=== PATIENT | female | born 1970 | race Caucasian/White ===

== ENCOUNTER 2016-08-17 09:13 | Emergency (ER) | payer MEDICARE, MEDICAID ==
[~2016-08-17 09:13] MED LIST: /LABE20TA OR; ACET50TA PO; ACET65TA OR; AMLODIPINE OR; BENAZ OR; DULCOLAX PO; DULO30CA PO; ENOX40SY SC; FERR325T OR; FOLI1TAB OR; IBUP200T2 PO; IBUP600T OR; KEFL250C OR; LEFL1TAB4 PO; LISI-538 PO; LOPE2CA PO; MOTR200T44 PO; PERC5TAB8 OR; PLAQ200T PO; PRED10TA2 OR; PRED5TA PO; PRED5TAB OR; PRENTAB8 PO; Vicodin PO; ZOFR8TAB PO; [UNRECOGNIZED DRUG - CODE] OR; [UNRECOGNIZED DRUG - CODE] OR; blood pressure pill PO
[2016-08-17] MEDS ORDERED: GASTROGRAFIN SOLUTION 30ML (Q9963) As Ordered ONE (10:10)
[2016-08-17] MEDS ORDERED: ONDANSETRON 4MG/2ML VIAL (J2405) As Ordered ONE (10:22)
[2016-08-17 10:30] LABS: BASO % 0.3 % (0.0-1.0); EOS % 0.4 % (0.0-3.0); LARGE UNSTAINED CELL # 0.1 K/mm3 (0.0-0.4); LARGE UNSTAINED CELL % 1.9 % (0.0-4.0); LYMPH # 0.4 K/mm3 (1.5-4.5); LYMPH % 12.3 % (24.0-44.0); MEAN CORPUSCULAR HEMOGLOBIN 27.6 pg (27.0-33.0); MEAN CORPUSCULAR HGB CONC 32.4 g/dl (32.0-36.5); MEAN CORPUSCULAR VOLUME 85.1 fl (80.0-96.0); MONO # 0.2 K/mm3 (0.0-0.8); MONO % 4.1 % (0.0-5.0); NEUTROPHILS # 2.9 K/mm3 (1.8-7.7); NEUTROPHILS % 81.1 % (36.0-66.0); PLATELET COUNT, AUTOMATED 133 k/mm3 (150-450); RED CELL DISTRIBUTION WIDTH 14.5 % (11.5-14.5); WHITE BLOOD COUNT 3.6 K/mm3 (4.0-10.0)
[2016-08-17 10:58] LABS: ALBUMIN 3.4 GM/DL (3.2-5.2); ALBUMIN/GLOBULIN RATIO 0.92 (1.00-1.93); ALKALINE PHOSPHATASE 80 U/L (45-117); ALT/SGPT 14 U/L (12-78); AMYLASE 28 U/L (25-115); ANION GAP 8 MEQ/L (8-16); AST/SGOT 18 U/L (15-37); BILIRUBIN,DIRECT 0.1 MG/DL (0.0-0.2); BILIRUBIN,TOTAL 0.5 MG/DL (0.2-1.0); BLOOD UREA NITROGEN 16 MG/DL (7-18); CALCIUM LEVEL 7.9 MG/DL (8.5-10.1); CARBON DIOXIDE LEVEL 23 MEQ/L (21-32); CHLORIDE LEVEL 108 MEQ/L (98-107); CREATININE FOR GFR 0.53 MG/DL (0.55-1.02); GLOMERULAR FILTRATION RATE > 60.0 (>58); GLUCOSE, FASTING 73 MG/DL (70-105); POTASSIUM SERUM 3.6 MEQ/L (3.5-5.1); SODIUM LEVEL 139 MEQ/L (136-145); TOTAL PROTEIN 7.1 GM/DL (6.4-8.2)
[2016-08-17] MEDS ORDERED: ISOVUE-370 76% 100ML VIAL (Q9967) As Ordered ONE (11:47)
--- NOTE | 2016-08-17 12:33 | REP ---
CT abdomen and pelvis with IV and oral contrast: History: Left lateral abdominal pain, nausea, vomiting and diarrhea. Comparison CT study September 02, 2015. CT contrast dose: 100 ml of Isovue [address] findings: Preliminary photo graphics librarian radiograph demonstrates that the patient is status post lumbar spine fusion with transpedicular screws and dorsal interconnecting rods across the L3-4 disc level. There is a L3-4 disc spacer ventrally as well. Bowel gas pattern is unremarkable. The lung bases are clear. There is a small low density area in the anterior segment right lobe of the liver 1.1 cm in greatest diameter. This is unchanged from the September 02, [address] study. The October 2012 prior exam shows a larger hypervascular lesion which has apparently regressed in the interval since 2012. No other focal liver lesion is seen. Spleen is normal in size, homogeneous in texture. No adrenal lesion is seen. The pancreas is unremarkable. There is some spray artifact from the lumbar spine hardware. There are scattered normal-sized mesenteric and left periaortic lymph nodes which are unchanged from August 2015 and October 2012 prior studies. Small and large intestinal bowel loops are intact. Urinary bladder is unremarkable. The patient is status post hysterectomy and by history, appendectomy. No abdominal wall defect is seen. No bony lesion is observed. The kidneys enhance symmetrically and are morphologically intact. There is an intrarenal calculus in the upper pole of the right kidney, 3 mm in diameter. No intrarenal calculi are seen on the left. No ureteral or bladder calculus is seen. No significant hydronephrosis. Impression: No acute intra-abdominal abnormality. Intrarenal calculus upper pole right kidney without hydronephrosis or hydroureter. Stable small low-density lesion in the liver. Uterus and appendix surgically absent. Signed by Gray Espana MD 08/17/2016 03:05 P
--- NOTE | 2016-08-17 12:49 | EDDOCDS ---
Physician Documentation [facility] Name: Elmira Harris Age: 45 yrs Sex: Female : 1970 Arrival Date: 08/17/2016 Time: 09:13 Bed I2 / M2 Private MD: Kings Song P. Disposition: 08/17/16 12:36 Discharged to Home/Self Care. Impression: Other abdominal pain - left lateral, Nausea with vomiting, unspecified, Diarrhea, unspecified. - Condition is Stable. - Discharge Instructions: Diarrhea, Nausea and Vomiting. - Prescriptions for ZOFRAN ODT 4 mg Oral - dissolve 1 tablet by ORAL route 3-4 times daily As needed do not chew, do not swallow whole; 20 tablet. - Medication Reconciliation, Local Pharmacy Hours form. - Follow up: Emergency Department; When: As needed; Reason: Worsening of conditions. Follow up: Private Physician; When: 2 - 3 days; Reason: Wound/Symptom Recheck, Recheck today's complaints, Continuance of care. - Problem is new. - Symptoms have improved. Historical: - Allergies: Compazine; Ciprofloxacin; Macrobid; - Home Meds: 1. Plaquenil Unknown Oral once daily 2. Arava oral Unknown oral once daily 3. Amlodipine Unknown Oral once daily 4. Lisinopril Oral Unknown once daily 5. prednisone 5 mg Oral tab once daily 6. tramadol 50 mg Oral tab 1 tab every 6 hours - PMHx: Lupus; Hypertension; - PSHx: Appendectomy; Oophorectomy, right; Salpingectomy, Right; x 2; double urter implant; Hysterectomy; - Social history: Smoking status: Patient states was never smoker of tobacco. No barriers to communication noted, The patient speaks fluent Setswana, Speaks appropriately for age. - Family history: Not pertinent. - : The pt / caregiver states he / she is not on anticoagulants. Home medication list is obtained from the patient. - Exposure Risk Screening:: None identified. 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 4 in. (162.56 cm) (R); Pain 6/10; 12:46 BP 115 / 67; Pulse 85; Resp 20; Temp 97.1(O); Pulse Ox 99% on R/A; Pain 0/10; jc4 09:15 Body Mass Index 20.25 (53.52 kg, 162.56 cm) binh MDM: 09:47 Financial registration complete. lg 09:55 NS 0.9% 1000 ml IV at bolus once ordered. dt4 09:55 Ondansetron 4 mg IVP once ordered. dt4 09:55 IV Saline Lock ordered. dt4 09:55 Undress patient appropriately for examination ordered. dt4 09:56 Amylase Ordered. EDMS 09:56 Basic Metabolic Profile Ordered. EDMS 09:56 CBC with Diff Ordered. EDMS 09:56 Lipase Ordered. EDMS 09:56 Liver Profile Ordered. EDMS 09:56 Urinalysis Ordered. EDMS 09:56 Urine Culture Ordered. EDMS 09:56 CT ABD & PELVIS: IV and Oral Contrast Ordered. EDMS 09:56 NOTHING BY MOUTH+DIET ordered. EDMS 10:08 Diatrizoate Meglumine & Sodium Liquid 10 ml PO once; mix in 290cc of water, administer jc4 dose at 1015 ordered. 10:08 Diatrizoate Meglumine & Sodium Liquid 10 ml PO once; mix in 290cc of water, administer jc4 dose at 1045 ordered. 10:20 C REACTIVE PROTEIN QUANTITATIV Ordered. EDMS 11:18 [facility] Payment Agreement was scanned into [employer] and attached to record. lg Administered Medications: 10:15 Drug: Diatrizoate Meglumine & Sodium 10 ml [diatrizoate meglumine and diat.sodium 66 jc4 %-10 % oral solution (10 mL)] Route: PO; 10:27 Drug: NS 0.9% 1000 ml [sodium chloride 0.9 % injection solution] Route: IV; Rate: dsf bolus; Site: left antecubital; 12:49 Follow up: IV Status: Completed infusion; IV Intake: 1000ml jc4 10:28 Drug: Ondansetron 4 mg [ondansetron HCl 2 mg/mL intravenous solution (2 mL)] Route: dsf IVP; Site: left antecubital; 10:54 Drug: Diatrizoate Meglumine & Sodium 10 ml [diatrizoate meglumine and diat.sodium 66 ja5 %-10 % oral solution (10 mL)] Route: PO; Signatures: Dispatcher [employer] EDTom Muniz, Pilo Moulton lg RN RN mlb1 Elsa Sy RN RN jc4 Teodora Potter PA-C PAChucho [email or web address] Kristan Gao RN, Jessica RN ja5 The chart was reviewed and I authenticate all verbal orders and agree with the evaluation and treatment provided.Corrections: (The following items were deleted from the chart) 10:20 09:57 C REACTIVE PROTEIN QUANTITATIV+LAB ordered. EDMS EDMS Attachments: 11:18 [facility] [place] [facility] Payment Agreement lg MTDD
--- NOTE | 2016-08-17 12:49 | EDDOCDS ---
Nurse's Notes [facility] Name: Elmira Harris Age: 45 yrs Sex: Female : 1970 Arrival Date: 08/17/2016 Time: 09:13 Bed I2 / M2 Private MD: Kings Song P. Diagnosis: Other abdominal pain-left lateral;Nausea with vomiting, unspecified;Diarrhea, unspecified Presentation: 08/17 09:17 Presenting complaint: Patient states: Abdominal pain N/V/D since Monday. Adult Sepsis mlb1 Screening: The patient does not have new or worsening altered mentation. Patient's respiratory rate is less than 22. Systolic blood pressure is greater than 100. Patient has a qSOFA score of 0- Negative Sepsis Screen. Suicide/Homicide risk assessment- the patient denies having any suicidal and/or homicidal ideations and does not present with any other emotional, behavioral or mental health complaints. Status: Patient is not a online services manager or dependent. Transition of care: patient was not received from another setting of care. 09:17 Acuity: BRINA Level 3 mlb1 09:17 Method Of Arrival: Walkin/Carried/Asstd mlb1 Triage Assessment: 09:23 General: Appears in no apparent distress, Behavior is appropriate for age, cooperative. mlb1 Pain: Location: abdomen Pain currently is 5 out of 10 on a pain scale. HIV screening NA for this visit Offered previously. GI: Reports diarrhea, nausea, vomiting. 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 Plaquenil Unknown Oral once daily 2. Arava oral Unknown oral once daily 3. Amlodipine Unknown Oral once daily 4. Lisinopril Oral Unknown once daily 5. prednisone 5 mg Oral tab once daily 6. tramadol 50 mg Oral tab 1 tab every 6 hours - PMHx: Lupus; Hypertension; - PSHx: Appendectomy; Oophorectomy, right; Salpingectomy, Right; x 2; double urter implant; Hysterectomy; - Social history: Smoking status: Patient states was never smoker of tobacco. No barriers to communication noted, The patient speaks fluent Greek, Speaks appropriately for age. - Family history: Not pertinent. - : The pt / caregiver states he / she is not on anticoagulants. Home medication list is obtained from the patient. - Exposure Risk Screening:: None identified. Screenin:35 Screening information is obtained from the patient. Fall risk: No risks identified. ja5 Assistance ADL's: requires no assistance with activities of daily living. Abuse/DV Screen: The patient / caregiver reports he/she is: not in a situation that causes fear, pain or injury. Nutritional screening: On no prescribed diet. Advance Directives: Currently, there is no health care proxy. There is no active DNR order. There is no living will. There is no Power of Production Packager. home support is adequate. Assessment: 10:33 General: Appears ill, Behavior is appropriate for age, cooperative. Pain: Location: ja5 right lower quadrant and left lower quadrant Aggravated by palpating. Neurological: Level of Consciousness is awake, alert, Oriented to person, place, time. Cardiovascular: Heart tones S1 S2 present. Respiratory: Airway is patent Respiratory effort is even, unlabored, Respiratory pattern is regular, symmetrical, Breath sounds are clear bilaterally. GI: Abdomen is flat, Bowel sounds present X 4 quads. Abd is tender to palpation in right lower quadrant and left lower quadrant. Derm: Skin is intact, Skin is pale. 11:46 Adult Sepsis Screening: The patient does not have new or worsening altered mentation. dsf Patient's respiratory rate is less than 22. Systolic blood pressure is greater than 100. Patient has a qSOFA score of 0- Negative Sepsis Screen. General: Appears in no apparent distress, Behavior is appropriate for age, cooperative. Neurological: Level of Consciousness is awake, alert. Cardiovascular: No deficits noted. Respiratory: No deficits noted. GI: Denies nausea. Derm: Skin is intact, Skin is pale. 12:46 General: Appears in no apparent distress, Behavior is cooperative. Pain: Denies pain. jc4 Neurological: Level of Consciousness is awake, alert, Oriented to person, place, time. Respiratory: Airway is patent Respiratory effort is even, unlabored, Respiratory pattern is regular, symmetrical. Derm: Skin is pink, warm & dry. Vital Signs: 09:15 BP 116 / 83; Pulse 95; Resp 18; Temp 97.7(O); Pulse Ox 100% ; Weight 53.52 kg (R); jrd Height 5 ft. 4 in. (162.56 cm) (R); Pain 6/10; 12:46 BP 115 / 67; Pulse 85; Resp 20; Temp 97.1(O); Pulse Ox 99% on R/A; Pain 0/10; jc4 09:15 Body Mass Index 20.25 (53.52 kg, 162.56 cm) [facility] Vitals: 09:15 Log In Time: August 17, 2016 at 09:10. d ED Course: 09:15 Patient visited by Itz Del Castillo PCA. jrd 09:15 Kings Song is Private Physician. jrd 09:15 Patient moved to Waiting jrd 09:16 Patient visited by Itz Del Castillo PCA. jrd 09:16 Patient moved to Pre RCE jrd 09:18 Triage Initiated mlb1 09:23 Patient visited by Pilo Barnett RN. mlb1 09:24 Patient moved to Triage 3 ct3 09:40 Teodora Potter PA-C is PHCP. dt4 09:40 Gorge Mike MD is Attending Physician. dt4 09:40 Patient visited by Teodora Potter PA-C. dt4 10:00 Elsa Sy RN is Primary Nurse. ct3 10:00 Cecily Bhatt,KALEN is Primary Nurse. ct3 10:00 Patient moved to I2 / M2 ct3 10:00 The patient / caregiver is instructed regarding the plan of care and ED course. jc4 10:04 Urinalysis Sent. ct3 10:04 Urine Culture Sent. ct3 10:28 Patient visited by Cecily Bhatt RN. ja5 10:28 Inserted saline lock: 20 gauge in left antecubital area. ja5 11:18 [facility] Payment Agreement was scanned into [email or web address] and attached to record. lg 11:47 Patient visited by Kristan Gao RN. dsf 12:47 Discontinued lock intact, bleeding controlled, pressure dressing applied, No jc4 redness/swelling at site. No procedures done that require assistance. Administered Medications: 10:15 Drug: Diatrizoate Meglumine & Sodium 10 ml [diatrizoate meglumine and diat.sodium 66 jc4 %-10 % oral solution (10 mL)] Route: PO; 10:27 Drug: NS 0.9% 1000 ml [sodium chloride 0.9 % injection solution] Route: IV; Rate: dsf bolus; Site: left antecubital; 12:49 Follow up: IV Status: Completed infusion; IV Intake: 1000ml jc4 10:28 Drug: Ondansetron 4 mg [ondansetron HCl 2 mg/mL intravenous solution (2 mL)] Route: dsf IVP; Site: left antecubital; 10:54 Drug: Diatrizoate Meglumine & Sodium 10 ml [diatrizoate meglumine and diat.sodium 66 ja5 %-10 % oral solution (10 mL)] Route: PO; Intake: 12:49 IV: 1000.00ml; Total: 1000.00ml. jc4 Order Results: Lab Order: Amylase; SPEC'M 08/17/16 10:00 Test: AMYLASE; Value: 28; Range: 25-115; Units: U/L; Status: F Lab Order: Basic Metabolic Profile; SPEC'M 08/17/16 10:00 Test: GLUCOSE, FASTING; Value: 73; Range: 70-105; Units: MG/DL; Status: F Test: BLOOD UREA NITROGEN; Value: 16; Range: 7-18; Units: MG/DL; Status: F Test: CREATININE FOR GFR; Value: 0.53; Range: 0.55-1.02; Abnormal: Below low normal; Units: MG/DL; Status: F Test: GLOMERULAR FILTRATION RATE; Value: > 60.0; Range: >58; Status: F Test: SODIUM LEVEL; Value: 139; Range: 136-145; Units: MEQ/L; Status: F Test: POTASSIUM SERUM; Value: 3.6; Range: 3.5-5.1; Units: MEQ/L; Status: F Test: CHLORIDE LEVEL; Value: 108; Range: 98-107; Abnormal: Above high normal; Units: MEQ/L; Status: F Test: CARBON DIOXIDE LEVEL; Value: 23; Range: 21-32; Units: MEQ/L; Status: F Test: ANION GAP; Value: 8; Range: 8-16; Units: MEQ/L; Status: F Test: CALCIUM LEVEL; Value: 7.9; Range: 8.5-10.1; Abnormal: Below low normal; Units: MG/DL; Status: F Test Note: ; Units are mL/min/1.73 m2 Chronic Kidney Disease Staging per NKF: Stage I & II GFR >=60 Normal to Mildly Decreased Stage III GFR 30-59 Moderately Decreased Stage IV GFR 15-29 Severely Decreased Stage V GFR <15 Very Little GFR Left ESRD GFR <15 on WAREHOUSE TECHNICIAN Lab Order: CBC with Diff; SPEC'M 08/17/16 10:00 Test: WHITE BLOOD COUNT; Value: 3.6; Range: 4.0-10.0; Abnormal: Below low normal; Units: K/mm3; Status: F Test: RED BLOOD COUNT; Value: 4.68; Range: 4.00-5.40; Units: M/mm3; Status: F Test: HEMOGLOBIN; Value: 12.9; Range: 12.0-16.0; Units: g/dl; Status: F Test: HEMATOCRIT; Value: 39.8; Range: 36.0-47.0; Units: %; Status: F Test: MEAN CORPUSCULAR VOLUME; Value: 85.1; Range: 80.0-96.0; Units: fl; Status: F Test: MEAN CORPUSCULAR HEMOGLOBIN; Value: 27.6; Range: 27.0-33.0; Units: pg; Status: F Test: MEAN CORPUSCULAR HGB CONC; Value: 32.4; Range: 32.0-36.5; Units: g/dl; Status: F Test: RED CELL DISTRIBUTION WIDTH; Value: 14.5; Range: 11.5-14.5; Units: %; Status: F Test: PLATELET COUNT, AUTOMATED; Value: 133; Range: 150-450; Abnormal: Below low normal; Units: k/mm3; Status: F Test: NEUTROPHILS %; Value: 81.1; Range: 36.0-66.0; Abnormal: Above high normal; Units: %; Status: F Test: LYMPH %; Value: 12.3; Range: 24.0-44.0; Abnormal: Below low normal; Units: %; Status: F Test: MONO %; Value: 4.1; Range: 0.0-5.0; Units: %; Status: F Test: EOS %; Value: 0.4; Range: 0.0-3.0; Units: %; Status: F Test: BASO %; Value: 0.3; Range: 0.0-1.0; Units: %; Status: F Test: LARGE UNSTAINED CELL %; Value: 1.9; Range: 0.0-4.0; Units: %; Status: F Test: NEUTROPHILS #; Value: 2.9; Range: 1.8-7.7; Units: K/mm3; Status: F Test: LYMPH #; Value: 0.4; Range: 1.5-4.5; Abnormal: Below low normal; Units: K/mm3; Status: F Test: MONO #; Value: 0.2; Range: 0.0-0.8; Units: K/mm3; Status: F Test: EOS #; Value: 0.0; Range: 0.0-0.50; Units: K/mm3; Status: F Test: BASO #; Value: 0.0; Range: 0.0-0.2; Units: K/mm3; Status: F Test: LARGE UNSTAINED CELL #; Value: 0.1; Range: 0.0-0.4; Units: K/mm3; Status: F Lab Order: Lipase; [facility]' 08/17/16 10:00 Test: LIPASE; Value: 127; Range: 73-393; Units: U/L; Status: F Lab Order: Liver Profile; [facility] 08/17/16 10:00 Test: AST/SGOT; Value: 18; Range: 15-37; Units: U/L; Status: F Test: ALT/SGPT; Value: 14; Range: 12-78; Units: U/L; Status: F Test: ALKALINE PHOSPHATASE; Value: 80; Range: 45-117; Units: U/L; Status: F Test: BILIRUBIN,TOTAL; Value: 0.5; Range: 0.2-1.0; Units: MG/DL; Status: F Test: BILIRUBIN,DIRECT; Value: 0.1; Range: 0.0-0.2; Units: MG/DL; Status: F Test: TOTAL PROTEIN; Value: 7.1; Range: 6.4-8.2; Units: GM/DL; Status: F Test: ALBUMIN; Value: 3.4; Range: 3.2-5.2; Units: GM/DL; Status: F Test: ALBUMIN/GLOBULIN RATIO; Value: 0.92; Range: 1.00-1.93; Abnormal: Below low normal; Status: F Lab Order: Urinalysis; SPEC'M 08/17/16 10:00 Test: APPEARANCE, URINE; Value: HAZY; Range: CLEAR; Status: F Test: COLOR, URINE; Value: YELLOW; Range: YELLOW; Status: F Test: PH,URINE; Value: 5.0; Range: 5.0-9.0; Units: UNITS; Status: F Test: SPECIFIC GRAVITY URINE AUTO; Value: 1.026; Range: 1.002-1.035; Status: F Test: PROTEIN, URINE AUTO; Value: 1+; Range: NEGATIVE; Abnormal: Above high normal; Units: mg/dL; Status: F Test: GLUCOSE, URINE (UA) AUTO; Value: NEGATIVE; Range: NEGATIVE; Units: mg/dL; Status: F Test: KETONE, URINE AUTO; Value: 2+; Range: NEGATIVE; Abnormal: Above high normal; Units: mg/dL; Status: F Test: UROBILINOGEN, URINE AUTO; Value: 0.2; Range: 0.0-2.0; Units: mg/dL; Status: F Test: BILIRUBIN, URINE AUTO; Value: NEGATIVE; Range: NEGATIVE; Status: F Test: NITRITE, URINE AUTO; Value: NEGATIVE; Range: NEGATIVE; Status: F Test: LEUKOCYTE ESTERASE, URINE AUTO; Value: NEGATIVE; Range: NEGATIVE; Status: F Test: BLOOD, URINE BLOOD; Value: NEGATIVE; Range: NEGATIVE; Status: F Test: WBC, URINE AUTO; Value: 2; Range: 0-3; Units: /HPF; Status: F Test: RBC, URINE AUTO; Value: 1; Range: 0-3; Units: /HPF; Status: F Test: BACTERIA, URINE AUTO; Value: NEGATIVE; Range: NEGATIVE; Status: F Test: SQUAMOUS EPITHELIAL CELL UR AU; Value: 2; Range: 0-6; Units: /HPF; Status: F Test: MUCUS, URINE; Value: SMALL; Range: NEGATIVE; Status: F Test: HYALINE CAST, URINE AUTO; Value: 1; Range: 0-1; Units: /LPF; Status: F Lab Order: C REACTIVE PROTEIN QUANTITATIV; SPEC'M 08/17/16 10:00 Test: C REACTIVE PROTEIN QUANTITATIV; Value: 1.19; Range: 0.00-0.30; Abnormal: Above high normal; Units: MG/DL; Status: F Outcome: 12:36 Discharge ordered by Provider. dt4 12:47 Discharge Assessment: Patient awake, alert and oriented x 3. No cognitive and/or jc4 functional deficits noted. Patient verbalized understanding of disposition instructions. patient administered narcotics - no. The following High Risk Discharge criteria are identified: None. Discharged to home ambulatory, with significant other. Condition: stable. Discharge instructions given to patient, Instructed on discharge instructions, follow up and referral plans. medication usage, Demonstrated understanding of instructions, medications, Pt was receptive of discharge instructions/ teaching. CT Study completed. Property :Personal belongings accompany Pt. 12:48 Patient left the ED. jc4 Signatures: Tom Ruiz, Freddy Reg Pilo Andersen RN RN mlb1 Elsa Sy RN RN jc4 Dayana Israel, ASSISTANT FRONT OFFICE MANAGER ASSISTANT FRONT OFFICE MANAGER ct3 Kristan Gao,RN RN dsf Teodora Potter, PA-C PA-C dt4 Itz Del Castillo, ASSISTANT FRONT OFFICE MANAGER ASSISTANT FRONT OFFICE MANAGER d Cecily Bhatt,RN RN ja5 Corrections: (The following items were deleted from the chart) 10:31 10:28 General: samson davies CANDICE
--- NOTE | 2016-08-19 13:49 | EDDOCDS ---
Nurse's Notes [facility] Name: Elmira Harris Age: 45 yrs Sex: Female : 1970 Arrival Date: 08/17/2016 Time: 09:13 Bed I2 / M2 Private MD: Kings Song P. Diagnosis: Other abdominal pain-left lateral;Nausea with vomiting, unspecified;Diarrhea, unspecified Presentation: 08/17 09:17 Presenting complaint: Patient states: Abdominal pain N/V/D since Monday. Adult Sepsis mlb1 Screening: The patient does not have new or worsening altered mentation. Patient's respiratory rate is less than 22. Systolic blood pressure is greater than 100. Patient has a qSOFA score of 0- Negative Sepsis Screen. Suicide/Homicide risk assessment- the patient denies having any suicidal and/or homicidal ideations and does not present with any other emotional, behavioral or mental health complaints. 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 Transition of care: patient was not received from another setting of care. 09:17 Acuity: BRINA Level 3 mlb1 09:17 Method Of Arrival: Walkin/Carried/Asstd mlb1 Triage Assessment: 09:23 General: Appears in no apparent distress, Behavior is appropriate for age, cooperative. mlb1 Pain: Location: abdomen Pain currently is 5 out of 10 on a pain scale. HIV screening NA for this visit Offered previously. GI: Reports diarrhea, nausea, vomiting. 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 Plaquenil Unknown Oral once daily 2. Arava oral Unknown oral once daily 3. Amlodipine Unknown Oral once daily 4. Lisinopril Oral Unknown once daily 5. prednisone 5 mg Oral tab once daily 6. tramadol 50 mg Oral tab 1 tab every 6 hours - PMHx: Lupus; Hypertension; - PSHx: Appendectomy; Oophorectomy, right; Salpingectomy, Right; x 2; double urter implant; Hysterectomy; - Social history: Smoking status: Patient states was never smoker of tobacco. No barriers to communication noted, The patient speaks fluent Maldivian, Speaks appropriately for age. - Family history: Not pertinent. - : The pt / caregiver states he / she is not on anticoagulants. Home medication list is obtained from the patient. - Exposure Risk Screening:: None identified. Screenin:35 Screening information is obtained from the patient. Fall risk: No risks identified. ja5 Assistance ADL's: requires no assistance with activities of daily living. Abuse/DV Screen: The patient / caregiver reports he/she is: not in a situation that causes fear, pain or injury. Nutritional screening: On no prescribed diet. Advance Directives: Currently, there is no health care proxy. There is no active DNR order. There is no living will. There is no Power of Certified [place] Administrator. home support is adequate. Assessment: 10:33 General: Appears ill, Behavior is appropriate for age, cooperative. Pain: Location: ja5 right lower quadrant and left lower quadrant Aggravated by palpating. Neurological: Level of Consciousness is awake, alert, Oriented to person, place, time. Cardiovascular: Heart tones S1 S2 present. Respiratory: Airway is patent Respiratory effort is even, unlabored, Respiratory pattern is regular, symmetrical, Breath sounds are clear bilaterally. GI: Abdomen is flat, Bowel sounds present X 4 quads. Abd is tender to palpation in right lower quadrant and left lower quadrant. Derm: Skin is intact, Skin is pale. 11:46 Adult Sepsis Screening: The patient does not have new or worsening altered mentation. dsf Patient's respiratory rate is less than 22. Systolic blood pressure is greater than 100. Patient has a qSOFA score of 0- Negative Sepsis Screen. General: Appears in no apparent distress, Behavior is appropriate for age, cooperative. Neurological: Level of Consciousness is awake, alert. Cardiovascular: No deficits noted. Respiratory: No deficits noted. GI: Denies nausea. Derm: Skin is intact, Skin is pale. 12:46 General: Appears in no apparent distress, Behavior is cooperative. Pain: Denies pain. jc4 Neurological: Level of Consciousness is awake, alert, Oriented to person, place, time. Respiratory: Airway is patent Respiratory effort is even, unlabored, Respiratory pattern is regular, symmetrical. Derm: Skin is pink, warm & dry. Vital Signs: 09:15 BP 116 / 83; Pulse 95; Resp 18; Temp 97.7(O); Pulse Ox 100% ; Weight 53.52 kg (R); jrd Height 5 ft. 4 in. (162.56 cm) (R); Pain 6/10; 12:46 BP 115 / 67; Pulse 85; Resp 20; Temp 97.1(O); Pulse Ox 99% on R/A; Pain 0/10; jc4 09:15 Body Mass Index 20.25 (53.52 kg, 162.56 cm) [facility] Vitals: 09:15 Log In Time: August 17, 2016 at 09:10. jrd ED Course: 09:15 Patient visited by Itz Del Castillo PCA. jrd 09:15 Kings Song is Private Physician. jrd 09:15 Patient moved to Waiting jrd 09:16 Patient visited by Itz Del Castillo PCA. jrd 09:16 Patient moved to Pre RCE jrd 09:18 Triage Initiated mlb1 09:23 Patient visited by Pilo Barnett RN. mlb1 09:24 Patient moved to Triage 3 ct3 09:40 Teodora Potter PA-C is PHCP. dt4 09:40 Gorge Mike MD is Attending Physician. dt4 09:40 Patient visited by Teodora Potter PA-C. dt4 10:00 Elsa Sy RN is Primary Nurse. ct3 10:00 Cecily Bhatt,KALEN is Primary Nurse. ct3 10:00 Patient moved to I2 / M2 ct3 10:00 The patient / caregiver is instructed regarding the plan of care and ED course. jc4 10:04 Urinalysis Sent. ct3 10:04 Urine Culture Sent. ct3 10:28 Patient visited by Cecily Bhatt RN. ja5 10:28 Inserted saline lock: 20 gauge in left antecubital area. ja5 11:18 [facility] Payment Agreement was scanned into [employer] and attached to record. lg 11:47 Patient visited by Kristan Gao,KALEN. dsf 12:47 Discontinued lock intact, bleeding controlled, pressure dressing applied, No jc4 redness/swelling at site. No procedures done that require assistance. 12:58 CT ABD & PELVIS: IV and Oral Contrast Returned. EDMS 08/18 11:50 T-Sheet-- Draft Copy was scanned into [employer] and attached to record. gb 11:50 Radiology Report was scanned into [employer] and attached to record. gb Administered Medications: 08/17 10:15 Drug: Diatrizoate Meglumine & Sodium 10 ml [diatrizoate meglumine and diat.sodium 66 jc4 %-10 % oral solution (10 mL)] Route: PO; 10:27 Drug: NS 0.9% 1000 ml [sodium chloride 0.9 % injection solution] Route: IV; Rate: dsf bolus; Site: left antecubital; 12:49 Follow up: IV Status: Completed infusion; IV Intake: 1000ml jc4 10:28 Drug: Ondansetron 4 mg [ondansetron HCl 2 mg/mL intravenous solution (2 mL)] Route: dsf IVP; Site: left antecubital; 10:54 Drug: Diatrizoate Meglumine & Sodium 10 ml [diatrizoate meglumine and diat.sodium 66 ja5 %-10 % oral solution (10 mL)] Route: PO; Intake: 12:49 IV: 1000.00ml; Total: 1000.00ml. jc4 Order Results: Lab Order: Amylase; SPEC'M 08/17/16 10:00 Test: AMYLASE; Value: 28; Range: 25-115; Units: U/L; Status: F Lab Order: Basic Metabolic Profile; SPEC'M 08/17/16 10:00 Test: GLUCOSE, FASTING; Value: 73; Range: 70-105; Units: MG/DL; Status: F Test: BLOOD UREA NITROGEN; Value: 16; Range: 7-18; Units: MG/DL; Status: F Test: CREATININE FOR GFR; Value: 0.53; Range: 0.55-1.02; Abnormal: Below low normal; Units: MG/DL; Status: F Test: GLOMERULAR FILTRATION RATE; Value: > 60.0; Range: >58; Status: F Test: SODIUM LEVEL; Value: 139; Range: 136-145; Units: MEQ/L; Status: F Test: POTASSIUM SERUM; Value: 3.6; Range: 3.5-5.1; Units: MEQ/L; Status: F Test: CHLORIDE LEVEL; Value: 108; Range: 98-107; Abnormal: Above high normal; Units: MEQ/L; Status: F Test: CARBON DIOXIDE LEVEL; Value: 23; Range: 21-32; Units: MEQ/L; Status: F Test: ANION GAP; Value: 8; Range: 8-16; Units: MEQ/L; Status: F Test: CALCIUM LEVEL; Value: 7.9; Range: 8.5-10.1; Abnormal: Below low normal; Units: MG/DL; Status: F Test Note: ; Units are mL/min/1.73 m2 Chronic Kidney Disease Staging per NKF: Stage I & II GFR >=60 Normal to Mildly Decreased Stage III GFR 30-59 Moderately Decreased Stage IV GFR 15-29 Severely Decreased Stage V GFR <15 Very Little GFR Left ESRD GFR <15 on STOCK PATCHER Lab Order: CBC with Diff; SPEC'M 08/17/16 10:00 Test: WHITE BLOOD COUNT; Value: 3.6; Range: 4.0-10.0; Abnormal: Below low normal; Units: K/mm3; Status: F Test: RED BLOOD COUNT; Value: 4.68; Range: 4.00-5.40; Units: M/mm3; Status: F Test: HEMOGLOBIN; Value: 12.9; Range: 12.0-16.0; Units: g/dl; Status: F Test: HEMATOCRIT; Value: 39.8; Range: 36.0-47.0; Units: %; Status: F Test: MEAN CORPUSCULAR VOLUME; Value: 85.1; Range: 80.0-96.0; Units: fl; Status: F Test: MEAN CORPUSCULAR HEMOGLOBIN; Value: 27.6; Range: 27.0-33.0; Units: pg; Status: F Test: MEAN CORPUSCULAR HGB CONC; Value: 32.4; Range: 32.0-36.5; Units: g/dl; Status: F Test: RED CELL DISTRIBUTION WIDTH; Value: 14.5; Range: 11.5-14.5; Units: %; Status: F Test: PLATELET COUNT, AUTOMATED; Value: 133; Range: 150-450; Abnormal: Below low normal; Units: k/mm3; Status: F Test: NEUTROPHILS %; Value: 81.1; Range: 36.0-66.0; Abnormal: Above high normal; Units: %; Status: F Test: LYMPH %; Value: 12.3; Range: 24.0-44.0; Abnormal: Below low normal; Units: %; Status: F Test: MONO %; Value: 4.1; Range: 0.0-5.0; Units: %; Status: F Test: EOS %; Value: 0.4; Range: 0.0-3.0; Units: %; Status: F Test: BASO %; Value: 0.3; Range: 0.0-1.0; Units: %; Status: F Test: LARGE UNSTAINED CELL %; Value: 1.9; Range: 0.0-4.0; Units: %; Status: F Test: NEUTROPHILS #; Value: 2.9; Range: 1.8-7.7; Units: K/mm3; Status: F Test: LYMPH #; Value: 0.4; Range: 1.5-4.5; Abnormal: Below low normal; Units: K/mm3; Status: F Test: MONO #; Value: 0.2; Range: 0.0-0.8; Units: K/mm3; Status: F Test: EOS #; Value: 0.0; Range: 0.0-0.50; Units: K/mm3; Status: F Test: BASO #; Value: 0.0; Range: 0.0-0.2; Units: K/mm3; Status: F Test: LARGE UNSTAINED CELL #; Value: 0.1; Range: 0.0-0.4; Units: K/mm3; Status: F Lab Order: Lipase; SPEC'M 08/17/16 10:00 Test: LIPASE; Value: 127; Range: 73-393; Units: U/L; Status: F Lab Order: Liver Profile; SPEC'M 08/17/16 10:00 Test: AST/SGOT; Value: 18; Range: 15-37; Units: U/L; Status: F Test: ALT/SGPT; Value: 14; Range: 12-78; Units: U/L; Status: F Test: ALKALINE PHOSPHATASE; Value: 80; Range: 45-117; Units: U/L; Status: F Test: BILIRUBIN,TOTAL; Value: 0.5; Range: 0.2-1.0; Units: MG/DL; Status: F Test: BILIRUBIN,DIRECT; Value: 0.1; Range: 0.0-0.2; Units: MG/DL; Status: F Test: TOTAL PROTEIN; Value: 7.1; Range: 6.4-8.2; Units: GM/DL; Status: F Test: ALBUMIN; Value: 3.4; Range: 3.2-5.2; Units: GM/DL; Status: F Test: ALBUMIN/GLOBULIN RATIO; Value: 0.92; Range: 1.00-1.93; Abnormal: Below low normal; Status: F Lab Order: Urinalysis; SPEC'M 08/17/16 10:00 Test: APPEARANCE, URINE; Value: HAZY; Range: CLEAR; Status: F Test: COLOR, URINE; Value: YELLOW; Range: YELLOW; Status: F Test: PH,URINE; Value: 5.0; Range: 5.0-9.0; Units: UNITS; Status: F Test: SPECIFIC GRAVITY URINE AUTO; Value: 1.026; Range: 1.002-1.035; Status: F Test: PROTEIN, URINE AUTO; Value: 1+; Range: NEGATIVE; Abnormal: Above high normal; Units: mg/dL; Status: F Test: GLUCOSE, URINE (UA) AUTO; Value: NEGATIVE; Range: NEGATIVE; Units: mg/dL; Status: F Test: KETONE, URINE AUTO; Value: 2+; Range: NEGATIVE; Abnormal: Above high normal; Units: mg/dL; Status: F Test: UROBILINOGEN, URINE AUTO; Value: 0.2; Range: 0.0-2.0; Units: mg/dL; Status: F Test: BILIRUBIN, URINE AUTO; Value: NEGATIVE; Range: NEGATIVE; Status: F Test: NITRITE, URINE AUTO; Value: NEGATIVE; Range: NEGATIVE; Status: F Test: LEUKOCYTE ESTERASE, URINE AUTO; Value: NEGATIVE; Range: NEGATIVE; Status: F Test: BLOOD, URINE BLOOD; Value: NEGATIVE; Range: NEGATIVE; Status: F Test: WBC, URINE AUTO; Value: 2; Range: 0-3; Units: /HPF; Status: F Test: RBC, URINE AUTO; Value: 1; Range: 0-3; Units: /HPF; Status: F Test: BACTERIA, URINE AUTO; Value: NEGATIVE; Range: NEGATIVE; Status: F Test: SQUAMOUS EPITHELIAL CELL UR AU; Value: 2; Range: 0-6; Units: /HPF; Status: F Test: MUCUS, URINE; Value: SMALL; Range: NEGATIVE; Status: F Test: HYALINE CAST, URINE AUTO; Value: 1; Range: 0-1; Units: /LPF; Status: F Lab Order: Urine Culture; SPEC'M 08/17/16 10:00 Test: URINE CULTURE; Value: <EXTERNAL COMMENT eCWMed> FULL REPORT IN LAB NOTES (eCW and Medent).; Status: F Test: URINE CULTURE; Value: URINE CULTURE RESULT; Status: F Test: URINE CULTURE; Value: NO GROWTH CLINICAL SIGNIFICANCE 2 OR MORE ORGANISMS; Status: F Lab Order: C REACTIVE PROTEIN QUANTITATIV; SPEC'M 08/17/16 10:00 Test: C REACTIVE PROTEIN QUANTITATIV; Value: 1.19; Range: 0.00-0.30; Abnormal: Above high normal; Units: MG/DL; Status: F Radiology Order: CT ABD & PELVIS: IV and Oral Contrast Test: CT ABD & PELVIS: IV and Oral Contrast REASON FOR EXAMINATION: left lateral abd pain, n/v/d; CT abdomen and pelvis with IV and oral contrast:; ; History: Left lateral abdominal pain, nausea, vomiting and diarrhea.; ; Comparison CT study September 02, 2015.; ; CT contrast dose: 100 ml of Isovue 370 is administered intravenously.; ; CT findings: Preliminary insole beveler radiograph demonstrates that the patient is; status post lumbar spine fusion with transpedicular screws and dorsal; interconnecting rods across the L3-4 disc level. There is a L3-4 disc spacer; ventrally as well. Bowel gas pattern is unremarkable.; ; The lung bases are clear. There is a small low density area in the anterior; segment right lobe of the liver 1.1 cm in greatest diameter. This is unchanged; from the September 02, [address] study. The October 2012 prior exam shows a; larger hypervascular lesion which has apparently regressed in the interval since2012. No other focal liver lesion is seen. Spleen is normal in size,; homogeneous in texture. No adrenal lesion is seen. The pancreas is; unremarkable. There is some spray artifact from the lumbar spine hardware.; There are scattered normal-sized mesenteric and left periaortic lymph nodes which; are unchanged from August 2015 and October 2012 prior studies. Small and large; intestinal bowel loops are intact. Urinary bladder is unremarkable. The patient; is status post hysterectomy and by history, appendectomy. No abdominal wall; defect is seen. No bony lesion is observed.; ; The kidneys enhance symmetrically and are morphologically intact. There is an; intrarenal calculus in the upper pole of the right kidney, 3 mm in diameter. No; intrarenal calculi are seen on the left. No ureteral or bladder calculus is; seen. No significant hydronephrosis.; ; Impression:; ; No acute intra-abdominal abnormality. Intrarenal calculus upper pole right; kidney without hydronephrosis or hydroureter. Stable small low-density lesion in; the liver. Uterus and appendix surgically absent.; ; ; ; ; Signed by; Gray Espana MD 08/17/2016 03:05 P; Outcome: 12:36 Discharge ordered by Provider. dt4 12:47 Discharge Assessment: Patient awake, alert and oriented x 3. No cognitive and/or jc4 functional deficits noted. Patient verbalized understanding of disposition instructions. patient administered narcotics - no. The following High Risk Discharge criteria are identified: None. Discharged to home ambulatory, with significant other. Condition: stable. Discharge instructions given to patient, Instructed on discharge instructions, follow up and referral plans. medication usage, Demonstrated understanding of instructions, medications, Pt was receptive of discharge instructions/ teaching. CT Study completed. Property :Personal belongings accompany Pt. 12:48 Patient left the ED. jc4 Signatures: Dispatcher [employer] EDMS Tori Rinaldi, Reg Reg gb Tom Ruiz, Reg Reg lg Anibal, Pilo Rodriguez, RN RN mlb1 Elsa Sy RN RN jc4 Dayana Israel, POSTAL SERVICE WINDOW CLERK POSTAL SERVICE WINDOW CLERK ct3 Kristan Gao,RN RN dsf Teodora Potter, PA-C PA-C dt4 Itz Del Castillo, POSTAL SERVICE WINDOW CLERK POSTAL SERVICE WINDOW CLERK jrd Cecily Bhatt,RN RN ja5 Corrections: (The following items were deleted from the chart) 10:31 10:28 General: samson ja5 Chart Complete MTDD
--- NOTE | 2016-08-19 13:49 | EDDOCDS ---
Physician Documentation [facility] Name: Elmira Harris Age: 45 yrs Sex: Female : 1970 Arrival Date: 08/17/2016 Time: 09:13 Bed I2 / M2 Private MD: Kings Song P. Disposition: 08/17/16 12:36 Discharged to Home/Self Care. Impression: Other abdominal pain - left lateral, Nausea with vomiting, unspecified, Diarrhea, unspecified. - Condition is Stable. - Discharge Instructions: Diarrhea, Nausea and Vomiting. - Prescriptions for ZOFRAN ODT 4 mg Oral - dissolve 1 tablet by ORAL route 3-4 times daily As needed do not chew, do not swallow whole; 20 tablet. - Medication Reconciliation, Local Pharmacy Hours form. - Follow up: Emergency Department; When: As needed; Reason: Worsening of conditions. Follow up: Private Physician; When: 2 - 3 days; Reason: Wound/Symptom Recheck, Recheck today's complaints, Continuance of care. - Problem is new. - Symptoms have improved. Historical: - Allergies: Compazine; Ciprofloxacin; Macrobid; - Home Meds: 1. Plaquenil Unknown Oral once daily 2. Arava oral Unknown oral once daily 3. Amlodipine Unknown Oral once daily 4. Lisinopril Oral Unknown once daily 5. prednisone 5 mg Oral tab once daily 6. tramadol 50 mg Oral tab 1 tab every 6 hours - PMHx: Lupus; Hypertension; - PSHx: Appendectomy; Oophorectomy, right; Salpingectomy, Right; x 2; double urter implant; Hysterectomy; - Social history: Smoking status: Patient states was never smoker of tobacco. No barriers to communication noted, The patient speaks fluent Slovak, Speaks appropriately for age. - Family history: Not pertinent. - : The pt / caregiver states he / she is not on anticoagulants. Home medication list is obtained from the patient. - Exposure Risk Screening:: None identified. 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 4 in. (162.56 cm) (R); Pain 6/10; 12:46 BP 115 / 67; Pulse 85; Resp 20; Temp 97.1(O); Pulse Ox 99% on R/A; Pain 0/10; jc4 09:15 Body Mass Index 20.25 (53.52 kg, 162.56 cm) jrsaúl MDM: 09:47 Financial registration complete. lg 09:55 NS 0.9% 1000 ml IV at bolus once ordered. dt4 09:55 Ondansetron 4 mg IVP once ordered. dt4 09:55 IV Saline Lock ordered. dt4 09:55 Undress patient appropriately for examination ordered. dt4 09:56 Amylase Ordered. EDMS 09:56 Basic Metabolic Profile Ordered. EDMS 09:56 CBC with Diff Ordered. EDMS 09:56 Lipase Ordered. EDMS 09:56 Liver Profile Ordered. EDMS 09:56 Urinalysis Ordered. EDMS 09:56 Urine Culture Ordered. EDMS 09:56 CT ABD & PELVIS: IV and Oral Contrast Ordered. EDMS 09:56 NOTHING BY MOUTH+DIET ordered. EDMS 10:08 Diatrizoate Meglumine & Sodium Liquid 10 ml PO once; mix in 290cc of water, administer jc4 dose at 1015 ordered. 10:08 Diatrizoate Meglumine & Sodium Liquid 10 ml PO once; mix in 290cc of water, administer jc4 dose at 1045 ordered. 10:20 C REACTIVE PROTEIN QUANTITATIV Ordered. EDMS 11:18 [facility] Payment Agreement was scanned into [employer] and attached to record. lg 08/18 11:50 T-Sheet-- Draft Copy was scanned into [employer] and attached to record. gb 11:50 Radiology Report was scanned into [employer] and attached to record. gb Administered Medications: 08/17 10:15 Drug: Diatrizoate Meglumine & Sodium 10 ml [diatrizoate meglumine and diat.sodium 66 jc4 %-10 % oral solution (10 mL)] Route: PO; 10:27 Drug: NS 0.9% 1000 ml [sodium chloride 0.9 % injection solution] Route: IV; Rate: dsf bolus; Site: left antecubital; 12:49 Follow up: IV Status: Completed infusion; IV Intake: 1000ml jc4 10:28 Drug: Ondansetron 4 mg [ondansetron HCl 2 mg/mL intravenous solution (2 mL)] Route: dsf IVP; Site: left antecubital; 10:54 Drug: Diatrizoate Meglumine & Sodium 10 ml [diatrizoate meglumine and diat.sodium 66 ja5 %-10 % oral solution (10 mL)] Route: PO; Signatures: Dispatcher [employer] EDMS Tori Rinaldi, Reg Reg gb Tom Ruiz, Reg Reg lg Pilo Barnett RN RN mlb1 Elsa Sy RN RN jc4 Teodora Potter PA-C PA-C dt4 Kristan Gao RN dsf Ceciyl Bhatt RN ja5 The chart was reviewed and I authenticate all verbal orders and agree with the evaluation and treatment provided.Corrections: (The following items were deleted from the chart) 10:20 09:57 C REACTIVE PROTEIN QUANTITATIV+LAB ordered. EDMS EDMS Attachments: 11:18 [facility] Payment Agreement lg 08/18 11:50 T-Sheet-- Draft Copy Chart Complete MTDD
--- NOTE | 2016-08-19 13:49 | EDDOCDS ---
Physician Documentation [facility] Name: Elmira Harris Age: 45 yrs Sex: Female : 1970 Arrival Date: 08/17/2016 Time: 09:13 Bed I2 / M2 Private MD: Kings Song P. Disposition: 08/17/16 12:36 Discharged to Home/Self Care. Impression: Other abdominal pain - left lateral, Nausea with vomiting, unspecified, Diarrhea, unspecified. - Condition is Stable. - Discharge Instructions: Diarrhea, Nausea and Vomiting. - Prescriptions for ZOFRAN ODT 4 mg Oral - dissolve 1 tablet by ORAL route 3-4 times daily As needed do not chew, do not swallow whole; 20 tablet. - Medication Reconciliation, Local Pharmacy Hours form. - Follow up: Emergency Department; When: As needed; Reason: Worsening of conditions. Follow up: Private Physician; When: 2 - 3 days; Reason: Wound/Symptom Recheck, Recheck today's complaints, Continuance of care. - Problem is new. - Symptoms have improved. Historical: - Allergies: Compazine; Ciprofloxacin; Macrobid; - Home Meds: 1. Plaquenil Unknown Oral once daily 2. Arava oral Unknown oral once daily 3. Amlodipine Unknown Oral once daily 4. Lisinopril Oral Unknown once daily 5. prednisone 5 mg Oral tab once daily 6. tramadol 50 mg Oral tab 1 tab every 6 hours - PMHx: Lupus; Hypertension; - PSHx: Appendectomy; Oophorectomy, right; Salpingectomy, Right; x 2; double urter implant; Hysterectomy; - Social history: Smoking status: Patient states was never smoker of tobacco. No barriers to communication noted, The patient speaks fluent Sinhala, Speaks appropriately for age. - Family history: Not pertinent. - : The pt / caregiver states he / she is not on anticoagulants. Home medication list is obtained from the patient. - Exposure Risk Screening:: None identified. 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 4 in. (162.56 cm) (R); Pain 6/10; 12:46 BP 115 / 67; Pulse 85; Resp 20; Temp 97.1(O); Pulse Ox 99% on R/A; Pain 0/10; jc4 09:15 Body Mass Index 20.25 (53.52 kg, 162.56 cm) jrsaúl MDM: 09:47 Financial registration complete. lg 09:55 NS 0.9% 1000 ml IV at bolus once ordered. dt4 09:55 Ondansetron 4 mg IVP once ordered. dt4 09:55 IV Saline Lock ordered. dt4 09:55 Undress patient appropriately for examination ordered. dt4 09:56 Amylase Ordered. EDMS 09:56 Basic Metabolic Profile Ordered. EDMS 09:56 CBC with Diff Ordered. EDMS 09:56 Lipase Ordered. EDMS 09:56 Liver Profile Ordered. EDMS 09:56 Urinalysis Ordered. EDMS 09:56 Urine Culture Ordered. EDMS 09:56 CT ABD & PELVIS: IV and Oral Contrast Ordered. EDMS 09:56 NOTHING BY MOUTH+DIET ordered. EDMS 10:08 Diatrizoate Meglumine & Sodium Liquid 10 ml PO once; mix in 290cc of water, administer jc4 dose at 1015 ordered. 10:08 Diatrizoate Meglumine & Sodium Liquid 10 ml PO once; mix in 290cc of water, administer jc4 dose at 1045 ordered. 10:20 C REACTIVE PROTEIN QUANTITATIV Ordered. EDMS 11:18 [facility] [place] Payment Agreement was scanned into [employer] and attached to record. lg 08/18 11:50 T-Sheet-- Draft Copy was scanned into [employer] and attached to record. gb 11:50 Radiology Report was scanned into [employer] and attached to record. gb Administered Medications: 08/17 10:15 Drug: Diatrizoate Meglumine & Sodium 10 ml [diatrizoate meglumine and diat.sodium 66 jc4 %-10 % oral solution (10 mL)] Route: PO; 10:27 Drug: NS 0.9% 1000 ml [sodium chloride 0.9 % injection solution] Route: IV; Rate: dsf bolus; Site: left antecubital; 12:49 Follow up: IV Status: Completed infusion; IV Intake: 1000ml jc4 10:28 Drug: Ondansetron 4 mg [ondansetron HCl 2 mg/mL intravenous solution (2 mL)] Route: dsf IVP; Site: left antecubital; 10:54 Drug: Diatrizoate Meglumine & Sodium 10 ml [diatrizoate meglumine and diat.sodium 66 ja5 %-10 % oral solution (10 mL)] Route: PO; Signatures: Dispatcher [employer] EDMS Tori Rinaldi, Reg Reg gb Tom Ruiz, Reg Reg lg Pilo Barnett RN RN mlb1 Elsa Sy RN RN jc4 Teodora Potter PA-C PA-C dt4 Kristan Gao RN dsf Cecily Bhatt RN ja5 The chart was reviewed and I authenticate all verbal orders and agree with the evaluation and treatment provided.Corrections: (The following items were deleted from the chart) 10:20 09:57 C REACTIVE PROTEIN QUANTITATIV+LAB ordered. EDMS EDMS Attachments: 11:18 [facility] Payment Agreement lg 08/18 11:50 T-Sheet-- Draft Copy Chart Complete MTDD
== END 2016-08-17 12:48 | disposition home or self-care (01) ==
LOC: M ED 09:13
DX: R10.30 Lower abdominal pain, unspecified (principal); R11.2 Nausea with vomiting, unspecified; R19.7 Diarrhea, unspecified; I10 Essential (primary) hypertension; D68.62 Lupus anticoagulant syndrome; Z79.899 Other long term (current) drug therapy; Z79.2 Long term (current) use of antibiotics; Z88.1 Allergy status to other antibiotic agents; Z88.8 Allergy status to other drugs, medicaments and biological substances
CPT/HCPCS: 74177; 80048; 80076; 81001; 82150; 83690; 85025; 86140; 87086; 96361; 96374; 99284; J2405; Q9963; Q9967

== ENCOUNTER 2016-09-13 06:50 | Emergency (ER) | payer MEDICARE, MEDICAID ==
[~2016-09-13] VITALS: Ht 162.6 cm; Wt 53.5 kg
[2016-09-13] MEDS ORDERED: TRAM50TA2 PO (07:14)
[2016-09-13 09:48] VITALS: BP 108/67
== END 2016-09-13 09:48 | disposition home or self-care (01) ==
LOC: M ED 07:45
DX: H53.8 Other visual disturbances (principal)

== ENCOUNTER 2016-09-20 06:16 | Emergency (ER) | payer MEDICARE, MEDICAID ==
[~2016-09-20] VITALS: Ht 160 cm; Wt 52.6 kg
[~2016-09-20 06:16] MED LIST changes: +TRAM50TA2 PO
[2016-09-20] MEDS ORDERED: DIAZ1CON PO (06:47)
[2016-09-20] MEDS ORDERED: KETOROLAC 30 MG/ML VIAL (J1885) IM ONE (07:15)
--- NOTE | 2016-09-20 08:21 | REP ---
Lumbar spine radiographs: Five views. History: Back pain. Prior back surgery. Comparison study February 28, 2013. Findings: The patient is status post posterior element fusion across the L3-4 intervertebral disc level via transpedicular screws and interconnecting dorsal fusion rods. A ventral fusion intravertebral disc spacer is seen in place as well. There is straightening of the normal lumbar lordosis. This is improved post fusion compared to the 2013 study. There is mild narrowing at the L4-5 disc space. Other disc spaces are maintained. Pedicles and posterior elements are otherwise intact. Sacrum and SI joints are unremarkable. There is a mild dextroconvex curve in the lumbar spine on the frontal view. No bony destructive lesion is seen. Impression: Status post L3-4 fusion. Alignment is improved. No acute bony abnormalities seen. Mild degenerative narrowing at L4-5 is also noted. Signed by Gray Espana MD 09/20/2016 01:07 P
[2016-09-20 08:33] VITALS: BP 89/45
== END 2016-09-20 08:58 | disposition home or self-care (01) ==
LOC: M ED 07:54
DX: G89.29 Other chronic pain (principal); M54.5 Low back pain; G89.18 Other acute postprocedural pain; M43.26 Fusion of spine, lumbar region; M48.06 Spinal stenosis, lumbar region; Z79.899 Other long term (current) drug therapy; Z88.8 Allergy status to other drugs, medicaments and biological substances; Z88.1 Allergy status to other antibiotic agents
CPT/HCPCS: 72110; 96372; 99282; J1885

== ENCOUNTER → 2016-09-22 | Outpatient (REF) | payer MEDICARE, MEDICAID ==
[~2016-09-22] MED LIST changes: +AUGM875T27 PO; +BENT10CA PO; +CYCL5TA PO; +DIAZ1CON PO; +DULO1CAP PO; +IBUP600T26 PO; +MEDR2.5T2 PO; +PREM0.45 PO
== END ==
LOC: M LAB REF 16:54
PROVIDERS: ATTEND Emergency Medicine
DX: T81.4XXA Infection following a procedure, initial encounter (principal)

== ENCOUNTER 2016-09-25 18:21 | Emergency (ER) | payer MEDICARE, MEDICAID ==
[~2016-09-25] VITALS: Ht 162.6 cm; Wt 52.6 kg
[~2016-09-25 18:21] MED LIST changes: -AUGM875T27 PO; -BENT10CA PO; -CYCL5TA PO; -DULO1CAP PO; -IBUP600T26 PO; -MEDR2.5T2 PO; -PREM0.45 PO
[2016-09-25] MEDS ORDERED: BENT10CA PO (18:46)
[2016-09-25] MEDS ORDERED: PREM0.45 PO (18:46)
[2016-09-25] MEDS ORDERED: CYCL5TA PO (18:46)
[2016-09-25] MEDS ORDERED: IBUP600T26 PO (18:46)
[2016-09-25] MEDS ORDERED: AUGM875T27 PO (18:46)
[2016-09-25] MEDS ORDERED: MEDR2.5T2 PO (18:46)
[2016-09-25] MEDS ORDERED: DULO1CAP PO (18:46)
[2016-09-25] MEDS ORDERED: diphenhydrAMINE INJ 50MG/ML VIAL (J1200) IV STA (19:35)
[2016-09-25] MEDS ORDERED: NS 1,000 ML IV ONE (19:45)
[2016-09-25] MEDS ORDERED: METOCLOPRAMIDE INJ 10MG/2ML VIAL (J2765) IV ONE (19:45)
[2016-09-25 20:15] LABS: BASO % 0.1 % (0.0-1.0); EOS % 0.2 % (0.0-3.0); LARGE UNSTAINED CELL # 0.1 K/mm3 (0.0-0.4); LARGE UNSTAINED CELL % 1.5 % (0.0-4.0); MEAN CORPUSCULAR HEMOGLOBIN 27.5 pg (27.0-33.0); MEAN CORPUSCULAR HGB CONC 31.1 g/dl (32.0-36.5); MEAN CORPUSCULAR VOLUME 88.4 fl (80.0-96.0); MONO # 0.5 K/mm3 (0.0-0.8); MONO % 6.6 % (0.0-5.0); NEUTROPHILS % 78.6 % (36.0-66.0); PLATELET COUNT, AUTOMATED 239 k/mm3 (150-450); RED CELL DISTRIBUTION WIDTH 14.1 % (11.5-14.5); WHITE BLOOD COUNT 7.6 K/mm3 (4.0-10.0)
[2016-09-25 20:19] LABS: INR 1.05
[2016-09-25 20:27] LABS: ANION GAP 11 MEQ/L (8-16); BLOOD UREA NITROGEN 22 MG/DL (7-18); CALCIUM LEVEL 8.3 MG/DL (8.5-10.1); CARBON DIOXIDE LEVEL 24 MEQ/L (21-32); CHLORIDE LEVEL 110 MEQ/L (98-107); CREATININE FOR GFR 0.54 MG/DL (0.55-1.02); GLOMERULAR FILTRATION RATE > 60.0 (>58); GLUCOSE, FASTING 121 MG/DL (70-105); POTASSIUM SERUM 3.7 MEQ/L (3.5-5.1); SODIUM LEVEL 145 MEQ/L (136-145)
[2016-09-25] MEDS ORDERED: ISOVUE-370 76% 100ML VIAL (Q9967) As Ordered ONE ×2 (20:39→22:44)
[2016-09-25 20:47] LABS: ERYTHROCYTE SEDIMENTATION RATE 69 mm/hr (0-20)
[2016-09-25] MEDS ORDERED: MAG SULF 1GM/100ML (MAG RUN) 1 GM in APPROPRIATE DILUENT 1 EA IV ONE (21:30)
--- NOTE | 2016-09-25 22:30 | REPUSA ---
CLINICAL HISTORY: Headache. Recent spinal surgery. TECHNIQUE: Head CT without contrast COMPARISON: February 15, 2012. Brain: There is extensive intracranial gas, contained within the extra-axial CSF spaces, predominantl y within the sulci. By report, the patient has had recent spinal surgery approximately 2 weeks previo usly. This suggests surgical introduction of air. However, CSF infection cannot be excluded if the pa tient presents with meningitis symptoms. No intracranial hemorrhage, hydrocephalus, acute parenchymal edema or evident mass. Calvarium: Unremarkable. Sinuses (partially visualized): Clear. IMPRESSION: Extensive intracranial air, apparently caused by recent spinal surgery. Recommend CT eval uation of the surgical level to evaluate for cutaneous fistulas or evidence of infection. Findings were discussed with Manjula Sarabia by phone.
--- NOTE | 2016-09-26 00:40 | REPUSA ---
CLINICAL HISTORY: Back pain. TECHNIQUE: Multiple axial images were obtained through the L1-L2, L2-L3, L3-L4, L4-L5 and L5-S1 inter spaces. Images were also reconstructed in coronal and sagittal planes. COMMENTS: Moderate degenerative dextroscoliosis apex at L3. Changes from prior posterior decompression and fusion at L3-L4 with intervertebral disc fusion. Changes from the prior right laminectomy at L4-L5 with associated soft tissue emphysema. Emphysema is identified in the spine canal extending from L3-L5 levels. There is surrounding subcutaneous fat stranding. There is no fracture visualized. There are no lytic or blastic lesions. Straightening of lumbar lordosis is seen, suggesting muscular spasm. There is evidence of multilevel disk disease, demonstrated by osteophytosis ad endplate sclerosis. There is moderate marked focal narrowing of the spinal canal more prominent at L3-L4 and L4-L5 levels . IMPRESSION: Spondylosis. Multilevel degenerative disc disease. Soft tissue emphysema. Emphysema in the spinal canal. Right laminectomy at L4-L5. Prior posterior decompression and fusion at L3-L4. No fluid collection or drainable abscess formation. Thank you for your kind referral of this patient.
[2016-09-26 02:20] VITALS: BP 138/68
== END 2016-09-26 02:21 | disposition short-term general hospital (02) ==
LOC: EDBD 18:21 → M ED 19:47
DX: J95.812 Postprocedural air leak (principal); R51 Headache; I10 Essential (primary) hypertension; M32.9 Systemic lupus erythematosus, unspecified
CPT/HCPCS: 36415; 70450; 72132; 80048; 85025; 85610; 85652; 85730; 86140; 96361; 96365; 96375; 99284; J1200; J2765; J3475; Q9967

== ENCOUNTER → 2016-10-03 | Outpatient (REF) | payer MEDICARE, MEDICAID ==
[~2016-10-03] MED LIST changes: +AUGM875T27 PO; +BENT10CA PO; +CYCL5TA PO; +DULO1CAP PO; +IBUP600T26 PO; +MEDR2.5T2 PO; +PREM0.45 PO
[2016-10-03 20:22] LABS: BASO % 0.3 % (0.0-1.0); EOS % 1.5 % (0.0-3.0); LARGE UNSTAINED CELL % 1.4 % (0.0-4.0); LYMPH # 0.6 K/mm3 (1.5-4.5); LYMPH % 19.7 % (24.0-44.0); MEAN CORPUSCULAR HEMOGLOBIN 27.9 pg (27.0-33.0); MEAN CORPUSCULAR HGB CONC 31.5 g/dl (32.0-36.5); MEAN CORPUSCULAR VOLUME 88.6 fl (80.0-96.0); MONO # 0.3 K/mm3 (0.0-0.8); MONO % 10.1 % (0.0-5.0); NEUTROPHILS # 1.9 K/mm3 (1.8-7.7); NEUTROPHILS % 67.1 % (36.0-66.0); PLATELET COUNT, AUTOMATED 201 k/mm3 (150-450); RED CELL DISTRIBUTION WIDTH 13.6 % (11.5-14.5); WHITE BLOOD COUNT 2.9 K/mm3 (4.0-10.0)
[2016-10-03 22:00] LABS: ERYTHROCYTE SEDIMENTATION RATE 83 mm/hr (0-20)
[2016-10-03 22:09] LABS: ALBUMIN 2.3 GM/DL (3.2-5.2); ALBUMIN/GLOBULIN RATIO 0.72 (1.00-1.93); ALKALINE PHOSPHATASE 149 U/L (45-117); ALT/SGPT 19 U/L (12-78); ANION GAP 7 MEQ/L (8-16); AST/SGOT 23 U/L (15-37); BILIRUBIN,TOTAL 0.2 MG/DL (0.2-1.0); BLOOD UREA NITROGEN 5 MG/DL (7-18); CALCIUM LEVEL 7.6 MG/DL (8.5-10.1); CARBON DIOXIDE LEVEL 26 MEQ/L (21-32); CHLORIDE LEVEL 106 MEQ/L (98-107); CREATININE FOR GFR 0.35 MG/DL (0.55-1.02); GLOMERULAR FILTRATION RATE > 60.0 (>58); GLUCOSE, FASTING 67 MG/DL (70-105); SODIUM LEVEL 139 MEQ/L (136-145); TOTAL PROTEIN 5.5 GM/DL (6.4-8.2)
== END ==
LOC: M LAB REF 17:10
PROVIDERS: ATTEND Internal Medicine Infectious Disease
DX: T81.4XXD Infection following a procedure, subsequent encounter (principal); M86.9 Osteomyelitis, unspecified; G96.0 Cerebrospinal fluid leak; A49.01 Methicillin susceptible Staphylococcus aureus infection, unspecified site; Z79.2 Long term (current) use of antibiotics

== ENCOUNTER → 2016-10-06 | Outpatient (REF) | payer MEDICARE, MEDICAID ==
[2016-10-06 14:38] LABS: ALBUMIN 2.7 GM/DL (3.2-5.2); ALBUMIN/GLOBULIN RATIO 0.73 (1.00-1.93); ALKALINE PHOSPHATASE 168 U/L (45-117); ALT/SGPT 38 U/L (12-78); ANION GAP 8 MEQ/L (8-16); AST/SGOT 60 U/L (15-37); BILIRUBIN,TOTAL 0.3 MG/DL (0.2-1.0); BLOOD UREA NITROGEN 10 MG/DL (7-18); CALCIUM LEVEL 8.3 MG/DL (8.5-10.1); CARBON DIOXIDE LEVEL 25 MEQ/L (21-32); CHLORIDE LEVEL 110 MEQ/L (98-107); CREATININE FOR GFR 0.38 MG/DL (0.55-1.02); GLOMERULAR FILTRATION RATE > 60.0 (>58); GLUCOSE, FASTING 68 MG/DL (70-105); SODIUM LEVEL 143 MEQ/L (136-145); TOTAL PROTEIN 6.4 GM/DL (6.4-8.2)
[2016-10-06 14:44] LABS: BASO % 0.5 % (0.0-1.0); EOS # 0.1 K/mm3 (0.0-0.50); EOS % 2.1 % (0.0-3.0); LARGE UNSTAINED CELL # 0.1 K/mm3 (0.0-0.4); LARGE UNSTAINED CELL % 2.2 % (0.0-4.0); LYMPH # 0.6 K/mm3 (1.5-4.5); LYMPH % 21.5 % (24.0-44.0); MEAN CORPUSCULAR HEMOGLOBIN 27.3 pg (27.0-33.0); MEAN CORPUSCULAR HGB CONC 30.6 g/dl (32.0-36.5); MEAN CORPUSCULAR VOLUME 89.4 fl (80.0-96.0); MONO # 0.3 K/mm3 (0.0-0.8); MONO % 9.2 % (0.0-5.0); NEUTROPHILS # 1.8 K/mm3 (1.8-7.7); NEUTROPHILS % 64.5 % (36.0-66.0); PLATELET COUNT, AUTOMATED 231 k/mm3 (150-450); RED CELL DISTRIBUTION WIDTH 13.9 % (11.5-14.5); WHITE BLOOD COUNT 2.7 K/mm3 (4.0-10.0)
[2016-10-06 15:14] LABS: ERYTHROCYTE SEDIMENTATION RATE 85 mm/hr (0-20)
== END ==
LOC: M LAB REF 12:45
PROVIDERS: ATTEND Emergency Medicine
DX: T81.4XXD Infection following a procedure, subsequent encounter (principal); M86.9 Osteomyelitis, unspecified; G96.0 Cerebrospinal fluid leak; A49.01 Methicillin susceptible Staphylococcus aureus infection, unspecified site

== ENCOUNTER → 2016-10-10 | Outpatient (REF) | payer MEDICARE, MEDICAID ==
[2016-10-10 15:28] LABS: BASO % 0.5 % (0.0-1.0); EOS % 0.7 % (0.0-3.0); LARGE UNSTAINED CELL # 0.1 K/mm3 (0.0-0.4); LARGE UNSTAINED CELL % 3.2 % (0.0-4.0); LYMPH # 0.6 K/mm3 (1.5-4.5); LYMPH % 24.3 % (24.0-44.0); MEAN CORPUSCULAR HEMOGLOBIN 27.6 pg (27.0-33.0); MEAN CORPUSCULAR HGB CONC 31.4 g/dl (32.0-36.5); MEAN CORPUSCULAR VOLUME 87.9 fl (80.0-96.0); MONO # 0.2 K/mm3 (0.0-0.8); NEUTROPHILS # 1.3 K/mm3 (1.8-7.7); NEUTROPHILS % 62.4 % (36.0-66.0); PLATELET COUNT, AUTOMATED 221 k/mm3 (150-450); RED CELL DISTRIBUTION WIDTH 14.2 % (11.5-14.5); WHITE BLOOD COUNT 2.1 K/mm3 (4.0-10.0)
[2016-10-10 15:33] LABS: ALBUMIN 2.6 GM/DL (3.2-5.2); ALBUMIN/GLOBULIN RATIO 0.74 (1.00-1.93); ALKALINE PHOSPHATASE 132 U/L (45-117); ALT/SGPT 105 U/L (12-78); ANION GAP 6 MEQ/L (8-16); AST/SGOT 140 U/L (15-37); BILIRUBIN,TOTAL 0.2 MG/DL (0.2-1.0); BLOOD UREA NITROGEN 15 MG/DL (7-18); CARBON DIOXIDE LEVEL 25 MEQ/L (21-32); CHLORIDE LEVEL 106 MEQ/L (98-107); CREATININE FOR GFR 0.41 MG/DL (0.55-1.02); GLOMERULAR FILTRATION RATE > 60.0 (>58); GLUCOSE, FASTING 102 MG/DL (70-105); POTASSIUM SERUM 3.7 MEQ/L (3.5-5.1); SODIUM LEVEL 137 MEQ/L (136-145); TOTAL PROTEIN 6.1 GM/DL (6.4-8.2)
[2016-10-10 15:46] LABS: ERYTHROCYTE SEDIMENTATION RATE 89 mm/hr (0-20)
== END ==
LOC: M LAB REF 14:47
PROVIDERS: ATTEND Internal Medicine Infectious Disease
DX: T81.4XXD Infection following a procedure, subsequent encounter (principal); A49.01 Methicillin susceptible Staphylococcus aureus infection, unspecified site; M86.9 Osteomyelitis, unspecified; G96.0 Cerebrospinal fluid leak; Z79.2 Long term (current) use of antibiotics

== ENCOUNTER → 2016-10-17 | Outpatient (REF) | payer MEDICARE, MEDICAID ==
[2016-10-17 18:24] LABS: DIFF SLIDE NUMBER 318; MEAN CORPUSCULAR HEMOGLOBIN 27.2 pg (27.0-33.0); MEAN CORPUSCULAR HGB CONC 30.8 g/dl (32.0-36.5); MEAN CORPUSCULAR VOLUME 88.4 fl (80.0-96.0); PLATELET COUNT, AUTOMATED 215 k/mm3 (150-450); RED CELL DISTRIBUTION WIDTH 14.6 % (11.5-14.5); WHITE BLOOD COUNT 2.4 K/mm3 (4.0-10.0)
[2016-10-17 19:08] LABS: ALBUMIN 2.4 GM/DL (3.2-5.2); ALBUMIN/GLOBULIN RATIO 0.73 (1.00-1.93); ALKALINE PHOSPHATASE 112 U/L (45-117); ALT/SGPT 18 U/L (12-78); ANION GAP 6 MEQ/L (8-16); AST/SGOT 19 U/L (15-37); BILIRUBIN,TOTAL 0.2 MG/DL (0.2-1.0); BLOOD UREA NITROGEN 8 MG/DL (7-18); CARBON DIOXIDE LEVEL 27 MEQ/L (21-32); CHLORIDE LEVEL 109 MEQ/L (98-107); CREATININE FOR GFR 0.37 MG/DL (0.55-1.02); GLOMERULAR FILTRATION RATE > 60.0 (>58); GLUCOSE, FASTING 75 MG/DL (70-105); POTASSIUM SERUM 3.7 MEQ/L (3.5-5.1); SODIUM LEVEL 142 MEQ/L (136-145); TOTAL PROTEIN 5.7 GM/DL (6.4-8.2)
[2016-10-17 20:18] LABS: BANDS 6 % (< 11); BASOPHILS 1 % (0-4); EOSINOPHILS 1 % (0-5); HYPOCHROMASIA 1+; POIKILOCYTOSIS 2+; SCHISTOCYTES 1+
[2016-10-17 20:19] LABS: BURR CELLS 1+; OVALOCYTES 2+; TEAR DROP CELLS 1+
[2016-10-17 20:20] LABS: ACANTHOCYTES 1+
[2016-10-17 21:22] LABS: ERYTHROCYTE SEDIMENTATION RATE 63 mm/hr (0-20)
== END ==
LOC: M LAB REF 16:03
PROVIDERS: ATTEND Internal Medicine Infectious Disease
DX: Z51.81 Encounter for therapeutic drug level monitoring (principal); Z79.2 Long term (current) use of antibiotics; T81.4XXD Infection following a procedure, subsequent encounter; M86.9 Osteomyelitis, unspecified; Y83.9 Surgical procedure, unspecified as the cause of abnormal reaction of the patient, or of later complication, without mention of misadventure at the time of the procedure

== ENCOUNTER → 2016-10-24 | Outpatient (REF) | payer MEDICARE, MEDICAID ==
[2016-10-24 19:51] LABS: BASO % 0.1 % (0.0-1.0); EOS % 0.3 % (0.0-3.0); LARGE UNSTAINED CELL # 0.1 K/mm3 (0.0-0.4); LARGE UNSTAINED CELL % 2.2 % (0.0-4.0); LYMPH # 0.8 K/mm3 (1.5-4.5); MEAN CORPUSCULAR HEMOGLOBIN 27.4 pg (27.0-33.0); MEAN CORPUSCULAR HGB CONC 31.4 g/dl (32.0-36.5); MEAN CORPUSCULAR VOLUME 87.3 fl (80.0-96.0); MONO # 0.3 K/mm3 (0.0-0.8); MONO % 8.6 % (0.0-5.0); NEUTROPHILS # 2.3 K/mm3 (1.8-7.7); NEUTROPHILS % 66.8 % (36.0-66.0); PLATELET COUNT, AUTOMATED 185 k/mm3 (150-450); RED CELL DISTRIBUTION WIDTH 14.9 % (11.5-14.5); WHITE BLOOD COUNT 3.5 K/mm3 (4.0-10.0)
[2016-10-24 20:28] LABS: ALBUMIN 2.7 GM/DL (3.2-5.2); ALBUMIN/GLOBULIN RATIO 0.87 (1.00-1.93); ALKALINE PHOSPHATASE 107 U/L (45-117); ALT/SGPT 13 U/L (12-78); ANION GAP 10 MEQ/L (8-16); AST/SGOT 17 U/L (15-37); BILIRUBIN,TOTAL 0.2 MG/DL (0.2-1.0); BLOOD UREA NITROGEN 10 MG/DL (7-18); CALCIUM LEVEL 7.6 MG/DL (8.5-10.1); CARBON DIOXIDE LEVEL 24 MEQ/L (21-32); CHLORIDE LEVEL 109 MEQ/L (98-107); CREATININE FOR GFR 0.37 MG/DL (0.55-1.02); GLOMERULAR FILTRATION RATE > 60.0 (>58); GLUCOSE, FASTING 69 MG/DL (70-105); POTASSIUM SERUM 3.3 MEQ/L (3.5-5.1); SODIUM LEVEL 143 MEQ/L (136-145); TOTAL PROTEIN 5.8 GM/DL (6.4-8.2)
[2016-10-24 21:08] LABS: ERYTHROCYTE SEDIMENTATION RATE 52 mm/hr (0-20)
== END ==
LOC: M LAB REF 19:10
PROVIDERS: ATTEND Dermatology
DX: M86.9 Osteomyelitis, unspecified (principal); T81.4XXD Infection following a procedure, subsequent encounter; A49.01 Methicillin susceptible Staphylococcus aureus infection, unspecified site; Z79.2 Long term (current) use of antibiotics

== ENCOUNTER → 2016-10-31 | Outpatient (REF) | payer MEDICARE, MEDICAID ==
[2016-10-31 13:55] LABS: BASO % 0.2 % (0.0-1.0); EOS % 1.2 % (0.0-3.0); LARGE UNSTAINED CELL # 0.1 K/mm3 (0.0-0.4); LARGE UNSTAINED CELL % 1.5 % (0.0-4.0); LYMPH # 0.7 K/mm3 (1.5-4.5); MEAN CORPUSCULAR HGB CONC 30.9 g/dl (32.0-36.5); MEAN CORPUSCULAR VOLUME 87.4 fl (80.0-96.0); MONO # 0.3 K/mm3 (0.0-0.8); MONO % 10.4 % (0.0-5.0); NEUTROPHILS % 64.7 % (36.0-66.0); PLATELET COUNT, AUTOMATED 166 k/mm3 (150-450); RED CELL DISTRIBUTION WIDTH 14.6 % (11.5-14.5); WHITE BLOOD COUNT 3.1 K/mm3 (4.0-10.0)
[2016-10-31 14:00] LABS: ALBUMIN 2.9 GM/DL (3.2-5.2); ALBUMIN/GLOBULIN RATIO 0.91 (1.00-1.93); ALKALINE PHOSPHATASE 94 U/L (45-117); ALT/SGPT 8 U/L (12-78); ANION GAP 6 MEQ/L (8-16); AST/SGOT 17 U/L (15-37); BILIRUBIN,TOTAL 0.4 MG/DL (0.2-1.0); BLOOD UREA NITROGEN 7 MG/DL (7-18); CALCIUM LEVEL 8.2 MG/DL (8.5-10.1); CARBON DIOXIDE LEVEL 30 MEQ/L (21-32); CHLORIDE LEVEL 108 MEQ/L (98-107); CREATININE FOR GFR 0.38 MG/DL (0.55-1.02); GLOMERULAR FILTRATION RATE > 60.0 (>58); GLUCOSE, FASTING 67 MG/DL (70-105); POTASSIUM SERUM 3.9 MEQ/L (3.5-5.1); SODIUM LEVEL 144 MEQ/L (136-145); TOTAL PROTEIN 6.1 GM/DL (6.4-8.2)
[2016-10-31 14:44] LABS: ERYTHROCYTE SEDIMENTATION RATE 61 mm/hr (0-20)
== END ==
LOC: M LAB REF 13:15
PROVIDERS: ATTEND Internal Medicine Infectious Disease
DX: T81.4XXD Infection following a procedure, subsequent encounter (principal); M86.9 Osteomyelitis, unspecified; A49.01 Methicillin susceptible Staphylococcus aureus infection, unspecified site; Z79.2 Long term (current) use of antibiotics; G96.0 Cerebrospinal fluid leak

== ENCOUNTER → 2016-11-03 | Outpatient (REF) | payer MEDICARE, MEDICAID ==
[2016-11-03 16:08] LABS: ALBUMIN/GLOBULIN RATIO 0.91 (1.00-1.93); ALKALINE PHOSPHATASE 106 U/L (45-117); ALT/SGPT 7 U/L (12-78); ANION GAP 8 MEQ/L (8-16); AST/SGOT 21 U/L (15-37); BILIRUBIN,TOTAL 0.2 MG/DL (0.2-1.0); BLOOD UREA NITROGEN 10 MG/DL (7-18); CARBON DIOXIDE LEVEL 25 MEQ/L (21-32); CHLORIDE LEVEL 111 MEQ/L (98-107); CREATININE FOR GFR 0.43 MG/DL (0.55-1.02); GLOMERULAR FILTRATION RATE > 60.0 (>58); GLUCOSE, FASTING 85 MG/DL (70-105); POTASSIUM SERUM 3.7 MEQ/L (3.5-5.1); SODIUM LEVEL 144 MEQ/L (136-145); TOTAL PROTEIN 6.3 GM/DL (6.4-8.2)
[2016-11-03 16:53] LABS: WHITE BLOOD COUNT 2.9 K/mm3 (4.0-10.0)
[2016-11-03 16:54] LABS: BASO % 0.3 % (0.0-1.0); EOS % 1.3 % (0.0-3.0); LARGE UNSTAINED CELL # 0.1 K/mm3 (0.0-0.4); LARGE UNSTAINED CELL % 1.9 % (0.0-4.0); LYMPH # 0.9 K/mm3 (1.5-4.5); LYMPH % 29.7 % (24.0-44.0); MEAN CORPUSCULAR HGB CONC 32.7 g/dl (32.0-36.5); MEAN CORPUSCULAR VOLUME 88.6 fl (80.0-96.0); MONO # 0.2 K/mm3 (0.0-0.8); MONO % 8.3 % (0.0-5.0); NEUTROPHILS # 1.7 K/mm3 (1.8-7.7); NEUTROPHILS % 58.5 % (36.0-66.0); PLATELET COUNT, AUTOMATED 156 k/mm3 (150-450); RED CELL DISTRIBUTION WIDTH 14.8 % (11.5-14.5)
[2016-11-03 16:55] LABS: DIFF SLIDE NUMBER 288
[2016-11-03 17:34] LABS: ERYTHROCYTE SEDIMENTATION RATE 52 mm/hr (0-20)
== END ==
LOC: M LAB REF 15:31
PROVIDERS: ATTEND Internal Medicine Infectious Disease
DX: M86.9 Osteomyelitis, unspecified (principal); T81.4XXD Infection following a procedure, subsequent encounter; A49.01 Methicillin susceptible Staphylococcus aureus infection, unspecified site

== ENCOUNTER → 2016-11-07 | Outpatient (REF) | payer MEDICARE, MEDICAID ==
[2016-11-07 19:41] LABS: MEAN CORPUSCULAR HEMOGLOBIN 27.1 pg (27.0-33.0); MEAN CORPUSCULAR HGB CONC 30.4 g/dl (32.0-36.5); MEAN CORPUSCULAR VOLUME 88.9 fl (80.0-96.0); PLATELET COUNT, AUTOMATED 179 k/mm3 (150-450); WHITE BLOOD COUNT 2.4 K/mm3 (4.0-10.0)
[2016-11-07 19:51] LABS: ALBUMIN 2.9 GM/DL (3.2-5.2); ALBUMIN/GLOBULIN RATIO 0.97 (1.00-1.93); ALKALINE PHOSPHATASE 108 U/L (45-117); ALT/SGPT 13 U/L (12-78); ANION GAP 8 MEQ/L (8-16); AST/SGOT 24 U/L (15-37); BILIRUBIN,TOTAL 0.2 MG/DL (0.2-1.0); BLOOD UREA NITROGEN 9 MG/DL (7-18); CARBON DIOXIDE LEVEL 25 MEQ/L (21-32); CHLORIDE LEVEL 113 MEQ/L (98-107); CREATININE FOR GFR 0.41 MG/DL (0.55-1.02); GLOMERULAR FILTRATION RATE > 60.0 (>58); GLUCOSE, FASTING 66 MG/DL (70-105); SODIUM LEVEL 146 MEQ/L (136-145); TOTAL PROTEIN 5.9 GM/DL (6.4-8.2)
[2016-11-07 20:44] LABS: ERYTHROCYTE SEDIMENTATION RATE 35 mm/hr (0-20)
[2016-11-07 21:41] LABS: HYPOCHROMASIA 1+
[2016-11-07 21:42] LABS: SCHISTOCYTES 1+; TEAR DROP CELLS 1+
== END ==
LOC: M LAB REF 16:54
PROVIDERS: ATTEND Internal Medicine Infectious Disease
DX: T81.4XXD Infection following a procedure, subsequent encounter (principal); M86.9 Osteomyelitis, unspecified; A49.01 Methicillin susceptible Staphylococcus aureus infection, unspecified site; Z79.2 Long term (current) use of antibiotics

== ENCOUNTER → 2016-11-14 | Outpatient (REF) | payer MEDICARE, MEDICAID ==
[2016-11-14 19:17] LABS: ALBUMIN/GLOBULIN RATIO 0.97 (1.00-1.93); ALKALINE PHOSPHATASE 95 U/L (45-117); ALT/SGPT 8 U/L (12-78); ANION GAP 7 MEQ/L (8-16); AST/SGOT 25 U/L (15-37); BILIRUBIN,TOTAL 0.3 MG/DL (0.2-1.0); BLOOD UREA NITROGEN 12 MG/DL (7-18); CALCIUM LEVEL 8.1 MG/DL (8.5-10.1); CARBON DIOXIDE LEVEL 23 MEQ/L (21-32); CHLORIDE LEVEL 113 MEQ/L (98-107); CREATININE FOR GFR 0.41 MG/DL (0.55-1.02); GLOMERULAR FILTRATION RATE > 60.0 (>58); GLUCOSE, FASTING 62 MG/DL (70-105); SODIUM LEVEL 143 MEQ/L (136-145); TOTAL PROTEIN 6.1 GM/DL (6.4-8.2)
[2016-11-14 20:03] LABS: BASO % 0.4 % (0.0-1.0); EOS # 0.1 K/mm3 (0.0-0.50); EOS % 1.8 % (0.0-3.0); LARGE UNSTAINED CELL % 1.4 % (0.0-4.0); LYMPH # 0.6 K/mm3 (1.5-4.5); LYMPH % 19.1 % (24.0-44.0); MEAN CORPUSCULAR HEMOGLOBIN 27.8 pg (27.0-33.0); MEAN CORPUSCULAR HGB CONC 30.5 g/dl (32.0-36.5); MEAN CORPUSCULAR VOLUME 91.4 fl (80.0-96.0); MONO # 0.3 K/mm3 (0.0-0.8); MONO % 8.5 % (0.0-5.0); NEUTROPHILS # 2.2 K/mm3 (1.8-7.7); NEUTROPHILS % 68.7 % (36.0-66.0); PLATELET COUNT, AUTOMATED 183 k/mm3 (150-450); RED CELL DISTRIBUTION WIDTH 15.7 % (11.5-14.5); WHITE BLOOD COUNT 3.2 K/mm3 (4.0-10.0)
[2016-11-14 20:24] LABS: ERYTHROCYTE SEDIMENTATION RATE 35 mm/hr (0-20)
== END ==
LOC: M LAB REF 16:47
PROVIDERS: ATTEND Dermatology
DX: T81.4XXD Infection following a procedure, subsequent encounter (principal); M86.9 Osteomyelitis, unspecified; A49.01 Methicillin susceptible Staphylococcus aureus infection, unspecified site; Z79.2 Long term (current) use of antibiotics; G96.0 Cerebrospinal fluid leak

== ENCOUNTER → 2016-11-28 | Outpatient (CLI) | payer MEDICARE, MEDICAID ==
[2016-11-28 13:11] LABS: BASO % 0.2 % (0.0-1.0); EOS % 1.2 % (0.0-3.0); LARGE UNSTAINED CELL # 0.1 K/mm3 (0.0-0.4); LARGE UNSTAINED CELL % 2.1 % (0.0-4.0); LYMPH # 0.7 K/mm3 (1.5-4.5); LYMPH % 24.2 % (24.0-44.0); MEAN CORPUSCULAR HGB CONC 30.9 g/dl (32.0-36.5); MEAN CORPUSCULAR VOLUME 90.6 fl (80.0-96.0); MONO # 0.3 K/mm3 (0.0-0.8); MONO % 8.8 % (0.0-5.0); NEUTROPHILS # 1.9 K/mm3 (1.8-7.7); NEUTROPHILS % 63.6 % (36.0-66.0); PLATELET COUNT, AUTOMATED 196 k/mm3 (150-450); RED CELL DISTRIBUTION WIDTH 15.7 % (11.5-14.5); WHITE BLOOD COUNT 2.9 K/mm3 (4.0-10.0)
[2016-11-28 13:17] LABS: ALBUMIN 3.3 GM/DL (3.2-5.2); ALBUMIN/GLOBULIN RATIO 1.03 (1.00-1.93); ALKALINE PHOSPHATASE 103 U/L (45-117); ALT/SGPT 12 U/L (12-78); ANION GAP 7 MEQ/L (8-16); AST/SGOT 13 U/L (15-37); BILIRUBIN,TOTAL 0.2 MG/DL (0.2-1.0); BLOOD UREA NITROGEN 11 MG/DL (7-18); CALCIUM LEVEL 8.7 MG/DL (8.5-10.1); CARBON DIOXIDE LEVEL 27 MEQ/L (21-32); CHLORIDE LEVEL 112 MEQ/L (98-107); GLOMERULAR FILTRATION RATE > 60.0 (>58); GLUCOSE, FASTING 57 MG/DL (70-105); SODIUM LEVEL 146 MEQ/L (136-145); TOTAL PROTEIN 6.5 GM/DL (6.4-8.2)
[2016-11-28 13:43] LABS: ERYTHROCYTE SEDIMENTATION RATE 23 mm/hr (0-20)
== END ==
LOC: M SMT 09:30
PROVIDERS: ATTEND Internal Medicine
DX: T84.7XXD Infection and inflammatory reaction due to other internal orthopedic prosthetic devices, implants and grafts, subsequent encounter (principal); A49.01 Methicillin susceptible Staphylococcus aureus infection, unspecified site; Z45.2 Encounter for adjustment and management of vascular access device; Z79.2 Long term (current) use of antibiotics; M86.9 Osteomyelitis, unspecified

== ENCOUNTER → 2016-12-26 | Outpatient (CLI) | payer MEDICARE, MEDICAID ==
[~2016-12-26] MED LIST changes: -AUGM875T27 PO; +AUGM875T28 PO; -CYCL5TA PO; +CYCL5TAB PO; +IBUP-1022 PO; -IBUP600T26 PO; +MEDR1TAB2 PO; -MEDR2.5T2 PO
[2016-12-26 13:46] LABS: ADD MANUAL DIFFER YES; MEAN CORPUSCULAR HEMOGLOBIN 28.3 pg (27.0-33.0); MEAN CORPUSCULAR HGB CONC 32.8 g/dl (32.0-36.5); MEAN CORPUSCULAR VOLUME 86.3 fl (80.0-96.0); PLATELET COUNT, AUTOMATED 126 k/mm3 (150-450); RED CELL DISTRIBUTION WIDTH 14.6 % (11.5-14.5); WHITE BLOOD COUNT 2.9 K/mm3 (4.0-10.0)
[2016-12-26 14:15] LABS: ALBUMIN 3.8 GM/DL (3.2-5.2); ALBUMIN/GLOBULIN RATIO 1.31 (1.00-1.93); ALKALINE PHOSPHATASE 88 U/L (45-117); ALT/SGPT 11 U/L (12-78); ANION GAP 5 MEQ/L (8-16); AST/SGOT 20 U/L (15-37); BILIRUBIN,TOTAL 0.2 MG/DL (0.2-1.0); BLOOD UREA NITROGEN 11 MG/DL (7-18); CALCIUM LEVEL 8.9 MG/DL (8.5-10.1); CARBON DIOXIDE LEVEL 28 MEQ/L (21-32); CHLORIDE LEVEL 110 MEQ/L (98-107); CREATININE FOR GFR 0.51 MG/DL (0.55-1.02); GLOMERULAR FILTRATION RATE > 60.0 (>58); GLUCOSE, FASTING 79 MG/DL (70-105); POTASSIUM SERUM 4.3 MEQ/L (3.5-5.1); SODIUM LEVEL 143 MEQ/L (136-145); TOTAL PROTEIN 6.7 GM/DL (6.4-8.2)
[2016-12-26 14:20] LABS: BASOPHILS 1 % (0-4); EOSINOPHILS 3 % (0-5)
[2016-12-26 15:11] LABS: ERYTHROCYTE SEDIMENTATION RATE 26 mm/hr (0-20)
== END ==
LOC: M SMT 09:49
PROVIDERS: ATTEND Internal Medicine
DX: T84.7XXD Infection and inflammatory reaction due to other internal orthopedic prosthetic devices, implants and grafts, subsequent encounter (principal); A49.01 Methicillin susceptible Staphylococcus aureus infection, unspecified site; M86.9 Osteomyelitis, unspecified; Z45.2 Encounter for adjustment and management of vascular access device; Z79.2 Long term (current) use of antibiotics; M54.16 Radiculopathy, lumbar region; M53.2X6 Spinal instabilities, lumbar region; M48.06 Spinal stenosis, lumbar region; M43.16 Spondylolisthesis, lumbar region; M51.36 Other intervertebral disc degeneration, lumbar region

== ENCOUNTER → 2016-12-26 | Outpatient (CLI) | payer MEDICARE, MEDICAID ==
[~2016-12-26] MED LIST changes: +AUGM875T27 PO; -AUGM875T28 PO; +CYCL5TA PO; -CYCL5TAB PO; -IBUP-1022 PO; +IBUP600T26 PO; -MEDR1TAB2 PO; +MEDR2.5T2 PO
[2016-12-26 14:13] LABS: BLOOD UREA NITROGEN 11 MG/DL (7-18); CREATININE FOR GFR 0.49 MG/DL (0.55-1.02); GLOMERULAR FILTRATION RATE > 60.0 (>58)
== END ==
LOC: M SMT 09:43
PROVIDERS: ATTEND Physician Assistant Surgical
DX: M54.16 Radiculopathy, lumbar region (principal); M53.2X6 Spinal instabilities, lumbar region; M48.06 Spinal stenosis, lumbar region; M43.16 Spondylolisthesis, lumbar region; M51.36 Other intervertebral disc degeneration, lumbar region; M86.9 Osteomyelitis, unspecified

== ENCOUNTER → 2016-12-26 | Outpatient (CLI) | payer MEDICARE, MEDICAID ==
[2016-12-26 13:48] LABS: MEAN CORPUSCULAR HGB CONC 32.6 g/dl (32.0-36.5); MEAN CORPUSCULAR VOLUME 85.9 fl (80.0-96.0); PLATELET COUNT, AUTOMATED 133 k/mm3 (150-450); RED CELL DISTRIBUTION WIDTH 14.6 % (11.5-14.5); WHITE BLOOD COUNT 2.7 K/mm3 (4.0-10.0)
[2016-12-26 13:52] LABS: DIFF SLIDE NUMBER 182
[2016-12-26 14:22] LABS: BASOPHILS 2 % (0-4); EOSINOPHILS 2 % (0-5)
== END ==
LOC: M SMT 09:39
PROVIDERS: ATTEND Physician Assistant
DX: M32.9 Systemic lupus erythematosus, unspecified (principal); Z79.899 Other long term (current) drug therapy

== ENCOUNTER → 2017-01-25 | Outpatient (CLI) | payer MEDICARE, MEDICAID ==
[~2017-01-25] MED LIST changes: -AUGM875T27 PO; +AUGM875T28 PO; -CYCL5TA PO; +CYCL5TAB PO; +IBUP-1022 PO; -IBUP600T26 PO; +MEDR1TAB2 PO; -MEDR2.5T2 PO
[2017-01-25 13:11] LABS: BASO % 0.3 % (0.0-1.0); EOS % 1.6 % (0.0-3.0); LARGE UNSTAINED CELL # 0.1 K/mm3 (0.0-0.4); LARGE UNSTAINED CELL % 2.1 % (0.0-4.0); LYMPH # 0.8 K/mm3 (1.5-4.5); LYMPH % 29.7 % (24.0-44.0); MEAN CORPUSCULAR HGB CONC 32.5 g/dl (32.0-36.5); MEAN CORPUSCULAR VOLUME 86.3 fl (80.0-96.0); MONO # 0.1 K/mm3 (0.0-0.8); MONO % 5.4 % (0.0-5.0); NEUTROPHILS # 1.5 K/mm3 (1.8-7.7); NEUTROPHILS % 60.9 % (36.0-66.0); PLATELET COUNT, AUTOMATED 130 k/mm3 (150-450); RED CELL DISTRIBUTION WIDTH 14.7 % (11.5-14.5); WHITE BLOOD COUNT 2.5 K/mm3 (4.0-10.0)
[2017-01-25 13:17] LABS: ALBUMIN 3.5 GM/DL (3.2-5.2); ALKALINE PHOSPHATASE 88 U/L (45-117); ALT/SGPT 16 U/L (12-78); AST/SGOT 19 U/L (15-37); BILIRUBIN,TOTAL 0.2 MG/DL (0.2-1.0); BLOOD UREA NITROGEN 12 MG/DL (7-18); CALCIUM LEVEL 8.8 MG/DL (8.5-10.1); CARBON DIOXIDE LEVEL 29 MEQ/L (21-32); CHLORIDE LEVEL 112 MEQ/L (98-107); GLUCOSE, FASTING 89 MG/DL (70-105); POTASSIUM SERUM 4.2 MEQ/L (3.5-5.1)
[2017-01-25 13:34] LABS: ERYTHROCYTE SEDIMENTATION RATE 11 mm/hr (0-20)
[2017-01-25 15:20] LABS: ALBUMIN/GLOBULIN RATIO 1.09 (1.00-1.93); ANION GAP 5 MEQ/L (8-16); SODIUM LEVEL 146 MEQ/L (136-145); TOTAL PROTEIN 6.7 GM/DL (6.4-8.2)
== END ==
LOC: M SMT 10:42
PROVIDERS: ATTEND Internal Medicine
DX: M86.9 Osteomyelitis, unspecified (principal); A49.01 Methicillin susceptible Staphylococcus aureus infection, unspecified site; T84.7XXD Infection and inflammatory reaction due to other internal orthopedic prosthetic devices, implants and grafts, subsequent encounter; Z45.2 Encounter for adjustment and management of vascular access device; Z79.2 Long term (current) use of antibiotics

== ENCOUNTER → 2017-03-07 | Outpatient (CLI) | payer MEDICARE, MEDICAID ==
[2017-03-07 12:14] LABS: ALBUMIN 3.8 GM/DL (3.2-5.2); ALBUMIN/GLOBULIN RATIO 1.15 (1.00-1.93); ALKALINE PHOSPHATASE 83 U/L (45-117); ALT/SGPT 19 U/L (12-78); ANION GAP 10 MEQ/L (8-16); AST/SGOT 22 U/L (15-37); BILIRUBIN,TOTAL 0.3 MG/DL (0.2-1.0); BLOOD UREA NITROGEN 14 MG/DL (7-18); CALCIUM LEVEL 8.9 MG/DL (8.5-10.1); CARBON DIOXIDE LEVEL 24 MEQ/L (21-32); CHLORIDE LEVEL 112 MEQ/L (98-107); CHOLESTEROL LEVEL 173 MG/DL (<200); CREATININE FOR GFR 0.54 MG/DL (0.55-1.02); GLOMERULAR FILTRATION RATE > 60.0 (>58); GLUCOSE, FASTING 78 MG/DL (70-105); POTASSIUM SERUM 4.7 MEQ/L (3.5-5.1); SODIUM LEVEL 146 MEQ/L (136-145); TOTAL PROTEIN 7.1 GM/DL (6.4-8.2); TRIGLYCERIDES LEVEL 126 MG/DL (<150)
[2017-03-07 16:05] LABS: BASO % 0.2 % (0.0-1.0); EOS % 1.4 % (0.0-3.0); LARGE UNSTAINED CELL # 0.1 K/mm3 (0.0-0.4); LARGE UNSTAINED CELL % 1.8 % (0.0-4.0); LYMPH # 1.2 K/mm3 (1.5-4.5); LYMPH % 32.8 % (24.0-44.0); MEAN CORPUSCULAR HEMOGLOBIN 28.4 pg (27.0-33.0); MEAN CORPUSCULAR VOLUME 83.6 fl (80.0-96.0); MONO # 0.3 K/mm3 (0.0-0.8); MONO % 8.5 % (0.0-5.0); NEUTROPHILS # 1.9 K/mm3 (1.8-7.7); NEUTROPHILS % 55.4 % (36.0-66.0); PLATELET COUNT, AUTOMATED 146 k/mm3 (150-450); RED CELL DISTRIBUTION WIDTH 14.8 % (11.5-14.5); WHITE BLOOD COUNT 3.4 K/mm3 (4.0-10.0)
== END ==
LOC: M SMT 09:25
PROVIDERS: ATTEND Emergency Medicine
DX: R10.30 Lower abdominal pain, unspecified (principal); I10 Essential (primary) hypertension; Z79.899 Other long term (current) drug therapy; T84.7XXD Infection and inflammatory reaction due to other internal orthopedic prosthetic devices, implants and grafts, subsequent encounter; A49.01 Methicillin susceptible Staphylococcus aureus infection, unspecified site; Z45.2 Encounter for adjustment and management of vascular access device; Z79.2 Long term (current) use of antibiotics; X58.XXXD Exposure to other specified factors, subsequent encounter; Y92.9 Unspecified place or not applicable

== ENCOUNTER → 2017-03-07 | Outpatient (CLI) | payer MEDICARE, MEDICAID ==
[2017-03-07 11:46] LABS: BASO % 0.4 % (0.0-1.0); EOS % 1.5 % (0.0-3.0); LARGE UNSTAINED CELL # 0.1 K/mm3 (0.0-0.4); LARGE UNSTAINED CELL % 1.8 % (0.0-4.0); LYMPH # 1.1 K/mm3 (1.5-4.5); LYMPH % 31.8 % (24.0-44.0); MEAN CORPUSCULAR HEMOGLOBIN 28.2 pg (27.0-33.0); MEAN CORPUSCULAR HGB CONC 33.4 g/dl (32.0-36.5); MEAN CORPUSCULAR VOLUME 84.5 fl (80.0-96.0); MONO # 0.2 K/mm3 (0.0-0.8); MONO % 6.4 % (0.0-5.0); NEUTROPHILS # 1.9 K/mm3 (1.8-7.7); NEUTROPHILS % 57.9 % (36.0-66.0); PLATELET COUNT, AUTOMATED 151 k/mm3 (150-450); RED CELL DISTRIBUTION WIDTH 14.8 % (11.5-14.5); WHITE BLOOD COUNT 3.3 K/mm3 (4.0-10.0)
[2017-03-07 12:10] LABS: ALBUMIN 3.8 GM/DL (3.2-5.2); ALBUMIN/GLOBULIN RATIO 1.19 (1.00-1.93); ALKALINE PHOSPHATASE 81 U/L (45-117); ALT/SGPT 18 U/L (12-78); ANION GAP 8 MEQ/L (8-16); AST/SGOT 20 U/L (15-37); BILIRUBIN,TOTAL 0.4 MG/DL (0.2-1.0); BLOOD UREA NITROGEN 13 MG/DL (7-18); CARBON DIOXIDE LEVEL 24 MEQ/L (21-32); CHLORIDE LEVEL 113 MEQ/L (98-107); CREATININE FOR GFR 0.58 MG/DL (0.55-1.02); GLOMERULAR FILTRATION RATE > 60.0 (>58); GLUCOSE, FASTING 78 MG/DL (70-105); POTASSIUM SERUM 4.8 MEQ/L (3.5-5.1); SODIUM LEVEL 145 MEQ/L (136-145)
[2017-03-07 12:22] LABS: ERYTHROCYTE SEDIMENTATION RATE 7 mm/hr (0-20)
== END ==
LOC: M SMT 09:28
PROVIDERS: ATTEND Internal Medicine
DX: T84.7XXD Infection and inflammatory reaction due to other internal orthopedic prosthetic devices, implants and grafts, subsequent encounter (principal); A49.01 Methicillin susceptible Staphylococcus aureus infection, unspecified site; Z45.2 Encounter for adjustment and management of vascular access device; Z79.2 Long term (current) use of antibiotics

== ENCOUNTER → 2017-06-03 | Outpatient (CLI) | payer MEDICARE, MEDICAID ==
[2017-06-03 18:41] LABS: MEAN CORPUSCULAR HEMOGLOBIN 28.4 pg (27.0-33.0); MEAN CORPUSCULAR VOLUME 88.5 fl (80.0-96.0); RED CELL DISTRIBUTION WIDTH 14.3 % (11.5-14.5); WHITE BLOOD COUNT 3.8 10^3/uL (4.0-10.0)
[2017-06-03 18:42] LABS: BASO % 0.3 % (0.0-1.0); EOS # 0.1 10^3/uL (0.0-0.50); EOS % 2.1 % (0.0-3.0); IMMATURE GRANULOCYTE % 0.3 % (0-0); LYMPH # 1.2 10^3/uL (1.5-4.5); LYMPH % 30.8 % (24.0-44.0); MONO # 0.4 10^3/uL (0.0-0.8); MONO % 11.5 % (0.0-5.0); NEUTROPHILS # 2.1 10^3/uL (1.8-7.7); PLATELET COUNT, AUTOMATED 200 10^3/uL (150-450)
[2017-06-03 18:57] LABS: ALBUMIN 3.7 GM/DL (3.2-5.2); ALBUMIN/GLOBULIN RATIO 1.09 (1.00-1.93); ALKALINE PHOSPHATASE 97 U/L (45-117); ALT/SGPT 15 U/L (12-78); ANION GAP 7 MEQ/L (8-16); AST/SGOT 20 U/L (7-37); BILIRUBIN,TOTAL 0.4 MG/DL (0.2-1.0); BLOOD UREA NITROGEN 15 MG/DL (7-18); CALCIUM LEVEL 8.9 MG/DL (8.5-10.1); CARBON DIOXIDE LEVEL 27 MEQ/L (21-32); CHLORIDE LEVEL 108 MEQ/L (98-107); CHOLESTEROL LEVEL 217 MG/DL (<200); CREATININE FOR GFR 0.62 MG/DL (0.55-1.02); GLOMERULAR FILTRATION RATE > 60.0 (>58); GLUCOSE, FASTING 77 MG/DL (70-105); POTASSIUM SERUM 4.5 MEQ/L (3.5-5.1); SODIUM LEVEL 142 MEQ/L (136-145); TOTAL PROTEIN 7.1 GM/DL (6.4-8.2); TRIGLYCERIDES LEVEL 205 MG/DL (<150)
== END ==
LOC: M ADAMS 09:59
PROVIDERS: ATTEND Emergency Medicine
DX: R10.30 Lower abdominal pain, unspecified (principal); I10 Essential (primary) hypertension; Z79.899 Other long term (current) drug therapy

== ENCOUNTER → 2018-01-29 | Outpatient (CLI) | payer MEDICARE, MEDICAID ==
[2018-01-29 13:34] LABS: EOS % 0.9 % (0.0-3.0); HEMATOCRIT 39.3 % (36.0-47.0); HEMOGLOBIN 12.5 g/dl (12.0-15.5); IMMATURE GRANULOCYTE % 0.6 % (0-3.0); LYMPH # 1.1 10^3/uL (1.5-4.5); LYMPH % 34.8 % (24.0-44.0); MEAN CORPUSCULAR HEMOGLOBIN 28.7 pg (27.0-33.0); MEAN CORPUSCULAR HGB CONC 31.8 g/dl (32.0-36.5); MEAN CORPUSCULAR VOLUME 90.1 fl (80.0-96.0); MONO # 0.4 10^3/uL (0.0-0.8); MONO % 11.7 % (0.0-5.0); NEUTROPHILS # 1.7 10^3/uL (1.8-7.7); PLATELET COUNT, AUTOMATED 166 10^3/uL (150-450); RED BLOOD COUNT 4.36 10^6/uL (4.00-5.40); WHITE BLOOD COUNT 3.3 10^3/uL (4.0-10.0)
[2018-01-29 13:36] LABS: APPEARANCE, URINE HAZY (CLEAR); BACTERIA, URINE AUTO NEGATIVE (NEGATIVE); BILIRUBIN, URINE AUTO NEGATIVE (NEGATIVE); BLOOD, URINE BLOOD NEGATIVE (NEGATIVE); COLOR, URINE YELLOW (YELLOW); GLUCOSE, URINE (UA) AUTO NEGATIVE (NEGATIVE); KETONE, URINE AUTO NEGATIVE (NEGATIVE); LEUKOCYTE ESTERASE, URINE AUTO NEGATIVE (NEGATIVE); MUCUS, URINE SMALL (NEGATIVE); NITRITE, URINE AUTO NEGATIVE (NEGATIVE); PROTEIN, URINE AUTO NEGATIVE (NEGATIVE); RBC, URINE AUTO 1 /HPF (0-3); SQUAMOUS EPITHELIAL CELL UR AU 3 /HPF (0-6); UROBILINOGEN, URINE AUTO 0.2 mg/dL (0.0-2.0); WBC, URINE AUTO 1 /HPF (0-3)
== END ==
LOC: M SMT 10:15
DX: Z51.81 Encounter for therapeutic drug level monitoring (principal); Z79.899 Other long term (current) drug therapy; D72.819 Decreased white blood cell count, unspecified
CPT/HCPCS: 85027

== ENCOUNTER → 2018-02-28 | Outpatient (CLI) | payer MEDICARE, MEDICAID ==
[2018-02-28 13:33] LABS: BASO % 0.6 % (0.0-1.0); EOS % 0.6 % (0.0-3.0); HEMATOCRIT 41.2 % (36.0-47.0); LYMPH # 1.2 10^3/uL (1.5-4.5); LYMPH % 31.9 % (24.0-44.0); MEAN CORPUSCULAR HEMOGLOBIN 28.4 pg (27.0-33.0); MEAN CORPUSCULAR HGB CONC 31.6 g/dl (32.0-36.5); MONO # 0.5 10^3/uL (0.0-0.8); MONO % 12.5 % (0.0-5.0); NEUTROPHILS % 54.4 % (36.0-66.0); PLATELET COUNT, AUTOMATED 168 10^3/uL (150-450); RED BLOOD COUNT 4.58 10^6/uL (4.00-5.40); WHITE BLOOD COUNT 3.6 10^3/uL (4.0-10.0)
[2018-02-28 13:57] LABS: ALBUMIN 3.7 GM/DL (3.2-5.2); ALBUMIN/GLOBULIN RATIO 1.09 (1.00-1.93); ALKALINE PHOSPHATASE 81 U/L (45-117); ALT/SGPT 19 U/L (12-78); ANION GAP 8 MEQ/L (8-16); AST/SGOT 21 U/L (7-37); BILIRUBIN,TOTAL 0.5 MG/DL (0.2-1.0); BLOOD UREA NITROGEN 15 MG/DL (7-18); CALCIUM LEVEL 8.9 MG/DL (8.5-10.1); CARBON DIOXIDE LEVEL 26 MEQ/L (21-32); CHLORIDE LEVEL 109 MEQ/L (98-107); CHOLESTEROL LEVEL 185 MG/DL (<200); CHOLESTEROL RISK RATIO 4.302 (<5); CREATININE FOR GFR 0.68 MG/DL (0.55-1.30); GLOMERULAR FILTRATION RATE > 60.0 (>58); GLUCOSE, FASTING 75 MG/DL (70-100); HDL CHOLESTEROL 43 MG/DL (>40); LDL CHOLESTEROL 104.6 MG/DL (<100); NON-HDL-C 142 MG/DL; POTASSIUM SERUM 4.6 MEQ/L (3.5-5.1); SODIUM LEVEL 143 MEQ/L (136-145); TOTAL PROTEIN 7.1 GM/DL (6.4-8.2); TRIGLYCERIDES LEVEL 187 MG/DL (<150)
[2018-02-28 15:05] LABS: ESTIMATED AVERAGE GLUCOSE 94 MG/DL (60-110); HEMOGLOBIN A1c 4.9 %
== END ==
LOC: M SMT 09:59
DX: M32.9 Systemic lupus erythematosus, unspecified (principal); I10 Essential (primary) hypertension; E78.2 Mixed hyperlipidemia; R73.01 Impaired fasting glucose
CPT/HCPCS: 80053

== ENCOUNTER → 2018-09-07 | Outpatient (REF) | payer MEDICARE, MEDICAID ==
[2018-09-07 13:05] LABS: APPEARANCE, URINE HAZY (CLEAR); BACTERIA, URINE AUTO NEGATIVE (NEGATIVE); BILIRUBIN, URINE AUTO NEGATIVE (NEGATIVE); BLOOD, URINE BLOOD NEGATIVE (NEGATIVE); COLOR, URINE YELLOW (YELLOW); GLUCOSE, URINE (UA) AUTO NEGATIVE (NEGATIVE); KETONE, URINE AUTO NEGATIVE (NEGATIVE); LEUKOCYTE ESTERASE, URINE AUTO NEGATIVE (NEGATIVE); MUCUS, URINE SMALL (NEGATIVE); NITRITE, URINE AUTO NEGATIVE (NEGATIVE); PROTEIN, URINE AUTO NEGATIVE (NEGATIVE); RBC, URINE AUTO 1 /HPF (0-3); SQUAMOUS EPITHELIAL CELL UR AU 7 /HPF (0-6); UROBILINOGEN, URINE AUTO 0.2 mg/dL (0.0-2.0); WBC, URINE AUTO 1 /HPF (0-3)
[2018-09-07 13:06] LABS: BASO % 0.6 % (0.0-1.0); EOS % 0.3 % (0.0-3.0); HEMATOCRIT 40.6 % (36.0-47.0); HEMOGLOBIN 12.8 g/dl (12.0-15.5); LYMPH # 0.9 10^3/uL (1.5-4.5); LYMPH % 26.5 % (24.0-44.0); MEAN CORPUSCULAR HEMOGLOBIN 27.8 pg (27.0-33.0); MEAN CORPUSCULAR HGB CONC 31.5 g/dl (32.0-36.5); MEAN CORPUSCULAR VOLUME 88.1 fl (80.0-96.0); MONO # 0.3 10^3/uL (0.0-0.8); MONO % 7.4 % (0.0-5.0); NEUTROPHILS # 2.2 10^3/uL (1.8-7.7); NEUTROPHILS % 64.9 % (36.0-66.0); PLATELET COUNT, AUTOMATED 156 10^3/uL (150-450); RED BLOOD COUNT 4.61 10^6/uL (4.00-5.40); WHITE BLOOD COUNT 3.4 10^3/uL (4.0-10.0)
[2018-09-07 13:41] LABS: ALBUMIN 3.9 GM/DL (3.2-5.2); ALT/SGPT 18 U/L (12-78); C REACTIVE PROTEIN QUANTITATIV < 0.30 MG/DL (0.00-0.30); COMPLEMENT C3 100 MG/DL (90-180); COMPLEMENT C4 24 MG/DL (10-40); CREATININE FOR GFR 0.55 MG/DL (0.55-1.30); GLOMERULAR FILTRATION RATE > 60.0 (>58)
[2018-09-07 14:21] LABS: ERYTHROCYTE SEDIMENTATION RATE 12 mm/hr (0-20)
[2018-09-08 14:38] LABS: ANTI DOUBLE STRAND-DNA AB 2 IU/mL (0-9)
== END ==
LOC: M LABDRWAD 12:34
PROVIDERS: ATTEND Physician Assistant
DX: Z79.899 Other long term (current) drug therapy (principal)

== ENCOUNTER → 2019-02-12 | Outpatient (REF) | payer MEDICARE, MEDICAID ==
[~2019-02-12] MED LIST changes: -/LABE20TA OR; -ACET50TA PO; -DULO1CAP PO; +DULO1CAP4 PO; -DULO30CA PO; +DULO30CA9 PO; -ENOX40SY SC; +LABE1TAB11 OR; +LOVE1INJ SC; +MAPA500T17 PO; +ONDA-227 PO; -ZOFR8TAB PO
[2019-02-12 13:46] LABS: BASO % 0.3 % (0.0-1.0); EOS % 0.9 % (0.0-3.0); HEMATOCRIT 39.7 % (36.0-47.0); HEMOGLOBIN 12.4 g/dl (12.0-15.5); LYMPH % 29.4 % (24.0-44.0); MEAN CORPUSCULAR HEMOGLOBIN 28.1 pg (27.0-33.0); MEAN CORPUSCULAR HGB CONC 31.2 g/dl (32.0-36.5); MONO # 0.4 10^3/uL (0.0-0.8); MONO % 12.3 % (0.0-5.0); NEUTROPHILS % 57.1 % (36.0-66.0); PLATELET COUNT, AUTOMATED 176 10^3/uL (150-450); RED BLOOD COUNT 4.41 10^6/uL (4.00-5.40); WHITE BLOOD COUNT 3.5 10^3/uL (4.0-10.0)
[2019-02-12 14:07] LABS: ALT/SGPT 20 U/L (12-78); BILIRUBIN,TOTAL 0.4 MG/DL (0.2-1.0); BLOOD UREA NITROGEN 15 MG/DL (7-18); CALCIUM LEVEL 9.7 MG/DL (8.5-10.1); CARBON DIOXIDE LEVEL 26 MEQ/L (21-32); CHLORIDE LEVEL 113 MEQ/L (98-107); CHOLESTEROL LEVEL 181 MG/DL (<200); CREATININE FOR GFR 0.66 MG/DL (0.55-1.30); GLOMERULAR FILTRATION RATE > 60.0 (>58); GLUCOSE, FASTING 80 MG/DL (70-100); HDL CHOLESTEROL 44 MG/DL (>40); POTASSIUM SERUM 4.7 MEQ/L (3.5-5.1); SODIUM LEVEL 146 MEQ/L (136-145); TRIGLYCERIDES LEVEL 134 MG/DL (<150)
[2019-02-12 14:08] LABS: ALBUMIN 4.1 GM/DL (3.2-5.2); CHOLESTEROL RISK RATIO 4.113 (<5); LDL CHOLESTEROL 110 MG/DL (<100); NON-HDL-C 137 MG/DL; TOTAL PROTEIN 7.3 GM/DL (6.4-8.2)
== END ==
LOC: M LABDRWAD 12:41
PROVIDERS: ATTEND Physician Assistant
DX: I10 Essential (primary) hypertension (principal); E78.2 Mixed hyperlipidemia; M32.9 Systemic lupus erythematosus, unspecified

== ENCOUNTER → 2019-03-19 | Outpatient (CLI) | payer MEDICARE, MEDICAID ==
--- NOTE | 2019-03-19 11:41 | REP ---
RIGHT HIP: TWO VIEWS. HISTORY: Pain in the right hip. FINDINGS: AP and frogleg views of the right hip demonstrate minimal osteophyte formation at the inferior aspect of the femoral head and at the superior acetabular margin. There is mild sclerosis at the symphysis pubis. There are surgical sutures in the right adnexal region of the pelvis. No other abnormality. IMPRESSION: Mild osteoarthritic changes right hip. Electronically Signed by Gray Espana MD 03/19/2019 01:03 P
== END ==
LOC: M ADAMS 08:32
PROVIDERS: ATTEND Anesthesiology Pain Medicine
DX: M25.551 Pain in right hip (principal); R10.31 Right lower quadrant pain

== ENCOUNTER → 2020-02-24 | Outpatient (REF) | payer MEDICARE, MEDICAID ==
[2020-04-11 17:18] LABS: HEMATOCRIT 42.5 % (36.0-47.0); HEMOGLOBIN 13.1 g/dl (12.0-15.5); MEAN CORPUSCULAR HEMOGLOBIN 28.8 pg (27.0-33.0); MEAN CORPUSCULAR HGB CONC 30.8 g/dl (32.0-36.5); MEAN CORPUSCULAR VOLUME 93.4 fl (80.0-96.0); PLATELET COUNT, AUTOMATED 169 10^3/uL (150-450); RED BLOOD COUNT 4.55 10^6/uL (4.00-5.40)
[2020-04-11 17:19] LABS: APPEARANCE, URINE CLEAR (CLEAR); BACTERIA, URINE AUTO NEGATIVE (NEGATIVE); BILIRUBIN, URINE AUTO NEGATIVE (NEGATIVE); BLOOD, URINE BLOOD NEGATIVE (NEGATIVE); COLOR, URINE YELLOW (YELLOW); GLUCOSE, URINE (UA) AUTO NEGATIVE (NEGATIVE); KETONE, URINE AUTO NEGATIVE (NEGATIVE); LEUKOCYTE ESTERASE, URINE AUTO NEGATIVE (NEGATIVE); NITRITE, URINE AUTO NEGATIVE (NEGATIVE); PROTEIN, URINE AUTO NEGATIVE (NEGATIVE); RBC, URINE AUTO 0 /HPF (0-3); SPECIFIC GRAVITY URINE AUTO 1.015 (1.002-1.035); SQUAMOUS EPITHELIAL CELL UR AU 1 /HPF (0-6); UROBILINOGEN, URINE AUTO 0.2 mg/dL (0.0-2.0); WBC, URINE AUTO 0 /HPF (0-3)
[2020-04-20 21:26] LABS: CREATININE,RANDOM URINE 70.3 MG/DL
[2020-04-21 00:42] LABS: ALBUMIN 3.8 GM/DL (3.2-5.2); BLOOD UREA NITROGEN 15 MG/DL (7-18); CALCIUM LEVEL 9.1 MG/DL (8.5-10.1); CARBON DIOXIDE LEVEL 29 MEQ/L (21-32); CHLORIDE LEVEL 112 MEQ/L (98-107); CREATININE FOR GFR 0.62 MG/DL (0.55-1.30); GLOMERULAR FILTRATION RATE > 60.0 (>58); GLUCOSE, FASTING 80 MG/DL (70-100); PHOSPHORUS LEVEL 3.9 MG/DL (2.5-4.9); POTASSIUM SERUM 4.9 MEQ/L (3.5-5.1); SODIUM LEVEL 144 MEQ/L (136-145)
== END ==
LOC: M LABDRWAD 13:11
PROVIDERS: ATTEND Nurse Practitioner
DX: N18.2 Chronic kidney disease, stage 2 (mild) (principal); R35.0 Frequency of micturition

== ENCOUNTER → 2020-03-11 | Outpatient (REF) | payer MEDICARE, MEDICAID ==
[2020-03-11 14:26] LABS: BASO % 0.3 % (0.0-1.0); EOS % 1.3 % (0.0-3.0); HEMATOCRIT 41.9 % (36.0-47.0); HEMOGLOBIN 13.1 g/dl (12.0-15.5); LYMPH % 31.1 % (24.0-44.0); MEAN CORPUSCULAR HEMOGLOBIN 29.3 pg (27.0-33.0); MEAN CORPUSCULAR HGB CONC 31.3 g/dl (32.0-36.5); MEAN CORPUSCULAR VOLUME 93.7 fl (80.0-96.0); MONO # 0.4 10^3/uL (0.0-0.8); MONO % 13.5 % (0.0-5.0); NEUTROPHILS # 1.7 10^3/uL (1.5-8.5); NEUTROPHILS % 53.8 % (36.0-66.0); PLATELET COUNT, AUTOMATED 177 10^3/uL (150-450); RED BLOOD COUNT 4.47 10^6/uL (4.00-5.40); WHITE BLOOD COUNT 3.1 10^3/uL (4.0-10.0)
[2020-03-11 15:16] LABS: ALBUMIN 3.7 GM/DL (3.2-5.2); ALT/SGPT 22 U/L (12-78); BILIRUBIN,TOTAL 0.4 MG/DL (0.2-1.0); BLOOD UREA NITROGEN 16 MG/DL (7-18); CARBON DIOXIDE LEVEL 28 MEQ/L (21-32); CHLORIDE LEVEL 110 MEQ/L (98-107); CHOLESTEROL LEVEL 182 MG/DL (<200); CHOLESTEROL RISK RATIO 4.136 (<5); CREATININE FOR GFR 0.53 MG/DL (0.55-1.30); GLOMERULAR FILTRATION RATE > 60.0 (>58); GLUCOSE, FASTING 65 MG/DL (70-100); HDL CHOLESTEROL 44 MG/DL (>40); LDL CHOLESTEROL 117 MG/DL (<100); NON-HDL-C 138 MG/DL; POTASSIUM SERUM 4.8 MEQ/L (3.5-5.1); SODIUM LEVEL 143 MEQ/L (136-145); TOTAL PROTEIN 6.6 GM/DL (6.4-8.2); TRIGLYCERIDES LEVEL 104 MG/DL (<150)
[2020-03-11 15:43] LABS: HEMOGLOBIN A1c 5.1 %
== END ==
LOC: M LABDRWAD 12:41
PROVIDERS: ATTEND Physician Assistant
DX: E78.2 Mixed hyperlipidemia (principal); I10 Essential (primary) hypertension; R73.01 Impaired fasting glucose; M32.9 Systemic lupus erythematosus, unspecified

== ENCOUNTER → 2020-06-03 | Outpatient (REF) | payer MEDICARE, MEDICAID ==
[2020-06-03 13:00] LABS: BASO % 0.3 % (0.0-1.0); EOS % 0.3 % (0.0-3.0); HEMATOCRIT 47.5 % (36.0-47.0); HEMOGLOBIN 15.2 g/dl (12.0-15.5); LYMPH # 1.1 10^3/uL (1.5-5.0); LYMPH % 30.9 % (24.0-44.0); MEAN CORPUSCULAR HEMOGLOBIN 28.2 pg (27.0-33.0); MEAN CORPUSCULAR VOLUME 88.1 fl (80.0-96.0); MONO # 0.4 10^3/uL (0.0-0.8); MONO % 11.5 % (0.0-5.0); NEUTROPHILS # 2.1 10^3/uL (1.5-8.5); NEUTROPHILS % 56.5 % (36.0-66.0); PLATELET COUNT, AUTOMATED 169 10^3/uL (150-450); RED BLOOD COUNT 5.39 10^6/uL (4.00-5.40); WHITE BLOOD COUNT 3.7 10^3/uL (4.0-10.0)
[2020-06-03 13:10] LABS: APPEARANCE, URINE HAZY (CLEAR); BACTERIA, URINE AUTO NEGATIVE (NEGATIVE); BILIRUBIN, URINE AUTO NEGATIVE (NEGATIVE); BLOOD, URINE BLOOD 1+ (NEGATIVE); COLOR, URINE YELLOW (YELLOW); GLUCOSE, URINE (UA) AUTO NEGATIVE (NEGATIVE); KETONE, URINE AUTO NEGATIVE (NEGATIVE); LEUKOCYTE ESTERASE, URINE AUTO NEGATIVE (NEGATIVE); MUCUS, URINE SMALL (NEGATIVE); NITRITE, URINE AUTO NEGATIVE (NEGATIVE); PROTEIN, URINE AUTO 1+ mg/dL (NEGATIVE); RBC, URINE AUTO 49 /HPF (0-3); SPECIFIC GRAVITY URINE AUTO 1.025 (1.002-1.035); SQUAMOUS EPITHELIAL CELL UR AU 1 /HPF (0-6); UROBILINOGEN, URINE AUTO 0.2 mg/dL (0.0-2.0); WBC, URINE AUTO 2 /HPF (0-3)
[2020-06-03 13:37] LABS: FREE T4 0.95 NG/DL (0.76-1.46); THYROID STIMULATING HORMONE 2.14 uIU/ML (0.358-3.740)
[2020-06-03 14:18] LABS: H PYLORI QUALITATIVE IgG NEGATIVE (NEGATIVE)
[2020-06-05 17:13] LABS: H PYLORI SERUM QUANT IGA <9.0 units (0.0-8.9); H PYLORI SERUM QUANT IGM <9.0 units (0.0-8.9); TISSUE TRANSGLUTAMINASE IgA <2 U/mL (0-3); TISSUE TRANSGLUTAMINASE IgG <2 U/mL (0-5)
== END ==
LOC: M LABDRWAD 12:13
PROVIDERS: ATTEND Nurse Practitioner Family
DX: R10.30 Lower abdominal pain, unspecified (principal); E07.9 Disorder of thyroid, unspecified

== ENCOUNTER → 2020-07-08 | Outpatient (REF) | payer MEDICARE, MEDICAID ==
[~2020-07-08] MED LIST changes: +AMLO1TAB25; +ATEN25TA; +CEPH500C; +FLOM0.4C39 PO; +HYDR200T3; +LISI-538; +MELO15TA28; +MORP-69 PO
== END ==
LOC: M LAB REF 15:21
PROVIDERS: ATTEND Nurse Practitioner Family
DX: R31.9 Hematuria, unspecified (principal)

== ENCOUNTER 2020-07-13 22:33 | Emergency (ER) | payer MEDICARE, MEDICAID ==
[~2020-07-13] VITALS: Ht 160 cm; Wt 57.4 kg
[~2020-07-13 22:33] MED LIST changes: -AMLO1TAB25; -ATEN25TA; -CEPH500C; -FLOM0.4C39 PO; -HYDR200T3; -LISI-538; -MELO15TA28; -MORP-69 PO
[2020-07-13] MEDS ORDERED: AMLO1TAB25 (22:43)
[2020-07-13] MEDS ORDERED: CEPH500C (22:43)
[2020-07-13] MEDS ORDERED: LISI-538 (22:43)
[2020-07-13] MEDS ORDERED: MELO15TA28 (22:43)
[2020-07-13] MEDS ORDERED: HYDR200T3 (22:43)
[2020-07-13] MEDS ORDERED: ATEN25TA (22:43)
[2020-07-13] MEDS ORDERED: NS 1,000 ML IV ONE (23:15)
[2020-07-13] MEDS ORDERED: MORPHINE 4 MG/ML 1ML VIAL/SYRINGE (J2270) IV ONE (23:15)
[2020-07-13] MEDS ORDERED: ONDANSETRON 4MG/2ML VIAL IV ONE (23:15)
[2020-07-13] MEDS ORDERED: ISOVUE-370 76% 100ML VIAL As Ordered ONE (23:25)
[2020-07-14 00:23] LABS: BASO % 0.2 % (0.0-1.0); EOS % 0.2 % (0.0-3.0); HEMATOCRIT 42.6 % (36.0-47.0); HEMOGLOBIN 13.3 g/dl (12.0-15.5); LYMPH # 0.6 10^3/uL (1.5-5.0); LYMPH % 10.2 % (24.0-44.0); MEAN CORPUSCULAR HEMOGLOBIN 27.5 pg (27.0-33.0); MEAN CORPUSCULAR HGB CONC 31.2 g/dl (32.0-36.5); MONO # 0.4 10^3/uL (0.0-0.8); MONO % 6.5 % (0.0-5.0); NEUTROPHILS # 4.9 10^3/uL (1.5-8.5); NEUTROPHILS % 82.4 % (36.0-66.0); PLATELET COUNT, AUTOMATED 138 10^3/uL (150-450); RED BLOOD COUNT 4.84 10^6/uL (4.00-5.40)
[2020-07-14 00:48] LABS: ALBUMIN 4.1 GM/DL (3.2-5.2); ALT/SGPT 15 U/L (12-78); BILIRUBIN,DIRECT < 0.1 MG/DL (0.0-0.2); BILIRUBIN,TOTAL 0.5 MG/DL (0.2-1.0); LIPASE 109 U/L (73-393); TOTAL PROTEIN 7.3 GM/DL (6.4-8.2)
--- NOTE | 2020-07-14 01:03 | REPVR ---
PROCEDURE INFORMATION: Exam: CT Abdomen And Pelvis With Contrast Exam date and time: 07/13/2020 11:10 PM Age: 49 years old Clinical indication: Abdominal pain; Localized; Right; Additional info: R sided abd pain, sudden onset TECHNIQUE: Imaging protocol: Computed tomography of the abdomen and pelvis with intravenous contrast. Radiation optimization: All CT scans at this facility use at least one of these dose optimization techniques: automated exposure control; mA and/or kV adjustment per patient size (includes targeted exams where dose is matched to clinical indication); or iterative reconstruction. Contrast material: ISO; Contrast volume: 100 ml; Contrast route: INTRAVENOUS (IV); COMPARISON: CT ABD PELVIS WITH CONTRAST 08/17/2016 11:51 AM FINDINGS: Lungs: Minimal bibasilar fibro-atelectatic change. Liver: The liver attenuation is 120 Hounsfield units and the spleen is 147 Hounsfield units. Gallbladder and bile ducts: Normal. No calcified stones. No ductal dilation. Pancreas: Normal. No ductal dilation. Spleen: Normal. No splenomegaly. Adrenal glands: Normal. No mass. Kidneys and ureters: Slightly delayed right nephrogram. There is mild right hydronephrosis and hydroureter with some proximal right periureteral edema which extends to a proximal ureteral calculus at the level of the lower pole of the kidney measuring 4 x 5 x 5 mm. There are some small nonobstructing left renal calculi. Stomach and bowel: Slight colonic wall thickening of the sigmoid colon, rectum and distal descending colon. Appendix: Sutures at the cecal tip suggesting prior appendectomy. Intraperitoneal space: Unremarkable. No free air. No significant fluid collection. Vasculature: There is mild calcification of the abdominal aorta. Lymph nodes: Unremarkable. No enlarged lymph nodes. Urinary bladder: Unremarkable as visualized. Reproductive: Status post hysterectomy. Bones/joints: Status post fusion at L3-L4 with pedicular screws and interspace device. Soft tissues: Minimal fat filled umbilical hernia. IMPRESSION: 1. Proximal right ureteral calculus at the level of the lower pole of the kidney measuring 4 x 5 x 5 mm with obstructive uropathy of the right upper tract. 2. Small nonobstructing left renal calculi. 3. Status post hysterectomy. 4. Question of minimal nonspecific distal colitis involving the distal descending colon, sigmoid and rectum. Electronically signed by: Michael Hernández On 07/14/2020 01:03:02 AM
[2020-07-14] MEDS ORDERED: KETOROLAC 30 MG/ML 1ML VIAL IV ONE (01:15)
[2020-07-14] MEDS ORDERED: TAMSULOSIN 0.4 MG CAP PO ONE (01:15)
[2020-07-14] MEDS ORDERED: FLOM0.4C39 PO (01:52)
[2020-07-14] MEDS ORDERED: MORP-69 PO (01:52)
[2020-07-14 02:12] VITALS: BP 128/77
== END 2020-07-14 02:21 | disposition home or self-care (01) ==
LOC: M ED 22:33
DX: N20.1 Calculus of ureter (principal); R10.9 Unspecified abdominal pain; I10 Essential (primary) hypertension; M32.9 Systemic lupus erythematosus, unspecified; F17.200 Nicotine dependence, unspecified, uncomplicated; Z79.899 Other long term (current) drug therapy; Z88.1 Allergy status to other antibiotic agents; Z88.8 Allergy status to other drugs, medicaments and biological substances
CPT/HCPCS: 74177; 80047; 80076; 81001; 83690; 84702; 85025; 96361; 96374; 96375; 99284; J1885; J2270; J2405; Q9967

== ENCOUNTER → 2020-07-24 | Outpatient (REF) | payer MEDICARE, MEDICAID, OTHER ==
[~2020-07-24] MED LIST changes: +AMLO1TAB25; +ATEN25TA; +CEPH500C; +FLOM0.4C39 PO; +HYDR200T3; +LISI-538; +MELO15TA28; +MORP-69 PO
[2020-07-24 13:45] LABS: APPEARANCE, URINE HAZY (CLEAR); BACTERIA, URINE AUTO NEGATIVE (NEGATIVE); BILIRUBIN, URINE AUTO NEGATIVE (NEGATIVE); BLOOD, URINE BLOOD NEGATIVE (NEGATIVE); COLOR, URINE YELLOW (YELLOW); GLUCOSE, URINE (UA) AUTO NEGATIVE (NEGATIVE); KETONE, URINE AUTO NEGATIVE (NEGATIVE); LEUKOCYTE ESTERASE, URINE AUTO TRACE (NEGATIVE); MUCUS, URINE SMALL (NEGATIVE); NITRITE, URINE AUTO NEGATIVE (NEGATIVE); PROTEIN, URINE AUTO NEGATIVE (NEGATIVE); RBC, URINE AUTO 2 /HPF (0-3); SQUAMOUS EPITHELIAL CELL UR AU 2 /HPF (0-6); UROBILINOGEN, URINE AUTO 0.2 mg/dL (0.0-2.0); WBC, URINE AUTO 5 /HPF (0-3)
== END ==
LOC: M SMT 13:19
PROVIDERS: ATTEND Nurse Practitioner Women's Health
DX: N13.2 Hydronephrosis with renal and ureteral calculous obstruction (principal)
CPT/HCPCS: 81001; 87086; G0463

== ENCOUNTER → 2020-07-31 | Outpatient (CLI) | payer MEDICARE, MEDICAID ==
[~2020-07-31] MED LIST changes: -AMLO1TAB25; +AMLO1TAB25 PO; -ATEN25TA; +ATEN25TA PO; -HYDR200T3; +HYDR200T3 PO; -LISI-538; -LISI-538 PO; +LISI20TA33 PO; -MELO15TA28; +MELO15TA28 PO; +OXYB5TAB10 PO
--- NOTE | 2020-08-02 17:38 | REP ---
INDICATION: URETERAL STONE WITH HYDRONEPHROSIS COMPARISON: 03/27/2015 TECHNIQUE: Supine view of the abdomen and pelvis. FINDINGS: Evaluation of the urinary tract system is limited due to overlying bowel gas. Urinary tract calcifications cannot be excluded. Surgical suture material and calcifications/phleboliths in the pelvis are similar to prior examination. Skeletal structures demonstrate degenerative changes and evidence for prior lumbar fixation. IMPRESSION: Limited evaluation for urinary tract calcifications due to overlying bowel gas. <Electronically signed by Aquilino Arango > 08/02/20 [id number]
== END ==
LOC: M ADAMS 13:07
PROVIDERS: ATTEND Nurse Practitioner Women's Health
DX: N13.2 Hydronephrosis with renal and ureteral calculous obstruction (principal)
CPT/HCPCS: 74018; G0463

== ENCOUNTER → 2020-08-25 | Outpatient (CLI) | payer MEDICARE, MEDICAID ==
[~2020-08-25] MED LIST changes: +AMLO1TAB25; -AMLO1TAB25 PO; +ATEN25TA; -ATEN25TA PO; +HYDR200T3; -HYDR200T3 PO; +LISI20TA33; +MELO15TA28; -MELO15TA28 PO; -OXYB5TAB10 PO
--- NOTE | 2020-08-26 04:36 | REP ---
INDICATION: URETERAL STONE WITH HYDRONEPHROSIS COMPARISON: 07/14/2020 TECHNIQUE: Axial noncontrast images from the lung bases to the pubic symphysis with coronal and sagittal reformations. This CT examination was performed using the following dose reduction techniques: Automated exposure control, adjustment of mA and/or kv according to the patient's size, and use of iterative reconstruction technique. FINDINGS: The kidneys include small bilateral punctate nonobstructing calculi measuring up to 3 mm. Previously noted right-sided hydroureteronephrosis with obstructing calculus at the ureteropelvic junction has resolved, but the 5 mm calculus is now identified either at the ureterovesical junction or passed with into the bladder (series 201; image 121). Correlation with physical examination and urinalysis is recommended. Liver, spleen, pancreas, gallbladder and bilateral adrenal glands are normal. The enteric system is without obstruction or acute inflammatory process. Pelvis demonstrates prior hysterectomy. No ascites. No free air. No adenopathy. Atherosclerotic changes to the aorta noted. Postsurgical changes in the right lower quadrant suggest prior appendectomy, hysterectomy and evidence for prior lumbosacral spine surgery. IMPRESSION: 1. While there is no evidence for right-sided hydroureteronephrosis, the 5 mm calculus is now identified within the right hemipelvis either partially obstructing the distal right ureter at the ureterovesical junction or recently passed into the bladder. Correlation with urinalysis and physical examination is recommended. 2. Small nonobstructing intrarenal calculi up to 3 mm. <Electronically signed by Aquilino Arango > 08/26/20 [id number]
== END ==
LOC: M RAD 17:43
PROVIDERS: ATTEND Nurse Practitioner Women's Health
DX: N20.1 Calculus of ureter (principal)

== ENCOUNTER → 2020-09-01 | Outpatient (REF) | payer OTHER, MEDICAID ==
[~2020-09-01] MED LIST changes: -AMLO1TAB25; +AMLO1TAB25 PO; -ATEN25TA; +ATEN25TA PO; -HYDR200T3; +HYDR200T3 PO; -LISI20TA33; -MELO15TA28; +MELO15TA28 PO
[2020-09-01 13:20] LABS: HEMATOCRIT 43.1 % (36.0-47.0); HEMOGLOBIN 13.5 g/dl (12.0-15.5); MEAN CORPUSCULAR HEMOGLOBIN 28.7 pg (27.0-33.0); MEAN CORPUSCULAR HGB CONC 31.3 g/dl (32.0-36.5); MEAN CORPUSCULAR VOLUME 91.7 fl (80.0-96.0); PLATELET COUNT, AUTOMATED 173 10^3/uL (150-450); WHITE BLOOD COUNT 2.7 10^3/uL (4.0-10.0)
[2020-09-01 13:31] LABS: INR 0.87
[2020-09-01 13:32] LABS: PARTIAL THROMBOPLASTIN TIME 27.1 SECONDS (24.2-38.5)
[2020-09-01 13:45] LABS: BLOOD UREA NITROGEN 14 MG/DL (7-18); CALCIUM LEVEL 9.5 MG/DL (8.5-10.1); CARBON DIOXIDE LEVEL 28 MEQ/L (21-32); CHLORIDE LEVEL 107 MEQ/L (98-107); CREATININE FOR GFR 0.65 MG/DL (0.55-1.30); GLOMERULAR FILTRATION RATE > 60.0 (>58); GLUCOSE, FASTING 86 MG/DL (70-100); POTASSIUM SERUM 4.6 MEQ/L (3.5-5.1); SODIUM LEVEL 141 MEQ/L (136-145)
== END ==
LOC: M LABSMT 08:52 → M SFHCADAM 08:57
PROVIDERS: ATTEND Nurse Practitioner Women's Health
DX: N20.1 Calculus of ureter (principal); Z01.818 Encounter for other preprocedural examination

== ENCOUNTER → 2020-09-02 | Outpatient (CLI) | payer MEDICARE, MEDICAID | LOC: M LABSMTC 10:12 | PROVIDERS: ATTEND Anesthesiology | DX: Z11.52 Encounter for screening for COVID-19 (principal) ==

== ENCOUNTER → 2020-09-04 | Outpatient (REF) | payer MEDICARE, MEDICAID ==
[~2020-09-04] MED LIST changes: +OXYB5TAB10 PO
[2020-09-04 13:44] LABS: APPEARANCE, URINE CLEAR (CLEAR); BACTERIA, URINE AUTO 1+ (NEGATIVE); BILIRUBIN, URINE AUTO NEGATIVE (NEGATIVE); BLOOD, URINE BLOOD NEGATIVE (NEGATIVE); COLOR, URINE YELLOW (YELLOW); GLUCOSE, URINE (UA) AUTO NEGATIVE (NEGATIVE); KETONE, URINE AUTO NEGATIVE (NEGATIVE); LEUKOCYTE ESTERASE, URINE AUTO NEGATIVE (NEGATIVE); MUCUS, URINE SMALL (NEGATIVE); NITRITE, URINE AUTO NEGATIVE (NEGATIVE); PROTEIN, URINE AUTO NEGATIVE (NEGATIVE); RBC, URINE AUTO 1 /HPF (0-3); SPECIFIC GRAVITY URINE AUTO 1.014 (1.002-1.035); SQUAMOUS EPITHELIAL CELL UR AU 1 /HPF (0-6); UROBILINOGEN, URINE AUTO 0.2 mg/dL (0.0-2.0); WBC, URINE AUTO 2 /HPF (0-3)
== END ==
LOC: M SMT 12:49
PROVIDERS: ATTEND Nurse Practitioner Women's Health
DX: N20.1 Calculus of ureter (principal)

== ENCOUNTER 2020-09-07 12:21 | Day surgery (SDC) | payer MEDICARE, MEDICAID ==
[~2020-09-07] VITALS: Ht 160 cm; Wt 58.7 kg
[~2020-09-07 12:21] MED LIST changes: +LIDOCAINE 1% MDV 20ML VIAL SQ PRN; +LR 1,000 ML IV ONE; -OXYB5TAB10 PO
[2020-09-07] MEDS ORDERED: ceFAZolin SOD 2 GM in IV 1 EA IV ONE (13:20)
[2020-09-07] MEDS ORDERED: fentaNYL 100 MCG/2 ML INJECTION (J3010) As Ordered ONE (13:50)
[2020-09-07] MEDS ORDERED: MIDAZOLAM INJ 2MG/2ML VIAL (J2250 PER 1MG) As Ordered ONE (13:50)
[2020-09-07] MEDS ORDERED: LIDOCAINE 2% 100MG/5ML SDV (FOR ANES.) As Ordered ONE (13:50)
[2020-09-07] MEDS ORDERED: propofoL 200 MG/20 ML VIAL As Ordered ONE (13:50)
[2020-09-07] MEDS ORDERED: SCOPOLAMINE 1MG TRANSDERMAL PATCH TOP ONE (15:00)
[2020-09-07] MEDS ORDERED: CONRAY-60 60% 50ML VIAL (Q9961) As Ordered ONE (15:15)
[2020-09-07] MEDS ORDERED: ACETAMINOPHEN 1000MG 100ML IV BTL (OFIRMEV) (J0131 PER 10MG) As Ordered ONE (15:28)
[2020-09-07] MEDS ORDERED: dexameTHASONE 4 MG/ML 1ML VIAL (J1100 PER 1MG) As Ordered ONE (15:56)
[2020-09-07] MEDS ORDERED: ONDANSETRON 4MG/2ML VIAL As Ordered ONE ×2 (15:56→16:41)
[2020-09-07] MEDS ORDERED: ePHEDrine SULFATE 25 MG/5 ML(5MG/ML) SYRINGE As Ordered ONE (16:03)
--- NOTE | 2020-09-07 16:27 | REP ---
INDICATION: RIGHT, CYSTO, RIGHT URETERM W/LASER LITHO STENT. COMPARISON: CT abdomen pelvis 08/25/2020, KUB 07/31/2020 TECHNIQUE: Two images from C-arm fluoroscopy provided to Dr. Arriaza of the urology division. FINDINGS: There has been an L3-4 posterior fusion with interbody disc spacer, pedicle screws and arch bars as on previous CT. Dorsal column stimulator unit overlies the right flank. Initial image shows catheter in the right mid upper ureter and the wire through it extending to an upper pole calyx. There is contrast in the ureter and collecting system which shows caliectasis. On the 2nd image a double pigtail stent is visible coiled proximally in the renal pelvis and distally in the right side of the bladder. Some of the collecting system contrast has drained. IMPRESSION: 1. Status post placement right-sided double pigtail ureteral stent with proximal coil in the renal pelvis and distal coil in the bladder. Some proximal hydronephrosis noted with dilatation of the calices. Prior of L3-4 posterior fusion and interbody spacer, hardware intact. 2. Fluoroscopy time: 11 seconds. <Electronically signed by Alan Cagle > 09/07/20 [id number]
[2020-09-07] MEDS ORDERED: OXYB5TAB10 PO (16:30)
[2020-09-07] MEDS ORDERED: PERCOCET 5MG/325MG TAB PO PRN ×2 (16:45→16:50)
[2020-09-07] MEDS ORDERED: ONDANSETRON 4MG/2ML VIAL IV PRN (16:45)
[2020-09-07] MEDS ORDERED: fentaNYL 100 MCG/2 ML INJECTION (J3010) IV PRN (16:45)
[2020-09-07] MEDS ORDERED: METOCLOPRAMIDE INJ 10MG/2ML VIAL (J2765 PER 1) IV PRN (16:45)
[2020-09-07] MEDS ORDERED: LR 1,000 ML IV SCH (16:45)
[2020-09-07] MEDS ORDERED: oxyBUTYnin 5 MG TAB PO PRN (16:50)
[2020-09-07 17:25] VITALS: BP 122/70
--- NOTE | 2020-09-08 08:35 | RO ---
OPERATIVE NOTE DATE OF OPERATION: 09/07/2020 PREOPERATIVE DIAGNOSIS: Right ureteral stone. POSTOPERATIVE DIAGNOSIS: Right ureteral stone. PROCEDURE: Cystoscopy, right ureteroscopy with laser lithotripsy and basket extraction of stones, right retrograde pyelogram with intraop interpretation of images, right ureteral stent placement. SURGEON: Braxton Arriaza MD LANDSCAPE PHOTOGRAPHER: None. ANESTHESIA: General. OPERATIVE INDICATIONS: This is a 49-year-old female who was found to have an obstructing 6 mm right ureterovesical junction stone on recent imaging. She was brought to the operating room today for treatment. DESCRIPTION OF PROCEDURE: The patient was brought to the operating room and general anesthesia induced. Prophylactic antibiotics were infused. She was placed in the dorsal lithotomy position and prepped and draped in usual sterile fashion. Guidewire was advanced up the right collecting system. I went up the right collecting system with short semi-rigid ureteroscope and within the distal ureter the 6 mm stone was seen. The stone was fragmented into smaller pieces using 272 micron laser fiber. All the fragments were removed using the basket. I then advanced the ureteroscope into more proximal ureter and no additional stones were seen. Retrograde pyelogram was performed and was notable for mild to moderate right hydroureteronephrosis with no extravasation. I then withdrew the ureteroscope along with access sheath and no additional stones were seen. I then utilized the guidewire to advance 6-Citizen Of [place] x 22-32 cm JJ ureteral stent into the right collecting system. Wire was removed and adequate curls of stent in right renal pelvis and bladder. The bladder was emptied of all fluids and this marked the conclusion of the procedure. The patient was taken out of the dorsal lithotomy position, awakened from anesthesia and transported to the recovery room in stable condition. ESTIMATED BLOOD LOSS: 5 mL. COMPLICATIONS: None. SPECIMEN: Kidney stone fragments. PLAN: The patient will follow up in urology clinic in 1-2 weeks for stent removal. CANDICE
[2020-09-16 19:06] LABS: CA Oxalate Dihy 20 % (.); Ca Ox Monohydrate 75 % (.); Size 4x2 mm (.)
== END 2020-09-07 17:39 | disposition home or self-care (01) ==
LOC: M SDC 12:21
PROVIDERS: ATTEND Urology
DX: N20.1 Calculus of ureter (principal); M32.9 Systemic lupus erythematosus, unspecified; R00.0 Tachycardia, unspecified; I10 Essential (primary) hypertension; I73.00 Raynaud's syndrome without gangrene; Z88.1 Allergy status to other antibiotic agents; Z88.8 Allergy status to other drugs, medicaments and biological substances; Z79.899 Other long term (current) drug therapy
CPT/HCPCS: 52356; 74420; 82365; 88300; C1769; C2617; J0131; J0690; J1100; J2250; J2405; J3010; Q9961

== ENCOUNTER 2020-09-17 13:34 | Emergency (ER) | payer MEDICARE, MEDICAID ==
[~2020-09-17] VITALS: Ht 160 cm; Wt 59.1 kg
[~2020-09-17 13:34] MED LIST changes: -LIDOCAINE 1% MDV 20ML VIAL SQ PRN; -LR 1,000 ML IV ONE; +OXYB5TAB10 PO
[2020-09-17 14:58] LABS: BASO % 0.4 % (0.0-1.0); EOS % 0.4 % (0.0-3.0); HEMATOCRIT 41.7 % (36.0-47.0); HEMOGLOBIN 13.5 g/dl (12.0-15.5); LYMPH # 0.8 10^3/uL (1.5-5.0); MEAN CORPUSCULAR HEMOGLOBIN 28.8 pg (27.0-33.0); MEAN CORPUSCULAR HGB CONC 32.4 g/dl (32.0-36.5); MEAN CORPUSCULAR VOLUME 89.1 fl (80.0-96.0); MONO # 0.4 10^3/uL (0.0-0.8); MONO % 7.5 % (2.0-8.0); NEUTROPHILS # 3.9 10^3/uL (1.5-8.5); NEUTROPHILS % 76.3 % (36.0-66.0); PLATELET COUNT, AUTOMATED 157 10^3/uL (150-450); RED BLOOD COUNT 4.68 10^6/uL (4.00-5.40); WHITE BLOOD COUNT 5.1 10^3/uL (4.0-10.0)
[2020-09-17] MEDS ORDERED: KETOROLAC 30 MG/ML 1ML VIAL IV ONE (15:00)
[2020-09-17 15:31] VITALS: BP 161/84
--- NOTE | 2020-09-17 15:41 | REP ---
INDICATION: right flank/kidney pain s/p stent placement. COMPARISON: None. TECHNIQUE: Real-time sonographic evaluation of the kidneys is performed. FINDINGS: Renal cortical echogenicity pattern is normal bilaterally and contours are smooth. There is no evidence of hydronephrosis, cyst, mass, or large calculus in either kidney. The right kidney measures 9.9 x 4.2 x 4.0 cm. Left renal dimensions are 9.7 x 3.7 x 5.2 cm. The urinary bladder is not well distended, ureteral jets are not visualized with Doppler color evaluation. A right ureteral stent is seen proximally in the right renal pelvis and distally in the urinary bladder. IMPRESSION: Negative renal ultrasound. <Electronically signed by Anselmo Kelsey > 09/17/20 [id number]
--- NOTE | 2020-09-17 15:43 | REP ---
INDICATION: right flank pain s/p stent placement COMPARISON: 07/31/2020 TECHNIQUE: Supine view of the abdomen and pelvis. FINDINGS: Right ureteral stent in seemingly satisfactory position. Bowel gas pattern is nonspecific. Skeletal structures demonstrate stable degenerative changes and hardware at the lower lumbar spine. IMPRESSION: Relatively normal nonspecific examination. <Electronically signed by Aquilino Arango > 09/17/20 [id number]
[2020-09-17] MEDS ORDERED: KETO10TAB PO (15:59)
[2020-09-17] MEDS ORDERED: CEFD1CAP8 PO (15:59)
== END 2020-09-17 16:18 | disposition home or self-care (01) ==
LOC: M ED 13:34
DX: N23 Unspecified renal colic (principal); Z96.0 Presence of urogenital implants; J06.9 Acute upper respiratory infection, unspecified; I10 Essential (primary) hypertension; M32.9 Systemic lupus erythematosus, unspecified; M54.9 Dorsalgia, unspecified; Z79.899 Other long term (current) drug therapy; Z88.1 Allergy status to other antibiotic agents; Z88.8 Allergy status to other drugs, medicaments and biological substances
CPT/HCPCS: 36415; 74018; 76775; 80047; 81001; 85025; 87086; 96374; 99284; J1885

== ENCOUNTER → 2020-12-08 | Outpatient (CLI) | payer MEDICARE, MEDICAID, OTHER ==
[~2020-12-08] MED LIST changes: +CEFD1CAP8 PO; +KETO10TAB PO
--- NOTE | 2020-12-08 09:29 | REP ---
INDICATION: PAIN. COMPARISON: None. TECHNIQUE: Internal rotation, external rotation, axillary and Y-view of the right shoulder FINDINGS: Early moderate cortical irregularity at the acromioclavicular joint is appreciated. Subacromial space is decreased to approximately 7 mm. No subacromial calcifications to suggest tendinopathy noted. The glenoid rim demonstrates mild spurring along the posterior margin best identified on axillary view along with small adjacent calcification. The humeral head is intact and normal. IMPRESSION: Early arthritic changes as described above. <Electronically signed by Aquilino Arango > 12/08/20 [id number]
== END ==
LOC: M SOG 09:04
PROVIDERS: ATTEND Orthopaedic Surgery Sports Medicine
DX: M75.41 Impingement syndrome of right shoulder (principal); M19.011 Primary osteoarthritis, right shoulder

== ENCOUNTER → 2021-03-23 | Outpatient (CLI) | payer MEDICARE, MEDICAID ==
--- NOTE | 2021-03-23 10:48 | DEXAMM ---
INDICATION: OTHER SPECIFIED DISORDER OF BONE DENSITY OF MULTIPLE SITES. COMPARISON: 05/15/2007. TECHNIQUE: Bone density was measured using dual-energy x-ray absorptiometry (DEXA). FINDINGS: AP SPINE L1-L4 BMD 1.350 g/cm2 Young Adult T-Score 1.5 Age Matched Z-Score 1.8. LT FEMUR, TOTAL BMD 0.867 g/cm2 Young Adult T-Score -1.1 Age Matched Z-Score -0.7. LT NECK BMD 0.827 g/cm2 Young Adult T-Score -1.5 Age Matched Z-Score -0.8. RT FEMUR, TOTAL BMD 0.842 g/cm2 Young Adult T-Score -1.3 Age Matched Z-Score -0.9. RT NECK BMD 0.776 g/cm2 Young Adult T-Score -1.9 Age Matched Z-Score -1.2. IMPRESSION: There is normal bone density of the spine. There is low bone density of the left hip. There is low bone density of the right hip. The density of the spine has increased 45.0% since the initial exam on 05/15/2007. The density of the left hip has increased 13.3% since initial exam on 05/15/2007. The density of the right hip has increased 12.9% since the initial exam on 05/15/2007. FOLLOW-UP: Recommendation for the next bone density exam: 2 years. <Electronically signed by Anselmo Kelsey > 03/23/21 [id number]
== END ==
LOC: M WHC 09:23
PROVIDERS: ATTEND Physician Assistant
DX: M85.851 Other specified disorders of bone density and structure, right thigh (principal); M85.852 Other specified disorders of bone density and structure, left thigh

== ENCOUNTER → 2021-04-20 | Outpatient (REF) | payer OTHER, MEDICAID ==
[2021-04-20 13:22] LABS: ALBUMIN 3.8 GM/DL (3.2-5.2); ALT/SGPT 20 U/L (12-78); BILIRUBIN,TOTAL 0.4 MG/DL (0.2-1.0); BLOOD UREA NITROGEN 22 MG/DL (7-18); CALCIUM LEVEL 9.3 MG/DL (8.5-10.1); CARBON DIOXIDE LEVEL 27 MEQ/L (21-32); CHLORIDE LEVEL 112 MEQ/L (98-107); CHOLESTEROL LEVEL 203 MG/DL (<200); CREATININE FOR GFR 0.54 MG/DL (0.55-1.30); GLOMERULAR FILTRATION RATE > 60.0 (>58); GLUCOSE, FASTING 82 MG/DL (70-100); HDL CHOLESTEROL 55 MG/DL (>40); LDL CHOLESTEROL 124 MG/DL (<100); NON-HDL-C 148 MG/DL; POTASSIUM SERUM 4.6 MEQ/L (3.5-5.1); SODIUM LEVEL 142 MEQ/L (136-145); TOTAL PROTEIN 6.8 GM/DL (6.4-8.2); TRIGLYCERIDES LEVEL 119 MG/DL (<150)
[2021-04-20 13:32] LABS: HEMOGLOBIN A1c 5.1 %
== END ==
LOC: M LABDRWAD 12:21
PROVIDERS: ATTEND Nurse Practitioner Family
DX: Z00.00 Encounter for general adult medical examination without abnormal findings (principal); E78.2 Mixed hyperlipidemia; R73.01 Impaired fasting glucose

== ENCOUNTER 2021-06-04 08:00 | Emergency (ER) | payer MEDICARE, MEDICAID ==
[~2021-06-04] VITALS: Ht 160 cm; Wt 57.0 kg
[2021-06-04] MEDS ORDERED: ESTR2TAB3 (08:19)
--- NOTE | 2021-06-04 10:20 | REP ---
INDICATION: CHEST PAIN COMPARISON: None. TECHNIQUE: PA and lateral. FINDINGS: The mediastinum and cardiac silhouette are normal. Small right pleural effusion is suggested. No focal consolidation. No pneumothorax. Skeletal structures are intact.. IMPRESSION: Small right pleural effusion. <Electronically signed by Aquilino Arango > 06/04/21 [id number]
[2021-06-04 11:15] LABS: CK-MB VALUE MASS 1.5 NG/ML (<3.6); MB/CK RELATIVE INDEX 2.46 (< OR =4)
--- OUTSIDE RECORDS SUMMARY | 2021-06-04 11:33 | CCD | Continuity of Care Document ---
Author Author Elmira BRAXTON MAT INSPECTOR Organization Unknown Address [address] [place] [address] Phone [phone] Care Team Providers Care Driver Engineer Name Role Phone Kings Chavis MD AUTM [facility] - Rheumatology AUTM [phone] David Stein MD AUTM [phone] Carlos Eduardo Paula [facility] AUTM [phone] [facility] AUTM Little Reyez M.D. AUTM [phone] [facility] - Pain Medicine AUTM [phone] [facility] AUTM [phone] [facility] Dermatology - Dermatology AUTM [facility] AUTM [phone] Gastroenterology & Hepatology [facility] - Gastroenterology AUTM [phone] [facility] Orthopedics - Sports Medicine AUTM [phone] Problems Active Problems Provider Date Essential hypertension Kings Song M.D. Onset: Paroxysmal supraventricular tachycardia Kings Song M.D. Onset: 08/26/2013 Gastroesophageal reflux disease Kings Song M.D. O nset: 06/28/2013 Low back pain Kings Song M.D. Onset: 2012 Allergic rhinitis Kings Song M.D. Onset: 2011 Essential hypertension Kings Song M.D. Onset: 05/2012 Systemic lupus erythematosus Kings Song M.D. Onse t: 02/17/2012 Social History Type Date Description Comments Sex Unknown Tobacco Use Start: Unknown occasionally smokes cigarettes Tobacco Use Start: Unknown Never Used Smokeless Tobacco ETOH Use Denies alcohol use Tobacco Use Start: Unknown End: Unknown Patient is a former smoker quit in September 2017 Recreational Drug Use Denies Drug Use Smoking Status Reviewed: 10/28/20 Patient is a former smoker qu it in September 2017 Exercise Type/Frequency Exercises rarely Sun Exposure Minimum amount of sun exposure Sun Exposure Uses sunscreen Seat Belt/Car Seat Always uses seat belt Allergies, Adverse Reactions, Alerts Active Allergies Criticality Reaction | Severity Comments Date Compazine Unable to assess criticality 03/21/2003 Macrobid Unable to assess criticality 03/21/2003 Cipro Unable to assess criticality 03/21/2003 Medications Active Medications SIG Qnty Indications Ordering Provide r Date Cephalexin 500mg Capsules four times a day for 10 days 40caps W55.03xA Lurdes Braxton FNP 04/12/2021 Estradiol 2mg Tablets 1 by mouth every day 90tabs N95.1 Lurdes Braxton FNP 10/28/2020 Ondansetron HCL 4mg Tablets 1 tab every 4 to 6 hours as needed n/v 30tabs R11.0 Lurdes Braxton FNP Eq Allergy Relief (Cetirizine) 10mg Tablets take one tablet by mouth once daily as needed for allergies 90ta bs Misty Fuentes M.D. 03/20/2018 Baclofen 10mg Tablets take 1 tablet by mouth twice daily as needed for back spasm 60tabs M54.16 Lurdes Clarke FNP 09/05/2017 Lisinopril 20mg Tablets take one tablet by mouth once daily in the morning for blood pressure 90tabs I10 Lurdes Braxton FNP 04/30/2013 Amlodipine Besylate 10mg Tablets take one tablet by mouth once daily for blood pressure 90tabs I10 Pl Lurdes salmeron FNP 06/26/2012 Plaquenil 200mg Tablets 1 po bid 60tabs Unknown Leflunomide 20mg Tablets one po qd Unknown Atenolol 25mg Tablets 1 tab by mouth every day if needed for fast heart rate 30tabs Higinio Braxton, MAT INSPECTOR Multi Vitamin Tablets 1 by mouth every day 100tabs Unknown Meloxicam 15mg Tablets take one tablet by mouth every day for joint pain M32.9 Unknown 0 Tramadol HCL 50mg Tablets take 1 tablet by mouth every 6 hours as needed for pain Unknown Immunizations CPT Code Status Date Vaccine Lot # [id number] Given 04/12/2021 Influenza Virus Vaccine, Mahin drivalent,multidose vial [id number] 51574 Given 03/26/2020 Influenza Virus Vaccine, Mahin drivalent,multidose vial [id number] 07939 Given 04/13/2018 Influenza Virus Vaccine, Mahin drivalent,multidose vial [id number] Q2038 Given 04/17/2014 Influenza Vaccine (Fluzone)( medicare) 36131 Given 04/17/2014 Influenza Vaccination [id number] Q2038 Given 04/30/2013 Influenza Vaccine (Fluzone)( medicare) [id number] Given 04/30/2013 Influenza Vaccination [id number] Q2038 Given 03/15/2012 Influenza Vaccine (Fluzone)( medicare) 49100 Given 03/15/2012 Pneumococcal Vaccine [id number] 19122 Given 03/15/2012 Influenza Vaccination [id number] 62666 Given 04/24/2008 Influenza Vaccination [id number] 47408 Given 04/18/2007 Influenza Vaccination [id number] Vital Signs Date Vital Result Comment 04/12/2021 9:43am BP Systolic 141 mmHg BP Diastolic 89 mmHg BP Systolic Recheck 147 mmHg BP Diastolic Recheck 99 mmHg Heart Rate 70 /min Body Temperature 96.7 F Respiratory Rate 16 /min Height 62.75 inches 5'2.75" Weight 130.00 lb Peak Expiratory Flow Rate 344 Estimated Peak Flow Rate [place] Body Weight 110 lb BMI (Body Mass Index) 23.2 kg/m2 10/28/2020 9:57am BP Systolic 116 mmHg BP Diastolic 89 mmHg Heart Rate 80 /min Body Temperature 97.3 F Respiratory Rate 16 /min Height 63 inches 5'3" Weight 131.12 lb Peak Expiratory Flow Rate 353 Estimated Peak Flow Rate [place] Body Weight 115 lb BMI (Body Mass Index) 23.2 kg/m2 Results Description No Information Available Procedures Date Code Description Status 12/22/2020 01451394 Mammogram Completed 10/28/2020 44199 Office/Outpatient Established Lo w MDM 20-29 Min Completed 01/13/2014 12950355 Colonoscopy Completed Medical Devices Description No Information Available Encounters Type Date Location Provider Dx Diagnosis Office Visit 10/28/2020 10:00a Main Office Lurdes Braxton FNP M25.5 11 Pain in right shoulder N95.1 Menopausal and female climac teric states Assessments Date Code Description Provider 04/12/2021 Z00.00 Encounter for genera l adult medical examination without abnormal findings Lurdes Braxton, MAT INSPECTOR 04/12/2021 W55.03xA Scratched by cat, initial encoun ter Lurdes Braxton, MAT INSPECTOR 04/12/2021 N95.1 Menopausal and female climacteri c states PleLurdes tyson, MAT INSPECTOR 04/12/2021 M54.50 Low back pain, unspecified Plesk achLurdes, MAT INSPECTOR 04/12/2021 I10 Essential (primary) hypertension Lurdes Braxton, MAT INSPECTOR 04/12/2021 M32.9 Systemic lupus erythematosus, un specified Pleskach Lurdes, MAT INSPECTOR 04/12/2021 E78.2 Mixed hyperlipidemia Pleskach, M manjula, MAT INSPECTOR 04/12/2021 R73.01 Impaired fasting glucose Meaganac hLurdes, MAT INSPECTOR 10/28/2020 M25.511 Pain in right shoulder Lurdes Braxton, MAT INSPECTOR 10/28/2020 N95.1 Menopausal and female climacteri c states PleHiginio tysony, MAT INSPECTOR Plan of Treatment 04/12/2021 - Lurdes Braxton MAT INSPECTOR* Z00.00 Encounter for general adult medical examination without abnormal findings* New Labs:* Comprehensive Metabolic Profil, Scheduled: 04/12/21 * Follow up:* annually * W55.03xA Scratched by cat, initial encounter* New Medication:* Cephalexin 500 mg - four times a day for 10 days * N95.1 Menopausal and female climacteric states * M54.50 Low back pain, unspecified * I10 Essential (primary) hypertension * M32.9 Systemic lupus erythematosus, unspecified * E78.2 Mixed hyperlipidemia* New Labs:* Lipid Panel, Scheduled: 04/12/21 * R73.01 Impaired fasting glucose* New Labs:* Hemoglobin A1c, Scheduled: 04/12/21 Functional Status Functional Condition Comment Date Status .None Active Mental Status Description No Information Available Referrals Refer to Dr Reason for Referral Status Appt Date [facility] Orthopedics please evaluate for right shoulder arlene n. thank you. Closed 12/08/[id number] [facility], [facility] [place], [place] [id number] [phone]
--- OUTSIDE RECORDS SUMMARY | 2021-06-04 11:33 | CCD | Continuity of Care Document ---
Author Author Elmira BRAXTON PAINT CREW SUPERVISOR Organization Unknown Address [address] [place] [address] Phone [phone] Care Team Providers Care [place] Technician Name Role Phone Kings Chavis MD AUTM [facility] - Rheumatology AUTM [phone] David Stein MD AUTM [phone] Carlos Eduardo Paula [facility] AUTM [phone] [facility] AUTM [phone] Little Reyez M.D. AUTM [phone] [facility] - Pain Medicine AUTM [phone] [facility] AUTM [phone] [facility] Dermatology - Dermatology AUTM [phone] [facility] Breast Care AUTM [phone] Gastroenterology & Hepatology [facility] - Gastroenterology AUTM [phone] [facility] Orthopedics - Sports Medicine AUTM [phone] Problems Active Problems Provider Date Essential hypertension [...] for fast heart rate 30tabs Higinio Braxton, PAINT CREW SUPERVISOR Multi Vitamin Tablets 1 by mouth every day 100tabs Unknown Meloxicam 15mg Tablets take one tablet by mouth every day for joint pain M32.9 Unknown 0 Tramadol HCL 50mg Tablets take 1 tablet by mouth every 6 hours as needed for pain Unknown Immunizations CPT Code Status Date Vaccine Lot # 36053 Given 04/12/2021 Influenza Virus Vaccine, Mahin drivalent,multidose vial [id number] 34591 Given 03/26/2020 Influenza Virus Vaccine, Mahin drivalent,multidose vial [id number] 66847 Given 04/13/2018 Influenza Virus Vaccine, Mahin drivalent,multidose vial [id number] Q2038 Given 04/17/2014 Influenza Vaccine (Fluzone)( medicare) 27305 Given 04/17/2014 Influenza Vaccination [id number] Q2038 Given 04/30/2013 Influenza Vaccine (Fluzone)( medicare) 29214 Given 04/30/2013 Influenza Vaccination [id number] Q2038 Given 03/15/2012 Influenza Vaccine (Fluzone)( medicare) 00811 Given 03/15/2012 Pneumococcal Vaccine [id number] 65458 Given 03/15/2012 Influenza Vaccination [id number] 98045 Given 04/24/2008 Influenza Vaccination [id number] 54091 Given 04/18/2007 Influenza Vaccination [id number] Vital Signs Date Vital Result Comment 04/12/2021 9:43am BP Systolic 141 mmHg BP Diastolic 89 mmHg BP Systolic Recheck 147 mmHg BP Diastolic Recheck 99 mmHg Heart Rate 70 /min Body Temperature 96.7 F Respiratory Rate 16 /min Height 62.75 inches 5'2.75" Weight 130.00 lb Peak Expiratory Flow Rate 344 Estimated Peak Flow Rate [place] Body Weight 110 lb BMI (Body Mass Index) 23.2 kg/m2 10/28/2020 9:57am BP Systolic 116 mmHg BP Diastolic 89 mmHg Heart Rate 80 /min Body Temperature 97.3 F Respiratory Rate 16 /min Height 63 inches 5'3" Weight 131.12 lb Peak Expiratory Flow Rate 353 Estimated Peak Flow Rate [place] Body Weight 115 lb BMI (Body Mass Index) 23.2 kg/m2 Results Description No Information Available Procedures Date Code Description Status 04/12/2021 48416 Office/Outpatient Established Mo d MDM 30-39 Min Completed 12/22/2020 [id number] Mammogram Completed 10/28/2020 75788 Office/Outpatient Established Lo w MDM 20-29 Min Completed 01/13/2014 [id number] Colonoscopy Completed Medical Devices Description No Information Available Encounters Type Date Location Provider Dx Diagnosis Office Visit 04/12/2021 10:00a Main Office Pleskach, Lurdes, PAINT CREW SUPERVISOR Z00.0 0 Encntr for general adult medical exam w/o abnormal findings W55.03xA Scratched by cat, initial en counter N95.1 Menopausal and female climac teric states M54.50 Low back pain, unspecified I10 Essential (primary) hyperten mario M32.9 Systemic lupus erythematosus , unspecified E78.2 Mixed hyperlipidemia R73.01 Impaired fasting glucose Z23 Encounter for immunization Office Visit 10/28/2020 10:00a Main Office Pleskach, Lurdes, PAINT CREW SUPERVISOR M25.5 11 Pain in right shoulder N95.1 Menopausal and female climac teric states Assessments Date Code Description Provider 04/12/2021 Z00.00 Encounter for genera l adult medical examination without abnormal findings Pleskach, Lurdes, PAINT CREW SUPERVISOR 04/12/2021 W55.03xA Scratched by cat, initial encoun ter Pleskach, Lurdes, PAINT CREW SUPERVISOR 04/12/2021 N95.1 Menopausal and female climacteri c states Pleskach, Lurdes, PAINT CREW SUPERVISOR 04/12/2021 M54.50 Low back pain, unspecified Plesk ach, Ludres, PAINT CREW SUPERVISOR 04/12/2021 I10 Essential (primary) hypertension Pleskach, Lurdes, PAINT CREW SUPERVISOR 04/12/2021 M32.9 Systemic lupus erythematosus, un specified Pleskach, Lurdes, PAINT CREW SUPERVISOR 04/12/2021 E78.2 Mixed hyperlipidemia Pleskach, M manjula, PAINT CREW SUPERVISOR 04/12/2021 R73.01 Impaired fasting glucose Pleskac h, Lurdes, PAINT CREW SUPERVISOR 04/12/2021 Z23 Encounter for immunization Plesk ach, Lurdes, PAINT CREW SUPERVISOR 10/28/2020 M25.511 Pain in right shoulder Lurdes Braxton FNP 10/28/2020 N95.1 Menopausal and female climacteri c states Lurdes Braxton FNP Plan of Treatment Future Appointment(s):* 04/13/2022 10:00 am - Lurdes Braxton FNP at Main Office 04/12/2021 - Lurdes Braxton FNP* Z00.00 Encounter for general adult medical examination without abnormal findings* New Labs:* Comprehensive Metabolic Profil, Scheduled: 04/12/21 * Comments:* Health maintenance up to date. Overall doing well. KRISSY/PHQ 9/CAGE questionnaire reviewed. Discussed healthy lifestyle choices. * Follow up:* annually * W55.03xA Scratched by cat, initial encounter* New Medication:* Cephalexin 500 mg - four times a day for 10 days * N95.1 Menopausal and female climacteric states * M54.50 Low back pain, unspecified* Comments:* follows with [facility] * I10 Essential (primary) hypertension* Comments:* controlled, continue current medications * M32.9 Systemic lupus erythematosus, unspecified* Comments:* follows with rheumatology * E78.2 Mixed hyperlipidemia* New Labs:* Lipid Panel, Scheduled: 04/12/21 * Comments:* check lipids * R73.01 Impaired fasting glucose* New Labs:* Hemoglobin A1c, Scheduled: 04/12/21 * Comments:* check HgbA1C * Z23 Encounter for immunization Functional Status Functional Condition Comment Date Status .None Active Mental Status Description No Information Available Referrals Refer to Reason for Referral Status Appt Date [facility] Orthopedics please evaluate for right shoulder arlene n. thank you. Closed 12/08/2020 [address] [facility], [facility] [place] [address] [phone]
--- OUTSIDE RECORDS SUMMARY | 2021-06-04 11:33 | CCD ---
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 [employer] Operator Name Role Phone DENIS SOTELO MD 3 [phone] Allergies Code Code System Name Reaction Severity Status Onset 20341210 RxNorm Cipro Anaphylaxis Moderate to Severe Active 20341013 RxNorm Compazine Hives Moderate Active 513617 RxNorm Macrobid Hives Moderate Active Medications Name Status Start Date Stop Date amlodipine 10 mg tablet Active Not avai lable amlodipine besylate 10 mg tabs Completed 05/26/2020 atenolol 25 mg tablet Active Not availa ble azelastine 0.05 % eye drops Completed 02/2020 baclofen 10 mg tabs Completed 01/28/2020 baclofen 10 mg tablet TAKE 1 TABLET BY MOUTH TWICE DAILY NEEDED FOR BACK SPASM Active Not available cefdinir 300 mg capsule TAKE 1 CAPSULE BY MOUTH TWICE DAILY Active Not available cephalexin 500 mg caps Completed 05/26/20 cephalexin 500 mg capsule Completed 2020 cetirizine 10 mg capsule Take 1 capsule every day by oral route. Completed 01/28/2020 cetirizine 10 mg tablet TAKE 1 TABLET BY MOUTH ONCE DAILY NEEDED FOR ALLERGIES Active Not available diclofenac 1 % topical gel APPLY 4 GRAMS TOPICALLY TO FOOT EVERY 6 HOURS Active Not available epinastine 0.05 % eye drops Completed 02/2020 epinastine hcl 0.05 % soln Completed 05/10 erythromycin 5 mg/gm oint Completed 05/26 erythromycin 5 mg/gram (0.5 %) eye ointm ent APPLY A SMALL AMOUNT ON EYELID AT BEDTIME DIRECTED Active Not available estradiol 2 mg tablet Active Not availa ble hydroxychloroquine 200 mg tablet Active Not available hydroxychloroquine sulfate 200 mg tabs Completed 05/26/2020 ibuprofen 600 mg tablet Take 1 tablet twice a day by oral route. Completed 01/05/2021 ketorolac 10 mg tablet TAKE 1 TABLET BY MOUTH EVERY 6 HOURS NEEDED FOR PAIN Completed 10/19/2020 leflunomide 20 mg tabs Completed 01/28/20 leflunomide 20 mg tablet Active Not leland ilable lisinopril 20 mg tabs Completed 0 lisinopril 20 mg tablet Active Not avai lable lotemax 0.5 % susp Completed 05/26/2020 Lotemax 0.5 % eye drops,suspension Completed 10/16/2019 medroxyprogesterone 2.5 mg tablet 1 tab daily Completed 05/26/2020 medroxyprogesterone acetate 2.5 mg tabs Completed 05/26/2020 meloxicam 15 mg tabs Completed 01/28/2020 meloxicam 15 mg tablet Active Not avail able methylprednisolone 4 mg tablets in a dos e pack USE DIRECTED Completed 03/29/2021 methylprednisolone dose pack 4 mg tbpk Completed 05/26/2020 morphine ER 15 mg tablet,extended releas e TAKE 1 TABLET BY MOUTH TWICE DAILY NEEDED FOR PAIN . DO NOT EXCEED 2 PER 24 HOURS Completed 10/19/2020 ondansetron HCl 4 mg tablet TAKE 1 TABLET BY MOUTH EVERY 6 HOURS NEEDED FOR 7 DAYS Completed 10/19/2020 oxybutynin chloride 5 mg tablet TAKE 1 TABLET BY MOUTH TWICE DAILY Completed 10/08 prednisone 5 mg tablet TAKE 1 TABLET BY MOUTH ONCE DAILY Completed 03/29 pregabalin 25 mg capsule Completed pregabalin 50 mg capsule Completed pregabalin 75 mg capsule Completed Prempro 0.3 mg-1.5 mg tablet Completed 02/2020 smz/tmp ds tab 800-160 Completed sulfamethoxazole 800 mg-trimethoprim 160 mg tablet TAKE 1 TABLET BY MOUTH FOR YOUR CYSTOSCOPY TODAY DIRECTED Completed 10/19/2020 tamsulosin 0.4 mg capsule Completed 2020 tizanidine 4 mg tablet TAKE 1 TABLET BY MOUTH THREE TIMES DAILY NEEDED Completed 05/26/2020 tizanidine hydrochloride 4 mg tabs Completed 01/28/2020 tobramycin 0.3 % eye drops Completed 10/15 tramadol 50 mg tablet Active Not availa ble tramadol ER 100 mg tablet,extended relea se 24 hr TAKE 1 TABLET BY MOUTH EVERY 12 HOURS . DO NOT EXCEED 2 PER 24 HOURS Active Not available tramadol hcl 50 mg tabs Completed tramadol hcl er 100 mg tb24 Completed Problems None recorded. Procedures Date Name Performed by 09/07/2020 Removal of Kidney Stone Information not available Dorsal Column Stimulation Notes: 2018 done at [employer] [employer] Information not available Procedure on Kidney Information not avai lable Hysterectomy Information not avai lable Delivery Information not avai lable Procedure on Back Notes: lumbar fusion- done by Ramo 4 years ago Information not available Appendectomy Information not avai lable Results Lab Results Date Name Specimen Result Interpretation Description Value Range Status Address 05/28/2021 [facility] Report NOS No observation recorded. [facility]: [address] [facility] [place] 05/28/2021 SARS CoV 2 RNA (COVID-19), QL, specifications writer-PCR, Respirat ory Specimen NOS Normal Sars-cov-2 negative negative Final [facility]: [address] [facility] [place] 02/19/2021 Drug Screen, Urine Urine Amphetamines: negati ve Main Office: [address] [facility] [address], [place] Urine Thc negative Main Off ice: [address] [place] [address] [address], [place] Urine Cocaine: negative Main Office: [address] [address] [place] [address] [address], [place] Urine Opiates: negative Main Office: [address] [facility] [address], [place] Urine Barbiturates: negative Main Office: [address] [address] [address] [address], [place] Urine Benzodiazepines: negative Main Office: [address] [address] [place] [address] [address], [place] Urine Methamphetamine negative Main Office: [address] [facility] [address], [place] Urine Pcp negative Main Off ice: [address] [address] [address] [address], [place] Urine Mtd negative Main Off ice: [address] [address] [address] [address], [place] Urine Oxy negative Main Off ice: [address] [facility] [address], [place] 02/16/2021 [facility] Pdf Report UR No observation recorded. [facility]: [address] [place] [address] 02/16/2021 Drug Screen, Urine No observation recorde d. [facility]: [address] [place] [address] 02/16/2021 Baclofen, QN, Urine U Baclofen Ur Ql C fm <500 NG/mL >=500 NG/mL Final [facility]: [address] [place] [address] 02/16/2021 Drug Screen, Urine U Buprenorphine Ur Ql Cfm <1 NG/mL >=1 NG/mL Final [facility]: [address] [place] [address] U Alcohol Metabolites Ur Ql Cfm <200 N G/mL >=200 NG/mL Final [facility]: [address] [place] [address] U Ethyl Glucuronide Ur Cfm-mcnc <500 N G/mL >=500 NG/mL Final [facility]: [address] [place] [address] U Ethyl Sulfate Ur Cfm-mcnc <200 NG/mL >=200 NG/mL Final [facility]: [address] [place] [address] U Amphetamines Ur Ql Cfm <0 NG/mL >=0 NG/mL Final [facility]: [address] [place] [address] U Tapentadol Ur Ql Cfm <100 NG/mL >=10 0 NG/mL Final [facility]: [address] [place] [address] U Benzodiaz Ur Ql Cfm <50 NG/mL >=50 N G/mL Final [facility]: [address] [place] [address] U Gabapentinpregabalin Ur Ql Cfm <5 mc g/mL >=5 mcg/mL Final [facility]: [address] [place] [address] U Bze Ur Ql Cfm <50 NG/mL >=50 NG/mL F inal [facility]: [address] [place] [address] U Opiates Ur Ql Cfm <100 NG/mL >=100 N G/mL Final [facility]: [address] [place] [address] U 6Mam Ur Ql Cfm <10 NG/mL >=10 NG/mL Final [facility]: [address] [place] [address] U Methadone Ur Ql Cfm <200 NG/mL >=200 NG/mL Final [facility]: [address] [place] [address] U Meperidine Ur Ql Cfm <100 NG/mL >=10 0 NG/mL Final [facility]: [address] [place] [address] U Fentanyl+norfentanyl Ur Ql Cfm <5 NG /mL >=5 NG/mL Final [facility]: [address] [place] [address] U Carisoprodol+meprob Ur Ql Scn <200 N G/mL >=200 NG/mL Final [facility]: [address] [place] [address] U Tramadol Ur Ql Cfm >=100 NG/mL >=100 NG/mL Final [facility]: [address] [place] [address] U N-desmethyl Tram Ur Cfm-mcnc 1650 NG /mL >=100 NG/mL Final [facility]: [address] [place] [address] U Tramadol Ur Cfm-mcnc 12479 NG/mL >=1 00 NG/mL Final [facility]: [address] [place] [address] U Nortramadol Ur Cfm-mcnc 5700 NG/mL > =100 NG/mL Final [facility]: [address] [place] [address] U Cotinine Ur Ql Cfm <125 NG/mL >=125 NG/mL Final [facility]: [address] [place] [address] U Normal pH Ur 8.06 4.5 - 9.0 Final [facility]: [address] [place] [address] U Normal Creat Ur-mcnc 61.5 mg/dL 20 - 370 mg /dL Final [facility]: [address] [place] [address] 02/16/2021 Urinary Biomarkers U Normal Biodetect expected Final [facility]: [address] [place] [address] 02/16/2021 Drug Screen, Urine UR Normal Baclofen Ur CMP <500 NG/mL >=500 NG/mL Final [facility]: [address] [place] [address] UR Normal Tramadol Ur CMP 63647 NG/mL >=100 NG /mL Final [facility]: [address] [place] [address] 05/26/2020 [facility] Pdf Report UR No observation recorded. [facility]: [address] [place] [address] 05/26/2020 Drug Screen, Urine No observation recorde d. [facility]: [address] [place] [address] 05/26/2020 Drug Screen, Urine Amphetamines: negati ve Main Office: [address] [address] [address], [place] Thc negative Main Off ice: [address] [address] [place] [address] [address], [place] Cocaine: negative Main Office: [address] [address] [address] [address], [place] Opiates: negative Main Office: [address] [address] [place] [address] [address], [place] Barbiturates: negative Main Office: [address], [place] Benzodiazepines: negative Main Office: [id number] [place] [address] [address], [place] Methamphetamine negative Main Office: [id number] [place] [address] [address], [place] Pcp negative Main Off ice: [address] [facility] [address] [place] Mtd negative Main Off ice: [address] [facility] [address], [place] Oxy negative Main Off ice: [id number] [place] [address] [address], [place] 05/26/2020 Baclofen, QN, Urine U Baclofen Ur Ql C fm <500 NG/mL >=500 NG/mL Final [facility]: [address] [place] [address] 05/26/2020 Drug Screen, Urine U Buprenorphine Ur Ql Cfm <1 NG/mL >=1 NG/mL Final [facility]: [address] [place] [address] U Alcohol Metabolites Ur Ql Cfm <200 N G/mL >=200 NG/mL Final [facility]: [address] [place] [address] U Ethyl Glucuronide Ur Cfm-mcnc <500 N G/mL >=500 NG/mL Final [facility]: [address] [place] [address] U Ethyl Sulfate Ur Cfm-mcnc <200 NG/mL >=200 NG/mL Final [facility]: [address] [place] [address] U Tapentadol Ur Ql Cfm <100 NG/mL >=10 0 NG/mL Final [facility]: [address] [place] [address] U Amphetamines Ur Ql Cfm <0 NG/mL >=0 NG/mL Final [facility]: [address] [place] [address] U Benzodiaz Ur Ql Cfm <50 NG/mL >=50 N G/mL Final [facility]: [address] [place] [address] U Gabapentinpregabalin Ur Ql Cfm <5 mc g/mL >=5 mcg/mL Final [facility]: [address] [place] [address] U Bze Ur Ql Cfm <50 NG/mL >=50 NG/mL F inal [facility]: [address] [place] [address] U Opiates Ur Ql Cfm <100 NG/mL >=100 N G/mL Final [facility]: [address] [place] [address] U 6Mam Ur Ql Cfm <10 NG/mL >=10 NG/mL Final [facility]: [address] [place] [address] U Methadone Ur Ql Cfm <200 NG/mL >=200 NG/mL Final [facility]: [address] [place] [address] U Meperidine Ur Ql Cfm <100 NG/mL >=10 0 NG/mL Final [facility]: [address] [place] [address] U Fentanyl+norfentanyl Ur Ql Cfm <5 NG /mL >=5 NG/mL Final [facility]: [address] [place] [address] U Carisoprodol+meprob Ur Ql Scn <200 N G/mL >=200 NG/mL Final [facility]: [address] [place] [address] U Tramadol Ur Ql Cfm <100 NG/mL >=100 NG/mL Final [facility]: [address] [place] [address] U Cotinine Ur Ql Cfm <125 NG/mL >=125 NG/mL Final [facility]: [address] [place] [address] U Normal pH Ur 5.42 4.5 - 9.0 Final [facility]: [address] [place] [address] U Normal Creat Ur-mcnc 259.8 mg/dL 20 - 370 m g/dL Final [facility]: [address] [place] [address] 05/26/2020 Drug Screen, Urine UR ABNORMAL Baclofen Ur CMP <500 NG/mL >=500 NG/mL Final [facility]: [address] [place] [address] UR Normal Tramadol Ur CMP <100 NG/mL >=100 NG/ mL Final [facility]: [address] [place] [address] 03/23/2020 SARS CoV 2 RNA (COVID-19), QL, specifications writer-PCR, 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 [facility]: [address] [place] [address] 01/14/2020 SARS CoV 2 RNA (COVID-19), QL, specifications writer-PCR, 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 [facility]: [address] [place] [address] 12/17/2019 SARS CoV 2 RNA (COVID-19), QL, specifications writer-PCR, 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 [facility]: [address] [place] [address] 12/06/2019 SARS CoV 2 RNA (COVID-19), QL, specifications writer-PCR, 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 Dorina Childers [facility]: [address] [facility] [place] Past Encounters 06/02/2021 Inflammation of Sacroiliac Joint; Lumbar Post-laminectomy Syndrome; Lumbar Radiculopathy; Degeneration of Lumbar Intervertebral Disc; Degeneration of Lumbosacral Intervertebral Disc; Displacement of Lumbar Intervertebral Disc without Myelopathy; Intervertebral Disc Disorder; Lumbosacral Spondylosis without Myelopathy; Spondylosis without Myelopathy Abelino Ambrocio MD: [address] [facility] [address], [facility] [place] [address], Ph. 05/28/2021 Pre-surgery Testing; Viral Screening Abelino Ambrocio MD: [address] [facility] [address], [facility] [place] [address], Ph. [phone] 05/19/2021 Lumbar Post-laminectomy Syndrome; Lumbar Radiculopathy; Degeneration of Lumbar Intervertebral Disc; Degeneration of Lumbosacral Intervertebral Disc; Displacement of Lumbar Intervertebral Disc without Myelopathy; Intervertebral Disc Disorder; Lumbosacral Spondylosis without Myelopathy; Spondylosis without Myelopathy; Inflammation of Sacroiliac Joint Darlin Moncada NP: [id number] [facility] [address], [facility] [place] [address], Ph. 03/29/2021 Lumbar Post-laminectomy Syndrome; Lumbar Radiculopathy; Degeneration of Lumbar Intervertebral Disc; Degeneration of Lumbosacral Intervertebral Disc; Displacement of Lumbar Intervertebral Disc without Myelopathy; Intervertebral Disc Disorder; Lumbosacral Spondylosis without Myelopathy; Spondylosis without Myelopathy; Inflammation of Sacroiliac Joint; Long-term Drug Therapy Darlin Moncada [employer] CHAIR: [address] [facility] [address], [place] [address], Ph. 02/16/2021 Lumbar Post-laminectomy Syndrome; Lumbar Radiculopathy; Degeneration of Lumbar Intervertebral Disc; Degeneration of Lumbosacral Intervertebral Disc; Displacement of Lumbar Intervertebral Disc without Myelopathy; Intervertebral Disc Disorder; Lumbosacral Spondylosis without Myelopathy; Spondylosis without Myelopathy; Inflammation of Sacroiliac Joint; Long-term Drug Therapy Darlin Moncada F[employer] CHAIR: [address] [address], Ph. 01/05/2021 Lumbar Post-laminectomy Syndrome; Lumbar Radiculopathy; Degeneration of Lumbar Intervertebral Disc; Degeneration of Lumbosacral Intervertebral Disc; Displacement of Lumbar Intervertebral Disc without Myelopathy; Intervertebral Disc Disorder; Lumbosacral Spondylosis without Myelopathy; Spondylosis without Myelopathy; Inflammation of Sacroiliac Joint; Long-term Drug Therapy Darlin Moncada [employer] CHAIR: [address] [facility] [address], [place] [address], Ph. 11/24/2020 Lumbar Post-laminectomy Syndrome; Lumbar Radiculopathy; Degeneration of Lumbar Intervertebral Disc; Degeneration of Lumbosacral Intervertebral Disc; Displacement of Lumbar Intervertebral Disc without Myelopathy; Intervertebral Disc Disorder; Lumbosacral Spondylosis without Myelopathy; Spondylosis without Myelopathy; Inflammation of Sacroiliac Joint; Long-term Drug Therapy Darlin Moncada [employer] CHAIR: [address] [address], Ph. 10/19/2020 Lumbar Post-laminectomy Syndrome; Lumbar Radiculopathy; Degeneration of Lumbar Intervertebral Disc; Degeneration of Lumbosacral Intervertebral Disc; Displacement of Lumbar Intervertebral Disc without Myelopathy; Intervertebral Disc Disorder; Lumbosacral Spondylosis without Myelopathy; Spondylosis without Myelopathy; Inflammation of Sacroiliac Joint; Long-term Drug Therapy Darlin Moncada [employer] CHAIR: [address] [address], [place] [address], Ph. 08/31/2020 Lumbar Post-laminectomy Syndrome; Lumbar Radiculopathy; Degeneration of Lumbar Intervertebral Disc; Degeneration of Lumbosacral Intervertebral Disc; Displacement of Lumbar Intervertebral Disc without Myelopathy; Intervertebral Disc Disorder; Lumbosacral Spondylosis without Myelopathy; Spondylosis without Myelopathy; Inflammation of Sacroiliac Joint; Long-term Drug Therapy Darlin Moncada [employer] CHAIR: [address] [address], [place] [address], Ph. 07/20/2020 Lumbar Post-laminectomy Syndrome; Lumbar Radiculopathy; Degeneration of Lumbar Intervertebral Disc; Degeneration of Lumbosacral Intervertebral Disc; Displacement of Lumbar Intervertebral Disc without Myelopathy; Intervertebral Disc Disorder; Lumbosacral Spondylosis without Myelopathy; Spondylosis without Myelopathy; Inflammation of Sacroiliac Joint; Long-term Drug Therapy Darlin Moncada [employer] CHAIR: [address] [address], Ph. 06/22/2020 Lumbar Post-laminectomy Syndrome; Lumbar Radiculopathy; Degeneration of Lumbar Intervertebral Disc; Degeneration of Lumbosacral Intervertebral Disc; Displacement of Lumbar Intervertebral Disc without Myelopathy; Intervertebral Disc Disorder; Lumbosacral Spondylosis without Myelopathy; Spondylosis without Myelopathy; Inflammation of Sacroiliac Joint; Long-term Drug Therapy Darlin Moncada [employer] CHAIR: [address] [address], Ph. 05/26/2020 Lumbar Post-laminectomy Syndrome; Lumbar Radiculopathy; Degeneration of Lumbar Intervertebral Disc; Degeneration of Lumbosacral Intervertebral Disc; Displacement of Lumbar Intervertebral Disc without Myelopathy; Intervertebral Disc Disorder; Lumbosacral Spondylosis without Myelopathy; Spondylosis without Myelopathy; Inflammation of Sacroiliac Joint; Long-term Drug Therapy Darlin Moncada [employer] CHAIR: [address] [address], Ph. 04/28/2020 Lumbar Post-laminectomy Syndrome; Lumbar Radiculopathy; Degeneration of Lumbar Intervertebral Disc; Degeneration of Lumbosacral Intervertebral Disc; Displacement of Lumbar Intervertebral Disc without Myelopathy; Intervertebral Disc Disorder; Lumbosacral Spondylosis without Myelopathy; Spondylosis without Myelopathy Darlin Moncada [employer] CHAIR: [address] [facility], [place] [address], Ph. 03/27/2020 Lumbar Post-laminectomy Syndrome; Lumbar Radiculopathy; Degeneration of Lumbar Intervertebral Disc; Degeneration of Lumbosacral Intervertebral Disc; Displacement of Lumbar Intervertebral Disc without Myelopathy; Intervertebral Disc Disorder; Lumbosacral Spondylosis without Myelopathy; Spondylosis without Myelopathy Abelino Ambrocio MD: [address] [address], [place] [address], Ph. 03/23/2020 Pre-surgery Testing; Viral Screening Abelino Ambrocio MD: [address] [address], [place] [address], Ph. [phone] 03/12/2020 Lumbar Post-laminectomy Syndrome; Lumbar Radiculopathy; Degeneration of Lumbar Intervertebral Disc; Degeneration of Lumbosacral Intervertebral Disc; Displacement of Lumbar Intervertebral Disc without Myelopathy; Intervertebral Disc Disorder; Lumbosacral Spondylosis without Myelopathy; Spondylosis without Myelopathy Darlin Moncada NP: [id number] [address], Ph. 02/17/2020 Lumbar Post-laminectomy Syndrome; Lumbar Radiculopathy; Degeneration of Lumbar Intervertebral Disc; Degeneration of Lumbosacral Intervertebral Disc; Displacement of Lumbar Intervertebral Disc without Myelopathy; Intervertebral Disc Disorder; Lumbosacral Spondylosis without Myelopathy; Spondylosis without Myelopathy Darlin Moncada NP: [id number] [address], Ph. 01/28/2020 Lumbar Post-laminectomy Syndrome; Lumbar Radiculopathy; Degeneration of Lumbar Intervertebral Disc; Degeneration of Lumbosacral Intervertebral Disc; Displacement of Lumbar Intervertebral Disc without Myelopathy; Intervertebral Disc Disorder; Lumbosacral Spondylosis without Myelopathy; Spondylosis without Myelopathy Darlin Moncada [employer] CHAIR: [address] [address], Ph. 01/17/2020 Lumbar Post-laminectomy Syndrome; Lumbar Radiculopathy; Degeneration of Lumbar Intervertebral Disc; Degeneration of Lumbosacral Intervertebral Disc; Displacement of Lumbar Intervertebral Disc without Myelopathy; Intervertebral Disc Disorder; Lumbosacral Spondylosis without Myelopathy; Spondylosis without Myelopathy Abelino Ambrocio MD: [address] [facility] [address], [facility] [place] [address], Ph. 01/14/2020 Pre-surgery Testing; Viral Screening Abelino Ambrocio MD: [address] [address], [facility] [place] [address], Ph. [phone] 12/20/2019 Lumbar Post-laminectomy Syndrome; Lumbar Radiculopathy; Degeneration of Lumbar Intervertebral Disc; Degeneration of Lumbosacral Intervertebral Disc; Displacement of Lumbar Intervertebral Disc without Myelopathy; Intervertebral Disc Disorder; Lumbosacral Spondylosis without Myelopathy; Spondylosis without Myelopathy Abelino Ambrocio MD: [address] [address], [facility] [place] [address], Ph. 12/17/2019 Pre-surgery Testing; Viral Screening Abelino Ambrocio MD: [address] [address], [facility] [place] [address], Ph. [phone] 12/13/2019 Lumbar Post-laminectomy Syndrome; Lumbar Radiculopathy; Degeneration of Lumbar Intervertebral Disc; Degeneration of Lumbosacral Intervertebral Disc; Displacement of Lumbar Intervertebral Disc without Myelopathy; Intervertebral Disc Disorder; Lumbosacral Spondylosis without Myelopathy; Spondylosis without Myelopathy Darlin Moncada NP: [address] [address], [facility] [place] [address], Ph. 12/09/2019 Lumbar Post-laminectomy Syndrome; Lumbar Radiculopathy; Degeneration of Lumbar Intervertebral Disc; Degeneration of Lumbosacral Intervertebral Disc; Displacement of Lumbar Intervertebral Disc without Myelopathy; Intervertebral Disc Disorder; Lumbosacral Spondylosis without Myelopathy; Spondylosis without Myelopathy Abelino Ambrocio MD: [address] [address], [facility] [place] [address], Ph. 12/06/2019 Pre-surgery Testing Abelino Ambrocio MD: [address] [address], [place] [address], Ph. [phone] 10/16/2019 Lumbar Post-laminectomy Syndrome; Lumbar Radiculopathy; Degeneration of Lumbar Intervertebral Disc; Degeneration of Lumbosacral Intervertebral Disc; Displacement of Lumbar Intervertebral Disc without Myelopathy; Intervertebral Disc Disorder; Lumbosacral Spondylosis without Myelopathy; Spondylosis without Myelopathy Abelino Ambrocio MD: [address], [place] [address], Ph. Social History Tobacco Smoking Status Current Every Day Smoker Notes: 2cig arettes a day Vaccine List None recorded. Plan of Care Reminders Provider Appointments None recorded. Lab None recorded. Referral None recorded. Procedures None recorded. Surgeries None recorded. Imaging None recorded. Vitals 05/19/2021 08:00AM FOLLOW-UP Height Blood Pressure 5 ft 2 in 137/87 mm[Hg] 03/29/2021 09:30AM FOLLOW-UP Height Blood Pressure 5 ft 2 in 137/89 mm[Hg] 02/16/2021 09:30AM FOLLOW-UP Height Blood Pressure 5 ft 2 in 155/92 mm[Hg] 01/05/2021 09:30AM FOLLOW-UP Height Blood Pressure 5 ft 2 in 138/84 mm[Hg] 11/24/2020 09:15AM FOLLOW-UP Height Blood Pressure 5 ft 2 in 146/85 mm[Hg] 10/19/2020 09:30AM FOLLOW-UP Height Blood Pressure 5 ft 2 in 113/71 mm[Hg] 08/31/2020 09:45AM FOLLOW-UP Height Blood Pressure 5 ft 2 in 126/79 mm[Hg] 07/20/2020 09:45AM FOLLOW-UP Height Weight BMI Blood Pressure 5 ft 2 in 127 lbs 23.2 kg/m2 138/89 mm[Hg] 06/22/2020 08:45AM FOLLOW-UP Height Blood Pressure 5 ft 2 in 137/85 mm[Hg] 05/26/2020 09:15AM FOLLOW-UP Height Blood Pressure 5 ft 2 in 127/81 mm[Hg] 04/28/2020 08:45AM FOLLOW-UP Height Blood Pressure 5 ft 2 in 145/88 mm[Hg] 03/12/2020 09:30AM FOLLOW-UP Height Blood Pressure 5 ft 2 in 123/85 mm[Hg] 02/17/2020 08:15AM FOLLOW-UP Height Weight BMI Blood Pressure 5 ft 2 in 127 lbs 23.2 kg/m2 110/72 mm[Hg] 10/16/2019 11:30AM NEW PATIENT Height Weight BMI Blood Pressure 5 ft 2 in 127 lbs 23.2 kg/m2 134/80 mm[Hg]
--- OUTSIDE RECORDS SUMMARY | 2021-06-04 11:33 | CCD ---
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 Completed 01/05/2021 ketorolac 10 mg tablet TAKE 1 TABLET BY MOUTH EVERY 6 HOURS NEEDED FOR PAIN Completed 10/19/2020 leflunomide 20 mg tabs Completed 01/28/20 leflunomide 20 mg tablet TAKE 1 TABLET BY MOUTH ONCE DAILY Active Not a vailable lisinopril 20 mg tabs Completed 0 lisinopril 20 mg tablet Active Not avai lable lotemax 0.5 % susp Completed 05/26/2020 Lotemax 0.5 % eye drops,suspension Completed 10/16/2019 medroxyprogesterone 2.5 mg tablet 1 tab daily Completed 05/26/2020 medroxyprogesterone acetate 2.5 mg tabs Completed 05/26/2020 meloxicam 15 mg tabs Completed 01/28/2020 meloxicam 15 mg tablet TAKE 1 TABLET BY MOUTH ONCE DAILY Active Not a vailable methylprednisolone 4 mg tablets in a dos [...] drops Completed 10/15 tramadol 50 mg tablet TAKE 1 TABLET BY MOUTH THREE TIMES DAILY NEEDED . DO NOT EXCEED 3 PER 24 HOURS Active Not available tramadol ER 100 mg tablet,extended relea se 24 hr TAKE 1 TABLET BY MOUTH EVERY 12 HOURS . DO NOT EXCEED 2 PER 24 HOURS Active Not available tramadol hcl 50 mg tabs Completed 020 tramadol hcl er 100 mg tb24 Completed Problems None recorded. Procedures Date Name Performed by 09/07/2020 Removal of Kidney Stone Information not available Dorsal Column [facility] Procedure on Kidney Information not avai lable Hysterectomy Information not avai lable Delivery Information not avai lable Procedure on Back Notes: lumbar fusion- done by Ramo 4 years ago Information not available Appendectomy Information not avai lable Results Lab Results Date Name Specimen Result Interpretation Description Value Range Status Address 02/19/2021 Drug Screen, Urine Urine Amphetamines: negati ve Main Office: [address] [facility] [address], [place] Urine Thc negative Main Off ice: [address] [facility] [address] [place] Urine Cocaine: negative Main Office: [address] [facility] [address], [place] Urine Opiates: negative Main Office: [address] [facility] [address], [place] Urine Barbiturates: negative Main Office: [address] [address], [place] Urine Benzodiazepines: negative Main Office: [address] [facility] [address], [place] Urine Methamphetamine negative Main Office: [address] [facility] [address], [place] Urine Pcp negative Main Off ice: [address], [place] Urine Mtd negative Main Off ice: [address] [facility] [address] [place] Urine Oxy negative Main Off ice: [address] [facility] [address], [place] 02/16/2021 [employer] Pdf Report UR No observation recorded. [employer]: [address] [place] [address] 02/16/2021 Drug Screen, Urine No observation recorde d. [employer]: [address] [place] [address] 02/16/2021 Baclofen, QN, Urine U Baclofen Ur Ql C fm <500 NG/mL >=500 NG/mL Final [employer]: [address] [place] [address] 02/16/2021 Drug Screen, Urine U Buprenorphine Ur Ql Cfm <1 NG/mL >=1 NG/mL Final [employer]: [address] [place] [address] U Alcohol Metabolites Ur Ql Cfm <200 N G/mL >=200 NG/mL Final [employer]: [address] [place] [address] U Ethyl Glucuronide Ur Cfm-mcnc <500 N G/mL >=500 NG/mL Final [employer]: [address] [place] [address] U Ethyl Sulfate Ur Cfm-mcnc <200 NG/mL >=200 NG/mL Final [employer]: [address] [place] [address] U Amphetamines Ur Ql Cfm <0 NG/mL >=0 NG/mL Final [employer]: [address] [place] [address] U Tapentadol Ur Ql Cfm <100 NG/mL >=10 0 NG/mL Final [employer]: [address] [place] [address] U Benzodiaz Ur Ql Cfm <50 NG/mL >=50 N G/mL Final [employer]: [address] [place] [address] U Gabapentinpregabalin Ur Ql Cfm <5 mc g/mL >=5 mcg/mL Final [employer]: [address] [place] [address] U Bze Ur Ql Cfm <50 NG/mL >=50 NG/mL F inal [employer]: [address] [place] [address] U Opiates Ur Ql Cfm <100 NG/mL >=100 N G/mL Final [employer]: [address] [place] [address] U 6Mam Ur Ql Cfm <10 NG/mL >=10 NG/mL Final [employer]: [address] [place] [address] U Methadone Ur Ql Cfm <200 NG/mL >=200 NG/mL Final [employer]: [address] [place] [address] U Meperidine Ur Ql Cfm <100 NG/mL >=10 0 NG/mL Final [employer]: [address] [place] [address] U Fentanyl+norfentanyl Ur Ql Cfm <5 NG /mL >=5 NG/mL Final [employer]: [address] [place] [address] U Carisoprodol+meprob Ur Ql Scn <200 N G/mL >=200 NG/mL Final [employer]: [address] [place] [address] U Tramadol Ur Ql Cfm >=100 NG/mL >=100 NG/mL Final [employer]: [address] [place] [address] U N-desmethyl Tram Ur Cfm-mcnc 1650 NG /mL >=100 NG/mL Final [employer]: [address] [place] [address] U Tramadol Ur Cfm-mcnc 35767 NG/mL >=1 00 NG/mL Final [employer]: [address] [place] [address] U Nortramadol Ur Cfm-mcnc 5700 NG/mL > =100 NG/mL Final [employer]: [address] [place] [address] U Cotinine Ur Ql Cfm <125 NG/mL >=125 NG/mL Final [employer]: [address] [place] [address] U Normal pH Ur 8.06 4.5 - 9.0 Final [employer]: [address] [place] [address] U Normal Creat Ur-mcnc 61.5 mg/dL 20 - 370 mg /dL Final [employer]: [address] [place] [address] 02/16/2021 Urinary Biomarkers U Normal Biodetect expected Final [employer]: [address] [place] [address] 02/16/2021 Drug Screen, Urine UR Normal Baclofen Ur CMP <500 NG/mL >=500 NG/mL Final [employer]: [address] [place] [address] UR Normal Tramadol Ur CMP 37441 NG/mL >=100 NG /mL Final [employer]: [address] [place] [address] 05/26/2020 [employer] Pdf Report UR No observation recorded. [employer]: [address] [place] [address] 05/26/2020 Drug Screen, Urine No observation recorde d. [employer]: [address] [place] [address] 05/26/2020 Drug Screen, Urine Amphetamines: negati ve Main Office: [address] [address] [address], [place] Thc negative Main Off ice: [address] [facility] [address] [place] Cocaine: negative Main Office: [address] [address] [address] [address] [place] Opiates: negative Main Office: [address] [address] [address] [address] [place] Barbiturates: negative Main Office: [address] [address] [address] [address] [place] Benzodiazepines: negative Main Office: [address] [facility] [address] [place] Methamphetamine negative Main Office: [address] [place] Pcp negative Main Off ice: [address] [place] Mtd negative Main Off ice: [address] [place] Oxy negative Main Off ice: [address] [place] 05/26/2020 Baclofen, QN, Urine U Baclofen Ur Ql C fm <500 NG/mL >=500 NG/mL Final [employer]: [address] [place] [address] 05/26/2020 Drug Screen, Urine U Buprenorphine Ur Ql Cfm <1 NG/mL >=1 NG/mL Final [employer]: [address] [place] [address] U Alcohol Metabolites Ur Ql Cfm <200 N G/mL >=200 NG/mL Final [employer]: [address] [place] [address] U Ethyl Glucuronide Ur Cfm-mcnc <500 N G/mL >=500 NG/mL Final [employer]: [address] [place] [address] U Ethyl Sulfate Ur Cfm-mcnc <200 NG/mL >=200 NG/mL Final [employer]: [address] [place] [address] U Tapentadol Ur Ql Cfm <100 NG/mL >=10 0 NG/mL Final [employer]: [address] [place] [address] U Amphetamines Ur Ql Cfm <0 NG/mL >=0 NG/mL Final [employer]: [address] [place] [address] U Benzodiaz Ur Ql Cfm <50 NG/mL >=50 N G/mL Final [employer]: [address] [place] [address] U Gabapentinpregabalin Ur Ql Cfm <5 mc g/mL >=5 mcg/mL Final [employer]: [address] [place] [address] U Bze Ur Ql Cfm <50 NG/mL >=50 NG/mL F inal [employer]: [address] [place] [address] U Opiates Ur Ql Cfm <100 NG/mL >=100 N G/mL Final [employer]: [address] [place] [address] U 6Mam Ur Ql Cfm <10 NG/mL >=10 NG/mL Final [employer]: [address] [place] [address] U Methadone Ur Ql Cfm <200 NG/mL >=200 NG/mL Final [employer]: [address] [place] [address] U Meperidine Ur Ql Cfm <100 NG/mL >=10 0 NG/mL Final [employer]: [address] [place] [address] U Fentanyl+norfentanyl Ur Ql Cfm <5 NG /mL >=5 NG/mL Final [employer]: [address] [place] [address] U Carisoprodol+meprob Ur Ql Scn <200 N G/mL >=200 NG/mL Final [employer]: [address] [place] [address] U Tramadol Ur Ql Cfm <100 NG/mL >=100 NG/mL Final [employer]: [address] [place] [address] U Cotinine Ur Ql Cfm <125 NG/mL >=125 NG/mL Final [employer]: [address] [place] [address] U Normal pH Ur 5.42 4.5 - 9.0 Final [employer]: [address] [place] [address] U Normal Creat Ur-mcnc 259.8 mg/dL 20 - 370 m g/dL Final [employer]: [address] [place] [address] 05/26/2020 Drug Screen, Urine UR ABNORMAL Baclofen Ur CMP <500 NG/mL >=500 NG/mL Final [employer]: [address] [place] [address] UR Normal Tramadol Ur CMP <100 NG/mL >=100 NG/ mL Final [employer]: [address] [place] [address] 03/23/2020 SARS CoV 2 RNA (COVID-19), QL, 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 [facility]: [address] [place] [address] Past Encounters 05/28/2021 Pre-surgery Testing; Viral Screening Abelino Ambrocio MD: [id number] [address], Ph. [phone] 05/19/2021 Lumbar Post-laminectomy Syndrome; Lumbar Radiculopathy; Degeneration of Lumbar Intervertebral Disc; Degeneration of Lumbosacral Intervertebral Disc; Displacement of Lumbar Intervertebral Disc without Myelopathy; Intervertebral Disc Disorder; Lumbosacral Spondylosis without Myelopathy; Spondylosis without Myelopathy; Inflammation of Sacroiliac Joint Darlin Moncada RECORDS MANAGEMENT TECHNICIAN: [id number] [address], Ph. 03/29/2021 Lumbar Post-laminectomy Syndrome; Lumbar Radiculopathy; Degeneration of Lumbar Intervertebral Disc; Degeneration of Lumbosacral Intervertebral Disc; Displacement of Lumbar Intervertebral Disc without Myelopathy; Intervertebral Disc Disorder; Lumbosacral Spondylosis without Myelopathy; Spondylosis without Myelopathy; Inflammation of Sacroiliac Joint; Long-term Drug Therapy Darlin Moncada RECORDS MANAGEMENT TECHNICIAN: [id number] [address], Ph. 02/16/2021 Lumbar Post-laminectomy Syndrome; Lumbar Radiculopathy; Degeneration of Lumbar Intervertebral Disc; Degeneration of Lumbosacral Intervertebral Disc; Displacement of Lumbar Intervertebral Disc without Myelopathy; Intervertebral Disc Disorder; Lumbosacral Spondylosis without Myelopathy; Spondylosis without Myelopathy; Inflammation of Sacroiliac Joint; Long-term Drug Therapy Darlin Moncada RECORDS MANAGEMENT TECHNICIAN: [id number] [address], Ph. 01/05/2021 Lumbar Post-laminectomy Syndrome; Lumbar Radiculopathy; Degeneration of Lumbar Intervertebral Disc; Degeneration of Lumbosacral Intervertebral Disc; Displacement of Lumbar Intervertebral Disc without Myelopathy; Intervertebral Disc Disorder; Lumbosacral Spondylosis without Myelopathy; Spondylosis without Myelopathy; Inflammation of Sacroiliac Joint; Long-term Drug Therapy Darlin Moncada RECORDS MANAGEMENT TECHNICIAN: [id number] [address], Ph. 11/24/2020 Lumbar Post-laminectomy Syndrome; Lumbar Radiculopathy; Degeneration of Lumbar Intervertebral Disc; Degeneration of Lumbosacral Intervertebral Disc; Displacement of Lumbar Intervertebral Disc without Myelopathy; Intervertebral Disc Disorder; Lumbosacral Spondylosis without Myelopathy; Spondylosis without Myelopathy; Inflammation of Sacroiliac Joint; Long-term Drug Therapy Darlin Moncada, RECORDS MANAGEMENT TECHNICIAN: [address] [facility] [address], [place] [address], Ph. 10/19/2020 Lumbar Post-laminectomy Syndrome; Lumbar Radiculopathy; Degeneration of Lumbar Intervertebral Disc; Degeneration of Lumbosacral Intervertebral Disc; Displacement of Lumbar Intervertebral Disc without Myelopathy; Intervertebral Disc Disorder; Lumbosacral Spondylosis without Myelopathy; Spondylosis without Myelopathy; Inflammation of Sacroiliac Joint; Long-term Drug Therapy Darlin Moncada, RECORDS MANAGEMENT TECHNICIAN: [address] [facility] [address] [place] [phone], Ph. 08/31/2020 Lumbar Post-laminectomy Syndrome; Lumbar Radiculopathy; Degeneration of Lumbar Intervertebral Disc; Degeneration of Lumbosacral Intervertebral Disc; Displacement of Lumbar Intervertebral Disc without Myelopathy; Intervertebral Disc Disorder; Lumbosacral Spondylosis without Myelopathy; Spondylosis without Myelopathy; Inflammation of Sacroiliac Joint; Long-term Drug Therapy Darlin Moncada, RECORDS MANAGEMENT TECHNICIAN: [address] [facility] [address] [address], Ph. 07/20/2020 Lumbar Post-laminectomy Syndrome; Lumbar Radiculopathy; Degeneration of Lumbar Intervertebral Disc; Degeneration of Lumbosacral Intervertebral Disc; Displacement of Lumbar Intervertebral Disc without Myelopathy; Intervertebral Disc Disorder; Lumbosacral Spondylosis without Myelopathy; Spondylosis without Myelopathy; Inflammation of Sacroiliac Joint; Long-term Drug Therapy Darlin Moncada RECORDS MANAGEMENT TECHNICIAN: [address], [place] [address], Ph. 06/22/2020 Lumbar Post-laminectomy Syndrome; Lumbar Radiculopathy; Degeneration of Lumbar Intervertebral Disc; Degeneration of Lumbosacral Intervertebral Disc; Displacement of Lumbar Intervertebral Disc without Myelopathy; Intervertebral Disc Disorder; Lumbosacral Spondylosis without Myelopathy; Spondylosis without Myelopathy; Inflammation of Sacroiliac Joint; Long-term Drug Therapy Darlin Hernandezyusef Antwan RECORDS MANAGEMENT TECHNICIAN: [address] [address], [place] [address], Ph. 05/26/2020 Lumbar Post-laminectomy Syndrome; Lumbar Radiculopathy; Degeneration of Lumbar Intervertebral Disc; Degeneration of Lumbosacral Intervertebral Disc; Displacement of Lumbar Intervertebral Disc without Myelopathy; Intervertebral Disc Disorder; Lumbosacral Spondylosis without Myelopathy; Spondylosis without Myelopathy; Inflammation of Sacroiliac Joint; Long-term Drug Therapy Darlin Moncada RECORDS MANAGEMENT TECHNICIAN: [id number] [address], Ph. 04/28/2020 Lumbar Post-laminectomy Syndrome; Lumbar Radiculopathy; Degeneration of Lumbar Intervertebral Disc; Degeneration of Lumbosacral Intervertebral Disc; Displacement of Lumbar Intervertebral Disc without Myelopathy; Intervertebral Disc Disorder; Lumbosacral Spondylosis without Myelopathy; Spondylosis without Myelopathy Darlin Moncada RECORDS MANAGEMENT TECHNICIAN: [id number] [address], Ph. 03/27/2020 Lumbar Post-laminectomy Syndrome; Lumbar Radiculopathy; Degeneration of Lumbar Intervertebral Disc; Degeneration of Lumbosacral Intervertebral Disc; Displacement of Lumbar Intervertebral Disc without Myelopathy; Intervertebral Disc Disorder; Lumbosacral Spondylosis without Myelopathy; Spondylosis without Myelopathy Abelino Ambrocio MD: [id number] [address], Ph. 03/23/2020 Pre-surgery Testing; Viral Screening Abelino Ambrocio MD: [id number] [address], Ph. [phone] 03/12/2020 Lumbar Post-laminectomy Syndrome; Lumbar Radiculopathy; Degeneration of Lumbar Intervertebral Disc; Degeneration of Lumbosacral Intervertebral Disc; Displacement of Lumbar Intervertebral Disc without Myelopathy; Intervertebral Disc Disorder; Lumbosacral Spondylosis without Myelopathy; Spondylosis without Myelopathy Darlin Moncada RECORDS MANAGEMENT TECHNICIAN: [address] [address], [place] [address], Ph. 02/17/2020 Lumbar Post-laminectomy Syndrome; Lumbar Radiculopathy; Degeneration of Lumbar Intervertebral Disc; Degeneration of Lumbosacral Intervertebral Disc; Displacement of Lumbar Intervertebral Disc without Myelopathy; Intervertebral Disc Disorder; Lumbosacral Spondylosis without Myelopathy; Spondylosis without Myelopathy Darlin Moncada RECORDS MANAGEMENT TECHNICIAN: [address] [address], [place] [address], Ph. 01/28/2020 Lumbar Post-laminectomy Syndrome; Lumbar Radiculopathy; Degeneration of Lumbar Intervertebral Disc; Degeneration of Lumbosacral Intervertebral Disc; Displacement of Lumbar Intervertebral Disc without Myelopathy; Intervertebral Disc Disorder; Lumbosacral Spondylosis without Myelopathy; Spondylosis without Myelopathy Darlin Moncada RECORDS MANAGEMENT TECHNICIAN: [address] [address], [place] [address], Ph. 01/17/2020 Lumbar Post-laminectomy Syndrome; Lumbar Radiculopathy; Degeneration of Lumbar Intervertebral Disc; Degeneration of Lumbosacral Intervertebral Disc; Displacement of Lumbar Intervertebral Disc without Myelopathy; Intervertebral Disc Disorder; Lumbosacral Spondylosis without Myelopathy; Spondylosis without Myelopathy Abelino Ambrocio MD: [address] [address], [place] [address], Ph. 01/14/2020 Pre-surgery Testing; Viral Screening Abelino Ambrocio MD: [address] [address], [place] [address], Ph. [phone] 12/20/2019 Lumbar Post-laminectomy Syndrome; Lumbar Radiculopathy; Degeneration of Lumbar Intervertebral Disc; Degeneration of Lumbosacral Intervertebral Disc; Displacement of Lumbar Intervertebral Disc without Myelopathy; Intervertebral Disc Disorder; Lumbosacral Spondylosis without Myelopathy; Spondylosis without Myelopathy Abelino Ambrocio MD: [address] [address], [place] [address], Ph. 12/17/2019 Pre-surgery Testing; Viral Screening Abelino Ambrocio MD: [address] [address], [facility] [place] [address], Ph. [phone] 12/13/2019 Lumbar Post-laminectomy Syndrome; Lumbar Radiculopathy; Degeneration of Lumbar Intervertebral Disc; Degeneration of Lumbosacral Intervertebral Disc; Displacement of Lumbar Intervertebral Disc without Myelopathy; Intervertebral Disc Disorder; Lumbosacral Spondylosis without Myelopathy; Spondylosis without Myelopathy Darlin Moncada NP: [id number] [address], [facility] [place] [address], Ph. 12/09/2019 Lumbar Post-laminectomy Syndrome; Lumbar Radiculopathy; Degeneration of Lumbar Intervertebral Disc; Degeneration of Lumbosacral Intervertebral Disc; Displacement of Lumbar Intervertebral Disc without Myelopathy; Intervertebral Disc Disorder; Lumbosacral Spondylosis without Myelopathy; Spondylosis without Myelopathy Abelino Ambrocio MD: [address] [address], [place] [address], Ph. 12/06/2019 Pre-surgery Testing Abelino Ambrocio MD: [id number] [address], Ph. [phone] 10/16/2019 Lumbar Post-laminectomy Syndrome; Lumbar Radiculopathy; Degeneration of Lumbar Intervertebral Disc; Degeneration of Lumbosacral Intervertebral Disc; Displacement of Lumbar Intervertebral Disc without Myelopathy; Intervertebral Disc Disorder; Lumbosacral Spondylosis without Myelopathy; Spondylosis without Myelopathy Abelino Ambrocio MD: [address] [address], [place] [address], Ph. Social History Tobacco Smoking Status Current [...]
--- OUTSIDE RECORDS SUMMARY | 2021-06-04 11:33 | CCD | Continuity of Care Document ---
Author Author Elmira BRAXTON TREASURY SPECIALIST Organization Unknown Address [address] [place] [address] Phone [phone] Care Team Providers Care Patient Partner Name Role Phone Kinsg Chavis MD AUTM [facility] - Rheumatology AUTM [phone] David Stein MD AUTM [phone] Carlos Eduardo Paula [facility] AUTM [phone] [facility] AUTM [phone] Little Reyez M.D. AUTM [phone] [facility] - Pain Medicine AUTM [phone] [facility] Health AUTM [phone] [facility] Dermatology - Dermatology AUTM [facility] Breast Care AUTM [phone] Gastroenterology & Hepatology [facility] - Gastroenterology AUTM [phone] [facility] Orthopedics - Sports Medicine AUTM [phone] Problems Active Problems Provider Date Essential hypertension [...] for fast heart rate 30tabs Higinio Braxton, TREASURY SPECIALIST Multi Vitamin Tablets 1 by mouth every day 100tabs Unknown Meloxicam 15mg Tablets take one tablet by mouth every day for joint pain M32.9 Unknown 0 Tramadol HCL 50mg Tablets take 1 tablet by mouth every 6 hours as needed for pain Unknown Immunizations CPT Code Status Date Vaccine Lot # [id number] Given 04/12/2021 Influenza Virus Vaccine, Mahin drivalent,multidose vial [id number] 00638 Given 03/26/2020 Influenza Virus Vaccine, Mahin drivalent,multidose vial [id number] Given 04/13/2018 Influenza Virus Vaccine, Mahin drivalent,multidose vial [id number] Q2038 Given 04/17/2014 Influenza Vaccine (Fluzone)( medicare) [id number] Given 04/17/2014 Influenza Vaccination [id number] Q2038 Given 04/30/2013 Influenza Vaccine (Fluzone)( medicare) [id number] Given 04/30/2013 Influenza Vaccination [id number] Q2038 Given 03/15/2012 Influenza Vaccine (Fluzone)( medicare) 61348 Given 03/15/2012 Pneumococcal Vaccine [id number] 22848 Given 03/15/2012 Influenza Vaccination [id number] 87916 Given 04/24/2008 Influenza Vaccination [id number] 28965 Given 04/18/2007 Influenza Vaccination [id number] Vital Signs Date Vital Result Comment 04/12/2021 9:43am BP Systolic 141 mmHg BP Diastolic 89 mmHg BP Systolic Recheck 147 mmHg BP Diastolic Recheck 99 mmHg Heart Rate 70 /min Body Temperature 96.7 F Respiratory Rate 16 /min Height 62.75 inches 5'2.75" Weight 130.00 lb Peak Expiratory Flow Rate 344 Estimated Peak Flow Rate Rogers Body Weight 110 lb BMI (Body Mass Index) 23.2 kg/m2 10/28/2020 9:57am BP Systolic 116 mmHg BP Diastolic 89 mmHg Heart Rate 80 /min Body Temperature 97.3 F Respiratory Rate 16 /min Height 63 inches 5'3" Weight 131.12 lb Peak Expiratory Flow Rate 353 Estimated Peak Flow Rate Rogers Body Weight 115 lb BMI (Body Mass Index) 23.2 kg/m2 Results Test Acquired Date Facility Test Result H/L Range Note Comprehensive Metabolic Profil 04/20/2021 [facility] [phone] Glucose, Fasting 82 mg/dL Normal 70-100 Blood Urea Nitrogen 22 mg/dL High 7-18 Creatinine For GFR 0.54 mg/dL Low 0.55-1.30 Glomerular Filtration Rate > 60.0 Normal >58 1 Sodium Level 142 mEq/L Normal 136-145 Potassium Serum 4.6 mEq/L Normal 3.5-5.1 Chloride Level 112 mEq/L High 98-107 Carbon Dioxide Level 27 mEq/L Normal 21-32 Anion Gap 3 mEq/L Low 8-16 Calcium Level 9.3 mg/dL Normal 8.5-10.1 Ast/Sgot 17 U/L Normal 7-37 Alt/SGPT 20 U/L Normal 12-78 Alkaline Phosphatase 74 U/L Normal 45-117 Bilirubin,Total 0.4 mg/dL Normal 0.2-1.0 Total Protein 6.8 GM/DL Normal 6.4-8.2 Albumin 3.8 GM/DL Normal 3.2-5.2 Albumin/Globulin Ratio 1.3 Normal 1.2-2.2 Lipid Panel [facility] [phone] Triglycerides Level 119 mg/dL Normal <150 Cholesterol Level 203 mg/dL High <200 HDL Cholesterol 55 mg/dL Normal >40 LDL Cholesterol 124 mg/dL High <100 Non-HDL-C 148 mg/dL Normal Cholesterol Risk Ratio 3.690 Normal <5 Hemoglobin A1c 04/20/2021 [facility]ter [phone] Hemoglobin A1c 5.1 % Normal 2 Estimated Average Glucose 100 mg/dL Normal 60-110 1 Units are mL/min/1.73 m2 Chronic Kidney Disease Staging per NKF: Stage I & II GFR >=60 Normal to Mildly Decreased Stage III GFR 30-59 Moderately Decreased Stage IV GFR 15-29 Severely Decreased Stage V GFR <15 Very Little GFR Left ESRD GFR <15 on WHARF TENDER 2 REFERENCE RANGES: <=5.6% NORMAL 5.7-6.4% SUGGESTS IMPAIRED GLUCOSE META BOLISM/PREDIABETIC >= 6.5% ABNORMAL Procedures Date Code Description Status 04/12/2021 83131 Office/Outpatient Established Mo d MDM 30-39 Min Completed 12/22/2020 [id number] Mammogram Completed 10/28/2020 15933 Office/Outpatient Established Lo w MDM 20-29 Min Completed 01/13/2014 98331120 Colonoscopy Completed Medical Devices Description No Information Available Encounters Type Date Location Provider Dx Diagnosis Office Visit 04/12/2021 10:00a Main Office Higinio Braxtony, TREASURY SPECIALIST Z00.0 0 Encntr for general adult medical exam w/o abnormal findings W55.03xA Scratched by cat, initial en counter N95.1 Menopausal and female climac teric states M54.50 Low back pain, unspecified I10 Essential (primary) hyperten mario M32.9 Systemic lupus erythematosus , unspecified E78.2 Mixed hyperlipidemia R73.01 Impaired fasting glucose Z23 Encounter for immunization Office Visit 10/28/2020 10:00a Main Office Pleskach, Lurdes, TREASURY SPECIALIST M25.5 11 Pain in right shoulder N95.1 Menopausal and female climac teric states Assessments Date Code Description Provider 04/12/2021 Z00.00 Encounter for genera l adult medical examination without abnormal findings PleHiginio tysony, TREASURY SPECIALIST 04/12/2021 W55.03xA Scratched by cat, initial encoun ter Pleskach, Lurdes, TREASURY SPECIALIST 04/12/2021 N95.1 Menopausal and female climacteri c states Pleskach, Lurdes, TREASURY SPECIALIST 04/12/2021 M54.50 Low back pain, unspecified Plesk ach, Lurdes, TREASURY SPECIALIST 04/12/2021 I10 Essential (primary) hypertension Pleskach, Lurdes, TREASURY SPECIALIST 04/12/2021 M32.9 Systemic lupus erythematosus, un specified Pleskach, Lurdes, TREASURY SPECIALIST 04/12/2021 E78.2 Mixed hyperlipidemia Pleskach M manjula, TREASURY SPECIALIST 04/12/2021 R73.01 Impaired fasting glucose Pleskac h, Lurdes, TREASURY SPECIALIST 04/12/2021 Z23 Encounter for immunization Plesk ach, Lurdes, TREASURY SPECIALIST 10/28/2020 M25.511 Pain in right shoulder Pleskach, Lurdes, TREASURY SPECIALIST 10/28/2020 N95.1 Menopausal and female climacteri c states Lurdes Braxton FNP Plan of Treatment Future Appointment(s):* 04/13/2022 10:00 am - Lurdes Braxton FNP at Main Office 04/12/2021 - Lurdes Braxton FNP* Z00.00 Encounter for general adult medical examination without abnormal findings* Comments:* Health maintenance up to date. Overall [...] follows with rheumatology * E78.2 Mixed hyperlipidemia* Comments:* check lipids * R73.01 Impaired fasting glucose* Comments:* check HgbA1C * Z23 Encounter for immunization Functional Status Functional Condition Comment Date Status .None Active Mental Status Description No Information Available Referrals Refer to Dr Reason for Referral Status Appt Date [facility] Orthopedics please evaluate for right shoulder arlene n. thank you. Closed 12/08/2020 208[address] [facility], [facility] [place] [place] [address] [phone]
--- OUTSIDE RECORDS SUMMARY | 2021-06-04 11:34 | CCD ---
Author Organization Unknown Address [address] [place] [address] Phone [phone] Care Team Providers Care Liquid Chlorine Operator Name Role Phone DENIS SOTELO MD 3 [phone] Allergies Code Code System Name Reaction Severity Status Onset 20341210 RxNorm Cipro Anaphylaxis Moderate to Severe Active 20341013 RxNorm Compazine Hives Moderate Active 820124 RxNorm Macrobid Hives Moderate Active Medications Name [...] caps Completed 05/26/20 cephalexin 500 mg capsule TAKE 1 CAPSULE BY MOUTH 4 TIMES DAILY FOR 10 DAYS Completed 10/19/2020 cetirizine 10 mg capsule Take 1 capsule [...] Dorsal Column Stimulation Notes: 2018 done at [facility] Information not available Procedure on Kidney Information not avai lable Hysterectomy Information not avai lable Delivery Information not avai lable Procedure on Back Notes: lumbar fusion- done by Ramo 4 years ago Information not available Appendectomy Information not avai lable Results Lab Results Date Name Specimen Result Interpretation Description Value Range Status Address 02/19/2021 Drug Screen, Urine Urine Amphetamines: negati ve Main Office: [address] [facility] [address] [place] Urine Thc negative Main Off ice: [address] [place] Urine Cocaine: negative Main Office: [address] [facility] [address] [place] Urine Opiates: negative Main Office: [address] [facility] [address] [place] Urine Barbiturates: negative Main Office: [address] [place] Urine Benzodiazepines: negative Main Office: [address] [facility] [address] [place] Urine Methamphetamine negative Main Office: [address] [facility] [address] [place] Urine Pcp negative Main Off ice: [address] [place] Urine Mtd negative Main Off ice: [address] [facility] [address] [place] Urine Oxy negative Main Off ice: [address] [facility] [address] [place] 02/16/2021 [facility] [facility] Pdf Report UR No observation recorded. [facility]: [address] [place] [address] 02/16/2021 Drug Screen, Urine No observation recorde d. [facility]: [address] [place] [address] 02/16/2021 Baclofen, QN, Urine U Baclofen Ur Ql C fm <500 NG/mL >=500 NG/mL Final [facility]: [address] [place] [address] 02/16/2021 Drug Screen, Urine U Buprenorphine Ur Ql Cfm <1 NG/mL >=1 NG/mL Final [facility]: [address] [place] [address] U Alcohol Metabolites Ur Ql Cfm <200 N G/mL >=200 NG/mL Final [facility]: [address] [place] [address] U Ethyl Glucuronide Ur Cfm-mcnc <500 N G/mL >=500 NG/mL Final [facility]: [address] [place] [address] U Ethyl Sulfate Ur Cfm-mcnc <200 NG/mL >=200 NG/mL Final [facility]: [address] [place] [address] U Amphetamines Ur Ql Cfm <0 NG/mL >=0 NG/mL Final [facility]: [address] [place] [address] U Tapentadol Ur Ql Cfm <100 NG/mL >=10 0 NG/mL Final [facility]: [address] [place] [address] U Benzodiaz Ur Ql Cfm <50 NG/mL >=50 N G/mL Final [facility]: [address] [place] [address] U Gabapentinpregabalin Ur Ql Cfm <5 mc g/mL >=5 mcg/mL Final [facility]: [address] [place] [address] U Bze Ur Ql Cfm <50 NG/mL >=50 NG/mL F inal [facility]: [address] [place] [address] U Opiates Ur Ql Cfm <100 NG/mL >=100 N G/mL Final [facility]: [address] [place] [address] U 6Mam Ur Ql Cfm <10 NG/mL >=10 NG/mL Final [facility]: [address] [place] [address] U Methadone Ur Ql Cfm <200 NG/mL >=200 NG/mL Final [facility]: [address] [place] [address] U Meperidine Ur Ql Cfm <100 NG/mL >=10 0 NG/mL Final [facility]: [address] [place] [address] U Fentanyl+norfentanyl Ur Ql Cfm <5 NG /mL >=5 NG/mL Final [facility]: [address] [place] [address] U Carisoprodol+meprob Ur Ql Scn <200 N G/mL >=200 NG/mL Final [facility]: [address] [place] [address] U Tramadol Ur Ql Cfm >=100 NG/mL >=100 NG/mL Final [facility]: [address] [place] [address] U N-desmethyl Tram Ur Cfm-mcnc 1650 NG /mL >=100 NG/mL Final [facility]: [address] [place] [address] U Tramadol Ur Cfm-mcnc 64836 NG/mL >=1 00 NG/mL Final [facility]: [address] [place] [address] U Nortramadol Ur Cfm-mcnc 5700 NG/mL > =100 NG/mL Final [facility]: [address] [place] [address] U Cotinine Ur Ql Cfm <125 NG/mL >=125 NG/mL Final [facility]: [address] [place] [address] U Normal pH Ur 8.06 4.5 - 9.0 Final [facility]: [address] [place] [address] U Normal Creat Ur-mcnc 61.5 mg/dL 20 - 370 mg /dL Final [facility]: [address] [place] [address] 02/16/2021 [facility]inary Biomarkers U Normal Biodetect expected Final [facility]: [address] [place] [address] 02/16/2021 Drug Screen, Urine UR Normal Baclofen Ur CMP <500 NG/mL >=500 NG/mL Final [facility]: [address] [place] [address] UR Normal Tramadol Ur CMP 50271 NG/mL >=100 NG /mL Final [facility]: [address] [place] [address] 05/26/2020 [facility] Report UR No observation recorded. [facility]: [address] [place] [address] 05/26/2020 Drug Screen, Urine No observation recorde d. [facility]: [address] [place] [address] 05/26/2020 Drug Screen, Urine Amphetamines: negati ve Main Office: [address] [place] Thc negative Main Off ice: [address] [place] Cocaine: negative Main Office: [address] [place] Opiates: negative Main Office: [address] [facility] [address] [place] Barbiturates: negative Main Office: [address] [place] [address] [address] [place] Benzodiazepines: negative Main Office: [address] [facility] [address] [place] Methamphetamine negative Main Office: [address] [place] Pcp negative Main Off ice: [address] [place] Mtd negative Main Off ice: [address] [place] Oxy negative Main Off ice: [address] [place] 05/26/2020 Baclofen, QN, Urine U Baclofen Ur Ql C fm <500 NG/mL >=500 NG/mL Final [facility]: [address] [place] [address] 05/26/2020 Drug Screen, Urine U Buprenorphine Ur Ql Cfm <1 NG/mL >=1 NG/mL Final [facility]: [address] [place] [address] U Alcohol Metabolites Ur Ql Cfm <200 N G/mL >=200 NG/mL Final [facility]: [address] [place] [address] U Ethyl Glucuronide Ur Cfm-mcnc <500 N G/mL >=500 NG/mL Final [facility]: [address] [place] [address] U Ethyl Sulfate Ur Cfm-mcnc <200 NG/mL >=200 NG/mL Final [facility]: [address] [place] [address] U Tapentadol Ur Ql Cfm <100 NG/mL >=10 0 NG/mL Final [facility]: [address] [place] [address] U Amphetamines Ur Ql Cfm <0 NG/mL >=0 NG/mL Final [facility]: [address] [place] [address] U Benzodiaz Ur Ql Cfm <50 NG/mL >=50 N G/mL Final [facility]: [address] [place] [address] U Gabapentinpregabalin Ur Ql Cfm <5 mc g/mL >=5 mcg/mL Final [facility]: [address] [place] [address] U Bze Ur Ql Cfm <50 NG/mL >=50 NG/mL F inal [facility]: [address] [place] [address] U Opiates Ur Ql Cfm <100 NG/mL >=100 N G/mL Final [facility]: [address] [place] [address] U 6Mam Ur Ql Cfm <10 NG/mL >=10 NG/mL Final [facility]: [address] [place] [address] U Methadone Ur Ql Cfm <200 NG/mL >=200 NG/mL Final [facility]: [address] [place] [address] U Meperidine Ur Ql Cfm <100 NG/mL >=10 0 NG/mL Final [facility]: [address] [place] [address] U Fentanyl+norfentanyl Ur Ql Cfm <5 NG /mL >=5 NG/mL Final [facility]: [address] [place] [address] U Carisoprodol+meprob Ur Ql Scn <200 N G/mL >=200 NG/mL Final [facility]: [address] [place] [address] U Tramadol Ur Ql Cfm <100 NG/mL >=100 NG/mL Final [facility]: [address] [place] [address] U Cotinine Ur Ql Cfm <125 NG/mL >=125 NG/mL Final [facility]: [address] [place] [address] U Normal pH Ur 5.42 4.5 - 9.0 Final [facility]: [address] [place] [address] U Normal Creat Ur-mcnc 259.8 mg/dL 20 - 370 m g/dL Final [facility]: [address] [place] [address] 05/26/2020 Drug Screen, Urine UR ABNORMAL Baclofen Ur CMP <500 NG/mL >=500 NG/mL Final [facility]: [address] [place] [address] UR Normal Tramadol Ur CMP <100 NG/mL >=100 NG/ mL Final [facility]: [address] [place] [address] 03/23/2020 SARS CoV 2 RNA (COVID-19), QL, manufacturers representative-PCR, 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 [facility]: [address] [place] [address] 01/14/2020 SARS CoV 2 RNA (COVID-19), QL, manufacturers representative-PCR, 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 [facility]: [address] [place] [address] 12/17/2019 SARS CoV 2 RNA (COVID-19), QL, manufacturers representative-PCR, 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 [facility]: [address] [place] [address] 12/06/2019 SARS CoV 2 RNA (COVID-19), QL, manufacturers representative-PCR, 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 [facility]: [address] [place] [address] Past Encounters 03/29/2021 Lumbar Post-laminectomy Syndrome; Lumbar Radiculopathy; Degeneration of Lumbar Intervertebral Disc; Degeneration of Lumbosacral Intervertebral Disc; Displacement of Lumbar Intervertebral Disc without Myelopathy; Intervertebral Disc Disorder; Lumbosacral Spondylosis without Myelopathy; Spondylosis without Myelopathy; Inflammation of Sacroiliac Joint; Long-term Drug Therapy Darlin Garayjeanne DAIRY STORE MANAGER: [address] [address], Ph. 02/16/2021 Lumbar Post-laminectomy Syndrome; Lumbar Radiculopathy; Degeneration of Lumbar Intervertebral Disc; Degeneration of Lumbosacral Intervertebral Disc; Displacement of Lumbar Intervertebral Disc without Myelopathy; Intervertebral Disc Disorder; Lumbosacral Spondylosis without Myelopathy; Spondylosis without Myelopathy; Inflammation of Sacroiliac Joint; Long-term Drug Therapy Darlin Arlyn Antwan DAIRY STORE MANAGER: [address] [address], Ph. 01/05/2021 Lumbar Post-laminectomy Syndrome; Lumbar Radiculopathy; Degeneration of Lumbar Intervertebral Disc; Degeneration of Lumbosacral Intervertebral Disc; Displacement of Lumbar Intervertebral Disc without Myelopathy; Intervertebral Disc Disorder; Lumbosacral Spondylosis without Myelopathy; Spondylosis without Myelopathy; Inflammation of Sacroiliac Joint; Long-term Drug Therapy Darlin Arlyn Antwan DAIRY STORE MANAGER: [address] [address], Ph. 11/24/2020 Lumbar Post-laminectomy Syndrome; Lumbar Radiculopathy; Degeneration of Lumbar Intervertebral Disc; Degeneration of Lumbosacral Intervertebral Disc; Displacement of Lumbar Intervertebral Disc without Myelopathy; Intervertebral Disc Disorder; Lumbosacral Spondylosis without Myelopathy; Spondylosis without Myelopathy; Inflammation of Sacroiliac Joint; Long-term Drug Therapy Darlin Arlyn Antwan, DAIRY STORE MANAGER: [address] [facility], [place] [address], Ph. 10/19/2020 Lumbar Post-laminectomy Syndrome; Lumbar Radiculopathy; Degeneration of Lumbar Intervertebral Disc; Degeneration of Lumbosacral Intervertebral Disc; Displacement of Lumbar Intervertebral Disc without Myelopathy; Intervertebral Disc Disorder; Lumbosacral Spondylosis without Myelopathy; Spondylosis without Myelopathy; Inflammation of Sacroiliac Joint; Long-term Drug Therapy Darlin Moncada DAIRY STORE MANAGER: [address] [address], Ph. 08/31/2020 Lumbar Post-laminectomy Syndrome; Lumbar Radiculopathy; Degeneration of Lumbar Intervertebral Disc; Degeneration of Lumbosacral Intervertebral Disc; Displacement of Lumbar Intervertebral Disc without Myelopathy; Intervertebral Disc Disorder; Lumbosacral Spondylosis without Myelopathy; Spondylosis without Myelopathy; Inflammation of Sacroiliac Joint; Long-term Drug Therapy Darlin Moncada DAIRY STORE MANAGER: [address] [address], Ph. 07/20/2020 Lumbar Post-laminectomy Syndrome; Lumbar Radiculopathy; Degeneration of Lumbar Intervertebral Disc; Degeneration of Lumbosacral Intervertebral Disc; Displacement of Lumbar Intervertebral Disc without Myelopathy; Intervertebral Disc Disorder; Lumbosacral Spondylosis without Myelopathy; Spondylosis without Myelopathy; Inflammation of Sacroiliac Joint; Long-term Drug Therapy Darlin Moncada DAIRY STORE MANAGER: [address] [address], Ph. 06/22/2020 Lumbar Post-laminectomy Syndrome; Lumbar Radiculopathy; Degeneration of Lumbar Intervertebral Disc; Degeneration of Lumbosacral Intervertebral Disc; Displacement of Lumbar Intervertebral Disc without Myelopathy; Intervertebral Disc Disorder; Lumbosacral Spondylosis without Myelopathy; Spondylosis without Myelopathy; Inflammation of Sacroiliac Joint; Long-term Drug Therapy Darlin Moncada DAIRY STORE MANAGER: [address] [address], Ph. 05/26/2020 Lumbar Post-laminectomy Syndrome; Lumbar Radiculopathy; Degeneration of Lumbar Intervertebral Disc; Degeneration of Lumbosacral Intervertebral Disc; Displacement of Lumbar Intervertebral Disc without Myelopathy; Intervertebral Disc Disorder; Lumbosacral Spondylosis without Myelopathy; Spondylosis without Myelopathy; Inflammation of Sacroiliac Joint; Long-term Drug Therapy Darlin Moncada DAIRY STORE MANAGER: [id number] [address], [place] [address], Ph. 04/28/2020 Lumbar Post-laminectomy Syndrome; Lumbar Radiculopathy; Degeneration of Lumbar Intervertebral Disc; Degeneration of Lumbosacral Intervertebral Disc; Displacement of Lumbar Intervertebral Disc without Myelopathy; Intervertebral Disc Disorder; Lumbosacral Spondylosis without Myelopathy; Spondylosis without Myelopathy Darlin Moncada DAIRY STORE MANAGER: [address] [address], [place] [address], Ph. 03/27/2020 Lumbar Post-laminectomy Syndrome; Lumbar Radiculopathy; Degeneration of Lumbar Intervertebral Disc; Degeneration of Lumbosacral Intervertebral Disc; Displacement of Lumbar Intervertebral Disc without Myelopathy; Intervertebral Disc Disorder; Lumbosacral Spondylosis without Myelopathy; Spondylosis without Myelopathy Abelino Ambrocio MD: [address] [address], Ph. 03/23/2020 Pre-surgery Testing; Viral Screening Abelino Ambrocio MD: [address] [address], [place] [address], Ph. [phone] 03/12/2020 Lumbar Post-laminectomy Syndrome; Lumbar Radiculopathy; Degeneration of Lumbar Intervertebral Disc; Degeneration of Lumbosacral Intervertebral Disc; Displacement of Lumbar Intervertebral Disc without Myelopathy; Intervertebral Disc Disorder; Lumbosacral Spondylosis without Myelopathy; Spondylosis without Myelopathy Darlin Moncada DAIRY STORE MANAGER: [address] [address], [place] [address], Ph. 02/17/2020 Lumbar Post-laminectomy Syndrome; Lumbar Radiculopathy; Degeneration of Lumbar Intervertebral Disc; Degeneration of Lumbosacral Intervertebral Disc; Displacement of Lumbar Intervertebral Disc without Myelopathy; Intervertebral Disc Disorder; Lumbosacral Spondylosis without Myelopathy; Spondylosis without Myelopathy Darlin Garayon, DAIRY STORE MANAGER: [address] [facility], [place] [address], Ph. 01/28/2020 Lumbar Post-laminectomy Syndrome; Lumbar Radiculopathy; Degeneration of Lumbar Intervertebral Disc; Degeneration of Lumbosacral Intervertebral Disc; Displacement of Lumbar Intervertebral Disc without Myelopathy; Intervertebral Disc Disorder; Lumbosacral Spondylosis without Myelopathy; Spondylosis without Myelopathy Darlin Arlyn Moncada, DAIRY STORE MANAGER: [address] [address], [place] [address], Ph. 01/17/2020 Lumbar Post-laminectomy Syndrome; Lumbar Radiculopathy; Degeneration of Lumbar Intervertebral Disc; Degeneration of Lumbosacral Intervertebral Disc; Displacement of Lumbar Intervertebral Disc without Myelopathy; Intervertebral Disc Disorder; Lumbosacral Spondylosis without Myelopathy; Spondylosis without Myelopathy Abelino Ambrocio MD: [id number] [address], [place] [address], Ph. 01/14/2020 Pre-surgery Testing; Viral Screening Abelino Ambrocio MD: [id number] [address], [place] [address], Ph. [phone] 12/20/2019 Lumbar Post-laminectomy Syndrome; Lumbar Radiculopathy; Degeneration of Lumbar Intervertebral Disc; Degeneration of Lumbosacral Intervertebral Disc; Displacement of Lumbar Intervertebral Disc without Myelopathy; Intervertebral Disc Disorder; Lumbosacral Spondylosis without Myelopathy; Spondylosis without Myelopathy Abelino Ambrocio MD: [address] [address], [place] [address], Ph. 12/17/2019 Pre-surgery Testing; Viral Screening Abelino Ambrocio MD: [address] [address], [place] [address], Ph. [phone] 12/13/2019 Lumbar Post-laminectomy Syndrome; Lumbar Radiculopathy; Degeneration of Lumbar Intervertebral Disc; Degeneration of Lumbosacral Intervertebral Disc; Displacement of Lumbar Intervertebral Disc without Myelopathy; Intervertebral Disc Disorder; Lumbosacral Spondylosis without Myelopathy; Spondylosis without Myelopathy Darlin Moncada, DAIRY STORE MANAGER: [address] [facility] [address], [address], [place] [address], Ph. 12/09/2019 Lumbar Post-laminectomy Syndrome; Lumbar Radiculopathy; Degeneration of Lumbar Intervertebral Disc; Degeneration of Lumbosacral Intervertebral Disc; Displacement of Lumbar Intervertebral Disc without Myelopathy; Intervertebral Disc Disorder; Lumbosacral Spondylosis without Myelopathy; Spondylosis without Myelopathy Abelino Ambrocio MD: [id number] [facility] [address], [place] [address], Ph. 12/06/2019 Pre-surgery Testing Abelino Ambrocio MD: [id number] [facility], [place] [address], Ph. [phone] 10/16/2019 Lumbar Post-laminectomy Syndrome; Lumbar Radiculopathy; Degeneration of Lumbar Intervertebral Disc; Degeneration of Lumbosacral Intervertebral Disc; Displacement of Lumbar Intervertebral Disc without Myelopathy; Intervertebral Disc Disorder; Lumbosacral Spondylosis without Myelopathy; Spondylosis without Myelopathy Abelino Ambrocio MD: [address] [facility] [address], [place] [address], Ph. Social History Tobacco Smoking Status Current Every Day Smoker Notes: 2cig arettes a day Vaccine List None recorded. Plan of Care Reminders Provider Appointments None recorded. Lab None recorded. Referral None recorded. Procedures None recorded. Surgeries None recorded. Imaging None recorded. Vitals 03/29/2021 09:30AM FOLLOW-UP Height Blood Pressure 5 [...]
--- OUTSIDE RECORDS SUMMARY | 2021-06-04 11:36 | CCD ---
Author Author [facility] Organization [facility] Address Unknown Phone Unavailable Care Team Providers Care Pharmacy Account Director Name Role Phone Wendy Ambrocio MD Unavailable Unavailable Wendy Ambrocio MD Unavailable Unavailable Wendy Ambrocio MD Unavailable Unavailable Wendy Ambrocio MD Unavailable Unavailable Wendy Ambrocio MD Unavailable Unavailable Wendy Ambrocio MD Unavailable Unavailable Wendy Ambrocio MD Unavailable Unavailable Wendy Ambrocio MD Unavailable Unavailable Wendy Ambrocio MD Unavailable Unavailable Wendy Ambrocio MD Unavailable Unavailable Wendy Ambrocio MD Unavailable Unavailable Wendy Ambrocio MD Unavailable Unavailable Wendy Ambrocio MD Unavailable Unavailable Wendy Ambrocio MD Unavailable Unavailable Wendy Ambrocio MD Unavailable Unavailable Wendy Ambrocio MD Unavailable Unavailable Wendy Ambrocio MD Unavailable Unavailable Wendy Ambrocio MD Unavailable Unavailable Wendy Ambrocio MD Unavailable Unavailable Bolla, S Abelino VELARDE Unavailable Unavailable Bolla, S Abelino MD Unavailable Unavailable Bolla, S Abelino MD Unavailable Unavailable Bolla, S Abelino MD Unavailable Unavailable Bolla, S Abelino MD Unavailable Unavailable Bolla, S Abelino MD Unavailable Unavailable Bolla, S Abelino MD Unavailable Unavailable Bolla, S Abelino MD Unavailable Unavailable Bolla, S Abelino MD Unavailable Unavailable Bolla, S Abelino MD Unavailable Unavailable Bolla, S Abelino MD Unavailable Unavailable Bolla, S Abelino MD Unavailable Unavailable Bolla, S Abelino MD Unavailable Unavailable Bolla, S Abelino MD Unavailable Unavailable Bolla, S Abelino MD Unavailable Unavailable Bolla, S Abelino MD Unavailable Unavailable Bolla, S Abelino MD Unavailable Unavailable Bolla, S Abelino MD Unavailable Unavailable Bolla, S Abelino MD Unavailable Unavailable Bolla, S Abelino MD Unavailable Unavailable Bolla, S Abelino MD Unavailable Unavailable Bolla, S Abelino MD Unavailable Unavailable Bolla, S Abelino MD Unavailable Unavailable Bolla, S Abelino MD Unavailable Unavailable Bolla, S Abelino MD Unavailable Unavailable Bolla, S Abelino MD Unavailable Unavailable Bolla, S Abelino MD Unavailable Unavailable Bolla, S Abelino MD Unavailable Unavailable Bolla, S Abelino MD Unavailable Unavailable Bolla, S Abelino MD Unavailable Unavailable ROOT, A RABIA FILTER CHANGER Unavailable Unavailable ROOT, A ARBIA FILTER CHANGER Unavailable Unavailable ROOT, A RABIA FILTER CHANGER Unavailable Unavailable ROOT, A RABIA FILTER CHANGER Unavailable Unavailable ROOT, A RABIA FILTER CHANGER Unavailable Unavailable ROOT, A RABIA FILTER CHANGER Unavailable Unavailable ROOT, A RABIA FILTER CHANGER Unavailable Unavailable ROOT, A RABIA FILTER CHANGER Unavailable Unavailable ROOT, A RABIA FILTER CHANGER Unavailable Unavailable ROOT, A RABIA FILTER CHANGER Unavailable Unavailable ROOT, A RABIA FILTER CHANGER Unavailable Unavailable ROOT, A RABIA FILTER CHANGER Unavailable Unavailable ROOT, A RABIA FILTER CHANGER Unavailable Unavailable ROOT, A RABIA FILTER CHANGER Unavailable Unavailable ROOT, A RABIA FILTER CHANGER Unavailable Unavailable ROOT, A RABIA FILTER CHANGER Unavailable Unavailable ROOT, A RABIA FILTER CHANGER Unavailable Unavailable ROOT, A RABIA FILTER CHANGER Unavailable Unavailable ROOT, A RABIA FILTER CHANGER Unavailable Unavailable ROOT, A RABIA FILTER CHANGER Unavailable Unavailable ROOT, A RABIA FILTER CHANGER Unavailable Unavailable ROOT, A RABIA FILTER CHANGER Unavailable Unavailable ROOT, A RABIA FILTER CHANGER Unavailable Unavailable ROOT, A RABIA FILTER CHANGER Unavailable Unavailable ROOT, A RABIA FILTER CHANGER Unavailable Unavailable ROOT, A RABIA FILTER CHANGER Unavailable Unavailable ROOT, A RABIA FILTER CHANGER Unavailable Unavailable ROOT, A RABIA FILTER CHANGER Unavailable Unavailable ROOT, A RABIA FILTER CHANGER Unavailable Unavailable ROOT, A RABIA FILTER CHANGER Unavailable Unavailable ROOT, A RABIA FILTER CHANGER Unavailable Unavailable ROOT, A RABIA FILTER CHANGER Unavailable Unavailable ROOT, A RABIA FILTER CHANGER Unavailable Unavailable ROOT, A RABIA FILTER CHANGER Unavailable Unavailable ROOT, A RABIA FILTER CHANGER Unavailable Unavailable ROOT, A RABIA FILTER CHANGER Unavailable Unavailable ROOT, A RABIA FILTER CHANGER Unavailable Unavailable ROOT, A RABIA FILTER CHANGER Unavailable Unavailable ROOT, A RABIA FILTER CHANGER Unavailable Unavailable ROOT, A RABIA FILTER CHANGER Unavailable Unavailable ROOT, A RABIA FILTER CHANGER Unavailable Unavailable ROOT, A RABIA FILTER CHANGER Unavailable Unavailable ROOT, A RABIA FILTER CHANGER Unavailable Unavailable Fahsel FILTER CHANGER, FILTER CHANGER L Ananth FILTER CHANGER Unavailable + 24 Fahsel FILTER CHANGER, FILTER CHANGER L Ananth FILTER CHANGER Unavailable + 24 Fahsel FILTER CHANGER, FILTER CHANGER L Ananth FILTER CHANGER Unavailable + 24 Fahsel FILTER CHANGER, FILTER CHANGER L Ananth FILTER CHANGER Unavailable + 24 Fahsel FILTER CHANGER, FILTER CHANGER L Ananth FILTER CHANGER Unavailable + 24 Fahsel FILTER CHANGER, FILTER CHANGER L Ananth FILTER CHANGER Unavailable + 24 Fahsel FILTER CHANGER, FILTER CHANGER L Ananth FILTER CHANGER Unavailable + 24 Fahsel FILTER CHANGER, FILTER CHANGER L Ananth FILTER CHANGER Unavailable + 24 Fahsel FILTER CHANGER, FILTER CHANGER L Ananth FILTER CHANGER Unavailable + 24 Fahsel FILTER CHANGER, FILTER CHANGER L Ananth FILTER CHANGER Unavailable + 24 Fahsel FILTER CHANGER, FILTER CHANGER L Ananth FILTER CHANGER Unavailable + 24 Fahsel FILTER CHANGER, FILTER CHANGER L Ananth FILTER CHANGER Unavailable + 24 Fahsel FILTER CHANGER, FILTER CHANGER L Ananth FILTER CHANGER Unavailable + 24 Fahsel FILTER CHANGER, FILTER CHANGER L Ananth FILTER CHANGER Unavailable + 24 Fahsel FILTER CHANGER, FILTER CHANGER L Ananth FILTER CHANGER Unavailable + 24 Fahsel FILTER CHANGER, FILTER CHANGER L Ananth FILTER CHANGER Unavailable + 24 Fahsel FILTER CHANGER, FILTER CHANGER L Ananth FILTER CHANGER Unavailable + 24 Fahsel FILTER CHANGER, FILTER CHANGER L Anatnh FILTER CHANGER Unavailable + 24 Fahsel FILTER CHANGER, FILTER CHANGER L Ananth FILTER CHANGER Unavailable + 24 Fahsel FILTER CHANGER, FILTER CHANGER L Ananth FILTER CHANGER Unavailable + 24 Fahsel FILTER CHANGER, FILTER CHANGER L Ananth FILTER CHANGER Unavailable + 24 Fahsel FILTER CHANGER, FILTER CHANGER L Ananth FILTER CHANGER Unavailable + 24 Fahsel FILTER CHANGER, FILTER CHANGER L Ananth FILTER CHANGER Unavailable + 24 MollLidia tejeda MD Unavailable Unavailable Mollison, Lidia Travis MD Unavailable Unavailable Mollison, Lidia Travis MD Unavailable Unavailable Mollison, Lidia Travis MD Unavailable Unavailable Mollison, Lidia Travis MD Unavailable Unavailable Mollison, Lidia Travis MD Unavailable Unavailable Mollison, Lidia Travis MD Unavailable Unavailable Mollison, Lidia Travis MD Unavailable Unavailable Mollison, Lidia Travis MD Unavailable Unavailable Mollison, Lidia Travis MD Unavailable Unavailable Mollison, Lidia Travsi MD Unavailable Unavailable Mollison, Lidia Travis MD Unavailable Unavailable Mollison, Lidia Travis MD Unavailable Unavailable Mollison, Lidia Travis MD Unavailable Unavailable Mollison, Lidia Travis MD Unavailable Unavailable Mollison, Lidia Travis MD Unavailable Unavailable Mollison, Lidia Travis MD Unavailable Unavailable Mollison, Lidia Travis MD Unavailable Unavailable Mollison, Lidia Travis MD Unavailable Unavailable Mollison, Lidia Travis MD Unavailable Unavailable Mollison, Lidia Travis MD Unavailable Unavailable Mollison, Lidia Travis MD Unavailable Unavailable Mollison, Lidia Travis MD Unavailable Unavailable Mollison, Lidia Travis MD Unavailable Unavailable Mollison, Lidia Travis MD Unavailable Unavailable Mollison, Lidia Travis MD Unavailable Unavailable Mollison, Lidia Travis MD Unavailable Unavailable Mollison, Lidia Travis MD Unavailable Unavailable Mollison, Lidia Travis MD Unavailable Unavailable Mollison, Lidia Travis MD Unavailable Unavailable MtaDennis clemente MD Unavailable Unavailable MtaDennis clemente MD Unavailable Unavailable MtaDennis clemente MD Unavailable Unavailable MtaDennis clemente MD Unavailable Unavailable MtaDennis clemente MD Unavailable Unavailable MtaDennis clemente MD Unavailable Unavailable MtaDennis clemente MD Unavailable Unavailable MtaDennis clemente MD Unavailable Unavailable MtaDennis clemente MD Unavailable Unavailable MtaDennis clemente MD Unavailable Unavailable MtaDennis clemente MD Unavailable Unavailable MtaDennis clemente MD Unavailable Unavailable MtaDennis clemente MD Unavailable Unavailable MtaDennis clemente MD Unavailable Unavailable MtaDennis clemente MD Unavailable Unavailable MtaDennis clemente MD Unavailable Unavailable MtaDennis clemetne MD Unavailable Unavailable MtanosDennis MD Unavailable Unavailable MtanosDennis MD Unavailable Unavailable MtanosDennis MD Unavailable Unavailable MtanosDennis MD Unavailable Unavailable MtanosDennis MD Unavailable Unavailable MtanosDennis MD Unavailable Unavailable MtanosDennis MD Unavailable Unavailable MtanosDennis MD Unavailable Unavailable MtanosDennis MD Unavailable Unavailable MtanosDennis MD Unavailable Unavailable MtanosDennis MD Unavailable Unavailable MtanosDennis MD Unavailable Unavailable MtanosDennis MD Unavailable Unavailable MtanosDennis MD Unavailable Unavailable MtanosDennis MD Unavailable Unavailable MtanosDennis MD Unavailable Unavailable MtanosDennis MD Unavailable Unavailable MtanosDennis MD Unavailable Unavailable MtanosDennis MD Unavailable Unavailable MtanosDennis MD Unavailable Unavailable MtanosDennis MD Unavailable Unavailable MtanosDennis MD Unavailable Unavailable MtanosDennis MD Unavailable Unavailable MtanosDennis MD Unavailable Unavailable MtanoDennis yip MD Unavailable Unavailable MtanoDennis yip MD Unavailable Unavailable MtanosDennis MD Unavailable Unavailable MtanosDennis MD Unavailable Unavailable MtanosDennis MD Unavailable Unavailable MtanosDennis MD Unavailable Unavailable MtanosDennis MD Unavailable Unavailable MtanosDennis MD Unavailable Unavailable MtanoDennis yip MD Unavailable Unavailable MtanosDennis MD Unavailable Unavailable MtanosDennis MD Unavailable Unavailable MtanosDennis MD Unavailable Unavailable MtanosDennis MD Unavailable Unavailable MtanosDennis MD Unavailable Unavailable MtanosDennis MD Unavailable Unavailable MtanoDennis yip MD Unavailable Unavailable MtanoDennis yip MD Unavailable Unavailable MtanosDennis MD Unavailable Unavailable MtanosDennis MD Unavailable Unavailable MtanosDennis MD Unavailable Unavailable MtanosDennis MD Unavailable Unavailable MtanosDennis MD Unavailable Unavailable MtanosDennis MD Unavailable Unavailable MtanosDennis MD Unavailable Unavailable MtanosDennis MD Unavailable Unavailable MtanosDennis MD Unavailable Unavailable MtanosDennis MD Unavailable Unavailable MtanosDennis MD Unavailable Unavailable MtanosDennis MD Unavailable Unavailable MtanosDennis MD Unavailable Unavailable MtanosDennis MD Unavailable Unavailable MtanosDennis MD Unavailable Unavailable MtanosDennis MD Unavailable Unavailable MtanosDennis MD Unavailable Unavailable MtanosDennis MD Unavailable Unavailable MtanosDennis MD Unavailable Unavailable MtanosDennis MD Unavailable Unavailable MtanosDennis MD Unavailable Unavailable MtanosDennis MD Unavailable Unavailable MtanosDennis MD Unavailable Unavailable MtanosDennis MD Unavailable Unavailable MtanosDennis MD Unavailable Unavailable MtanosDennis MD Unavailable Unavailable MtanosDennis MD Unavailable Unavailable MtanosDennis MD Unavailable Unavailable MtanosDennis MD Unavailable Unavailable MtanosDennis MD Unavailable Unavailable MtanoDennis yip MD Unavailable Unavailable MtanosDennis MD Unavailable Unavailable MtanosDennis MD Unavailable Unavailable MtanosDennis MD Unavailable Unavailable MtanosDennis MD Unavailable Unavailable MtanosDennis MD Unavailable Unavailable MtanosDennis MD Unavailable Unavailable MtanosDennis MD Unavailable Unavailable MtanosDennis MD Unavailable Unavailable MtanosDennis MD Unavailable Unavailable MtanosDennis MD Unavailable Unavailable MtanosDennis MD Unavailable Unavailable MtanosDennis MD Unavailable Unavailable MtanosDennis MD Unavailable Unavailable MtanosDennis MD Unavailable Unavailable MtanoDennis yip MD Unavailable Unavailable MtanoDennis yip MD Unavailable Unavailable MtanosDennis MD Unavailable Unavailable MtanosDennis MD Unavailable Unavailable Pleskach, Lurdes HOP FARM WORKER Unavailable Unavailable Pleskach, Lurdes HOP FARM WORKER Unavailable Unavailable Pleskach, Lurdes HOP FARM WORKER Unavailable Unavailable Pleskach, Lurdes HOP FARM WORKER Unavailable Unavailable Pleskach, Lurdes HOP FARM WORKER Unavailable Unavailable Pleskach, Lurdes HOP FARM WORKER Unavailable Unavailable Pleskach, Lurdes HOP FARM WORKER Unavailable Unavailable Pleskach, Lurdes HOP FARM WORKER Unavailable Unavailable Pleskach, Lurdes HOP FARM WORKER Unavailable Unavailable Pleskach, Lurdes HOP FARM WORKER Unavailable Unavailable Pleskach, Lurdes HOP FARM WORKER Unavailable Unavailable Pleskach, Lurdes HOP FARM WORKER Unavailable Unavailable Pleskach, Lurdes HOP FARM WORKER Unavailable Unavailable Pleskach, Lurdes HOP FARM WORKER Unavailable Unavailable Pleskach, Lurdes HOP FARM WORKER Unavailable Unavailable Pleskach, Lurdes HOP FARM WORKER Unavailable Unavailable Pleskach, Lurdes HOP FARM WORKER Unavailable Unavailable Pleskach, Lurdes HOP FARM WORKER Unavailable Unavailable Pleskach, Lurdes HOP FARM WORKER Unavailable Unavailable Pleskach, Lurdes HOP FARM WORKER Unavailable Unavailable Pleskach, Lurdes HOP FARM WORKER Unavailable Unavailable Pleskach, Lurdes HOP FARM WORKER Unavailable Unavailable Pleskach, Lurdes HOP FARM WORKER Unavailable Unavailable Pleskach, Lurdes HOP FARM WORKER Unavailable Unavailable Pleskach, Lurdes HOP FARM WORKER Unavailable Unavailable Pleskach, Lurdes HOP FARM WORKER Unavailable Unavailable Pleskach, Lurdes HOP FARM WORKER Unavailable Unavailable Pleskach, Lurdes HOP FARM WORKER Unavailable Unavailable Pleskach, Lurdes HOP FARM WORKER Unavailable Unavailable Pleskach, Lurdes HOP FARM WORKER Unavailable Unavailable Pleskach, Lurdes HOP FARM WORKER Unavailable Unavailable Pleskach, Lurdes HOP FARM WORKER Unavailable Unavailable Pleskach, Lurdes HOP FARM WORKER Unavailable Unavailable Pleskach, Lurdes HOP FARM WORKER Unavailable Unavailable Pleskach, Lurdes HOP FARM WORKER Unavailable Unavailable Pleskach, Lurdes HOP FARM WORKER Unavailable Unavailable Pleskach, Lurdes HOP FARM WORKER Unavailable Unavailable Pleskach, Lurdes HOP FARM WORKER Unavailable Unavailable Pleskach, Lurdes HOP FARM WORKER Unavailable Unavailable Pleskach, Lurdes HOP FARM WORKER Unavailable Unavailable Pleskach, Lurdes HOP FARM WORKER Unavailable Unavailable Pleskach, Lurdes HOP FARM WORKER Unavailable Unavailable Pleskach, Lurdes HOP FARM WORKER Unavailable Unavailable Pleskach, Lurdes HOP FARM WORKER Unavailable Unavailable Machovec, B Aminta PA-C Unavailable Unavailable Machovec, B Aminta PA-C Unavailable Unavailable Machovec, B Aminta PA-C Unavailable Unavailable [place]c, B Aminta PA-C Unavailable Unavailable [place]c, B Aminta PA-C Unavailable Unavailable [place]c, B Aminta PA-C Unavailable Unavailable Machovec, B Aminta PA-C Unavailable Unavailable Machovec, B Aminta PA-C Unavailable Unavailable Machovec, B Aminta PA-C Unavailable Unavailable Machovec, B Aminta PA-C Unavailable Unavailable Machovec, B Aminta PA-C Unavailable Unavailable Machovec, B Aminta PA-C Unavailable Unavailable Machovec, B Aminta PA-C Unavailable Unavailable Machovec, B Aminta PA-C Unavailable Unavailable Machovec, B Aminta PA-C Unavailable Unavailable Mach[place]c, B Aminta PA-C Unavailable Unavailable Mach[place]c, B Aminta PA-C Unavailable Unavailable Machovec, B Aminta PA-C Unavailable Unavailable Machovec, B Aminta PA-C Unavailable Unavailable Machovec, B Aminta PA-C Unavailable Unavailable Machovec, B Aminta PA-C Unavailable Unavailable Machovec, B Aminta PA-C Unavailable Unavailable Machovec, B Aminta PA-C Unavailable Unavailable Machovec, B Aminta PA-C Unavailable Unavailable Machovec, B Aminta PA-C Unavailable Unavailable Machovec, B Aminta PA-C Unavailable Unavailable Machovec, B Aminta PA-C Unavailable Unavailable Machovec, B Aminta PA-C Unavailable Unavailable Machovec, B Aminta PA-C Unavailable Unavailable Machovec, B Aminta PA-C Unavailable Unavailable Machovec, B Aminta PA-C Unavailable Unavailable Mach[place]c, B Aminta PA-C Unavailable Unavailable Mach[place]c, B Aminta PA-C Unavailable Unavailable [place], B Aminta PA-C Unavailable Unavailable [place]c, B Aminta PA-C Unavailable Unavailable [place], B Aminta PA-C Unavailable Unavailable [place]c, B Aminta PA-C Unavailable Unavailable [place]c, B Aimnta PA-C Unavailable Unavailable Mach[place]c, B Aminta PA-C Unavailable Unavailable [place]c, B Aminta PA-C Unavailable Unavailable Machovec, B Aminta PA-C Unavailable Unavailable Machovec, B Aminta PA-C Unavailable Unavailable Machovec, B Aminta PA-C Unavailable Unavailable Machovec, B Aminta PA-C Unavailable Unavailable Machovec, B Aminta PA-C Unavailable Unavailable Machovec, B Aminta PA-C Unavailable Unavailable Machovec, B Aminta PA-C Unavailable Unavailable Machovec, B Aminta PA-C Unavailable Unavailable Machovec, B Aminta PA-C Unavailable Unavailable Machovec, B Aminta PA-C Unavailable Unavailable Machovec, B Aminta PA-C Unavailable Unavailable Machovec, B Aminta PA-C Unavailable Unavailable [place]c, B Aminta PA-C Unavailable Unavailable [place]c, B Aminta PA-C Unavailable Unavailable [place]c, B Aminta PA-C Unavailable Unavailable [place]c, B Aminta PA-C Unavailable Unavailable Machovec, B Aminta PA-C Unavailable Unavailable Shanell, Meghana Hunter FILTER CHANGER-C Unavailable Unavailabl e Shanell, Meghana Hunter FILTER CHANGER-C Unavailable Unavailabl e Shanell, Meghana Hunter FILTER CHANGER-C Unavailable Unavailabl e Shanell, Meghana Hunter FILTER CHANGER-C Unavailable Unavailabl e Shanell, Meghana Hunter FILTER CHANGER-C Unavailable Unavailabl e Shanell, Meghana Hunter FILTER CHANGER-C Unavailable Unavailabl e Shanell, Meghana Hunter FILTER CHANGER-C Unavailable Unavailabl e Shanell, Meghana Hunter FILTER CHANGER-C Unavailable Unavailabl e Shanell, Meghana Hunter FILTER CHANGER-C Unavailable Unavailabl e Shanell, Meghana Hunter FILTER CHANGER-C Unavailable Unavailabl e Shanell, Meghana Elsa FILTER CHANGER-C Unavailable Unavailabl e Shanell, Meghana Hunter FILTER CHANGER-C Unavailable Unavailabl e Shanell, Meghana Hunter FILTER CHANGER-C Unavailable Unavailabl e Shanell, Meghana Hunter FILTER CHANGER-C Unavailable Unavailabl e Shanell, Meghana Hunter FILTER CHANGER-C Unavailable Unavailabl e Shanell, Meghana Hunter FILTER CHANGER-C Unavailable Unavailabl e Shanell, Meghana Hunter FILTER CHANGER-C Unavailable Unavailabl e Shanell, Meghana Hunter FILTER CHANGER-C Unavailable Unavailabl e Shanell, Meghana Hunter FILTER CHANGER-C Unavailable Unavailabl e Shanell, Meghana Hunter FILTER CHANGER-C Unavailable Unavailabl e Shanell, Meghana Hunter FILTER CHANGER-C Unavailable Unavailabl e Shanell, Meghana Hunter FILTER CHANGER-C Unavailable Unavailabl e Shanell, Meghana Hunter FILTER CHANGER-C Unavailable Unavailabl e Shanell, Meghana Hunter FILTER CHANGER-C Unavailable Unavailabl e Shanell, Meghana Hunter FILTER CHANGER-C Unavailable Unavailabl e Shanell, Meghana Hunter FILTER CHANGER-C Unavailable Unavailabl e Shanell, Meghana Hunter FILTER CHANGER-C Unavailable Unavailabl e Shanell, Meghana Hunter FILTER CHANGER-C Unavailable Unavailabl e Shanell, Meghana Hunter FILTER CHANGER-C Unavailable Unavailabl e Shanell, Meghana Hunter FILTER CHANGER-C Unavailable Unavailabl e Shanell, Meghana Hunter FILTER CHANGER-C Unavailable Unavailabl e Shanell, Meghana Hunter FILTER CHANGER-C Unavailable Unavailabl e Shanell, Meghana Hunter FILTER CHANGER-C Unavailable Unavailabl e Shanell, Meghana Hunter FILTER CHANGER-C Unavailable Unavailabl e Shanell, Meghana Hunter FILTER CHANGER-C Unavailable Unavailabl e Shanell, Meghana Hunter FILTER CHANGER-C Unavailable Unavailabl e Shanell, Meghana Hunter FILTER CHANGER-C Unavailable Unavailabl e Shanell, Meghana Hunter FILTER CHANGER-C Unavailable Unavailabl e Shanell, Meghana Hunter FILTER CHANGER-C Unavailable Unavailabl e Shanell, Meghana Hunter FILTER CHANGER-C Unavailable Unavailabl e Shanell, Meghana Hunter FILTER CHANGER-C Unavailable Unavailabl e Shanell, Meghana Hunter FILTER CHANGER-C Unavailable Unavailabl e Shanell, Meghana Hunter FILTER CHANGER-C Unavailable Unavailabl e Shanell, Meghana Elsa FILTER CHANGER-C Unavailable Unavailabl e Shanell, Meghana Guamanfer FILTER CHANGER-C Unavailable Unavailabl e Shanell, Meghana Smallwoodnifer FILTER CHANGER-C Unavailable Unavailabl e Shanell, Meghana Smallwoodnifer FILTER CHANGER-C Unavailable Unavailabl e Shanell, Meghanatamela SmallwoodElsa FILTER CHANGER-C Unavailable Unavailabl e Shanell, Meghana Smallwoodnifer FILTER CHANGER-C Unavailable Unavailabl e Shanell, Meghanatamela SmallwoodElsa FILTER CHANGER-C Unavailable Unavailabl e Shanell, Meghana Elsa FILTER CHANGER-C Unavailable Unavailabl e Sarita, Lidia Hernandez MD Unavailable Unavailable Sarita, Lidia Hernandez MD Unavailable Unavailable Sarita, Lidia Hernandez MD Unavailable Unavailable Sarita, Lidia Hernandez MD Unavailable Unavailable Sarita, Lidia Hernandez MD Unavailable Unavailable Sarita, Lidia Hernandez MD Unavailable Unavailable Sarita, Lidia Hernandez MD Unavailable Unavailable Sarita, Lidia Hernandez MD Unavailable Unavailable Sarita, Lidia Hernandez MD Unavailable Unavailable Sarita, Lidia Hernandez MD Unavailable Unavailable Sarita, Lidia Hernandez MD Unavailable Unavailable Sarita, Lidia Hernandez MD Unavailable Unavailable Sarita, Lidia Hernandez MD Unavailable Unavailable Sarita, Lidia Hernandez MD Unavailable Unavailable Sarita, Lidia Hernandez MD Unavailable Unavailable Sarita, Lidia Hernandez MD Unavailable Unavailable SaritaLidia MD Unavailable Unavailable Sarita, Lidia Hernandez MD Unavailable Unavailable Sarita, Lidia Hernandez MD Unavailable Unavailable Sarita, Lidia Hernandez MD Unavailable Unavailable Sarita, Lidia Hernandez MD Unavailable Unavailable Sarita, Lidia Hernandez MD Unavailable Unavailable SaritaLidia MD Unavailable Unavailable SaritaLidia foster MD Unavailable Unavailable SaritaLidia MD Unavailable Unavailable SaritaLidia MD Unavailable Unavailable Sarita, Lidia Hernandez MD Unavailable Unavailable Sarita, Lidia Hernandez MD Unavailable Unavailable Sarita, Lidia Hernandez MD Unavailable Unavailable SaritaLidia MD Unavailable Unavailable SaritaLidia foster MD Unavailable Unavailable SaritaLidia MD Unavailable Unavailable SaritaLidia MD Unavailable Unavailable Sarita, Lidia Hernandez MD Unavailable Unavailable Sarita, Lidia Hernandez MD Unavailable Unavailable Sarita, Lidia Hernandez MD Unavailable Unavailable Sarita, Lidia Hernandez MD Unavailable Unavailable Sarita, Lidia Hernandez MD Unavailable Unavailable SaritaLidia foster MD Unavailable Unavailable Sarita, Lidia Hernandez MD Unavailable Unavailable Sarita, Lidia Hernandez MD Unavailable Unavailable Sarita, Lidia Hernandez MD Unavailable Unavailable Sarita, Lidia Hernandez MD Unavailable Unavailable SaritaLidia MD Unavailable Unavailable Sarita, Lidia Hernandez MD Unavailable Unavailable Sarita, Lidia Hernandez MD Unavailable Unavailable Sarita, Lidia Hernandez MD Unavailable Unavailable Sarita, Lidia Hernandez MD Unavailable Unavailable Sarita, Lidia Hernandez MD Unavailable Unavailable Sarita, Lidia Hernandez MD Unavailable Unavailable Sarita, Lidia Hernandez MD Unavailable Unavailable Sarita, Lidia Hernandez MD Unavailable Unavailable Sarita, Lidia Hernandez MD Unavailable Unavailable Sarita, Lidia Hernandez MD Unavailable Unavailable Sarita, Lidia Hernandez MD Unavailable Unavailable Sarita, Lidia Hernandez MD Unavailable Unavailable Sarita, Lidia Hernandez MD Unavailable Unavailable Sarita, Lidia Hernandez MD Unavailable Unavailable Sarita, Lidia Hernandez MD Unavailable Unavailable Sarita, Lidia Hernandez MD Unavailable Unavailable Sarita, Lidia Hernandez MD Unavailable Unavailable Sarita, Lidia Hernandez MD Unavailable Unavailable Sarita, Lidia Hernandez MD Unavailable Unavailable Sarita, Lidia Hernandez MD Unavailable Unavailable Sarita, Lidia Hernandez MD Unavailable Unavailable Sarita, Lidia Hernandez MD Unavailable Unavailable Sarita, Lidia Hernandez MD Unavailable Unavailable Sarita, Lidia Hernandez MD Unavailable Unavailable Sarita, Lidia Hernandez MD Unavailable Unavailable Sarita, Lidia Hernandez MD Unavailable Unavailable Sarita, Lidia Hernandez MD Unavailable Unavailable SaritaLidia MD Unavailable Unavailable Sarita, Lidia Hernandez MD Unavailable Unavailable Sarita, Lidia Hernandez MD Unavailable Unavailable Sarita, Lidia Hernandez MD Unavailable Unavailable Sarita, Lidia Hernandez MD Unavailable Unavailable Jumalon, M Darlin HOP FARM WORKER Unavailable Unavailable Jumalon, M Darlin HOP FARM WORKER Unavailable Unavailable Jumalon, M Darlin HOP FARM WORKER Unavailable Unavailable Jumalon, M Darlin HOP FARM WORKER Unavailable Unavailable Jumalon, M Darlin HOP FARM WORKER Unavailable Unavailable Jumalon, M Darlin HOP FARM WORKER Unavailable Unavailable Jumalon, M Darlin HOP FARM WORKER Unavailable Unavailable Jumalon, M Darlin HOP FARM WORKER Unavailable Unavailable Jumalon, M Darlin HOP FARM WORKER Unavailable Unavailable Jumalon, M Darlin HOP FARM WORKER Unavailable Unavailable Jumalon, M Darlin HOP FARM WORKER Unavailable Unavailable Jumalon, M Darlin HOP FARM WORKER Unavailable Unavailable Jumalon, M Darlin HOP FARM WORKER Unavailable Unavailable Jumalon, M Darlin HOP FARM WORKER Unavailable Unavailable Jumalon, M Darlin HOP FARM WORKER Unavailable Unavailable Jumalon, M Darlin HOP FARM WORKER Unavailable Unavailable Jumalon, M Darlin HOP FARM WORKER Unavailable Unavailable Jumalon, M Darlin HOP FARM WORKER Unavailable Unavailable Jumalon, M Darlin HOP FARM WORKER Unavailable Unavailable Jumalon, M Darlin HOP FARM WORKER Unavailable Unavailable Jumalon, M Darlin HOP FARM WORKER Unavailable Unavailable Jumalon, M Darlin HOP FARM WORKER Unavailable Unavailable Jumalon, M Darlin HOP FARM WORKER Unavailable Unavailable Jumalon, M Darlin HOP FARM WORKER Unavailable Unavailable Jumalon, M Darlin HOP FARM WORKER Unavailable Unavailable Jumalon, M Darlin HOP FARM WORKER Unavailable Unavailable Jumalon, M Darlin HOP FARM WORKER Unavailable Unavailable Jumalon, M Darlin HOP FARM WORKER Unavailable Unavailable Jumalon, M Darlin HOP FARM WORKER Unavailable Unavailable Jumalon, M Darlin HOP FARM WORKER Unavailable Unavailable Laura BARAJAS Unavailable Unavailable Anish MUJICA MD Unavailable Unavailable Anish MUJICA MD Unavailable Unavailable Anish MUJICA MD Unavailable Unavailable Anish MUJICA MD Unavailable Unavailable Anish MUJICA MD Unavailable Unavailable Anish MUJICA MD Unavailable Unavailable Anish MUJICA MD Unavailable Unavailable Anish MUJICA MD Unavailable Unavailable Anish MUJICA MD Unavailable Unavailable Anish MUJICA MD Unavailable Unavailable Anish MUJICA MD Unavailable Unavailable Anish MUJICA MD Unavailable Unavailable Anish MUJICA MD Unavailable Unavailable Anish MUJICA MD Unavailable Unavailable Anish MUJICA MD Unavailable Unavailable Anish MUJICA MD Unavailable Unavailable Anish MUJICA MD Unavailable Unavailable Anish MUJICA MD Unavailable Unavailable Anish MUJICA MD Unavailable Unavailable Anish MUJICA MD Unavailable Unavailable Anish MUJICA MD Unavailable Unavailable Anish MUJICA MD Unavailable Unavailable Anish MUJICA MD Unavailable Unavailable Anish MUJICA MD Unavailable Unavailable Anish MUJICA MD Unavailable Unavailable Anish MUJICA MD Unavailable Unavailable Anish MUJICA MD Unavailable Unavailable Anish MUJICA MD Unavailable Unavailable Anish MUJICA MD Unavailable Unavailable Anish MUJICA MD Unavailable Unavailable Anish MUJICA MD Unavailable Unavailable Anish MUJICA MD Unavailable Unavailable Anish MUJICA MD Unavailable Unavailable Anish MUJICA MD Unavailable Unavailable Anish MUJICA MD Unavailable Unavailable Anish MUJICA MD Unavailable Unavailable Anish MUJICA MD Unavailable Unavailable Anish MUJICA MD Unavailable Unavailable Anish MUJICA MD Unavailable Unavailable Anish MUJICA MD Unavailable Unavailable Anish MUJICA MD Unavailable Unavailable Anish MUJICA MD Unavailable Unavailable MUJICAAnish Klein MD Unavailable Unavailable MUJICAAnish Klein MD Unavailable Unavailable MUJICAAnish Klein MD Unavailable Unavailable MUJICAAnish Klein MD Unavailable Unavailable MUJICAAnish Klein MD Unavailable Unavailable MUJICAAnish Klein MD Unavailable Unavailable MUJICAAnish Klein MD Unavailable Unavailable MUJICAAnish Klein MD Unavailable Unavailable MUJICAAnish Klein MD Unavailable Unavailable Anish MUJICA MD Unavailable Unavailable MUJICAAnish Klein MD Unavailable Unavailable Anish MUJICA MD Unavailable Unavailable MUJICAAnish Klein MD Unavailable Unavailable MUJICAAnish Klein MD Unavailable Unavailable Anish MUJICA MD Unavailable Unavailable MUJICAAnish Klein MD Unavailable Unavailable MUJICAAnish Klein MD Unavailable Unavailable Anish MUJICA MD Unavailable Unavailable Anish MUJICA MD Unavailable Unavailable Anish MUJICA MD Unavailable Unavailable MUJICAAnish Klein MD Unavailable Unavailable MUJICAAnish Klein MD Unavailable Unavailable MUJICAAnish Klein MD Unavailable Unavailable MUJICAAnish Klein MD Unavailable Unavailable Anihs MUJICA MD Unavailable Unavailable Anish MUJICA MD Unavailable Unavailable Anish MUJICA MD Unavailable Unavailable Anish MUJICA MD Unavailable Unavailable Anish MUJICA MD Unavailable Unavailable Anish MUJICA MD Unavailable Unavailable Anish MUJICA MD Unavailable Unavailable Anish MUJICA MD Unavailable Unavailable Anish MUJICA MD Unavailable Unavailable Anish MUJICA MD Unavailable Unavailable Anish MUJICA MD Unavailable Unavailable Anish MUJICA MD Unavailable Unavailable Anish MUJICA MD Unavailable Unavailable Anish MUJICA MD Unavailable Unavailable Anish MUJICA MD Unavailable Unavailable Anish MUJICA MD Unavailable Unavailable Anish MUJICA MD Unavailable Unavailable Anish MUJICA MD Unavailable Unavailable Anish MUJICA MD Unavailable Unavailable Anish MUJICA MD Unavailable Unavailable Anish MUJICA MD Unavailable Unavailable Anish MUJICA MD Unavailable Unavailable Anish MUJICA MD Unavailable Unavailable Anish MUJICA MD Unavailable Unavailable Anish MUJICA MD Unavailable Unavailable Anish MUJICA MD Unavailable Unavailable Anish MUJICA MD Unavailable Unavailable Anish MUJICA MD Unavailable Unavailable Anish MUJICA MD Unavailable Unavailable Anish MUJICA MD Unavailable Unavailable Anish MUJICA MD Unavailable Unavailable Re-disclosure Warning The records that you are about to access may contain information from federally-assisted alcohol or drug abuse programs. If such information is present, then the following federally mandated warning applies: This information has been disclosed to you from records protected by federal confidentiality rules (42 CFR part 2). The federal rules prohibit you from making any further disclosure of this information unless further disclosure is expressly permitted by the written consent of the person to whom it pertains or as otherwise permitted by 42 CFR part 2. A general authorization for the release of medical or other information is NOT sufficient for this purpose. The Federal rules restrict any use of the information to criminally investigate or prosecute any alcohol or drug abuse patient.The records that you are about to access may contain highly sensitive health information, the redisclosure of which is protected by Article 27-F of the [facility] Public Health law. If you continue you may have access to information: Regarding HIV / AIDS; Provided by facilities licensed or operated by the [facility] Office of Mental Health; or Provided by the [facility] Office for People With Developmental Disabilities. If such information is present, then the following [facility] mandated warning applies: This information has been disclosed to you from confidential records which are protected by state law. State law prohibits you from making any further disclosure of this information without the specific written consent of the person to whom it pertains, or as otherwise permitted by law. Any unauthorized further disclosure in violation of state law may result in a fine or snf sentence or both. A general authorization for the release of medical or other information is NOT sufficient authorization for further disc losure. Family History Family Member Name Family Member Gender Family Member Status Date o f Status Description Data Source(s) Unknown Unknown Problem MEDENT ([facility]) Unknown Unknown Problem MEDENT ([facility] Unknown Unknown Problem MEDENT ([facility] Unknown Female Encounters Encounter Providers Location Date Indications Data Source(s ) Outpatient Attender: RABIA FENG NPAtthowie raz: ANANTH BRUMFIELDttender: NISHANT Barajas NP 06/25/2021 12:00:00 AM [facility] Outpatient Referrer: ANANTH BARAJAS 06/25/2021 12:00:00 AM [facility] Outpatient Referrer: ANANTH BARAJAS 06/25/2021 12:00:00 AM [facility] Abelino Ambrocio MD: [id number] [address], [place] [phone], Ph. Attender: Abelino Ambrocio MD [place] - [facility] 06/02/2021 12:00:00 AM EST ULI ([facility]) Abelino Ambrocio MD: [id number], [place] [address], Ph. [phone] Attender: Abelino Ambrocio MD [place] - [facility] 05/28/2021 12:00:00 AM EST ULI ([facility]) Abelino Ambrocio MD: [address], [place] [address], Ph. [phone] Attender: Abelino Ambrocio MD [place] - [facility] 05/28/2021 12:00:00 AM EST ULI ([facility]) Darlin Moncada, FILTER CHANGER: [address], [facility] [place] [place] [address], Ph. Attender: Darlin Moncada [facility] 05/19/2021 12:00:00 AM EST ATHE NA ([facility]) Darlin Moncada, FILTER CHANGER: [address], [facility] [place] [address], Ph. Attender: Darlin Moncada [facility] 05/19/2021 12:00:00 AM EST ATHE NA ([facility]) Outpatient Attender: Lurdes Braxton [facility] 04/12/2021 1 0:00:00 AM EDT MEDENT ([facility] Darlin Moncada, FILTER CHANGER: [address], [place] [address], Ph. Attender: Darlin Moncada [employer] [place] - [facility] 03/29/2021 12:00:00 AM EDT ATHE NA ([facility]) Darlin Moncada, FILTER CHANGER: [address], [place] [address], Ph. Attender: Darlin Moncada [facility] - [facility] 03/29/2021 12:00:00 AM EDT ATHE NA ([facility]) Darlin Moncada, FILTER CHANGER: [address], [place] [address], Ph. Attender: Darlin Moncada [facility] 03/29/2021 12:00:00 AM EDT ATHJuly NA ([facility]) Outpatient .[facility] 02/23/2021 12:00:00 AM EDT eCW1 ([facility]) Darlin Moncada, FILTER CHANGER: [address], [place] [address], Ph. Attender: Darlin Moncada [facility] 02/16/2021 12:00:00 AM EDT ATHJuly NA ([facility]) Darlin Moncada, FILTER CHANGER: [address], [place] [address], Ph. Attender: Darlin Moncada [facility] 02/16/2021 12:00:00 AM EDT ATHuJly NA ([facility]) Darlin Moncada, FILTER CHANGER: [address], [place] [address], Ph. Attender: Darlin Moncada [facility] 02/16/2021 12:00:00 AM EDT ATHE NA ([facility]) Darlin Moncada, FILTER CHANGER: [address], [place] [address], Ph. Attender: Darlin Moncada [facility] - [facility] 02/16/2021 12:00:00 AM EDT ATHE NA ([facility]) Darlin Moncada, FILTER CHANGER: [address], [place] [address], Ph. Attender: Darlin Moncada [facility] - [facility] 01/05/2021 12:00:00 AM EDT ATHE NA ([facility]) Darlin Moncada, FILTER CHANGER: [address], [place] [address], Ph. Attender: Darlin Moncada [facility] - [facility] 01/05/2021 12:00:00 AM EDT ATHE NA ([facility]) Darlin Moncada, FILTER CHANGER: [address], [place] [address], Ph. Attender: Darlin Moncada [facility] - [facility] 01/05/2021 12:00:00 AM EDT ATHE NA ([facility]) Darlin Moncada, FILTER CHANGER: [address], [place] [address], Ph. Attender: Darlin Moncada [facility] - [facility] 01/05/2021 12:00:00 AM EDT ATHE NA ([facility]) Outpatient Attender: FILTER CHANGER Ananth Barajas NPAttender: ANANTH BARAJASReferrer: ANANTH BARAJAS [id number] 12/22/2020 12:00:00 AM EDT - 12/22/2020 11:36:32 AM EDT [facility] Outpatient Referrer: ANANTH BARAJAS 12/22/2020 12:00 :00 AM EDT Other abnormal and inconclusive findings on diagnostic imaging of breast [facility] Other abnormal and inconclusive findings on diagnostic imaging of breast Outpatient [address] [facility] [address] 12/10/2020 12:00:00 AM EDT eC ([facility]) Outpatient Attender: Thaddeus Barraza/Carlos A/Uli/Re indl 12/08/2020 09:00:00 AM EDT MEDJENNI ([facility]) Darlin Moncada, FILTER CHANGER: [address], [place] [address], Ph. Attender: Darlin Moncada [facility] - [facility] 11/24/2020 12:00:00 AM EDT ATHE NA ([facility]) Darlin Moncada, FILTER CHANGER: [address], [place] [address], Ph. Attender: Darlin Moncada [facility] 11/24/2020 12:00:00 AM EDT ATHE NA ([facility]) Darlin Stoddard Antwan, FILTER CHANGER: [address], [place] [address], Ph. Attender: Darlin Moncada [facility] - [facility] 11/24/2020 12:00:00 AM EDT ATHE NA ([facility]) Darlin Stoddard Arleneamaury, FILTER CHANGER: [address], [place] [address], Ph. Attender: Darlinjuly Moncada [employer] [place] - [facility] [place] - Main Office 11/24/2020 12:00:00 AM EDT ATHE NA ([facility]) Darlin Moncada, FILTER CHANGER: [address], [place] [address], Ph. Attender: Darlin Moncada [facility] 11/24/2020 12:00:00 AM EDT ATHJuly SOLOMON ([facility]) Outpatient Referrer: ANANTH BARAJSA 11/19/2020 12:00:00 AM [facility] Outpatient Attender: ANANTH BARAJAS 11/19/2020 12:00:00 AM [facility] OutpatientOFFICE/OUTPATIENT VISIT, EST Attender: Aminta Rothman PA-C [facility] 11/16/2020 10:20:00 AM EDT - 11/16/2020 10:20:00 AM ED T Other specified disorder of bone density of multiple sitesOther shelter (current) drug therapyRaynaud's syndrome without gangreneSystemic lupus erythematosus, unspecified NextGen ([facility]) Other specified disorder of bone density of multiple sites Other roasterman (current) drug therapy Raynaud's syndrome without gangrene Systemic lupus erythematosus, unspecifie d Attender: Aminta Hayes PA-C [facility] 11/04/2020 10:40:00 AM EDT - 11/04/2020 10:40:00 AM EDT [facility] ( [facility]) Attender: Dennis Trejo MD [facility] 11/04/2020 10:22:00 AM EDT - 11/04/2020 10:22:00 AM EDT NextGen ( [facility]) Outpatient Attender: Lurdes Braxton [facility] Main Office 10/28/2020 1 0:00:00 AM EDT MEDENT ([facility] Darlin Moncada, FILTER CHANGER: [address], [place] [address], Ph. Attender: Darlin Moncada [facility] - [facility] 10/19/2020 12:00:00 AM EDT ATHE NA ([facility]) Darlin Moncada, FILTER CHANGER: [address], [place] [address], Ph. Attender: Darlin Moncada [facility] - [facility] 10/19/2020 12:00:00 AM EDT ATHE NA ([facility]) Darlin Moncada, FILTER CHANGER: [address], [place] [address], Ph. Attender: Darlin Moncada [facility] - [facility] 10/19/2020 12:00:00 AM EDT ATHE NA ([facility]) Darlin Moncada, FILTER CHANGER: [address], [place] [address], Ph. Attender: Darlin Moncada [facility] - [facility] 10/19/2020 12:00:00 AM EDT ATHE NA ([facility]) Darlin Moncada, FILTER CHANGER: [address], [place] [address], Ph. Attender: Darlin Moncada [facility] - [facility] 10/19/2020 12:00:00 AM EDT ATHE NA ([facility]) Darlin Moncada, FILTER CHANGER: [address], [place] [address], Ph. Attender: Darlin Moncada [facility] - [facility] 10/19/2020 12:00:00 AM EDT ATHE NA ([facility]) (Cysto2) Urology [address] [place] [address] 09/21/2020 12:00:00 AM EDT eCW1 ([facility]) Unknown [address] [facility] [address] 09/16/2020 12:00:00 AM EST eCW1 ([facility]) Unknown [address] [facility] [address] 09/11/2020 12:00:00 AM EST eCW1 ([facility]) Attender: Elsa DONOHUE [facility] 09/07/2020 11:35:00 AM EST - 09/07/2020 11:35:00 AM EST NextGen ( [facility]) Attender: Aminta Hayes PA-C [facility] 09/07/2020 11:34:00 AM EST - 09/07/2020 11:34:00 AM EST NextGen ( [facility]) Unknown [address] [facility] [address] 09/04/2020 12:00:00 AM EST eCW1 ([facility]) Unknown [address] [facility] [address] 09/04/2020 12:00:00 AM EST eCW1 ([facility]) Unknown [address] [facility] [address] 09/03/2020 12:00:00 AM EST eCW1 ([facility]) Darlin Moncada, FILTER CHANGER: [address], [place] [address], Ph. [facility]: [facility] - Main Office 08/31/2020 12:00:00 AM EST ATHE NA ([facility]) Darlin Moncada, FILTER CHANGER: [address], [place] [address], Ph. Attender: Darlin EZPEDAP [place] - [facility] 08/31/2020 12:00:00 AM EST ATHE NA ([facility]) Darlin Moncada, FILTER CHANGER: [address], [place] [address], Ph. Attender: Darlin Moncada [facility] - [facility] 08/31/2020 12:00:00 AM EST ATHE NA ([facility]) Darlin Moncada, FILTER CHANGER: [address], [place] [address], Ph. Attender: Darlin Moncada [facility] - [facility] 08/31/2020 12:00:00 AM EST ATHE NA ([facility]) Darlin Moncada, FILTER CHANGER: [address], [place] [address], Ph. Attender: Darlin Moncada [facility] - [facility] 08/31/2020 12:00:00 AM EST ATHE NA ([facility]) Darlin Moncada, FILTER CHANGER: [address], [place] [address], Ph. Attender: Darlin Moncada [facility] - [facility] 08/31/2020 12:00:00 AM EST ATHE NA ([facility]) Darlin Moncada, FILTER CHANGER: [address], [place] [address], Ph. Attender: Darlin Moncada [facility] - [facility] 08/31/2020 12:00:00 AM EST ATHE NA ([facility]) Unknown [address] [facility] [address] 08/27/2020 12:00:00 AM EST eCW1 ([facility]) Unknown [address] [facility] [address] 08/25/2020 12:00:00 AM EST eCW1 ([facility]) Outpatient [address] [facility] [address] 08/20/2020 12:00:00 AM EST eCW1 ([facility]) Unknown [address] [facility] [address] 08/20/2020 12:00:00 AM EST eCW1 ([facility]) Unknown [address] [facility] [address] 08/16/2020 12:00:00 AM EST eCW1 ([facility]) Unknown [address] [facility] [address] 08/03/2020 12:00:00 AM EST eCW1 ([facility]) Outpatient [address] [facility] [address] 07/31/2020 12:00:00 AM EST eCW1 ([facility]) Outpatient [address] [facility] [address] 07/24/2020 12:00:00 AM EST eCW1 ([facility]) Attender: Elsa Reece FILTER CHANGERNubiaC [facility] 07/20/2020 12:28:00 PM EST - 07/20/2020 12:28:00 PM EST NextGen ( [facility]) Darlin Moncada, FILTER CHANGER: [address], [place] [address], Ph. Attender: Darlin Moncada [facility] - [facility] - Main Office 07/20/2020 12:00:00 AM EST ATHE NA ([facility] [facility]) Darlin Moncada, FILTER CHANGER: [address], [place] [address], Ph. Attender: Darlin Moncada [facility] - [facility] 07/20/2020 12:00:00 AM EST ATHE NA ([facility]) Darlin Moncada, FILTER CHANGER: [address], [place] [address], Ph. Attender: Darlin Moncada [facility] - [facility] 07/20/2020 12:00:00 AM EST ATHE NA ([facility]) Darlin Moncada, FILTER CHANGER: [address], [facility] [place] [address], Ph. Attender: Darlin Moncada [facility] - [facility] 07/20/2020 12:00:00 AM EST ATHE NA ([facility]) Darlin Moncada, FILTER CHANGER: [address], [place] [address], Ph. Attender: Darlin Moncada [facility] - [facility] 07/20/2020 12:00:00 AM EST ATHE NA ([facility]) Darlin Moncada, FILTER CHANGER: [address], [place] [address], Ph. Attender: Darlin Moncada [facility] - [facility] 07/20/2020 12:00:00 AM EST ATHE NA ([facility]) Darlin Moncada, FILTER CHANGER: [address], [place] [address], Ph. Attender: Darlin Moncada [facility] - [facility] 07/20/2020 12:00:00 AM EST ATHE NA ([facility]) Darlin Moncada, FILTER CHANGER: [address], [place] [address], Ph. Attender: Darlin Moncada [facility] - [facility] 07/20/2020 12:00:00 AM EST ATHE NA ([facility]) Attender: NAE MUJICA MD 07/14/2020 08:21:01 PM EST [facility] Attender: NAE MUJICA MD 07/14/2020 08:21:01 PM EST [facility] Attender: David Stein MD 07/14/2020 08:21:01 PM EST [facility] Attender: David Stein MD 07/14/2020 08:21:01 PM EST [facility] Outpatient Attender: Lurdes Braxton [facility] 07/08/2020 0 7:35:00 AM EST MEDENT ([facility] Darlin Moncada, FILTER CHANGER: [address], [place] [address], Ph. Attender: Darlin Moncada [facility] 06/22/2020 12:00:00 AM EST ATHE NA ([facility]) Darlin Moncada, FILTER CHANGER: [address], [place] [address], Ph. [facility]: [facility] 06/22/2020 12:00:00 AM EST ATHE NA ([facility]) Darlin Moncada, FILTER CHANGER: [address], [facility] [place] [place] [address], Ph. [facility]: [facility] 06/22/2020 12:00:00 AM EST ATHE NA ([facility]) Darlin Moncada, FILTER CHANGER: [address], [place] [address], Ph. Attender: Darlin Moncada [facility] - [facility] 06/22/2020 12:00:00 AM EST ATHE NA ([facility]) Darlin Moncada, FILTER CHANGER: [address], [address], [place] [address], Ph. Attender: Darlin Moncada [facility] - [facility] 06/22/2020 12:00:00 AM EST ATHE NA ([facility]) Darlin Moncada, FILTER CHANGER: [address], [place] [address], Ph. Attender: Darlin Moncada [facility] - [facility] 06/22/2020 12:00:00 AM EST ATHE NA ([facility]) Darlin Moncada, FILTER CHANGER: [address], [place] [address], Ph. Attender: Darlin Moncada [facility] - [facility] 06/22/2020 12:00:00 AM EST ATHE NA ([facility]) Darlin Moncada, FILTER CHANGER: [address], [place] [address], Ph. Attender: Darlin Moncada [facility] - [facility] 06/22/2020 12:00:00 AM EST ATHE NA ([facility]) Darlin Moncada, FILTER CHANGER: [address], [place] [address], Ph. Attender: Darlin Moncada [facility] - Main Office 06/22/2020 12:00:00 AM EST ATHE NA ([facility]) Attender: Dennis Trejo [facility] 06/15/2020 01:47:00 PM EST - 06/15/2020 01:47:00 PM EST [facility] ( [facility]) Attender: Elsa DONOHUE [facility] 06/15/2020 01:25:00 PM EST - 06/15/2020 01:25:00 PM EST [facility] ( [facility]) Outpatient Attender: Lurdes Braxton [facility] Main Office 06/03/2020 0 8:30:00 AM EST MEDENT ([facility] Attender: Aminta Hayes PA-C [facility] 05/28/2020 01:57:00 PM EST - 05/28/2020 01:57:00 PM EST Urinary tract infection, site not specified [facility] ([facility]) Urinary tract infection, site not specif ied Attender: Aminta Hayes PA-C [facility] 05/28/2020 11:00:00 AM EST - 05/28/2020 11:00:00 AM EST Other shelter (current) drug therapyDecreased white blood cell count, unspecifiedRaynaud's syndrome without gangreneSystemic lupus erythematosus, unspecified Next[facility] ([facility]) Other shelter (current) drug therapy Decreased white blood cell count, unspec ified Raynaud's syndrome without gangrene Systemic lupus erythematosus, unspecifie d Darlin Moncada, FILTER CHANGER: [address], [place] [address], Ph. Attender: Darlin Moncada [facility] Office 05/26/2020 12:00:00 AM EST ATHE NA ([facility]) Darlin Moncada, FILTER CHANGER: [address], [facility] [place] [place] [address], Ph. Attender: Darlin Moncada [facility] - [facility] 05/26/2020 12:00:00 AM EST ATHE NA ([facility]) Darlin Moncada, FILTER CHANGER: [address], [place] [address], Ph. Attender: Darlin Moncada [facility] - [facility] 05/26/2020 12:00:00 AM EST ATHE NA ([facility]) Darlin Moncada, FILTER CHANGER: [address], [place] [address], Ph. Attender: Darlin Moncada [facility] - [facility] 05/26/2020 12:00:00 AM EST ATHE NA ([facility]) Darlin Moncada, FILTER CHANGER: [address], [place] [address], Ph. Attender: Darlin Moncada [facility] - [facility] 05/26/2020 12:00:00 AM EST ATHE NA ([facility]) Darlin Moncada, FILTER CHANGER: [address], [place] [address], Ph. Attender: Darlin Moncada [facility] - [facility] 05/26/2020 12:00:00 AM EST ATHE NA ([facility]) Darlin Moncada, FILTER CHANGER: [address], [place] [address], Ph. Attender: Darlin Moncada [facility] - [facility] 05/26/2020 12:00:00 AM EST ATHE NA ([facility]) Darlin Moncada, FILTER CHANGER: [address], [place] [address], Ph. Attender: Darlin Moncada [facility] 05/26/2020 12:00:00 AM EST ATHE NA ([facility]) Darlin Moncada, FILTER CHANGER: [address], [place] [address], Ph. Attender: Darlin Moncada [facility] 05/26/2020 12:00:00 AM EST ATHE NA ([facility]) Darlin Moncada, FILTER CHANGER: [address], [place] [address], Ph. Attender: Darlin Moncada [facility] 05/26/2020 12:00:00 AM EST ATHE NA ([facility]) Outpatient Admitter: ANANTH BARAJASReferrer: ANANTH BARAJAS 05/20/2020 12:00:00 AM EST Other abnormal and inconclusive findings on diagnostic imaging of [facility] Other abnormal and inconclusive findings on diagnostic imaging of breast Outpatient Attender: ANANTH BARAJASReferrer: Lurdes Braxton [facility] [id number] 05/20/2020 12:00:00 AM EST - 05/20/2020 09:15:22 AM EST Other abnormal and inconclusive findings on diagnostic imaging of [facility] Other abnormal and inconclusive findings on diagnostic imaging of breast Darlin Moncada, FILTER CHANGER: [address], [place] [address], Ph. Attender: Darlin Moncada [facility] 04/28/2020 12:00:00 AM EDT ATHE NA ([facility]) Darlin Moncada, FILTER CHANGER: [address], [place] [address], Ph. Attender: Darlin Moncada [facility] - [facility] 04/28/2020 12:00:00 AM EDT ATHE NA ([facility]) Darlin Moncada, FILTER CHANGER: [address], [place] [address], Ph. Attender: Darlin Moncada [facility] - [facility] 04/28/2020 12:00:00 AM EDT ATHE NA ([facility]) Darlin Moncada, FILTER CHANGER: [address], [place] [address], Ph. Attender: Darlin Moncada [facility] - [facility] 04/28/2020 12:00:00 AM EDT ATHE NA ([facility]) Darlin Moncada, FILTER CHANGER: [address], [place] [address], Ph. Attender: Darlin Moncada [facility] - [facility] 04/28/2020 12:00:00 AM EDT ATHE NA ([facility]) Darlin Moncada, FILTER CHANGER: [address], [place] [address], Ph. Attender: Darlin Moncada [facility] - [facility] 04/28/2020 12:00:00 AM EDT ATHE NA ([facility]) Darlin Moncada, FILTER CHANGER: [address], [place] [address], Ph. Attender: Darlin Moncada [facility] - [facility] 04/28/2020 12:00:00 AM EDT ATHE NA ([facility]) Darlin Moncada, FILTER CHANGER: [address], [place] [address], Ph. Attender: Darlin Moncada [facility] 04/28/2020 12:00:00 AM EDT ATHE NA ([facility]) Darlin Moncada, FILTER CHANGER: [address], [place] [address], Ph. Attender: Darlin Moncada [facility] 04/28/2020 12:00:00 AM EDT ATHE NA ([facility]) Darlin Moncada, FILTER CHANGER: [address], [place] [address], Ph. Attender: Darlin Moncada [facility] 04/28/2020 12:00:00 AM EDT ATHE NA ([facility]) Darlin Moncada, FILTER CHANGER: [address], [facility] [place] [address], Ph. Attender: Darlin Moncada [facility] 04/28/2020 12:00:00 AM EDT ATHE NA ([facility]) Attender: Elsa RODRIGUEZC [facility] 04/14/2020 11:22:00 AM EDT - 04/14/2020 11:22:00 AM EDT [facility] ( [facility]) Attender: Aminta Hayes PA-C [facility] 04/14/2020 08:40:00 AM EDT - 04/14/2020 08:40:00 AM EDT NextGen ( [facility]) Immunizations Vaccine Date Status Description Data Source(s) COVID-19 VACCINE Moderna 05/08/2021 12:00:00 AM EDT completed [place] Vaccine Series Complete: YESThis Data wa s Submitted to [facility] Via [employer]. New in 2013. IIV4 04/12/2021 10:14:00 AM EDT completed [facility] ([facility] COVID-19 VACCINE Moderna 04/10/2021 12:00:00 AM EDT completed [place] Vaccine Series Complete: NOThis Data was Submitted to [facility] Via [employer]. Medications Medication Brand Name Start Date Product Form Dose Route Admi nistrative Instructions Pharmacy Instructions Status Indications Reaction Description Data Source(s) Cephalexin 500 MG Oral Capsule Cephalexin 04/12/2021 12:00:00 AM EDT active [facility] ([facility] Hydroxychloroquine Sulfate 200 MG Oral Tablet [Plaquen il] Hydroxychloroquine Sulfate 200 MG Oral Tablet 11/04/2020 12:00:00 AM EDT 1 {tbl} ORAL active hydroxychloroquine sulfate 200 MG Oral T ablet [Plaquenil] Next[facility] ([facility]) leflunomide 20 MG Oral Tablet [Arava] Leflunomide 20 M G Oral Tablet Leflunomide 20 MG Oral Tablet 11/04/2020 12:00:00 AM EDT active leflunomide 20 MG Oral Tablet [Arava] [facility] ([facility]) Estradiol 2 MG Oral Tablet Estradiol 10/28/2020 12:00:00 AM EDT ORAL active [facility] ([facility] Sulfamethoxazole 800 MG / Trimethoprim 1 60 MG Oral Tablet [Bactrim] Bactrim DS 800-160 MG Bactrim DS 800-160 MG 09/21/2020 12:00:00 AM EDT active Bactrim DS 800-160 MG [facility]CW1 ([facility]) Sulfamethoxazole 800 MG / Trimethoprim 1 60 MG Oral Tablet [Bactrim] Bactrim DS 800-160 MG Bactrim DS 800-160 MG 09/21/2020 12:00:00 AM EDT active Bactrim DS 800-160 MG eCW1 ([facility]) Sulfamethoxazole 800 MG / Trimethoprim 1 60 MG Oral Tablet [Bactrim] Bactrim DS 800-160 MG Bactrim DS 800-160 MG 09/21/2020 12:00:00 AM EDT active Bactrim DS 800-160 MG eCW1 ([facility]) Oxybutynin chloride 5 MG Oral Tablet Oxybutynin Chlori de 5 MG Oxybutynin Chloride 5 MG 09/16/2020 12:00:00 AM EST 1.0 {tablet} active Oxybutynin Chloride 5 MG eCW1 ([facility]) Oxybutynin chloride 5 MG Oral Tablet Oxybutynin Chlori de 5 MG Oxybutynin Chloride 5 MG 09/16/2020 12:00:00 AM EST 1.0 {tablet} active Oxybutynin Chloride 5 MG eCW1 ([facility]) Oxybutynin chloride 5 MG Oral Tablet Oxybutynin Chlori de 5 MG Oxybutynin Chloride 5 MG 09/16/2020 12:00:00 AM EST 1.0 {tablet} suspended Oxybutynin Chloride 5 MG eCW1 ([facility]) Oxybutynin chloride 5 MG Oral Tablet Oxybutynin Chlori de 5 MG Oxybutynin Chloride 5 MG 09/16/2020 12:00:00 AM EST 1.0 {tablet} active Oxybutynin Chloride 5 MG eCW1 ([facility]) leflunomide 20 MG Oral Tablet [Arava] Arava 20 mg tablet Verónica va 20 mg tablet 09/07/2020 12:00:00 AM EST completed leflunomide 20 MG Oral Tablet [Arava] [facility] ([facility]) Ketorolac Tromethamine 10 MG Oral Tablet Ketorolac Trometham ine 10 MG 08/16/2020 12:00:00 AM EST active Ketorol ac Tromethamine 10 MG eCW1 ([facility]) Ketorolac Tromethamine 10 MG Oral Tablet Ketorolac Trometham ine 10 MG 08/16/2020 12:00:00 AM EST active Ketorol ac Tromethamine 10 MG eCW1 ([facility]) Ketorolac Tromethamine 10 MG Oral Tablet Ketorolac Trometham ine 10 MG 08/16/2020 12:00:00 AM EST active Ketorol ac Tromethamine 10 MG eCW1 ([facility]) Ketorolac Tromethamine 10 MG Oral Tablet Ketorolac Trometham ine 10 MG 08/16/2020 12:00:00 AM EST active Ketorol ac Tromethamine 10 MG eCW1 ([facility]) Ondansetron 4 MG Oral Tablet Ondansetron HCl 4 MG Ondansetro n HCl 4 MG 08/16/2020 12:00:00 AM EST 1.0 {tablet} active Ondansetron HCl 4 MG eCW1 ([facility]) Ondansetron 4 MG Oral Tablet Ondansetron HCl 4 MG Ondansetro n HCl 4 MG 08/16/2020 12:00:00 AM EST 1.0 {tablet} active Ondansetron HCl 4 MG eCW1 ([facility]) Ketorolac Tromethamine 10 MG Oral Tablet Ketorolac Trometham ine 10 MG 08/16/2020 12:00:00 AM EST active Ketorol ac Tromethamine 10 MG eCW1 ([facility]) Ketorolac Tromethamine 10 MG Oral Tablet Ketorolac Trometham ine 10 MG 08/16/2020 12:00:00 AM EST active Ketorol ac Tromethamine 10 MG eCW1 ([facility]) Ketorolac Tromethamine 10 MG Oral Tablet Ketorolac Trometham ine 10 MG 08/16/2020 12:00:00 AM EST active Ketorol ac Tromethamine 10 MG eCW1 ([facility]) Ondansetron 4 MG Oral Tablet Ondansetron HCl 4 MG Ondansetro n HCl 4 MG 08/16/2020 12:00:00 AM EST 1.0 {tablet} active Ondansetron HCl 4 MG eCW1 ([facility]) Ondansetron 4 MG Oral Tablet Ondansetron HCl 4 MG Ondansetro n HCl 4 MG 08/16/2020 12:00:00 AM EST 1.0 {tablet} active Ondansetron HCl 4 MG eCW1 ([facility]) Ketorolac Tromethamine 10 MG Oral Tablet Ketorolac Trometham ine 10 MG 08/16/2020 12:00:00 AM EST active Ketorol ac Tromethamine 10 MG eCW1 ([facility]) Ondansetron 4 MG Oral Tablet Ondansetron HCl 4 MG Ondansetro n HCl 4 MG 08/16/2020 12:00:00 AM EST 1.0 {tablet} suspende d Ondansetron HCl 4 MG eCW1 ([facility]) Ondansetron 4 MG Oral Tablet Ondansetron HCl 4 MG Ondansetro n HCl 4 MG 08/16/2020 12:00:00 AM EST 1.0 {tablet} active Ondansetron HCl 4 MG eCW1 ([facility]) Ketorolac Tromethamine 10 MG Oral Tablet Ketorolac Trometham ine 10 MG 08/16/2020 12:00:00 AM EST active Ketorol ac Tromethamine 10 MG eCW1 ([facility]) Ketorolac Tromethamine 10 MG Oral Tablet Ketorolac Trometham ine 10 MG 08/16/2020 12:00:00 AM EST suspended Keto rolac Tromethamine 10 MG eCW1 ([facility]) Ondansetron 4 MG Oral Tablet Ondansetron HCl 4 MG Ondansetro n HCl 4 MG 08/16/2020 12:00:00 AM EST 1.0 {tablet} active Ondansetron HCl 4 MG eCW1 ([facility]) Ondansetron 4 MG Oral Tablet Ondansetron HCl 4 MG Ondansetro n HCl 4 MG 08/16/2020 12:00:00 AM EST 1.0 {tablet} active Ondansetron HCl 4 MG eCW1 ([facility]) Ondansetron 4 MG Oral Tablet Ondansetron HCl 4 MG Ondansetro n HCl 4 MG 08/16/2020 12:00:00 AM EST 1.0 {tablet} active Ondansetron HCl 4 MG eCW1 ([facility]) Ondansetron 4 MG Oral Tablet Ondansetron HCl 4 MG Ondansetro n HCl 4 MG 08/16/2020 12:00:00 AM EST 1.0 {tablet} active Ondansetron HCl 4 MG eCW1 ([facility]) Ondansetron 4 MG Oral Tablet Ondansetron HCl 4 MG Ondansetro n HCl 4 MG 08/16/2020 12:00:00 AM EST 1.0 {tablet} active Ondansetron HCl 4 MG eCW1 ([facility]) Ketorolac Tromethamine 10 MG Oral Tablet Ketorolac Trometham ine 10 MG 08/16/2020 12:00:00 AM EST active Ketorol ac Tromethamine 10 MG eCW1 ([facility]) Ondansetron 4 MG Oral Tablet Ondansetron HCl 4 MG Ondansetro n HCl 4 MG 08/16/2020 12:00:00 AM EST 1.0 {tablet} active Ondansetron HCl 4 MG eCW1 ([facility]) Ketorolac Tromethamine 10 MG Oral Tablet Ketorolac Trometham ine 10 MG 08/16/2020 12:00:00 AM EST active Ketorol ac Tromethamine 10 MG eCW1 ([facility]) Tamsulosin hydrochloride 0.4 MG Oral Capsule [Flomax] Flomax 0.4 MG Flomax 0.4 MG 07/24/2020 12:00:00 AM EST 1.0 {capsule} active Flomax 0.4 MG eCW1 ([facility]) Tamsulosin hydrochloride 0.4 MG Oral Capsule [Flomax] Flomax 0.4 MG Flomax 0.4 MG 07/24/2020 12:00:00 AM EST 1.0 {capsule} active Flomax 0.4 MG eCW1 ([facility]) Tamsulosin hydrochloride 0.4 MG Oral Capsule [Flomax] Flomax 0.4 MG Flomax 0.4 MG 07/24/2020 12:00:00 AM EST 1.0 {capsule} active Flomax 0.4 MG eCW1 ([facility]) Tamsulosin hydrochloride 0.4 MG Oral Capsule [Flomax] Flomax 0.4 MG Flomax 0.4 MG 07/24/2020 12:00:00 AM EST 1.0 {capsule} active Flomax 0.4 MG eCW1 ([facility]) Tamsulosin hydrochloride 0.4 MG Oral Capsule [Flomax] Flomax 0.4 MG Flomax 0.4 MG 07/24/2020 12:00:00 AM EST 1.0 {capsule} active Flomax 0.4 MG eCW1 ([facility]) Tamsulosin hydrochloride 0.4 MG Oral Capsule [Flomax] Flomax 0.4 MG Flomax 0.4 MG 07/24/2020 12:00:00 AM EST 1.0 {capsule} active Flomax 0.4 MG eCW1 ([facility]) Tamsulosin hydrochloride 0.4 MG Oral Capsule [Flomax] Flomax 0.4 MG Flomax 0.4 MG 07/24/2020 12:00:00 AM EST 1.0 {capsule} active Flomax 0.4 MG eCW1 ([facility]) Tamsulosin hydrochloride 0.4 MG Oral Capsule [Flomax] Flomax 0.4 MG Flomax 0.4 MG 07/24/2020 12:00:00 AM EST 1.0 {capsule} active Flomax 0.4 MG eCW1 ([facility]) Tamsulosin hydrochloride 0.4 MG Oral Capsule [Flomax] Flomax 0.4 MG Flomax 0.4 MG 07/24/2020 12:00:00 AM EST 1.0 {capsule} active Flomax 0.4 MG eCW1 ([facility]) Tamsulosin hydrochloride 0.4 MG Oral Capsule [Flomax] Flomax 0.4 MG Flomax 0.4 MG 07/24/2020 12:00:00 AM EST 1.0 {capsule} suspended Flomax 0.4 MG eCW1 ([facility]) Tamsulosin hydrochloride 0.4 MG Oral Capsule [Flomax] Flomax 0.4 MG Flomax 0.4 MG 07/24/2020 12:00:00 AM EST 1.0 {capsule} active Flomax 0.4 MG eCW1 ([facility]) Tamsulosin hydrochloride 0.4 MG Oral Capsule [Flomax] Flomax 0.4 MG Flomax 0.4 MG 07/24/2020 12:00:00 AM EST 1.0 {capsule} active Flomax 0.4 MG eCW1 ([facility]) Tamsulosin hydrochloride 0.4 MG Oral Capsule [Flomax] Flomax 0.4 MG Flomax 0.4 MG 07/24/2020 12:00:00 AM EST 1.0 {capsule} active Flomax 0.4 MG eCW1 ([facility]) Tamsulosin hydrochloride 0.4 MG Oral Capsule [Flomax] Flomax 0.4 MG Flomax 0.4 MG 07/24/2020 12:00:00 AM EST 1.0 {capsule} active Flomax 0.4 MG eCW1 ([facility]) Tamsulosin hydrochloride 0.4 MG Oral Capsule [Flomax] Flomax 0.4 MG Flomax 0.4 MG 07/24/2020 12:00:00 AM EST 1.0 {capsule} active Flomax 0.4 MG eCW1 ([facility]) leflunomide 20 MG Oral Tablet [Arava] Leflunomide 20 M G Oral Tablet Leflunomide 20 MG Oral Tablet 07/20/2020 12:00:00 AM EST completed leflunomide 20 MG Oral Tablet [Arava] [facility] ([facility]) Cephalexin 500 MG Oral Capsule Cephalexin 07/08/2020 12:00:00 AM EST completed [facility] ([facility] leflunomide 20 MG Oral Tablet [Arava] Leflunomide 20 M G Oral Tablet Leflunomide 20 MG Oral Tablet 06/15/2020 12:00:00 AM EST completed leflunomide 20 MG Oral Tablet [Arava] [facility] ([facility]) Hydroxychloroquine Sulfate 200 MG Oral T ablet [Plaquenil] Plaquenil 200 mg tablet Plaquenil 200 mg tablet 06/15/2020 12:00:00 AM EST 1 {tbl} ORAL completed hydroxychloroquine sulfate 200 M G Oral Tablet [Plaquenil] [facility] ([facility]) 4 mg 06/03/2020 12:00:00 AM EST tablet 30 TAKE ONE TABLET BY MOUTH EVERY 4 TO 6 HOURS NEEDED FOR NAUSEA AND VOMITING TAKE ONE TABLET BY MOUTH EVERY 4 TO 6 HOURS NEEDED FOR NAUSEA AND VOMITING SOLD: 06/07/2020 [facility] Ondansetron 4 MG Oral Tablet Ondansetron HCL 06/03/2020 12:00:00 AM EST active [facility] ([facility] meloxicam 15 MG Oral Tablet meloxicam 15 mg tablet meloxicam 15 mg tablet 05/28/2020 12:00:00 AM EST active TAKE 1 TABLET BY [facility]TH [facility] Sulfamethoxazole 800 MG / Trimethoprim 1 60 MG Oral Tablet [Bactrim] Bactrim DS 800 mg-160 mg tablet Bactrim DS 800 mg-160 mg tablet 05/28/2020 12:00:00 AM EST 1 {tbl} ORAL active sulfamethoxazole 800 MG / trimethoprim 160 MG Oral Tablet [facility]rim[facility] Prednisone 5 MG Oral Tablet prednisone 5 mg tablet prednison e 5 mg tablet 05/28/2020 12:00:00 AM EST completed take 4 tablet by oral route every day for four days then decrease by one tablet every four days Formerly [facility] ([facility]) leflunomide 20 MG Oral Tablet [Arava] Leflunomide 20 M G Oral Tablet Leflunomide 20 MG Oral Tablet 04/14/2020 12:00:00 AM EDT completed leflunomide 20 MG Oral Tablet [Arava] Formerly [facility] ([facility]) Hydroxychloroquine Sulfate 200 MG Oral Tablet [Plaquen il] Hydroxychloroquine Sulfate 200 MG Oral Tablet 04/14/2020 12:00:00 AM EDT 1 {tbl} ORAL completed hydroxychloroquine sulfate 200 M G Oral Tablet [Plaquenil] Formerly [facility] ([facility]) medroxyprogesterone acetate 2.5 MG Oral Tablet medroxyPROGESTERone (PROVERA) 2.5 MG tablet medroxyPROGESTERone (PROVERA) 2.5 MG tablet 05/28/2017 12:00:00 AM EST 2.5 mg Oral aborted Take 1 tablet by mouth daily [facility] epinastine hcl 0.05 % soln comp leted epinastine hcl 0.05 % soln [facility] ([facility]) Ondansetron 4 MG Oral Tablet ondansetron HCl 4 mg tablet TAKE 1 TABLET BY MOUTH EVERY 6 HOURS NEEDED FOR 7 DAYS ondansetron HCl 4 mg tablet TAKE 1 TABLE T BY MOUTH EVERY 6 HOURS NEEDED FOR 7 DAYS completed ondansetron 4 MG Oral Tablet [facility] ([facility]) medroxyprogesterone acetate 2.5 mg tabs completed medroxyprogesterone acetate 2.5 mg tabs [facility] ([facility]) cephalexin 500 mg caps completed cephalexin 500 mg caps [facility] ([facility]) pregabalin 50 MG Oral Capsule pregabalin 50 mg capsule prega balin 50 mg capsule completed pregabalin 50 MG Oral Capsule [facility] ([facility]) pregabalin 50 MG Oral Capsule pregabalin 50 mg capsule prega balin 50 mg capsule completed pregabalin 50 MG Oral Capsule [facility] ([facility]) pregabalin 25 MG Oral Capsule pregabalin 25 mg capsule prega balin 25 mg capsule completed pregabalin 25 MG Oral Capsule [facility] ([facility]) lisinopril 20 mg tabs completed lisinopril 20 mg tabs [facility] ([facility]) epinastine hcl 0.05 % soln comp leted epinastine hcl 0.05 % soln [facility] ([facility]) pregabalin 25 MG Oral Capsule pregabalin 25 mg capsule prega balin 25 mg capsule completed pregabalin 25 MG Oral Capsule [facility] ([facility]) tramadol hcl er 100 mg tb24 com pleted tramadol hcl er 100 mg tb24 [facility] ([facility]) tizanidine 4 MG Oral Tablet tizanidine 4 mg tablet TAKE 1 TABLET BY MOUTH THREE TIMES DAILY NEEDED tizanidine 4 mg tablet TAKE 1 TABLET BY MOUTH THREE TIMES DAILY NEEDED completed tizani dine 4 MG Oral Tablet [facility] ([facility]) pregabalin 25 MG Oral Capsule pregabalin 25 mg capsule prega balin 25 mg capsule completed pregabalin 25 MG Oral Capsule [facility] ([facility]) Ketorolac Tromethamine 10 MG Oral Tablet ketorolac 10 mg tablet TAKE 1 TABLET BY MOUTH EVERY 6 HOURS NEEDED FOR PAIN ketorolac 10 mg tablet TAKE 1 TABLET BY MOUTH EVERY 6 HOURS NEEDED FOR PAIN completed ketorolac tromethamine 10 MG Oral Tablet [facility] ([facility]) Morphine Sulfate 15 MG Extended Release Oral Tablet morphine ER 15 mg tablet,extended release TAKE 1 TABLET BY MOUTH TWICE DAILY NEEDED FOR PAIN . DO NOT EXCEED 2 PER 24 HOURS morphine ER 15 mg tablet,extended releas e TAKE 1 TABLET BY MOUTH TWICE DAILY NEEDED FOR PAIN . DO NOT EXCEED 2 PER 24 HOURS completed morphine sulfa te 15 MG Extended Release Oral Tablet [facility] ([facility]) methylprednisolone dose pack 4 mg tbpk completed methylprednisolone dose pack 4 mg tbpk [facility] ([facility]) hydroxychloroquine sulfate 200 mg tabs completed hydroxychloroquine sulfate 200 mg tabs [facility] ([facility]) tizanidine 4 MG Oral Tablet tizanidine 4 mg tablet TAKE 1 TABLET BY MOUTH THREE TIMES DAILY NEEDED tizanidine 4 mg tablet TAKE 1 TABLET BY MOUTH THREE TIMES DAILY NEEDED completed tizani dine 4 MG Oral Tablet [facility] ([facility]) erythromycin 5 mg/gm oint compl eted erythromycin 5 mg/gm oint [facility] ([facility]) medroxyprogesterone acetate 2.5 mg tabs completed medroxyprogesterone acetate 2.5 mg tabs [facility] ([facility]) Morphine Sulfate 15 MG Extended Release Oral Tablet morphine ER 15 mg tablet,extended release TAKE 1 TABLET BY MOUTH TWICE DAILY NEEDED FOR PAIN . DO NOT EXCEED 2 PER 24 HOURS morphine ER 15 mg tablet,extended releas e TAKE 1 TABLET BY MOUTH TWICE DAILY NEEDED FOR PAIN . DO NOT EXCEED 2 PER 24 HOURS completed morphine sulfa te 15 MG Extended Release Oral Tablet [facility] ([facility]) medroxyprogesterone acetate 2.5 MG Oral Tablet medroxyprogesterone 2.5 mg tablet 1 tab daily medroxyprogesterone 2.5 mg tablet 1 tab daily completed medroxyprogesterone acetate 2.5 MG Oral Tablet [facility] ([facility]) cephalexin 500 mg caps completed cephalexin 500 mg caps [facility] ([facility]) Cephalexin 500 MG Oral Capsule cephalexi n 500 mg capsule TAKE 1 CAPSULE BY MOUTH 4 TIMES DAILY FOR 10 DAYS cephalexin 500 mg capsule TAKE 1 CAPSULE BY MOUTH 4 TIMES DAILY FOR 10 DAYS completed cephalexin 500 MG Oral Capsule [facility] ([facility]) methylprednisolone dose pack 4 mg tbpk completed methylprednisolone dose pack 4 mg tbpk [facility] ([facility]) Prednisone 5 MG Oral Tablet prednisone 5 mg tablet TAKE 4 TABLETS BY MOUTH DAILY FOR 4 DAYS THEN DECREASE BY 1 TABLET EVERY 4 DAYS prednisone 5 mg tablet TAKE 4 TABLETS BY MOUTH DAILY FOR 4 DAYS THEN DECREASE BY 1 TABLET EVERY 4 DAYS completed prednisone 5 MG Oral Tablet [facility] ([facility]) smz/tmp ds tab 800-160 completed smz/tmp ds tab 800-160 [facility] ([facility]) Tamsulosin hydrochloride 0.4 MG Oral Capsule tamsulosi n 0.4 mg capsule tamsulosin 0.4 mg capsule completed tamsulosin hydrochloride 0.4 MG Oral Capsule [facility] ([facility]) lotemax 0.5 % susp completed lotemax 0.5 % susp [facility] ([facility]) Prednisone 5 MG Oral Tablet prednisone 5 mg tablet TAKE 4 TABLETS BY MOUTH DAILY FOR 4 DAYS THEN DECREASE BY 1 TABLET EVERY 4 DAYS prednisone 5 mg tablet TAKE 4 TABLETS BY MOUTH DAILY FOR 4 DAYS THEN DECREASE BY 1 TABLET EVERY 4 DAYS completed prednisone 5 MG Oral Tablet [facility] ([facility]) methylprednisolone dose pack 4 mg tbpk completed methylprednisolone dose pack 4 mg tbpk [facility] ([facility]) Oxybutynin chloride 5 MG Oral Tablet oxy butynin chloride 5 mg tablet TAKE 1 TABLET BY MOUTH TWICE DAILY oxybutynin chloride 5 mg tablet TAKE 1 T ABLET BY MOUTH TWICE DAILY completed oxybutynin chloride 5 MG Oral Tablet [facility] ([facility]) lisinopril 20 mg tabs completed lisinopril 20 mg tabs [facility] ([facility]) Tamsulosin hydrochloride 0.4 MG Oral Capsule tamsulosi n 0.4 mg capsule tamsulosin 0.4 mg capsule completed tamsulosin hydrochloride 0.4 MG Oral Capsule [facility] ([facility]) epinastine hcl 0.05 % soln comp leted epinastine hcl 0.05 % soln [facility] ([facility]) lisinopril 20 mg tabs completed lisinopril 20 mg tabs [facility] ([facility]) erythromycin 5 mg/gm oint compl eted erythromycin 5 mg/gm oint [facility] ([facility]) lisinopril 20 mg tabs completed lisinopril 20 mg tabs [facility] ([facility]) Ibuprofen 600 MG Oral Tablet ibuprofen 6 00 mg tablet Take 1 tablet twice a day by oral route. ibuprofen 600 mg tablet Take 1 tablet twice a day by o ral route. 1 completed ibuprofen 600 MG Oral Tablet [facility] ([facility]) Ketorolac Tromethamine 10 MG Oral Tablet ketorolac 10 mg tablet TAKE 1 TABLET BY MOUTH EVERY 6 HOURS NEEDED FOR PAIN ketorolac 10 mg tablet TAKE 1 TABLET BY MOUTH EVERY 6 HOURS NEEDED FOR PAIN completed ketorolac tromethamine 10 MG Oral Tablet [facility] ([facility]) medroxyprogesterone acetate 2.5 mg tabs completed medroxyprogesterone acetate 2.5 mg tabs [facility] ([facility]) Ketorolac Tromethamine 10 MG Oral Tablet ketorolac 10 mg tablet TAKE 1 TABLET BY MOUTH EVERY 6 HOURS NEEDED FOR PAIN ketorolac 10 mg tablet TAKE 1 TABLET BY MOUTH EVERY 6 HOURS NEEDED FOR PAIN completed ketorolac tromethamine 10 MG Oral Tablet [facility] ([facility]) Cephalexin 500 MG Oral Capsule cephalexi n 500 mg capsule TAKE 1 CAPSULE BY MOUTH 4 TIMES DAILY FOR 10 DAYS cephalexin 500 mg capsule TAKE 1 CAPSULE BY MOUTH 4 TIMES DAILY FOR 10 DAYS completed cephalexin 500 MG Oral Capsule [facility] ([facility]) lotemax 0.5 % susp completed lotemax 0.5 % susp [facility] ([facility]) tizanidine 4 MG Oral Tablet tizanidine 4 mg tablet TAKE 1 TABLET BY MOUTH THREE TIMES DAILY NEEDED tizanidine 4 mg tablet TAKE 1 TABLET BY MOUTH THREE TIMES DAILY NEEDED completed tizani dine 4 MG Oral Tablet [facility] ([facility]) amlodipine besylate 10 mg tabs completed amlodipine besylate 10 mg tabs [facility] ([facility]) medroxyprogesterone acetate 2.5 MG Oral Tablet medroxyprogesterone 2.5 mg tablet 1 tab daily medroxyprogesterone 2.5 mg tablet 1 tab daily completed medroxyprogesterone acetate 2.5 MG Oral Tablet [facility] ([facility]) hydroxychloroquine sulfate 200 mg tabs completed hydroxychloroquine sulfate 200 mg tabs [facility] ([facility]) amlodipine besylate 10 mg tabs completed amlodipine besylate 10 mg tabs [facility] ([facility]) lotemax 0.5 % susp completed lotemax 0.5 % susp [facility] ([facility]) Prednisone 5 MG Oral Tablet prednisone 5 mg tablet TAKE 4 TABLETS BY MOUTH DAILY FOR 4 DAYS THEN DECREASE BY 1 TABLET EVERY 4 DAYS prednisone 5 mg tablet TAKE 4 TABLETS BY MOUTH DAILY FOR 4 DAYS THEN DECREASE BY 1 TABLET EVERY 4 DAYS completed prednisone 5 MG Oral Tablet [facility] ([facility]) methylprednisolone dose pack 4 mg tbpk completed methylprednisolone dose pack 4 mg tbpk [facility] ([facility]) epinastine hcl 0.05 % soln comp leted epinastine hcl 0.05 % soln [facility] ([facility]) pregabalin 25 MG Oral Capsule pregabalin 25 mg capsule prega balin 25 mg capsule completed pregabalin 25 MG Oral Capsule [facility] ([facility]) Tamsulosin hydrochloride 0.4 MG Oral Capsule tamsulosi n 0.4 mg capsule tamsulosin 0.4 mg capsule completed tamsulosin hydrochloride 0.4 MG Oral Capsule [facility] ([facility]) pregabalin 25 MG Oral Capsule pregabalin 25 mg capsule prega balin 25 mg capsule completed pregabalin 25 MG Oral Capsule [facility] ([facility]) hydroxychloroquine sulfate 200 mg tabs completed hydroxychloroquine sulfate 200 mg tabs [facility] ([facility]) lisinopril 20 mg tabs completed lisinopril 20 mg tabs [facility] ([facility]) lisinopril 20 mg tabs completed lisinopril 20 mg tabs [facility] ([facility]) medroxyprogesterone acetate 2.5 mg tabs completed medroxyprogesterone acetate 2.5 mg tabs [facility] ([facility]) epinastine hcl 0.05 % soln comp leted epinastine hcl 0.05 % soln [facility] ([facility]) pregabalin 50 MG Oral Capsule pregabalin 50 mg capsule prega balin 50 mg capsule completed pregabalin 50 MG Oral Capsule [facility] ([facility]) hydroxychloroquine sulfate 200 mg tabs completed hydroxychloroquine sulfate 200 mg tabs [facility] ([facility]) Cephalexin 500 MG Oral Capsule cephalexin 500 mg capsu le cephalexin 500 mg capsule completed cephalexin 500 MG Oral Capsule [facility] ([facility]) tramadol hcl er 100 mg tb24 com pleted tramadol hcl er 100 mg tb24 [facility] ([facility]) Prednisone 5 MG Oral Tablet prednisone 5 mg tablet TAKE 4 TABLETS BY MOUTH DAILY FOR 4 DAYS THEN DECREASE BY 1 TABLET EVERY 4 DAYS prednisone 5 mg tablet TAKE 4 TABLETS BY MOUTH DAILY FOR 4 DAYS THEN DECREASE BY 1 TABLET EVERY 4 DAYS completed prednisone 5 MG Oral Tablet [facility] ([facility]) cephalexin 500 mg caps completed cephalexin 500 mg caps [facility] ([facility]) hydroxychloroquine sulfate 200 mg tabs completed hydroxychloroquine sulfate 200 mg tabs [facility] ([facility]) smz/tmp ds tab 800-160 completed smz/tmp ds tab 800-160 [facility] ([facility]) pregabalin 50 MG Oral Capsule pregabalin 50 mg capsule prega balin 50 mg capsule completed pregabalin 50 MG Oral Capsule [facility] ([facility]) tizanidine 4 MG Oral Tablet tizanidine 4 mg tablet TAKE 1 TABLET BY MOUTH THREE TIMES DAILY NEEDED tizanidine 4 mg tablet TAKE 1 TABLET BY MOUTH THREE TIMES DAILY NEEDED completed tizani dine 4 MG Oral Tablet [facility] ([facility]) Prednisone 5 MG Oral Tablet prednisone 5 mg tablet TAKE 4 TABLETS BY MOUTH DAILY FOR 4 DAYS THEN DECREASE BY 1 TABLET EVERY 4 DAYS prednisone 5 mg tablet TAKE 4 TABLETS BY MOUTH DAILY FOR 4 DAYS THEN DECREASE BY 1 TABLET EVERY 4 DAYS completed prednisone 5 MG Oral Tablet [facility] ([facility]) medroxyprogesterone acetate 2.5 mg tabs completed medroxyprogesterone acetate 2.5 mg tabs [facility] ([facility]) Ondansetron 4 MG Oral Tablet ondansetron HCl 4 mg tablet TAKE 1 TABLET BY MOUTH EVERY 6 HOURS NEEDED FOR 7 DAYS ondansetron HCl 4 mg tablet TAKE 1 TABLE T BY MOUTH EVERY 6 HOURS NEEDED FOR 7 DAYS completed ondansetron 4 MG Oral Tablet [facility] ([facility]) amlodipine besylate 10 mg tabs completed amlodipine besylate 10 mg tabs [facility] ([facility]) amlodipine besylate 10 mg tabs completed amlodipine besylate 10 mg tabs [facility] ([facility]) Ketorolac Tromethamine 10 MG Oral Tablet ketorolac 10 mg tablet TAKE 1 TABLET BY MOUTH EVERY 6 HOURS NEEDED FOR PAIN ketorolac 10 mg tablet TAKE 1 TABLET BY MOUTH EVERY 6 HOURS NEEDED FOR PAIN completed ketorolac tromethamine 10 MG Oral Tablet [facility] ([facility]) Oxybutynin chloride 5 MG Oral Tablet oxy butynin chloride 5 mg tablet TAKE 1 TABLET BY MOUTH TWICE DAILY oxybutynin chloride 5 mg tablet TAKE 1 T ABLET BY MOUTH TWICE DAILY completed oxybutynin chloride 5 MG Oral Tablet [facility] ([facility]) lisinopril 20 mg tabs completed lisinopril 20 mg tabs [facility] ([facility]) medroxyprogesterone acetate 2.5 mg tabs completed medroxyprogesterone acetate 2.5 mg tabs [facility] ([facility]) Prednisone 5 MG Oral Tablet prednisone 5 mg tablet TAKE 1 TABLET BY MOUTH ONCE DAILY prednisone 5 mg tablet TAKE 1 TABLET BY MOUTH ONCE DAILY completed prednisone 5 MG Oral Tablet [facility] [place] ([facility]) Sulfamethoxazole 800 MG / Trimethoprim 1 60 MG Oral Tablet sulfamethoxazole 800 mg-trimethoprim 160 mg tablet TAKE 1 TABLET BY MOUTH FOR YOUR CYSTOSCOPY TODAY DIRECTED sulfamethoxazole 800 mg-trimethoprim 160 mg tablet TAKE 1 TABLET BY MOUTH FOR YOUR CYSTOSCOPY TODAY DIRECTED completed sulfamethoxazole 800 MG / trimethoprim 160 MG Oral Tablet [facility] ([facility]) medroxyprogesterone acetate 2.5 mg tabs completed medroxyprogesterone acetate 2.5 mg tabs [facility] ([facility]) hydroxychloroquine sulfate 200 mg tabs completed hydroxychloroquine sulfate 200 mg tabs [facility] ([facility]) Tamsulosin hydrochloride 0.4 MG Oral Capsule tamsulosi n 0.4 mg capsule tamsulosin 0.4 mg capsule completed tamsulosin hydrochloride 0.4 MG Oral Capsule [facility] ([facility]) methylprednisolone dose pack 4 mg tbpk completed methylprednisolone dose pack 4 mg tbpk [facility] ([facility]) erythromycin 5 mg/gm oint compl eted erythromycin 5 mg/gm oint [facility] ([facility]) Prednisone 5 MG Oral Tablet prednisone 5 mg tablet TAKE 1 TABLET BY MOUTH ONCE DAILY prednisone 5 mg tablet TAKE 1 TABLET BY MOUTH ONCE DAILY completed prednisone 5 MG Oral Tablet ATH[facility] [place] ([facility]) amlodipine besylate 10 mg tabs completed amlodipine besylate 10 mg tabs [facility] ([facility]) tramadol hcl er 100 mg tb24 com pleted tramadol hcl er 100 mg tb24 [facility] ([facility]) Sulfamethoxazole 800 MG / Trimethoprim 1 60 MG Oral Tablet sulfamethoxazole 800 mg-trimethoprim 160 mg tablet TAKE 1 TABLET BY MOUTH FOR YOUR CYSTOSCOPY TODAY DIRECTED sulfamethoxazole 800 mg-trimethoprim 160 mg tablet TAKE 1 TABLET BY MOUTH FOR YOUR CYSTOSCOPY TODAY DIRECTED completed sulfamethoxazole 800 MG / trimethoprim 160 MG Oral Tablet [facility] ([facility]) hydroxychloroquine sulfate 200 mg tabs completed hydroxychloroquine sulfate 200 mg tabs [facility] ([facility]) lotemax 0.5 % susp completed lotemax 0.5 % susp [facility] ([facility]) Oxybutynin chloride 5 MG Oral Tablet oxy butynin chloride 5 mg tablet TAKE 1 TABLET BY MOUTH TWICE DAILY oxybutynin chloride 5 mg tablet TAKE 1 T ABLET BY MOUTH TWICE DAILY completed oxybutynin chloride 5 MG Oral Tablet [facility] ([facility]) Ondansetron 4 MG Oral Tablet ondansetron HCl 4 mg tablet TAKE 1 TABLET BY MOUTH EVERY 6 HOURS NEEDED FOR 7 DAYS ondansetron HCl 4 mg tablet TAKE 1 TABLE T BY MOUTH EVERY 6 HOURS NEEDED FOR 7 DAYS completed ondansetron 4 MG Oral Tablet [facility] ([facility]) smz/tmp ds tab 800-160 completed smz/tmp ds tab 800-160 [place] ([facility]) tizanidine 4 MG Oral Tablet tizanidine 4 mg tablet TAKE 1 TABLET BY MOUTH THREE TIMES DAILY NEEDED tizanidine 4 mg tablet TAKE 1 TABLET BY MOUTH THREE TIMES DAILY NEEDED completed tizani dine 4 MG Oral Tablet [facility] ([facility]) hydroxychloroquine sulfate 200 mg tabs completed hydroxychloroquine sulfate 200 mg tabs [facility] ([facility] erythromycin 5 mg/gm oint compl eted erythromycin 5 mg/gm oint [facility] ([facility]) tramadol hcl er 100 mg tb24 com pleted tramadol hcl er 100 mg tb24 [facility] ([facility]) methylprednisolone dose pack 4 mg tbpk completed methylprednisolone dose pack 4 mg tbpk [facility] ([facility]) amlodipine besylate 10 mg tabs completed amlodipine besylate 10 mg tabs [facility] ([facility]) medroxyprogesterone acetate 2.5 mg tabs completed medroxyprogesterone acetate 2.5 mg tabs [facility] ([facility]) pregabalin 25 MG Oral Capsule pregabalin 25 mg capsule prega balin 25 mg capsule completed pregabalin 25 MG Oral Capsule [facility] ([facility]) Sulfamethoxazole 800 MG / Trimethoprim 1 60 MG Oral Tablet sulfamethoxazole 800 mg-trimethoprim 160 mg tablet TAKE 1 TABLET BY MOUTH FOR YOUR CYSTOSCOPY TODAY DIRECTED sulfamethoxazole 800 mg-trimethoprim 160 mg tablet TAKE 1 TABLET BY MOUTH FOR YOUR CYSTOSCOPY TODAY DIRECTED completed sulfamethoxazole 800 MG / trimethoprim 160 MG Oral Tablet [facility] ([facility]) methylprednisolone dose pack 4 mg tbpk completed methylprednisolone dose pack 4 mg tbpk [facility] ([facility]) medroxyprogesterone acetate 2.5 MG Oral Tablet medroxyprogesterone 2.5 mg tablet 1 tab daily medroxyprogesterone 2.5 mg tablet 1 tab daily completed medroxyprogesterone acetate 2.5 MG Oral Tablet [facility] ([facility]) lotemax 0.5 % susp completed lotemax 0.5 % susp [facility] ([facility]) smz/tmp ds tab 800-160 completed smz/tmp ds tab 800-160 [facility] ([facility]) medroxyprogesterone acetate 2.5 mg tabs completed medroxyprogesterone acetate 2.5 mg tabs [facility] ([facility]) Cephalexin 500 MG Oral Capsule cephalexi n 500 mg capsule TAKE 1 CAPSULE BY MOUTH 4 TIMES DAILY FOR 10 DAYS cephalexin 500 mg capsule TAKE 1 CAPSULE BY MOUTH 4 TIMES DAILY FOR 10 DAYS completed cephalexin 500 MG Oral Capsule [facility] ([facility]) erythromycin 5 mg/gm oint compl eted erythromycin 5 mg/gm oint [facility] ([facility]) pregabalin 25 MG Oral Capsule pregabalin 25 mg capsule prega balin 25 mg capsule completed pregabalin 25 MG Oral Capsule [facility] ([facility]) hydroxychloroquine sulfate 200 mg tabs completed hydroxychloroquine sulfate 200 mg tabs [facility] ([facility]) Cephalexin 500 MG Oral Capsule cephalexi n 500 mg capsule TAKE 1 CAPSULE BY MOUTH 4 TIMES DAILY FOR 10 DAYS cephalexin 500 mg capsule TAKE 1 CAPSULE BY MOUTH 4 TIMES DAILY FOR 10 DAYS completed cephalexin 500 MG Oral Capsule [facility] ([facility]) Sulfamethoxazole 800 MG / Trimethoprim 1 60 MG Oral Tablet sulfamethoxazole 800 mg-trimethoprim 160 mg tablet TAKE 1 TABLET BY MOUTH FOR YOUR CYSTOSCOPY TODAY DIRECTED sulfamethoxazole 800 mg-trimethoprim 160 mg tablet TAKE 1 TABLET BY MOUTH FOR YOUR CYSTOSCOPY TODAY DIRECTED completed sulfamethoxazole 800 MG / trimethoprim 160 MG Oral Tablet [facility] ([facility]) erythromycin 5 mg/gm oint compl eted erythromycin 5 mg/gm oint [facility] ([facility]) smz/tmp ds tab 800-160 completed smz/tmp ds tab 800-160 [facility] ([facility]) pregabalin 50 MG Oral Capsule pregabalin 50 mg capsule prega balin 50 mg capsule completed pregabalin 50 MG Oral Capsule [facility] ([facility]) methylprednisolone dose pack 4 mg tbpk completed methylprednisolone dose pack 4 mg tbpk [facility] ([facility]) amlodipine besylate 10 mg tabs completed amlodipine besylate 10 mg tabs [facility] ([facility]) amlodipine besylate 10 mg tabs completed amlodipine besylate 10 mg tabs [facility] ([facility]) medroxyprogesterone acetate 2.5 MG Oral Tablet medroxyprogesterone 2.5 mg tablet 1 tab daily medroxyprogesterone 2.5 mg tablet 1 tab daily completed medroxyprogesterone acetate 2.5 MG Oral Tablet [facility] ([facility]) smz/tmp ds tab 800-160 completed smz/tmp ds tab 800-160 [facility] ([facility]) Ibuprofen 600 MG Oral Tablet ibuprofen 6 00 mg tablet Take 1 tablet twice a day by oral route. ibuprofen 600 mg tablet Take 1 tablet twice a day by o ral route. 1 completed ibuprofen 600 MG Oral Tablet [facility] ([facility]) epinastine hcl 0.05 % soln comp leted epinastine hcl 0.05 % soln [facility] ([facility]) epinastine hcl 0.05 % soln comp leted epinastine hcl 0.05 % soln [facility] ([facility]) Morphine Sulfate 15 MG Extended Release Oral Tablet morphine ER 15 mg tablet,extended release TAKE 1 TABLET BY MOUTH TWICE DAILY NEEDED FOR PAIN . DO NOT EXCEED 2 PER 24 HOURS morphine ER 15 mg tablet,extended releas e TAKE 1 TABLET BY MOUTH TWICE DAILY NEEDED FOR PAIN . DO NOT EXCEED 2 PER 24 HOURS completed morphine sulfa te 15 MG Extended Release Oral Tablet [facility] ([facility]) Ondansetron 4 MG Oral Tablet ondansetron HCl 4 mg tablet TAKE 1 TABLET BY MOUTH EVERY 6 HOURS NEEDED FOR 7 DAYS ondansetron HCl 4 mg tablet TAKE 1 TABLE T BY MOUTH EVERY 6 HOURS NEEDED FOR 7 DAYS completed ondansetron 4 MG Oral Tablet [facility] ([facility]) Sulfamethoxazole 800 MG / Trimethoprim 1 60 MG Oral Tablet sulfamethoxazole 800 mg-trimethoprim 160 mg tablet TAKE 1 TABLET BY MOUTH FOR YOUR CYSTOSCOPY TODAY DIRECTED sulfamethoxazole 800 mg-trimethoprim 160 mg tablet TAKE 1 TABLET BY MOUTH FOR YOUR CYSTOSCOPY TODAY DIRECTED completed sulfamethoxazole 800 MG / trimethoprim 160 MG Oral Tablet [facility] ([facility]) medroxyprogesterone acetate 2.5 MG Oral Tablet medroxyprogesterone 2.5 mg tablet 1 tab daily medroxyprogesterone 2.5 mg tablet 1 tab daily completed medroxyprogesterone acetate 2.5 MG Oral Tablet [facility] ([facility]) medroxyprogesterone acetate 2.5 MG Oral Tablet medroxyprogesterone 2.5 mg tablet 1 tab daily medroxyprogesterone 2.5 mg tablet 1 tab daily completed medroxyprogesterone acetate 2.5 MG Oral Tablet [facility] ([facility]) tizanidine 4 MG Oral Tablet tizanidine 4 mg tablet TAKE 1 TABLET BY MOUTH THREE TIMES DAILY NEEDED tizanidine 4 mg tablet TAKE 1 TABLET BY MOUTH THREE TIMES DAILY NEEDED completed tizani dine 4 MG Oral Tablet [facility] ([facility]) tramadol hcl er 100 mg tb24 com pleted tramadol hcl er 100 mg tb24 [facility] ([facility]) Prednisone 5 MG Oral Tablet prednisone 5 mg tablet TAKE 1 TABLET BY MOUTH ONCE DAILY prednisone 5 mg tablet TAKE 1 TABLET BY MOUTH ONCE DAILY completed prednisone 5 MG Oral Tablet ATHE NA ([facility]) cephalexin 500 mg caps completed cephalexin 500 mg caps [facility] ([facility]) epinastine hcl 0.05 % soln comp leted epinastine hcl 0.05 % soln [facility] ([facility]) pregabalin 50 MG Oral Capsule pregabalin 50 mg capsule prega balin 50 mg capsule completed pregabalin 50 MG Oral Capsule [facility] ([facility]) Ibuprofen 600 MG Oral Tablet ibuprofen 6 00 mg tablet Take 1 tablet twice a day by oral route. ibuprofen 600 mg tablet Take 1 tablet twice a day by o ral route. 1 completed ibuprofen 600 MG Oral Tablet [facility] ([facility]) Sulfamethoxazole 800 MG / Trimethoprim 1 60 MG Oral Tablet sulfamethoxazole 800 mg-trimethoprim 160 mg tablet TAKE 1 TABLET BY MOUTH FOR YOUR CYSTOSCOPY TODAY DIRECTED sulfamethoxazole 800 mg-trimethoprim 160 mg tablet TAKE 1 TABLET BY MOUTH FOR YOUR CYSTOSCOPY TODAY DIRECTED completed sulfamethoxazole 800 MG / trimethoprim 160 MG Oral Tablet [facility] ([facility]) Ibuprofen 600 MG Oral Tablet ibuprofen 6 00 mg tablet Take 1 tablet twice a day by oral route. ibuprofen 600 mg tablet Take 1 tablet twice a day by o ral route. 1 completed ibuprofen 600 MG Oral Tablet [facility] ([facility]) cephalexin 500 mg caps completed cephalexin 500 mg caps [facility] ([facility]) methylprednisolone dose pack 4 mg tbpk completed methylprednisolone dose pack 4 mg tbpk [facility] ([facility]) Tamsulosin hydrochloride 0.4 MG Oral Capsule tamsulosi n 0.4 mg capsule tamsulosin 0.4 mg capsule completed tamsulosin hydrochloride 0.4 MG Oral Capsule [facility] ([facility]) cephalexin 500 mg caps completed cephalexin 500 mg caps [facility] ([facility]) tramadol hcl er 100 mg tb24 com pleted tramadol hcl er 100 mg tb24 [facility] ([facility]) methylprednisolone dose pack 4 mg tbpk completed methylprednisolone dose pack 4 mg tbpk [facility] ([facility]) medroxyprogesterone acetate 2.5 mg tabs completed medroxyprogesterone acetate 2.5 mg tabs [facility] ([facility]) smz/tmp ds tab 800-160 completed smz/tmp ds tab 800-160 [facility] ([facility]) pregabalin 50 MG Oral Capsule pregabalin 50 mg capsule prega balin 50 mg capsule completed pregabalin 50 MG Oral Capsule [facility] ([facility]) tizanidine 4 MG Oral Tablet tizanidine 4 mg tablet TAKE 1 TABLET BY MOUTH THREE TIMES DAILY NEEDED tizanidine 4 mg tablet TAKE 1 TABLET BY MOUTH THREE TIMES DAILY NEEDED completed tizani dine 4 MG Oral Tablet [facility] ([facility]) methylprednisolone 4 mg tablets in a dose pack USE DIRECTED [id number] completed methylprednisolone 4 mg tabl ets in a dose pack [facility] ([facility]) lisinopril 20 mg tabs completed lisinopril 20 mg tabs [facility] ([facility]) tramadol hcl er 100 mg tb24 com pleted tramadol hcl er 100 mg tb24 [facility] ([facility]) Ondansetron 4 MG Oral Tablet ondansetron HCl 4 mg tablet TAKE 1 TABLET BY MOUTH EVERY 6 HOURS NEEDED FOR 7 DAYS ondansetron HCl 4 mg tablet TAKE 1 TABLE T BY MOUTH EVERY 6 HOURS NEEDED FOR 7 DAYS completed ondansetron 4 MG Oral Tablet [facility] ([facility]) erythromycin 5 mg/gm oint compl eted erythromycin 5 mg/gm oint [facility] ([facility]) medroxyprogesterone acetate 2.5 MG Oral Tablet medroxyprogesterone 2.5 mg tablet 1 tab daily medroxyprogesterone 2.5 mg tablet 1 tab daily completed medroxyprogesterone acetate 2.5 MG Oral Tablet [facility] ([facility]) epinastine hcl 0.05 % soln comp leted epinastine hcl 0.05 % soln [facility] ([facility]) tramadol hcl er 100 mg tb24 com pleted tramadol hcl er 100 mg tb24 [facility] ([facility]) smz/tmp ds tab 800-160 completed smz/tmp ds tab 800-160 [facility] ([facility]) lotemax 0.5 % susp completed lotemax 0.5 % susp [facility] ([facility]) lotemax 0.5 % susp completed lotemax 0.5 % susp [facility] ([facility]) methylprednisolone 4 mg tablets in a dose pack USE DIRECTED [id number] completed methylprednisolone 4 mg tabl ets in a dose pack [facility] ([facility]) pregabalin 50 MG Oral Capsule pregabalin 50 mg capsule prega balin 50 mg capsule completed pregabalin 50 MG Oral Capsule [facility] ([facility]) erythromycin 5 mg/gm oint compl eted erythromycin 5 mg/gm oint [facility] ([facility]) pregabalin 25 MG Oral Capsule pregabalin 25 mg capsule prega balin 25 mg capsule completed pregabalin 25 MG Oral Capsule [facility] ([facility]) Ketorolac Tromethamine 10 MG Oral Tablet ketorolac 10 mg tablet TAKE 1 TABLET BY MOUTH EVERY 6 HOURS NEEDED FOR PAIN ketorolac 10 mg tablet TAKE 1 TABLET BY MOUTH EVERY 6 HOURS NEEDED FOR PAIN completed ketorolac tromethamine 10 MG Oral Tablet [facility] ([facility]) lisinopril 20 mg tabs completed lisinopril 20 mg tabs [facility] ([facility]) tizanidine 4 MG Oral Tablet tizanidine 4 mg tablet TAKE 1 TABLET BY MOUTH THREE TIMES DAILY NEEDED tizanidine 4 mg tablet TAKE 1 TABLET BY MOUTH THREE TIMES DAILY NEEDED completed tizani dine 4 MG Oral Tablet [facility] ([facility]) lotemax 0.5 % susp completed lotemax 0.5 % susp [facility] ([facility]) smz/tmp ds tab 800-160 completed smz/tmp ds tab 800-160 [facility] ([facility]) cephalexin 500 mg caps completed cephalexin 500 mg caps [facility] ([facility]) pregabalin 25 MG Oral Capsule pregabalin 25 mg capsule prega balin 25 mg capsule completed pregabalin 25 MG Oral Capsule [facility] ([facility]) cephalexin 500 mg caps completed cephalexin 500 mg caps [facility] ([facility]) Prednisone 5 MG Oral Tablet prednisone 5 mg tablet TAKE 4 TABLETS BY MOUTH DAILY FOR 4 DAYS THEN DECREASE BY 1 TABLET EVERY 4 DAYS prednisone 5 mg tablet TAKE 4 TABLETS BY MOUTH DAILY FOR 4 DAYS THEN DECREASE BY 1 TABLET EVERY 4 DAYS completed prednisone 5 MG Oral Tablet [facility] ([facility]) Oxybutynin chloride 5 MG Oral Tablet oxy butynin chloride 5 mg tablet TAKE 1 TABLET BY MOUTH TWICE DAILY oxybutynin chloride 5 mg tablet TAKE 1 T ABLET BY MOUTH TWICE DAILY completed oxybutynin chloride 5 MG Oral Tablet [facility] ([facility]) tizanidine 4 MG Oral Tablet tizanidine 4 mg tablet TAKE 1 TABLET BY MOUTH THREE TIMES DAILY NEEDED tizanidine 4 mg tablet TAKE 1 TABLET BY MOUTH THREE TIMES DAILY NEEDED completed tizani dine 4 MG Oral Tablet [facility] ([facility]) Ondansetron 4 MG Oral Tablet ondansetron HCl 4 mg tablet TAKE 1 TABLET BY MOUTH EVERY 6 HOURS NEEDED FOR 7 DAYS ondansetron HCl 4 mg tablet TAKE 1 TABLE T BY MOUTH EVERY 6 HOURS NEEDED FOR 7 DAYS completed ondansetron 4 MG Oral Tablet [facility] ([facility]) lotemax 0.5 % susp completed lotemax 0.5 % susp [facility] ([facility]) Oxybutynin chloride 5 MG Oral Tablet oxy butynin chloride 5 mg tablet TAKE 1 TABLET BY MOUTH TWICE DAILY oxybutynin chloride 5 mg tablet TAKE 1 T ABLET BY MOUTH TWICE DAILY completed oxybutynin chloride 5 MG Oral Tablet [facility] ([facility]) Morphine Sulfate 15 MG Extended Release Oral Tablet morphine ER 15 mg tablet,extended release TAKE 1 TABLET BY MOUTH TWICE DAILY NEEDED FOR PAIN . DO NOT EXCEED 2 PER 24 HOURS morphine ER 15 mg tablet,extended releas e TAKE 1 TABLET BY MOUTH TWICE DAILY NEEDED FOR PAIN . DO NOT EXCEED 2 PER 24 HOURS completed morphine sulfa te 15 MG Extended Release Oral Tablet [facility] ([facility]) lisinopril 20 mg tabs completed lisinopril 20 mg tabs [facility] ([facility]) medroxyprogesterone acetate 2.5 MG Oral Tablet medroxyprogesterone 2.5 mg tablet 1 tab daily medroxyprogesterone 2.5 mg tablet 1 tab daily completed medroxyprogesterone acetate 2.5 MG Oral Tablet [facility] ([facility]) Cephalexin 500 MG Oral Capsule cephalexin 500 mg capsu le cephalexin 500 mg capsule completed cephalexin 500 MG Oral Capsule [facility] ([facility]) Oxybutynin chloride 5 MG Oral Tablet oxy butynin chloride 5 mg tablet TAKE 1 TABLET BY MOUTH TWICE DAILY oxybutynin chloride 5 mg tablet TAKE 1 T ABLET BY MOUTH TWICE DAILY completed oxybutynin chloride 5 MG Oral Tablet [facility] ([facility]) Morphine Sulfate 15 MG Extended Release Oral Tablet morphine ER 15 mg tablet,extended release TAKE 1 TABLET BY MOUTH TWICE DAILY NEEDED FOR PAIN . DO NOT EXCEED 2 PER 24 HOURS morphine ER 15 mg tablet,extended releas e TAKE 1 TABLET BY MOUTH TWICE DAILY NEEDED FOR PAIN . DO NOT EXCEED 2 PER 24 HOURS completed morphine sulfa te 15 MG Extended Release Oral Tablet [facility] ([facility]) smz/tmp ds tab 800-160 completed smz/tmp ds tab 800-160 [facility] ([facility]) amlodipine besylate 10 mg tabs completed amlodipine besylate 10 mg tabs [facility] ([facility]) pregabalin 50 MG Oral Capsule pregabalin 50 mg capsule prega balin 50 mg capsule completed pregabalin 50 MG Oral Capsule [facility] ([facility]) lotemax 0.5 % susp completed lotemax 0.5 % susp [facility] ([facility]) Ketorolac Tromethamine 10 MG Oral Tablet ketorolac 10 mg tablet TAKE 1 TABLET BY MOUTH EVERY 6 HOURS NEEDED FOR PAIN ketorolac 10 mg tablet TAKE 1 TABLET BY MOUTH EVERY 6 HOURS NEEDED FOR PAIN completed ketorolac tromethamine 10 MG Oral Tablet [facility] ([facility]) pregabalin 50 MG Oral Capsule pregabalin 50 mg capsule prega balin 50 mg capsule completed pregabalin 50 MG Oral Capsule [facility] ([facility]) epinastine hcl 0.05 % soln comp leted epinastine hcl 0.05 % soln [facility] ([facility]) tizanidine 4 MG Oral Tablet tizanidine 4 mg tablet TAKE 1 TABLET BY MOUTH THREE TIMES DAILY NEEDED tizanidine 4 mg tablet TAKE 1 TABLET BY MOUTH THREE TIMES DAILY NEEDED completed tizani dine 4 MG Oral Tablet [facility] ([facility]) pregabalin 25 MG Oral Capsule pregabalin 25 mg capsule prega balin 25 mg capsule completed pregabalin 25 MG Oral Capsule [facility] ([facility]) erythromycin 5 mg/gm oint compl eted erythromycin 5 mg/gm oint [facility] ([facility]) methylprednisolone 4 mg tablets in a dose pack USE DIRECTED [id number] completed methylprednisolone 4 mg tabl ets in a dose pack [facility] ([facility]) Tamsulosin hydrochloride 0.4 MG Oral Capsule tamsulosi n 0.4 mg capsule tamsulosin 0.4 mg capsule completed tamsulosin hydrochloride 0.4 MG Oral Capsule [facility] ([facility]) medroxyprogesterone acetate 2.5 MG Oral Tablet medroxyprogesterone 2.5 mg tablet 1 tab daily medroxyprogesterone 2.5 mg tablet 1 tab daily completed medroxyprogesterone acetate 2.5 MG Oral Tablet [facility] ([facility]) Morphine Sulfate 15 MG Extended Release Oral Tablet morphine ER 15 mg tablet,extended release TAKE 1 TABLET BY MOUTH TWICE DAILY NEEDED FOR PAIN . DO NOT EXCEED 2 PER 24 HOURS morphine ER 15 mg tablet,extended releas e TAKE 1 TABLET BY MOUTH TWICE DAILY NEEDED FOR PAIN . DO NOT EXCEED 2 PER 24 HOURS completed morphine sulfa te 15 MG Extended Release Oral Tablet [facility] ([facility]) hydroxychloroquine sulfate 200 mg tabs completed hydroxychloroquine sulfate 200 mg tabs [facility] ([facility]) tramadol hcl er 100 mg tb24 com pleted tramadol hcl er 100 mg tb24 [facility] ([facility]) medroxyprogesterone acetate 2.5 MG Oral Tablet medroxyprogesterone 2.5 mg tablet 1 tab daily medroxyprogesterone 2.5 mg tablet 1 tab daily completed medroxyprogesterone acetate 2.5 MG Oral Tablet [facility] ([facility]) cephalexin 500 mg caps completed cephalexin 500 mg caps [facility] ([facility]) erythromycin 5 mg/gm oint compl eted erythromycin 5 mg/gm oint [facility] ([facility]) cephalexin 500 mg caps completed cephalexin 500 mg caps [facility] ([facility]) tramadol hcl er 100 mg tb24 com pleted tramadol hcl er 100 mg tb24 [facility] ([facility]) amlodipine besylate 10 mg tabs completed amlodipine besylate 10 mg tabs [facility] ([facility]) Insurance Providers Payer name Policy type / Coverage type Policy ID Covered democrat ID Covered democrat's relationship to naidu Policy Naidu Plan Information MEDICARE A [id number] Self [id number] UHC UNITED MEDICARE DUAL G [id number] Self [id number] MEDICARE [id number] Medicare Part B [facility] [id number] [facility] MEDICARE DUAL G [id number] Self [id number] Medicare C [id number] SELF [id number] MEDICARE [id number] SP [id number] MEDICAID M [id number] Self [id number] [place]ID [place] [id number] Medicare C [id number] SELF [id number] DME Jurisdiction A [facility] C [id number] SELF [id number] Medicare C [id number] SELF [id number] Medicaid [facility] S D [id number] SELF [id number] Medicaid [facility] S D [id number] SELF [id number] [facility] Comm Plan Medicare F [id number] SELF [id number] [facility] Comm Plan Medicare F [id number] SELF [id number] [facility] Comm Plan Medicare F [id number] SELF [id number] MEDICARE C [id number] S [id number] MEDICARE C [id number] S [id number] [place] Medig[place] Part B [id number] Self [id number] [place] [id number] Self 1 [id number] [place] Med[place] Part B [id number] Self [id number] Medicare Natl Gov't Servi Medicare Primary [id number] Self [id number] [place] [id number] Self [id number] [place] Medicare Primary [id number] Self 1 [id number] [place] [id number] Self [id number] Medicare [facility] Medicare Primary [id number] Self 1 [id number] MEDICAID [id number] Yaz [id number] MEDICARE [id number] Yaz [id number] NORIDIAN JE PART B C [id number] O [id number] UNAVAILABLE UNAVAILA BLE MEDICAID HEA [id number] MEDICARE MCA [id number] MEDICARE [facility] [id number] Medicaid [facility] Part B [id number] Self [id number] Medicare [facility] Medicare Primary [id number] Self 1 [id number] Medicaid [facility] Part B [id number] Self [id number] Medicare Natl Gov't Servi Medicare Primary [id number] Self [id number] [place] Med[place] Part B [id number] Self Medicare [facility] Medicare Primary [id number] Self Medicaid [place] Medicaid [id number] Self Medicare [place] Gov't Serv[place] Medicare [place] [id number] [place] Medig[place] Part B [id number] Self Medicare [facility] Medicare Primary [id number] Self MEDICAID REF AMBULAT W [id number] S [id number] MEDICARE OUTPATIENT M [id number] S [id number] [facility] MCDHMO [id number] SP [id number] [place] [id number] SP [id number] [facility] MCRHMO [id number] SP [id number] [facility] MCRHMO 00 SP 00 EMEDNY [id number] SP [id number] [facility] [id number] SP [id number] [facility] O [id number] S [id number] MEDICAID M [id number] S [id number] MEDICAID [id number] SP [id number] Medicaid [facility] Part B [id number] Self [id number] [place] Med[place] Part B [id number] Self 2 [id number] [facility] Medicare Commercial [id number] Self [id number] Medicaid [facility] Part B [id number] Self [id number] [facility] Health Maintenance Organization (HMO) [id number] Self [id number] Medicare Natl Gov't Serv Medicare Primary [id number] Self [id number] Medicaid [facility] Part B [id number] Self [id number] [place] Primary [id number] Self 2 [id number] Problems, Conditions, and Diagnoses Code Display Name Description Problem Type Effective Dates Data Source(s) R92.8 Other abnormal and inconclusive findings on diagnostic imaging of breast Other abnormal and inconclusive findings on diagnostic imaging of breast Diagnosis 12/22/2020 10:04:21 AM EDT [facility] N20.0 Calculus of kidney Calculus of kidney Problem 12:00:00 AM EDT eCW1 ([facility]) N13.2 Hydronephrosis with renal and ureteral c alculous obstruction Ureteral stone with hydronephrosis Problem 07/24/2020 12:00:00 AM EST eCW1 ([facility]) Surgeries/Procedures Procedure Description Date Indications Data Source(s) OFFICE OUTPATIENT VISIT 25 MINUTES 04/12/2021 12:00:00 AM EDT [facility] ([facility] Mammogram 12/22/2020 12:00:00 AM EDT M EDENT ([facility] ordered by Dr. Reyez OFFICE/OUTPATIENT VISIT, EST 11/16/2020 12:00:00 AM EDT - 11/16/2020 12:00:00 AM EDT [facility] ([facility]) URINALYSIS, AUTO W/SCOPE 11/16/2020 12:0 0:00 AM EDT - 11/16/2020 12:00:00 AM EDT [facility] ([facility]) COMPLEMENT, ANTIGEN 11/16/2020 12:00:00 AM EDT - 11/16 12:00:00 AM EDT [facility] ([facility]) DNA ANTIBODY 11/16/2020 12:00:00 AM EDT - 11/16/2020 1 2:00:00 AM EDT [facility] ([facility]) ALANINE AMINO (ALT) (SGPT) 11/16/2020 12 :00:00 AM EDT - 11/16/2020 12:00:00 AM EDT [facility] ([facility]) TRANSFERASE (AST) (SGOT) 11/16/2020 12:0 0:00 AM EDT - 11/16/2020 12:00:00 AM EDT [facility] ([facility]) ASSAY OF UREA NITROGEN 11/16/2020 12:00: 00 AM EDT - 11/16/2020 12:00:00 AM EDT [facility] ([facility]) ASSAY OF CREATININE 11/16/2020 12:00:00 AM EDT - 11/16 12:00:00 AM EDT [facility] ([facility]) C-REACTIVE PROTEIN 11/16/2020 12:00:00 AM EDT - 2020 12:00:00 AM EDT [facility] ([facility]) RBC SED RATE, AUTOMATED 11/16/2020 12:00 :00 AM EDT - 11/16/2020 12:00:00 AM EDT [facility] ([facility]) COMPLETE CBC W/AUTO DIFF WBC 11/16/2020 12:00:00 AM EDT - 11/16/2020 12:00:00 AM EDT [facility] ([facility]) ROUTINE VENIPUNCTURE 11/16/2020 12:00:00 AM EDT - 11/16/2020 12:00:00 AM EDT [facility] ([facility]) OFFICE OUTPATIENT VISIT 15 MINUTES 10/28/2020 12:00:00 AM EDT [facility] ([facility] Medication: Lidocaine HCl 2% Jelly 5mL Intravesically 09/21/2020 12:00:00 AM EDT eC1 ([facility]) PRQ NEPHROSTOLITHOTOMY/PYELOSTOLITHOTOMY 2 CM/< Removal of K idney Stone 09/07/2020 12:00:00 AM EST [facility] ([facility]) PRQ NEPHROSTOLITHOTOMY/PYELOSTOLITHOTOMY 2 CM/< Removal of K idney Stone 09/07/2020 12:00:00 AM EST [facility] ([facility]) PRQ NEPHROSTOLITHOTOMY/PYELOSTOLITHOTOMY 2 CM/< Removal of K idney Stone 09/07/2020 12:00:00 AM EST [facility] ([facility]) PRQ NEPHROSTOLITHOTOMY/PYELOSTOLITHOTOMY 2 CM/< Removal of K idney Stone 09/07/2020 12:00:00 AM EST [facility] ([facility]) PRQ NEPHROSTOLITHOTOMY/PYELOSTOLITHOTOMY 2 CM/< Removal of K idney Stone 09/07/2020 12:00:00 AM EST [facility] ([facility]) PRQ NEPHROSTOLITHOTOMY/PYELOSTOLITHOTOMY 2 CM/< Removal of K idney Stone 09/07/2020 12:00:00 AM EST [facility] ([facility]) Results ID Date Data Source [id number] 05/28/2021 12:00:00 AM EST [facility] ([facility]) Name Value Range Interpretation Code Description Data Mali rce(s) Supporting Document(s) SARS-CoV-2 (COVID-19) RNA [Presence] in Respiratory specimen by NATHANAEL with probe detection negative negative Sars-cov-2 [facility] ([facility]) ID Date Data Source [id number] 05/28/2021 12:00:00 AM EST [facility] ([facility]) Name Value Range Interpretation Code Description Data Mali rce(s) Supporting Document(s) ID Date Data Source [id number] 04/20/2021 09:28:00 AM EDT [facility] ([facility] Name Value Range Interpretation Code Description Data Mali rce(s) Supporting Document(s) Hemoglobin A1c/Hemoglobin.total in Blood 5.1 % [facility] ([facility] <content>REFERENCE RANGES:</content><br/ ><content></content>
<content><=5.6% NORMAL</content>
<content>5.7-6.4% SUGGESTS IMPAIRED GLUCOSE METABOLISM/PREDIABETIC</content>
<content>>= 6.5% ABNORMAL</content>
<content></content> Estimated Average Glucose 100 mg/dL 60-110 [facility] ([facility] ID Date Data Source [id number] 04/20/2021 09:28:00 AM EDT [facility] ([facility] Name Value Range Interpretation Code Description Data Mali rce(s) Supporting Document(s) Triglycerides Level 119 mg/dL [facility] ([facility] Cholesterol Level 203 mg/dL [facility] ([facility] Non-HDL-C 148 mg/dL [facility] ([facility] HDL Cholesterol 55 mg/dL [facility] ([facility] LDL Cholesterol 124 mg/dL [facility] ([facility] Cholesterol Risk Ratio 3.690 [facility] ([facility] ID Date Data Source [id number] 04/20/2021 09:28:00 AM EDT [facility] ([facility] Name Value Range Interpretation Code Description Data Mali rce(s) Supporting Document(s) Glucose, Fasting 82 mg/dL 70-100 [facility] ([facility] Creatinine For GFR 0.54 mg/dL 0.55-1.30 [facility] ([facility] Blood Urea Nitrogen 22 mg/dL 7-18 [facility] ([facility] Sodium Level 142 meq/L 136-145 [facility] ([facility] Glomerular Filtration Rate Laboratory test result [facility] ([facility] <content>Units are mL/min/1.73 m2</content>
<content></content>
<content>Chronic Kidney Disease Staging per NKF:</content>
<content></content>
<content>Stage I & II GFR >=60 Normal to Mildly Decreased</content>
<content>Stage III GFR 30- 59 Moderately Decreased</content>
<content>Stage IV GFR 15-29 Severely Decreased</content>
<content>Stage V GFR <15 Very Little GFR Left</content>
<content>ESRD GFR <15 on [facility]YSIC[facility]</content>
<content></content> Potassium Serum 4.6 meq/L 3.5-5.1 [facility] ([facility] Carbon Dioxide Level 27 meq/L 21-32 [facility] ([facility] Anion Gap 3 meq/L 8-16 [facility] ([facility] Chloride Level 112 meq/L 98-107 [facility] ([facility] Alt/SGPT 20 U/L 12-78 [facility] ([facility] Ast/Sgot 17 U/L 7-37 [facility] ([facility] Calcium Level 9.3 mg/dL 8.5-10.1 [facility] ([facility] Total Protein 6.8 GM/DL 6.4-8.2 [facility] ([facility] Alkaline Phosphatase 74 U/L 45-117 [facility] ([facility] Bilirubin,Total 0.4 mg/dL 0.2-1.0 [facility] ([facility] Albumin/Globulin Ratio 1.3 1.2-2.2 [facility] ([facility] Albumin 3.8 GM/DL 3.2-5.2 [facility] ([facility] ID Date Data Source VENIPUNCTURE OP 02/23/2021 12:00:00 AM EDT eCW1 ([facility]) Name Value Range Interpretation Code Description Data Mali rce(s) Supporting Document(s) VENIPUNCTURE VENIPUNCTURE eCW1 ([facility]) ID Date Data Source UA-DIP 02/23/2021 12:00:00 AM EDT eCW1 ([facility]) Name Value Range Interpretation Code Description Data Mali rce(s) Supporting Document(s) Yellow YELLOW COLOR eCW1 ([facility]) Clear CLEAR CLARITY eCW1 ([facility]) 1.025 SPEC.GRAV. eCW1 ([facility]) 6.0 5.0 - 8.0 PH eCW1 ([facility]) Negative NEGATIVE PROTEIN eCW1 ([facility]) Negative NEGATIVE GLUCOSE eCW1 ([facility] Negative NEGATIVE KETONES eCW1 ([facility]) Negative NEGATIVE BILIRUBIN eCW1 ([facility] Negative NEGATIVE BLOOD eCW1 ([facility]) Negative NEGATIVE NITRITE eCW1 ([facility]) Negative NEGATIVE LEUKOCYTES eCW1 ([facility]) 0.2 0.2-1.0 UROBILINOGEN eCW1 ([facility]) ID Date Data Source CBC w/DIFF 02/23/2021 12:00:00 AM EDT eCW1 ([facility]) Name Value Range Interpretation Code Description Data [facility](s) Supporting Document(s) 3.3 4.1-10.9 WBC eCW1 ([facility]) 44.2 36.0-51.0 HCT eCW1 ([facility]) 14.2 12.0-18.0 HGB eCW1 ([facility]) 4.89 4.20-6.30 RBC eCW1 ([facility]) 32.1 31.0-36.0 MCHC eCW1 ([facility]) 29.0 26.0-32.0 MCH eCW1 ([facility]) 90.4 80.0-97.0 MCV eCW1 ([facility]) 15.4 11.5-15.5 RDW-CV eCW1 ([facility]) 51.9 36.4-46.3 RDW-SD eCW1 ([facility]) 161 140-440 PLT eCW1 ([facility]) 10.3 7.4-10.4 MPV eCW1 ([facility]) 1.94 1.60-6.10 NEUT # eCW1 ([facility]) 0.95 0.60-4.10 LYMPH # eCW1 ([facility]) 0.02 0.00-0.50 EO # eCW1 ([facility]) 0.42 0.20-0.90 MONO # eCW1 ([facility]) 58.1 34.0-71.1 NEUT % eCW1 ([facility]) 28.4 10.0-58.5 LYMPH % eCW1 ([facility]) 0.00 0.00-0.10 BASO # eCW1 ([facility]) 12.6 10.0-58.5 MONO % eCW1 ([facility]) 0.6 0.7-7.0 EO % eCW1 ([facility]) 0.0 0.1-1.2 BASO % eCW1 ([facility]) 0.01 LOW IG# eCW1 ([facility]) 0.30 0.00-0.43 IG% eCW1 ([facility]) ID Date Data Source Urine Protein.Creat ratio 02/23/2021 12:00:00 AM EDT eCW1 ([facility]) Name Value Range Interpretation Code Description Data [place] rce(s) Supporting Document(s) 69.1 30.0-125.0 U-CREA eCW1 ([facility]) 0.2 0.0-0.2 U-PROT/CREAT eCW1 ([facility]) 15.6 6.0-11.9 U-PROTEIN eCW1 ([facility]) ID Date Data Source RENAL FUNCTION 02/23/2021 12:00:00 AM EDT eCW1 ([facility]) Name Value Range Interpretation Code Description Data [place] rce(s) Supporting Document(s) 3.6 3.4-5.0 ALBUMIN eCW1 ([facility]) 21 7-18 BUN eCW1 ([facility]) 8.1 8.5-10.1 CALCIUM eCW1 ([facility]) 0.7 0.6-1.3 CREATININE eCW1 ([facility]) 94.92 >=60.00 GFR NON-AFR.AM eCW1 ([facility]) 144 135-145 SODIUM eCW1 ([facility]) 114.85 >=60.00 GFR AFR.AM eCW1 ([facility]) 108 100-108 CHLORIDE eCW1 ([facility]) 28.3 21.0-32.0 CO2 eCW1 ([facility]) 3.8 3.6-5.2 POTASSIUM eCW1 ([facility]) 8 5-15 ANION GAP eCW1 ([facility]) 3.6 2.5-4.9 PHOSPHORUS eCW1 ([facility]) 65.0 70.0-110.0 GLUCOSE eCW1 ([facility]) ID Date Data Source [id number] 02/19/2021 12:06:00 PM EDT ULI ([facility]) Name Value Range Interpretation Code Description Data Mali rce(s) Supporting Document(s) THC negative Thc [facility] ([facility]) Amphetamines: negative Amphetamines: ULI ([facility]) Cocaine: negative Cocaine: [facility] ([facility]) Opiates: negative Opiates: ULI ([facility]) Barbiturates: negative Barbiturates: ULI ([facility]) Benzodiazepines: negative Benzodiazepines: AT VIVIANA ([facility]) PCP negative Pcp ULI ([facility]) Methamphetamine negative Methamphetamine ATHE NA ([facility]) MTD negative Mtd ULI ([facility]) OXY negative Oxy ULI ([facility]) ID Date Data Source [id number] 02/19/2021 12:06:00 PM EDT ULI ([facility]) Name Value Range Interpretation Code Description Data [place] rce(s) Supporting Document(s) Amphetamines: negative Amphetamines: ULI ([facility]) Cocaine: negative Cocaine: ULI ([facility]) THC negative Thc [facility] ([facility]) Opiates: negative Opiates: ULI ([facility]) Barbiturates: negative Barbiturates: LUI ([facility]) Benzodiazepines: negative Benzodiazepines: AT VIVIANA ([facility]) Methamphetamine negative Methamphetamine ATHE NA ([facility]) PCP negative Pcp ULI ([facility]) MTD negative Mtd ULI ([facility]) OXY negative Oxy ULI ([facility]) ID Date Data Source [id number] 02/19/2021 12:06:00 PM EDT U[facility] ([facility]) Name Value Range Interpretation Code Description Data [place] rce(s) Supporting Document(s) Amphetamines: negative Amphetamines: ULI ([facility]) THC negative Thc [facility] ([facility]) Cocaine: negative Cocaine: ULI ([facility]) Barbiturates: negative Barbiturates: ULI ([facility]) Opiates: negative Opiates: ULI ([facility]) PCP negative Pcp ULI ([facility]) Methamphetamine negative Methamphetamine ATHE NA ([facility]) MTD negative Mtd ULI ([facility]) Benzodiazepines: negative Benzodiazepines: AT VIVINAA ([facility]) OXY negative Oxy ULI ([facility]) ID Date Data Source [id number] 02/16/2021 12:00:00 AM EDT [facility]LI ([facility]) Name Value Range Interpretation Code Description Data [place] rce(s) Supporting Document(s) [place] 45772 NG/mL >=100 Tramadol Ur CMP ATH EVELINA ([facility]) baclofen ur CMP <500 >=500 Baclofen Ur CMP ATHE NA ([facility]) ID Date Data Source [id number] 02/16/2021 12:00:00 AM EDT ULI ([facility]) Name Value Range Interpretation Code Description Data [place] rce(s) Supporting Document(s) biodetect expected Biodetect ULI ([facility]) ID Date Data Source [id number] 02/16/2021 12:00:00 AM EDT ULI ([facility]) Name Value Range Interpretation Code Description Data Mali rce(s) Supporting Document(s) Buprenorphine [Presence] in Urine by Confirmatory method <1 >=1 Buprenorphine Ur Ql Cfm ULI ([facility]) alcohol metabolites ur ql cfm <200 >=200 Alcoho l Metabolites Ur Ql Cfm ULI ([facility]) Ethyl glucuronide [Mass/volume] in Urine by Confirmatory method <50 0 >=500 Ethyl Glucuronide Ur Cfm-mcnc ULI ([facility]) Ethyl sulfate [Mass/volume] in Urine by Confirmatory method <200 >=200 Ethyl Sulfate Ur Cf-nc ULI ([facility]) Amphetamines [Presence] in Urine by Confirmatory method <0 >=0 Amphetamines Ur Ql On [facility] of [facility] ([facility]) Benzodiazepines [Presence] in Urine by Confirmatory method <50 >=50 Benzodiaz Ur Ql On license of [facility] ([facility]) Tapentadol [Presence] in Urine by Confirmatory method <100 >=100 Tapentadol Ur Ql On license of [facility] ([facility]) gabapentinpregabalin ur ql cf <5 >=5 Gabap entinpregabalin Ur Ql On license of [facility] ([facility]) 6-Monoacetylmorphine (6-CANDY) [Presence] in Urine by Confirma tory method <10 >=10 6Mam Ur Ql On license of [facility] ([facility]) Cocaine [Presence] in Urine by Confirmatory method <50 >=50 Bze Ur Ql On license of [facility] ([facility]) Opiates [Presence] in Urine by Confirmatory method <100 >=1 00 Opiates Ur Ql On license of [facility] ([facility]) Methadone [Presence] in Urine by Confirmatory method <200 > =200 Methadone Ur Ql On license of [facility] ([facility]) Meperidine [Presence] in Urine by Confirmatory method <100 >=100 Meperidine Ur Ql On license of [facility] ([facility]) Fentanyl+Norfentanyl [Presence] in Urine by Confirmatory method <5 >=5 Fentanyl+norfentanyl Ur Ql On license of [facility] ([facility]) Carisoprodol+Meprobamate [Presence] in Urine by Screen method <200 >=200 Carisoprodol+meprob Ur Ql [facility] ([facility]) Tramadol [Presence] in Urine by Confirmatory method >=100 >= 100 Tramadol Ur Ql On license of [facility] ([facility]) Nortramadol [Mass/volume] in Urine 5700 NG/mL >=100 N ortramadol Ur [facility] [place] ([facility]) [facility]/mL >=100 N-desme thyl Tr[facility] [place] ([facility]) Tramadol [Mass/volume] in Urine by Confirmatory method 20217 NG/mL >=100 Tramadol Ur [facility] [place] ([facility]) pH of Urine 4.5 - 9.0 pH Ur ULI ([facility]) Creatinine [Mass/volume] in Urine 61.5 mg/dL 20 - 370 Cr eat Ur-mcnc ULI ([facility]) Cotinine [Presence] in Urine by Confirmatory method <125 >= 125 Cotinine Ur Ql Cfm ULI ([facility]) ID Date Data Source [id number] 02/16/2021 12:00:00 AM EDT ULI ([facility]) Name Value Range Interpretation Code Description Data Mali rce(s) Supporting Document(s) baclofen ur ql cfm <500 >=500 Baclofen Ur Ql Cf m ULI ([facility]) ID Date Data Source [id number] 02/16/2021 12:00:00 AM EDT ULI ([facility]) Name Value Range Interpretation Code Description Data Mlai rce(s) Supporting Document(s) ID Date Data Source [id number] 02/16/2021 12:00:00 AM EDT ULI ([facility]) Name Value Range Interpretation Code Description Data Mali rce(s) Supporting Document(s) ID Date Data Source [id number] 02/16/2021 12:00:00 AM EDT ULI ([facility]) Name Value Range Interpretation Code Description Data Mali rce(s) Supporting Document(s) baclofen ur CMP <500 >=500 Baclofen Ur CMP ATHE NA ([facility]) tramadol [place] CMP 59376 NG/mL >=100 Tramadol Ur CMP ATH EVELINA ([facility]) ID Date Data Source [id number] 02/16/2021 12:00:00 AM EDT ULI ([facility]) Name Value Range Interpretation Code Description Data [place]i rce(s) Supporting Document(s) biodetect expected Biodetect ULI ([facility]) ID Date Data Source [id number] 02/16/2021 12:00:00 AM EDT ULI ([facility]) Name Value Range Interpretation Code Description Data [place]i rce(s) Supporting Document(s) alcohol metabolites ur ql cfm <200 >=200 Alcoho l Metabolites Ur Ql On license of [facility] ([facility]) Buprenorphine [Presence] in Urine by Confirmatory method <1 >=1 Buprenorphine Ur Ql On license of [facility] ([facility]) Ethyl sulfate [Mass/volume] in Urine by Confirmatory method <200 >=200 Ethyl Sulfate Ur [facility] ([facility]) Ethyl glucuronide [Mass/volume] in Urine by Confirmatory method <50 0 >=500 Ethyl Glucuronide Ur [facility] ([facility]) Amphetamines [Presence] in Urine by Confirmatory method <0 >=0 Amphetamines Ur Ql On license of [facility] ([facility]) Tapentadol [Presence] in Urine by Confirmatory method <100 >=100 Tapentadol Ur Ql On license of [facility] ([facility]) Benzodiazepines [Presence] in Urine by Confirmatory method <50 >=50 Benzodiaz Ur Ql On license of [facility] ([facility]) gabapentinpregabalin ur ql cfm <5 >=5 Gabap entinpregabalin Ur Ql On license of [facility] ([facility]) Cocaine [Presence] in Urine by Confirmatory method <50 >=50 Bze Ur Ql On license of [facility] ([facility]) 6-Monoacetylmorphine (6-CANDY) [Presence] in Urine by Confirma tory method <10 >=10 [facility] Opiates [Presence] in Urine by Confirmatory method <100 >=1 00 Opiates Ur Ql On license of [facility] ([facility]) Meperidine [Presence] in Urine by Confirmatory method <100 >=100 Meperidine Ur Ql On license of [facility] ([facility]) Methadone [Presence] in Urine by Confirmatory method <200 > =200 Methadone Ur Ql On license of [facility] ([facility]) Fentanyl+Norfentanyl [Presence] in Urine by Confirmatory method <5 >=5 Fentanyl+norfentanyl Ur Ql Cfm ULI ([facility]) Carisoprodol+Meprobamate [Presence] in Urine by Screen method <200 >=200 Carisoprodol+meprob Ur Ql Scn ULI ([facility]) N-desmethyl tram ur cfm-nc 1650 NG/mL >=100 N-desme thyl Tram Ur Cfm-mcnc ULI ([facility]) Tramadol [Presence] in Urine by Confirmatory method >=100 >= 100 Tramadol Ur Ql Cfm [facility]LI ([facility]) Tramadol [Mass/volume] in Urine by Confirmatory method 87823 NG/mL >=100 Tramadol Ur [facility]LI ([facility]) Nortramadol [Mass/volume] in Urine 5700 NG/mL >=100 N ortramadol Ur [facility]LI ([facility]) Cotinine [Presence] in Urine by Confirmatory method <125 >= 125 Cotinine Ur Ql Cfm ULI ([facility]) pH of Urine 4.5 - 9.0 pH Ur ULI ([facility]) Creatinine [Mass/volume] in Urine 61.5 mg/dL 20 - 370 Cr eat Ur-mcnc ULI ([facility]) ID Date Data Source [id number] 02/16/2021 12:00:00 AM EDT ULI ([facility]) Name Value Range Interpretation Code Description Data Mali rce(s) Supporting Document(s) baclofen ur ql cfm <500 >=500 Baclofen Ur Ql Cf m ULI ([facility]) ID Date Data Source [id number] 02/16/2021 12:00:00 AM EDT ULI ([facility]) Name Value Range Interpretation Code Description Data Mali rce(s) Supporting Document(s) ID Date Data Source [id number] 02/16/2021 12:00:00 AM EDT ULI ([facility]) Name Value Range Interpretation Code Description Data Mali rce(s) Supporting Document(s) ID Date Data Source [id number] 02/16/2021 12:00:00 AM EDT ULI ([facility]) Name Value Range Interpretation Code Description Data Mali rce(s) Supporting Document(s) baclofen ur CMP <500 >=500 Baclofen Ur CMP ATHE NA ([facility]) tramadol ur CMP 22650 NG/mL >=100 Tramadol Ur CMP ATH EVELINA ([facility]) ID Date Data Source [id number] 02/16/2021 12:00:00 AM EDT ULI ([facility]) Name Value Range Interpretation Code Description Data Mali rce(s) Supporting Document(s) biodetect expected Biodetect [facility] ([facility]) ID Date Data Source [id number] 02/16/2021 12:00:00 AM EDT ULI ([facility]) Name Value Range Interpretation Code Description Data Mali rce(s) Supporting Document(s) alcohol metabolites ur ql cfm <200 >=200 Alcoho l Metabolites Ur Ql Cfm [place] ([facility]) Buprenorphine [Presence] in Urine by Confirmatory method <1 >=1 Buprenorphine Ur Ql Cfm ULI ([facility]) Ethyl glucuronide [Mass/volume] in Urine by Confirmatory method <50 0 >=500 Ethyl Glucuronide Ur [facility] ([facility]) Tapentadol [Presence] in Urine by Confirmatory method <100 >=100 Tapentadol Ur Ql Cfm ULI ([facility]) Amphetamines [Presence] in Urine by Confirmatory method <0 >=0 Amphetamines Ur Ql Cfm ULI ([facility]) Ethyl sulfate [Mass/volume] in Urine by Confirmatory method <200 >=200 Ethyl Sulfate Ur [facility] ([facility]) gabapentinpregabalin ur ql cfm <5 >=5 Gabap entinpregabalin Ur Ql On [facility] of [facility] ([facility]) Cocaine [Presence] in Urine by Confirmatory method <50 >=50 Bze Ur Ql On license of [facility] ([facility]) Benzodiazepines [Presence] in Urine by Confirmatory method <50 >=50 Benzodiaz Ur Ql On license of [facility] ([facility]) Opiates [Presence] in Urine by Confirmatory method <100 >=1 00 Opiates Ur Ql On license of [facility] ([facility]) Methadone [Presence] in Urine by Confirmatory method <200 > =200 Methadone Ur Ql On license of [facility] ([facility]) 6-Monoacetylmorphine (6-CANDY) [Presence] in Urine by Confirma tory method <10 >=10 6Mam Ur Ql On license of [facility] ([facility]) Fentanyl+Norfentanyl [Presence] in Urine by Confirmatory method <5 >=5 Fentanyl+norfentanyl Ur Ql On license of [facility] ([facility]) Carisoprodol+Meprobamate [Presence] in Urine by Screen method <200 >=200 Carisoprodol+meprob Ur Ql [facility] ([facility]) Meperidine [Presence] in Urine by Confirmatory method <100 >=100 Meperidine Ur Ql On license of [facility] ([facility]) Tramadol [Presence] in Urine by Confirmatory method >=100 >= 100 Tramadol Ur Ql On license of [facility] ([facility]) Tramadol [Mass/volume] in Urine by Confirmatory method 72304 NG/mL >=100 Tramadol Ur [facility] ([facility]) Nortramadol [Mass/volume] in Urine 5700 NG/mL >=100 N ortramadol Ur [facility] ([facility]) N-desmethyl tram ur [facility] 1650 NG/mL >=100 N-desme thyl Tram Ur [facility] ([facility]) Cotinine [Presence] in Urine by Confirmatory method <125 >= 125 Cotinine Ur Ql On license of [facility] ([facility]) Creatinine [Mass/volume] in Urine 61.5 mg/dL 20 - 370 Cr eat Ur-nc [place] ([facility]) pH of Urine 4.5 - 9.0 pH Ur ULI ([facility]) ID Date Data Source [id number] 02/16/2021 12:00:00 AM EDT ULI ([facility]) Name Value Range Interpretation Code Description Data Mali rce(s) Supporting Document(s) baclofen ur ql cfm <500 >=500 Baclofen Ur Ql Cf m [facility]LI ([facility]) ID Date Data Source [id number] 02/16/2021 12:00:00 AM EDT ULI ([facility]) Name Value Range Interpretation Code Description Data Mali rce(s) Supporting Document(s) ID Date Data Source [id number] 02/16/2021 12:00:00 AM EDT ULI ([facility]) Name Value Range Interpretation Code Description Data Mali rce(s) Supporting Document(s) ID Date Data Source [id number] 12/24/2020 03:27:07 PM EDT [facility] Name Value Range Interpretation Code Description Data Mali rce(s) Supporting Document(s) Progress Note [facility] [id number] [file] [id number] ID Date Data Source [id number] 12/24/2020 03:25:06 PM EDT [facility] MAMMO DIGITAL DIAGNOSTIC RIGHT [id number] RESULTInterpreted by:YANNI Smith DIGITAL MAMMOGRAM WITH COMPUTER-AIDED DETECTIONHISTORY: Short-term follow-up after benign right breast biopsy. The patient reports history of bilateral needle biopsies. The patient reports no family history of breast cancer.[employer] [place] risk assessment model:5 year calculated risk: 1.9%Average patient 5 year risk: 1.1%Lifetime risk: 16.4%Average patient lifetime risk: 11.6%COMPARISON: Mammograms dating back to 03/13/2015Last Reported Clinical Breast Exam: TodayTECHNIQUE: Craniocaudal and mediolateral oblique digital mammograms were obtained with tomosynthesis. Computer-aided detection was utilized. Magnified views of the right breast were obtained.FINDINGS:The breast is heterogeneously dense, which may obscure small masses (category C).Biopsy clip marker is seen in the upper inner breast.Regional round and amorphous calcifications are seen in the upper outer breast 6 cm from the nipple.IMPRESSION: 1. Probably benign calcifications in the upper outer right breast.2. Follow up right mammogram in 6 months is recommended, at which point she will be due for screening left mammogram. BI-RADS 3 - PROBABLY BENIGN - SHORT INTERVAL FOLLOWUP SUGGESTED.This document has been electronically signed by Pelon Camp MD on 12/24/2020 3:23 PM Name Value Range Interpretation Code Description Data Mali rce(s) Supporting Document(s) ID Date Data Source [id number] 11/16/2020 10:42:00 AM EDT [facility] ([facility]) Name Value Range Interpretation Code Description Data [place] rce(s) Supporting Document(s) 0.6 mg/dL 0.6-1.2 CREATININE [facility] ([facility]) >60 eGFR Non- Next Gen ([facility]) >60 eGFR [facility] ([facility]) ID Date Data Source [id number] 11/16/2020 10:42:00 AM EDT [facility] ([facility]) Name Value Range Interpretation Code Description Data [place] rce(s) Supporting Document(s) 22.6 mg/dL 14.7-40.3 C4 [facility] ([facility]) ID Date Data Source [id number] 11/16/2020 10:42:00 AM EDT [facility] ([facility]) Name Value Range Interpretation Code Description Data [place] rce(s) Supporting Document(s) 112.0 mg/dL 62.2-179.9 C3 [facility] ID Date Data Source [id number] 11/16/2020 10:42:00 AM EDT [facility] ([facility]) Name Value Range Interpretation Code Description Data [place] rce(s) Supporting Document(s) 16 mg/dL 10-23 BUN [facility]) ID Date Data Source [id number] 11/16/2020 10:42:00 AM EDT [facility] ([facility]) Name Value Range Interpretation Code Description Data [place] rce(s) Supporting Document(s) 31 U/L 15-37 AST [facility]) ID Date Data Source [id number] 11/16/2020 10:42:00 AM EDT [facility] ([facility]) Name Value Range Interpretation Code Description Data [place] rce(s) Supporting Document(s) 37 U/L 30-65 ALT [facility]) ID Date Data Source [id number] 11/16/2020 10:42:00 AM EDT [facility] ([facility]) Name Value Range Interpretation Code Description Data [place] rce(s) Supporting Document(s) 14 mm/Hr 0-20 ESR [facility]) ID Date Data Source [id number] 11/16/2020 10:42:00 AM EDT [facility] ([facility]) Name Value Range Interpretation Code Description Data [place] rce(s) Supporting Document(s) Clear Urine Appearance [facility]) Yellow Urine Color [facility] ([facility]) Negative Urine Glucose [facility]) Negative Urine Bilirubin [facility]) Negative Urine Ketones [facility] ([facility]) 1.020 1.005-1.030 Specific [place] [facility] ([facility]) Negative Urine Protein [facility] ([facility]) 6.0 5.0-8.5 Urine pH [facility] Negative Urine Nitrite [facility] ([facility]) 0.2 E.U./dL Urobilinogen [facility]) Negative Urine Blood [facility] ([facility]) Negative Leukocyte Esterase [facility] ([facility]) Squamous Epithelials [facility] ( [facility]) None Seen Urine RBC [facility] None Seen Urine WBC [facility]) ID Date Data Source [id number] 11/16/2020 10:42:00 AM EDT [facility] ([facility]) Name Value Range Interpretation Code Description Data Mali rce(s) Supporting Document(s) <0.2 0.0-0.5 CRP [facility]) ID Date Data Source [id number] 11/16/2020 10:42:00 AM EDT [facility] ([facility]) Name Value Range Interpretation Code Description Data Mali rce(s) Supporting Document(s) 414 IU/mL <301 Above high normal ds-DNA [facility] ([facility]) Interpretation: Negative <300; Moderate Positive 300-800; Positive >800.The following results were obtained with the [employer] QUANTA Lite dsDNA ERINN. dsDNA values obtained with different manufacturers' assay methods may not be used interchangeably.

ID Date Data Source [id number] 11/16/2020 10:42:00 AM EDT [facility] ([facility]) Name Value Range Interpretation Code Description Data Mali rce(s) Supporting Document(s) 3.0 10*3/uL 3.7-10.1 Below low normal WBC [facility] ([facility]) 5.20 10*6/uL 3.50-5.50 RBC [facility]) 48.6 % 36.0-48.0 Above high normal HCT [facility]) 14.7 g/dL 12.0-16.0 HGB [facility]) 93.4 fL 80.0-100.0 MCV [facility] ([facility]) 28.3 pg 26.0-34.0 MCH [facility] 30.3 g/dL 31.0-37.0 Below low normal MCHC [facility] ([facility]) 13.6 % 10.0-15.0 RDW [facility]) 168 10*3/uL 150-500 PLATELETS [facility] ([facility]) 8.0 fL 6.0-10.0 MPV [facility]) 1.63 10*3/uL 2.10-8.00 Below low normal SRIKANTH# NextGe n ([facility]) 0.92 10*3/uL 1.00-5.00 Below low normal LYM# [facility] ([facility]) 0.34 10*3/uL 0.10-1.00 MONO# [facility]) 0.0 10*3/uL 0.0-0.5 EOS# [facility] ([facility]) 0.0 10*3/uL 0.0-0.2 BASO# [facility] ([facility]) 31.2 % 25.0-50.0 LYM% [facility] 55.1 % 50.0-80.0 SRIKANTH% [facility] 0.6 % 0.0-5.0 EOS% [facility] 11.4 % 2.0-10.0 Above high normal MONO% [facility] 1.7 % 0.0-4.0 BASO% [facility] ID Date Data Source [id number] 09/07/2020 03:57:00 PM EST [facility] ([facility] Name Value Range Interpretation Code Description Data Mali rce(s) Supporting Document(s) Color Laboratory test result [facility] ([facility] Size Laboratory test result [facility] ([facility] Multiple pieces received. Dimensions of the largest piece reported. Laboratory test finding (navigational concept) Laboratory test result [facility] ([facility] Weight 37 mg [facility] ([facility] Composition Laboratory test result MEDEN T ([facility] . Percentage (Represents the % composition) CA Oxalate Dihy 20 % [facility] ([facility] Laboratory test finding (navigational concept) Laboratory test result [facility] ([facility] Ca Ox Monohydrate 75 % [facility] ([facility] Laboratory test finding (navigational concept) 5 % [facility] ([facility] CA Phosphate Laboratory test result [facility] ([facility] MG [place] Phos Laboratory test result [facility] ([facility] Uric Acid Laboratory test result [facility] Amm Acid Urate Laboratory test result [facility] Ua Dihydrate Laboratory test result [facility] ([facility] Na Acid Urate Laboratory test result [facility] ([facility] Laboratory test finding (navigational concept) Laboratory test result [facility] ([facility] Laboratory test finding (navigational concept) Laboratory test result [facility] ([facility] CA [place] Phos Laboratory test result [facility] ([facility] Cystine Laboratory test result [facility] ([facility] Cholesterol Laboratory test result MEDEN T ([facility] CA Bilirubinate Laboratory test result [facility] CA Carbonate Laboratory test result [facility] ([facility] Bilirubin Laboratory test result [facility] ([facility] Laboratory test finding (navigational concept) Laboratory test result [facility] ([facility] Laboratory test finding (navigational concept) Laboratory test result [facility] ([facility] Triamterene Laboratory test result MEDEN T ([facility] Laboratory test finding (navigational concept) Laboratory test result [facility] ([facility] Dried Blood Laboratory test result MEDEN T ([facility] Newberyite Laboratory test result [facility] ([facility] Cell Material Laboratory test result [facility] ([facility] Comment Laboratory test result [facility] ([facility] Laboratory test finding (navigational concept) Laboratory test result [facility] ([facility] Comment Laboratory test result [facility] ([facility] Comment Laboratory test result [facility] ([facility] . Physician questions regarding Calculi Analysis contact [facility] at: [phone]. Disclaimer Laboratory test result [facility] ([facility] . This test was developed and its performance characteristics determined by [facility]. It has not been cleared or approved by the Food and Drug Administration. Performed at: [facility] [address] [place] [address] [address], [place], [place] [id number] Supervisor Instrument Repair: Ahmet Ferreira MD, Phone: [phone] Please Note: Laboratory test result [facility] ([facility] . Calculi report will follow via computer, mail or dredge mechanic delivery. Laboratory test finding (navigational concept) Laboratory test result [facility] ([facility] . Photograph will follow under a separate cover ID Date Data Source URINE CULTURE 09/04/2020 12:00:00 AM EST eCW1 ([facility]) Name Value Range Interpretation Code Description Data Amli rce(s) Supporting Document(s) URINE CULTURE eCW1 ([facility]) ID Date Data Source UA URINALYSIS 09/04/2020 12:00:00 AM EST eCW1 ([facility]) Name Value Range Interpretation Code Description Data Mali rce(s) Supporting Document(s) UA URINALYSIS eCW1 ([facility]) ID Date Data Source [id number] 09/02/2020 10:25:00 AM EST [facility] Name Value Range Interpretation Code Description Data [place]i rce(s) Supporting Document(s) SARS coronavirus 2 RNA Not Detected [facility] [place] This lab was ordered by [facility] and reported by [facility]. ID Date Data Source [id number] 07/08/2020 08:41:00 AM EST [facility] ([facility] Name Value Range Interpretation Code Description Data Mali rce(s) Supporting Document(s) Bacteria identified in Urine by Culture Laboratory test result [facility] ([facility] <content>FULL REPORT IN LAB NOTES (eCW a nd [facility]).</content>
<content></content>
<content>ORGANISM 1: ENTEROCOCCUS FAECALIS</content>
<content></content>
<content>COLONY COUNT 50,000</content>
<content></content>
<content></content>
<content>OR GANISM 1: ENTEROCOCCUS FAECALIS</content>
<content></content>
<content> ENTEROCOCCUS FAECALIS: REACTION</content>
<content>TETRACYCLINE PO 250 mg qid >=16 R</content>
<content>PENICILLIN G IV 1 mu q6H 2 S</content>
<content>PENICILLIN G IV 1 mu q6h 2 S</content>
<content>PENICILLIN G PO 250mg q6h fasting 2 S</content>
<content>AMPICILLIN IV 500mg q6h <=2 S</content>
<content>AMPICILLIN PO 500mg q6h fasting <=2 S</content>
<content>ERYTHROMYCIN IV 500mg q6h 2 I</content>
<content>ERYTHROMYCIN PO 500mg q6h 2 I</content>
<content>GENTAMICIN 500 IV 80mg q8h S</content>
<content> NITROFURANTOIN PO 100mg BID <=16 S</content>
<content>LEVOFLOXACIN IV 500mg qd 1 S</content>
<content>LEVOFLOXACIN PO 250mg qd 1 S</content>
<content>LEVOFLOXACIN PO 500mg qd 1 S</content>
<content>CIPROFLOXACIN IV 400mg bid <=0.5 S</content>
<content>CIPROFLOXACIN PO 500mg q12h <=0.5 S</content>
<content> VANCOMYCIN IV 500mg q8h 2 S</content>
<content>LINEZOLID (ZYVOX) IV 600MG Q12HR 2 S</content>
<content>LINEZOLID (ZYVOX) PO 600MG Q12HR 2 S</content>
<content></content> ID Date Data Source [id number] 07/08/2020 08:40:00 AM EST [facility] ([facility] Name Value Range Interpretation Code Description Data Mali rce(s) Supporting Document(s) Specific gravity of Urine 1.025 MEDE NT ([facility] pH of Urine by Test strip 5.0 MEDE NT ([facility] Color of Urine Laboratory test result [facility] ([facility] Appearance of Urine Laboratory test result [facility] Protein [Presence] in Urine by Test strip Laboratory test result [facility] Leukocytes [#/area] in Urine sediment by Microscopy hi gh power field Laboratory test result [facility] Ketones [Presence] in Urine by Test strip Laboratory test result [facility] ([facility] Glucose [Presence] in Urine Laboratory test result [facility] ([facility] Bilirubin.total [Presence] in Urine by Test strip Laboratory test res ult [facility] ([facility] Urobilinogen [Mass/volume] in Urine by Test strip Laboratory test res ult [facility] ([facility] Hemoglobin [Presence] in Urine by Test strip Laboratory test result [facility] ([facility] Nitrite [Presence] in Urine by Test strip Laboratory test result [facility] ([facility] ID Date Data Source [id number] 06/09/2020 08:14:25 AM EST [facility] MAMMO BREAST BIOPSY PROC. TOMOSYNTHESIS GUIDED ONLY 1ST LESION [id number] RESULTInterpreted by:Yanni Smith breast stereotactic biopsy utilizing tomosynthesis for targetingHistory: Calcifications in the upper inner right breastComparison: Outside mammogram 04/23/2020 .Techniques and Findings:The procedure and its risks were discussed with the patient and she consented.The skin over the selected site was sterilely prepared. Then, buffered lidocaine was infiltrated into the skin and deeper tissues. The area of interest was targeted utilizing tomosynthesis. A small andrea was placed in the skin. The 9 gauge vacuum assisted biopsy needle was inserted through the incision to the level of the lesion following the coordinates. Stereotactic images were obtained to confirm accurate positioning of the biopsy probe. Multiple circumferential biopsies were obtained while the biopsy site was lavaged with buffered lidocaine. Specimen radiograph revealed calcifications present within the sample. A biopsy clip marker was left at the site of biopsy. A unilateral mammogram was obtained after completion of the biopsy. The localization clip is in close proximity to the biopsy site. Pressure was held on the biopsy site utilizing sterile gauze until all bleeding subsided. The skin incision was closed with sterile tape. A pressure dressing was placed over the biopsy site. An ice pack was placed over the dressing. Postbiopsy instructions were reviewed with the patient by the department nurse and a copy given to her. The patient tolerated the procedure well and left the department in good condition. IM PRESSION:Stereotactic biopsy completed.Pathology results:BREAST, RIGHT UPPER INNER, NEEDLE BIOPSY: FIBROUS BREAST PARENCHYMA. MICROCALCIFICATIONS ASSOCIATED WITH FIBROUS AREAS. NO EVIDENCE OF ATYPIA OR MALIGNANCY.The pathology results are concordant with the imaging findings.This document has been electronically signed by Pelon Camp MD on 06/09/2020 8:12 AM Name Value Range Interpretation Code Description Data [facility]) Supporting Document(s) ID Date Data Source [id number] 06/03/2020 10:40:00 AM EST [facility] ([facility] Name Value Range Interpretation Code Description Data [place] [facility]) Supporting Document(s) Helicobacter pylori IgG Ab [Units/volume] in Serum by Immunoassay Laboratory test result [facility] ([facility] SERUM SAMPLES OBTAINED TOO EARLY DURING INFECTION MAY NOT CONTAIN DETECTABLE ANTIBODIES. IF H. PYLORI INFECTION IS SUSPECTED WITH A "NEGATIVE" SERUM RESULT, A FOLLOW UP SPECIMEN IS RECOMMENDED IN 2-7 WEEKS. ID Date Data Source [id number] 06/03/2020 10:40:00 AM EST [facility] ([facility] Name Value Range Interpretation Code Description Data Mal[place] rce(s) Supporting Document(s) Thyroid Stimulating Hormone 2.140 uIU/ML 0.358-3.740 [facility] ([facility] Free T4 0.95 ng/dL 0.76-1.46 [facility] ([facility] ID Date Data Source [id number] 06/03/2020 10:40:00 AM EST [facility] ([facility] Name Value Range Interpretation Code Description Data [place] rce(s) Supporting Document(s) Tissue transglutaminase IgA Ab [Units/volume] in Serum Labor atory test result 0-3 [facility] ([facility] Negative 0 - 3 Weak Positive 4 - 10 Positive >10 . Tissue Transglutaminase (tTG) has been identified as the endomysial antigen. Studies have demonstr- ated that endomysial IgA antibodies have over 99% specificity for gluten sensitive enteropathy. Bacteria identified in Urine by Culture Laboratory test result [facility] ([facility] FULL REPORT IN LAB NOTES (eCW and [facility] ). NO GROWTH CLINICAL SIGNIFICANCE 2 OR MORE ORGANISMS Tissue transglutaminase IgG Ab [Units/volume] in Serum Labor atory test result 0-5 [facility] ([facility] Negative 0 - 5 Weak Positive 6 - 9 Positive >9 Performed at: - [facility] [id number] Supervisor Instrument Repair: An Villa MD, Phone: [phone] ID Date Data Source [id number] 06/03/2020 10:40:00 AM EST [facility] ([facility] Name Value Range Interpretation Code Description Data [place] rce(s) Supporting Document(s) Color, Urine Laboratory test result [facility] ([facility] Appearance, Urine Laboratory test result [facility] ([facility] PH,Urine 6.0 units 5.0-9.0 [facility] ([facility] Specific [place] Urine Auto 1.025 1.002-1.035 [facility] ([facility] Protein, Urine Auto Laboratory test result [facility] ([facility] Glucose, Urine (Ua) Auto Laboratory test result [facility] ([facility] Ketone, Urine Auto Laboratory test result [facility] ([facility] Bilirubin, Urine Auto Laboratory test result [facility] ([facility] Urobilinogen, Urine Auto 0.2 mg/dL 0.0-2.0 [facility] ([facility] Nitrite, Urine Auto Laboratory test result [facility] ([facility] Leukocyte Esterase, Urine Auto Laboratory test result [facility] ([facility] WBC, Urine Auto 2 /HPF 0-3 [facility] ([facility] Blood, Urine Blood Laboratory test result [facility] ([facility] RBC, Urine Auto 49 /HPF 0-3 [facility] ([facility] Bacteria, Urine Auto Laboratory test result [facility] ([facility] Squamous Epithelial Cell Ur AU 1 /HPF 0-6 [facility] ([facility] Mucus, Urine Laboratory test result [facility] ([facility] Hyaline Cast, Urine Auto 1 /LPF 0-1 MEDEN T ([facility] ID Date Data Source [id number] 06/03/2020 10:40:00 AM EST [facility] ([facility] Name Value Range Interpretation Code Description Data [place] rce(s) Supporting Document(s) Helicobacter pylori IgA Ab [Units/volume] in Serum Laborator y test result 0.0-8.9 [facility] ([facility] <content>Negative <9.0</content >
<content>Equivocal 9.0 - 11.0</content>
<content>Positive >11.0</content>
<content></content> Helicobacter pylori IgM Ab [Units/volume] in Serum Laborator y test result 0.0-8.9 [facility] ([facility] <content>Negative <9.0</content >
<content>Equivocal 9.0 - 11.0</content>
<content>Positive >11.0</content>
<content>.</content>
<content>.</content>
<content>This test was developed and its performance characteristics</content>
<content>determined by [facility]. It has not been cleared or</content>
<content>approved by the Food and Drug Admin istration.</content>
<content></content> ID Date Data Source [id number] 06/03/2020 10:40:00 AM EST [facility] ([facility] Name Value Range Interpretation Code Description [facility] Hemoglobin 15.2 g/dL 12.0-15.5 [facility] ([facility] White Blood Count 3.7 10 4.0-10.0 [facility] ([facility] Red Blood Count 5.39 10 4.00-5.40 [facility] ([facility] Hematocrit 47.5 % 36.0-47.0 [facility] ([facility] Mean Corpuscular HGB Conc 32.0 g/dL 32.0-36.5 [facility] ([facility] Mean Corpuscular Hemoglobin 28.2 pg 27.0-33.0 [facility] ([facility] Mean Corpuscular Volume 88.1 fl 80.0-96.0 M EDENT ([facility] Platelet Count, Automated 169 10 150-450 [facility] ([facility] Red Cell Distribution Width 13.8 % 11.5-14.5 [facility] ([facility] Lymph % 30.9 % 24.0-44.0 [facility] ([facility] Neutrophils % 56.5 % 36.0-66.0 [facility] ([facility] Eos % 0.3 % 0.0-3.0 [facility] Baso % 0.3 % 0.0-1.0 [facility] [place] % 11.5 % 0.0-5.0 [facility] Immature Granulocyte % 0.5 % 0-3.0 [facility] ([facility] Nucleated Red Blood Cell % 0.0 % 0-0 MED ENT ([facility] Neutrophils # 2.1 10 1.5-8.5 [facility] ([facility] Lymph # 1.1 10 1.5-5.0 [facility] [place] # 0.4 10 0.0-0.8 [facility] Eos # 0.0 10 0.0-0.5 [facility] Baso # 0.0 10 0.0-0.2 [facility] ([facility] ID Date Data Source [id number] 05/30/2020 09:58:00 AM EST [facility] - CORE SPECIMEN DESCRIPTION URINE, COLLE CTION METHOD NOT SPECIFIEDCULTURE RESULTS >100,000 CFU/ML ESCHERICHIA COLI IMPORTANT NOTE FOR COMPLICATED INFECTIONS SUCH UROSEPSIS CEFAZOLIN SHOULD HAVE A KURTIS OF LESS THAN OR EQUAL TO 2 TO BE CONSIDERED SUSCEPTIBLE. CONTACT MICROBIOLOGY FOR FURTHER TESTING IF WARRANTED.REPORT STATUS FINAL 05/30/2020ORGANISM ESCHERICHIA COLIMETHOD MICAMIKACIN <=2 SUSCEPTIBLEAMOXICILLIN/CLAVULANIC AC 4/2 SUSCEPTIBLEAMPICILLIN 4 SUSCEPTIBLE ISOLATES SUSCEPTIBLE TO AMPICILLIN ARE ALSO SUSCEPTIBLE TO AMOXICILLIN.CEFAZOLIN <=4 SUSCEPTIBLE FOR UNCOMPLICATED UTI'S,CEFAZOLIN KURTIS RESULTS LESS THAN OR EQUAL TO 16 MCG/ML PREDICT SUSCEPTIBILITY OF THE FOLLOWING ORAL CEPHALOSPORINS:CEFACLOR,CEFDINIR, CEFPODOXIME,CEFPROZIL,CEFUROXIME AND CEPHALEXIN.CEFEPIME <=1 SUSCEPTIBLECEFOXITIN <=4 SUSCEPTIBLECEFTAZIDIME <=1 SUSCEPTIBLECEFTRIAXONE <=1 SUSCEPTIBLECIPROFLOXACIN <=0.25 SUSCEPTIBLEGENTAMICIN <=1 SUSCEPTIBLELEVOFLOXACIN <=0.12 SUSCEPTIBLEMEROPENEM <=0.25 SUSCEPTIBLENITROFURANTOIN <=16 SUSCEPTIBLEPIPERACILLIN/TAZOBACTAM <=4 SUSCEPTIBLETETRACYCLINE <=1 SUSCEPTIBLE ISOLATES SUSCEPTIBLE TO TETRACYCLINE ARE ALSO SUSCEPTIBLE TO DOXYCYCLINE AND MINOCYCLINE.TOBRAMYCIN <=1 SUSCEPTIBLETRIMETH/SULFA <=1/19 SUSCEPTIBLEERTAPENEM <=0.5 SUSCEPTIBLE Name Value Range Interpretation Code Description Data [place] rce(s) Supporting Document(s) ID Date Data Source [id number] 05/26/2020 11:46:00 AM EST [facility] ([facility]) Name Value Range Interpretation Code Description Data [place] rce(s) Supporting Document(s) Amphetamines: negative Amphetamines: [facility] ([facility]) Cocaine: negative Cocaine: [facility] Opiates: negative Opiates: [facility] ([facility] THC negative Thc [facility] ([facility]) Barbiturates: negative Barbiturates: [facility] ([facility] [facility] Methamphetamine negative Methamphetamine ATHE NA ([facility]) PCP negative Pcp ULI ([facility]) Benzodiazepines: negative Benzodiazepines: AT VIVIANA ([facility]) OXY negative Oxy ULI ([facility]) MTD negative Mtd ULI ([facility]) ID Date Data Source [id number] 05/26/2020 11:46:00 AM EST ULI ([facility]) Name Value Range Interpretation Code Description Data Mali rce(s) Supporting Document(s) THC negative Thc ULI ([facility]) Amphetamines: negative Amphetamines: ULI ([facility]) Cocaine: negative Cocaine: ULI ([facility]) Opiates: negative Opiates: ULI ([facility]) Barbiturates: negative Barbiturates: ULI ([facility]) Methamphetamine negative Methamphetamine ATHE NA ([facility]) Benzodiazepines: negative Benzodiazepines: AT VIVIANA ([facility]) PCP negative Pcp ULI ([facility]) OXY negative Oxy ULI ([facility]) MTD negative Mtd ULI ([facility]) ID Date Data Source [id number] 05/26/2020 11:46:00 AM EST ULI ([facility]) Name Value Range Interpretation Code Description Data [place] rce(s) Supporting Document(s) THC negative Thc ULI ([facility]) Amphetamines: negative Amphetamines: ULI ([facility]) Cocaine: negative Cocaine: ULI ([facility]) Benzodiazepines: negative Benzodiazepines: AT VIVIANA ([facility]) Barbiturates: negative Barbiturates: ULI ([facility]) Methamphetamine negative Methamphetamine ATHE NA ([facility]) Opiates: negative Opiates: ULI ([facility]) OXY negative Oxy ULI ([facility]) PCP negative Pcp ULI ([facility] MTD negative Mtd ULI ([facility]) ID Date Data Source [id number] 05/26/2020 11:46:00 AM EST ULI ([facility]) Name Value Range Interpretation Code Description Data [place] rce(s) Supporting Document(s) THC negative Thc ULI ([facility]) Amphetamines: negative Amphetamines: ULI ([facility]) Barbiturates: negative Barbiturates: ULI ([facility]) Opiates: negative Opiates: ULI ([facility]) Cocaine: negative Cocaine: ULI ([facility]) Methamphetamine negative Methamphetamine ATHE NA ([facility]) Benzodiazepines: negative Benzodiazepines: AT VIVIANA ([facility]) PCP negative Pcp ULI ([facility]) MTD negative Mtd ULI ([facility] OXY negative Oxy ULI ([facility]) ID Date Data Source [id number] 05/26/2020 11:46:00 AM EST UIL ([facility]) Name Value Range Interpretation Code Description Data [place] rce(s) Supporting Document(s) Amphetamines: negative Amphetamines: UIL ([facility]) THC negative Thc ULI ([facility]) Barbiturates: negative Barbiturates: ULI ([facility]) Cocaine: negative Cocaine: ULI ([facility]) Opiates: negative Opiates: ULI ([facility]) MTD negative Mtd ULI ([facility]) PCP negative Pcp ULI ([facility]) Benzodiazepines: negative Benzodiazepines: AT VIVIANA ([facility]) Methamphetamine negative Methamphetamine ATHE NA ([facility]) OXY negative Oxy ULI ([facility]) ID Date Data Source [id number] 05/26/2020 11:46:00 AM EST ULI ([facility]) Name Value Range Interpretation Code Description Data [place]i rce(s) Supporting Document(s) Amphetamines: negative Amphetamines: ULI ([facility]) Barbiturates: negative Barbiturates: ULI ([facility]) Cocaine: negative Cocaine: ULI ([facility]) Opiates: negative Opiates: ULI ([facility]) THC negative Thc ULI ([facility]) Methamphetamine negative Methamphetamine ATHE NA ([facility]) PCP negative Pcp ULI ([facility]) Benzodiazepines: negative Benzodiazepines: AT VIVIANA ([facility]) MTD negative Mtd ULI ([facility]) OXY negative Oxy ULI ([facility]) ID Date Data Source [id number] 05/26/2020 11:46:00 AM EST ULI ([facility]) Name Value Range Interpretation Code Description Data [place]i rce(s) Supporting Document(s) Amphetamines: negative Amphetamines: ULI ([facility]) Opiates: negative Opiates: ULI ([facility]) THC negative Thc ULI ([facility]) Cocaine: negative Cocaine: ULI ([facility]) Methamphetamine negative Methamphetamine ATHE NA ([facility]) Barbiturates: negative Barbiturates: ULI ([facility]) Benzodiazepines: negative Benzodiazepines: AT VIVIANA ([facility]) PCP negative Pcp ULI ([facility]) OXY negative Oxy ULI ([facility]) MTD negative Mtd ULI ([facility]) ID Date Data Source [id number] 05/26/2020 11:46:00 AM EST ULI ([facility]) Name Value Range Interpretation Code Description Data [place]i rce(s) Supporting Document(s) Amphetamines: negative Amphetamines: ULI ([facility]) THC negative Thc ULI ([facility]) Opiates: negative Opiates: ULI ([facility]) Barbiturates: negative Barbiturates: ULI ([facility]) Benzodiazepines: negative Benzodiazepines: AT VIVIANA ([facility]) Cocaine: negative Cocaine: ULI ([facility]) PCP negative Pcp ULI ([facility]) Methamphetamine negative Methamphetamine ATHE NA ([facility]) MTD negative Mtd ULI ([facility]) OXY negative Oxy ULI ([facility]) ID Date Data Source [id number] 05/26/2020 11:46:00 AM EST ULI ([facility]) Name Value Range Interpretation Code Description Data [place] rce(s) Supporting Document(s) Amphetamines: negative Amphetamines: ULI ([facility]) Opiates: negative Opiates: ULI ([facility]) THC negative Thc ULI ([facility]) Cocaine: negative Cocaine: ULI ([facility]) Barbiturates: negative Barbiturates: ULI ([facility]) Benzodiazepines: negative Benzodiazepines: AT VIVIANA ([facility]) Methamphetamine negative Methamphetamine ATHE NA ([facility]) PCP negative Pcp ULI ([facility]) MTD negative Mtd ULI ([facility]) OXY negative Oxy ULI ([facility]) ID Date Data Source [id number] 05/26/2020 12:00:00 AM EST ULI ([facility]) Name Value Range Interpretation Code Description Data [place] rce(s) Supporting Document(s) baclofen ur CMP <500 >=500 Abnormal (applies to non- numeric results) Baclofen Ur CMP ULI ([facility]) tramadol ur CMP <100 >=100 Tramadol Ur CMP ATHE NA ([facility]) ID Date Data Source [id number] 05/26/2020 12:00:00 AM EST ULI ([facility]) Name Value Range Interpretation Code Description Data [place] rce(s) Supporting Document(s) Buprenorphine [Presence] in Urine by Confirmatory method <1 >=1 Buprenorphine Ur Ql On license of [facility] ([facility]) Ethyl glucuronide [Mass/volume] in Urine by Confirmatory method <50 0 >=500 Ethyl Glucuronide Ur [facility] ([facility]) Ethyl sulfate [Mass/volume] in Urine by Confirmatory method <200 >=200 Ethyl Sulfate Ur [facility] ([facility]) alcohol metabolites ur ql cf <200 >=200 Alcoho l Metabolites Ur Ql Cfm [place] ([facility]) Tapentadol [Presence] in Urine by Confirmatory method <100 >=100 Tapentadol Ur Ql On license of [facility] ([facility]) Amphetamines [Presence] in Urine by Confirmatory method <0 >=0 Amphetamines Ur Ql On license of [facility] ([facility]) Benzodiazepines [Presence] in Urine by Confirmatory method <50 >=50 Benzodiaz Ur Ql On license of [facility] ([facility]) gabapentinpregabalin ur ql cfm <5 >=5 Gabap entinpregabalin Ur Ql On license of [facility] ([facility]) 6-Monoacetylmorphine (6-CANDY) [Presence] in Urine by Confirma tory method <10 >=10 6Mam Ur Ql On license of [facility] ([facility]) Opiates [Presence] in Urine by Confirmatory method <100 >=1 00 Opiates Ur Ql On license of [facility] ([facility]) Cocaine [Presence] in Urine by Confirmatory method <50 >=50 Bze Ur Ql Cfm ULI ([facility]) Methadone [Presence] in Urine by Confirmatory method <200 > =200 Methadone Ur Ql Cf ULI ([facility]) Carisoprodol+Meprobamate [Presence] in Urine by Screen method <200 >=200 Carisoprodol+meprob Ur Ql Scn ULI ([facility]) Fentanyl+Norfentanyl [Presence] in Urine by Confirmatory method <5 >=5 Fentanyl+norfentanyl Ur Ql Cf ULI ([facility]) Meperidine [Presence] in Urine by Confirmatory method <100 >=100 Meperidine Ur Ql Cf ULI ([facility]) pH of Urine 4.5 - 9.0 pH Ur ULI ([facility]) Tramadol [Presence] in Urine by Confirmatory method <100 >= 100 Tramadol Ur Ql Cf ULI ([facility]) Cotinine [Presence] in Urine by Confirmatory method <125 >= 125 Cotinine Ur Ql Cf LUI ([facility]) Creatinine [Mass/volume] in Urine 259.8 mg/dL 20 - 370 C reat Ur-mcnc ULI ([facility]) ID Date Data Source [id number] 05/26/2020 12:00:00 AM EST ULI ([facility]) Name Value Range Interpretation Code Description Data [place]i rce(s) Supporting Document(s) baclofen ur ql cf <500 >=500 Baclofen Ur Ql Cf ULI ([facility]) ID Date Data Source [id number] 05/26/2020 12:00:00 AM EST ULI ([facility]) Name Value Range Interpretation Code Description Data Mali rce(s) Supporting Document(s) ID Date Data Source [id number] 05/26/2020 12:00:00 AM EST ULI ([facility]) Name Value Range Interpretation Code Description Data Mali rce(s) Supporting Document(s) ID Date Data Source [id number] 05/26/2020 12:00:00 AM EST [place] ([facility]) Name Value Range Interpretation Code Description Data Mali rce(s) Supporting Document(s) baclofen ur CMP <500 >=500 Abnormal (applies to non- numeric results) Baclofen Ur CMP ULI ([facility]) tramadol ur CMP <100 >=100 Tramadol Ur CMP ATHE NA ([facility]) ID Date Data Source [id number] 05/26/2020 12:00:00 AM EST ULI ([facility]) Name Value Range Interpretation Code Description Data [place]i rce(s) Supporting Document(s) alcohol metabolites ur ql cfm <200 >=200 Alcoho l Metabolites Ur Ql On license of [facility] ([facility]) Buprenorphine [Presence] in Urine by Confirmatory method <1 >=1 Buprenorphine Ur Ql On license of [facility] ([facility]) Ethyl glucuronide [Mass/volume] in Urine by Confirmatory method <50 0 >=500 Ethyl Glucuronide Ur [facility] ([facility]) Tapentadol [Presence] in Urine by Confirmatory method <100 >=100 Tapentadol Ur Ql On license of [facility] ([facility]) Ethyl sulfate [Mass/volume] in Urine by Confirmatory method <200 >=200 Ethyl Sulfate Ur [facility] ([facility]) Amphetamines [Presence] in Urine by Confirmatory method <0 >=0 Amphetamines Ur Ql On license of [facility] ([facility]) Benzodiazepines [Presence] in Urine by Confirmatory method <50 >=50 Benzodiaz Ur Ql On license of [facility] ([facility]) gabapentinpregabalin ur ql cfm <5 >=5 Gabap entinpregabalin Ur Ql On license of [facility] ([facility]) Cocaine [Presence] in Urine by Confirmatory method <50 >=50 Bze Ur Ql On license of [facility] ([facility]) 6-Monoacetylmorphine (6-CANDY) [Presence] in Urine by Confirma tory method <10 >=10 [facility] Opiates [Presence] in Urine by Confirmatory method <100 >=1 00 Opiates Ur Ql Cfm ULI ([facility]) Methadone [Presence] in Urine by Confirmatory method <200 > =200 Methadone Ur Ql Cfm ULI ([facility]) Meperidine [Presence] in Urine by Confirmatory method <100 >=100 Meperidine Ur Ql Cfm ULI ([facility]) Fentanyl+Norfentanyl [Presence] in Urine by Confirmatory method <5 >=5 Fentanyl+norfentanyl Ur Ql Cfm ULI ([facility]) Carisoprodol+Meprobamate [Presence] in Urine by Screen method <200 >=200 Carisoprodol+meprob Ur Ql Scn ULI ([facility]) Tramadol [Presence] in Urine by Confirmatory method <100 >= 100 Tramadol Ur Ql Cfm ULI ([facility]) Cotinine [Presence] in Urine by Confirmatory method <125 >= 125 Cotinine Ur Ql Cfm ULI ([facility]) Creatinine [Mass/volume] in Urine 259.8 mg/dL 20 - 370 C reat Ur-mcnc ULI ([facility]) pH of Urine 4.5 - 9.0 pH Ur ULI ([facility]) ID Date Data Source [id number] 05/26/2020 12:00:00 AM EST ULI ([facility]) Name Value Range Interpretation Code Description Data Mali rce(s) Supporting Document(s) baclofen ur ql cfm <500 >=500 Baclofen Ur Ql Cf m ULI ([facility]) ID Date Data Source [id number] 05/26/2020 12:00:00 AM EST ULI ([facility]) Name Value Range Interpretation Code Description Data Mali rce(s) Supporting Document(s) ID Date Data Source [id number] 05/26/2020 12:00:00 AM EST ULI ([facility]) Name Value Range Interpretation Code Description Data [place]i rce(s) Supporting Document(s) ID Date Data Source [id number] 05/26/2020 12:00:00 AM EST ULI ([facility]) Name Value Range Interpretation Code Description Data [place] rce(s) Supporting Document(s) tramadol ur CMP <100 >=100 Tramadol Ur CMP ATHE NA ([facility]) baclofen ur CMP <500 >=500 Abnormal (applies to non- numeric results) Baclofen Ur CMP ULI ([facility]) ID Date Data Source [id number] 05/26/2020 12:00:00 AM EST ULI ([facility]) Name Value Range Interpretation Code Description Data Mali rce(s) Supporting Document(s) Ethyl glucuronide [Mass/volume] in Urine by Confirmatory method <50 0 >=500 Ethyl Glucuronide Ur [facility] ([facility]) Buprenorphine [Presence] in Urine by Confirmatory method <1 >=1 Buprenorphine Ur Ql On license of [facility] ([facility]) alcohol metabolites ur ql cfm <200 >=200 Alcoho l Metabolites Ur Ql On license of [facility] ([facility]) Ethyl sulfate [Mass/volume] in Urine by Confirmatory method <200 >=200 Ethyl Sulfate Ur [facility] ([facility]) Tapentadol [Presence] in Urine by Confirmatory method <100 >=100 Tapentadol Ur Ql On license of [facility] ([facility]) gabapentinpregabalin ur ql cfm <5 >=5 Gabap entinpregabalin Ur Ql On license of [facility] ([facility]) Benzodiazepines [Presence] in Urine by Confirmatory method <50 >=50 Benzodiaz Ur Ql On license of [facility] ([facility]) Amphetamines [Presence] in Urine by Confirmatory method <0 >=0 Amphetamines Ur Ql On license of [facility] ([facility]) Opiates [Presence] in Urine by Confirmatory method <100 >=1 00 Opiates Ur Ql On license of [facility] ([facility]) Cocaine [Presence] in Urine by Confirmatory method <50 >=50 Bze Ur Ql On license of [facility] ([facility]) 6-Monoacetylmorphine (6-CANDY) [Presence] in Urine by Confirma tory method <10 >=10 6Mam Ur Ql Cfm ULI ([facility]) Fentanyl+Norfentanyl [Presence] in Urine by Confirmatory method <5 >=5 Fentanyl+norfentanyl Ur Ql Cfm [facility] ([facility]) Meperidine [Presence] in Urine by Confirmatory method <100 >=100 Meperidine Ur Ql Cfm [facility] ([facility]) Methadone [Presence] in Urine by Confirmatory method <200 > =200 Methadone Ur Ql Cfm [facility] ([facility]) Tramadol [Presence] in Urine by Confirmatory method <100 >= 100 Tramadol Ur Ql Cfm [facility] ([facility]) Carisoprodol+Meprobamate [Presence] in Urine by Screen method <200 >=200 Carisoprodol+meprob Ur Ql Scn ULI ([facility]) pH of Urine 4.5 - 9.0 pH Ur ULI ([facility]) Cotinine [Presence] in Urine by Confirmatory method <125 >= 125 Cotinine Ur Ql Cfm ULI ([facility]) Creatinine [Mass/volume] in Urine 259.8 mg/dL 20 - 370 C reat Ur-mcnc ULI ([facility]) ID Date Data Source [id number] 05/26/2020 12:00:00 AM EST ULI ([facility]) Name Value Range Interpretation Code Description Data [place] rce(s) Supporting Document(s) baclofen ur ql cfm <500 >=500 Baclofen Ur Ql Cf m ULI ([facility]) ID Date Data Source [id number] 05/26/2020 12:00:00 AM EST ULI ([facility]) Name Value Range Interpretation Code Description Data [place] rce(s) Supporting Document(s) ID Date Data Source [id number] 05/26/2020 12:00:00 AM EST ULI ([facility]) Name Value Range Interpretation Code Description Data [place] rce(s) Supporting Document(s) ID Date Data Source [id number] 05/26/2020 12:00:00 AM EST ULI ([facility]) Name Value Range Interpretation Code Description Data [place] rce(s) Supporting Document(s) tramadol ur CMP <100 >=100 Tramadol Ur CMP ATHE NA ([facility]) baclofen ur CMP <500 >=500 Abnormal (applies to non- numeric results) Baclofen Ur CMP ULI ([facility]) ID Date Data Source [id number] 05/26/2020 12:00:00 AM EST ULI ([facility]) Name Value Range Interpretation Code Description Data [place] rce(s) Supporting Document(s) Buprenorphine [Presence] in Urine by Confirmatory method <1 >=1 Buprenorphine Ur Ql On license of [facility] ([facility]) Ethyl glucuronide [Mass/volume] in Urine by Confirmatory method <50 0 >=500 Ethyl Glucuronide Ur [facility] ([facility]) alcohol metabolites ur ql cfm <200 >=200 Alcoho l Metabolites Ur Ql On license of [facility] ([facility]) Ethyl sulfate [Mass/volume] in Urine by Confirmatory method <200 >=200 Ethyl Sulfate Ur [facility] ([facility]) Tapentadol [Presence] in Urine by Confirmatory method <100 >=100 Tapentadol Ur Ql On license of [facility] ([facility]) Amphetamines [Presence] in Urine by Confirmatory method <0 >=0 Amphetamines Ur Ql On license of [facility] ([facility]) Benzodiazepines [Presence] in Urine by Confirmatory method <50 >=50 Benzodiaz Ur Ql On license of [facility] ([facility]) gabapentinpregabalin ur ql cfm <5 >=5 Gabap entinpregabalin Ur Ql On license of [facility] ([facility]) Cocaine [Presence] in Urine by Confirmatory method <50 >=50 Bze Ur Ql On license of [facility] ([facility]) Opiates [Presence] in Urine by Confirmatory method <100 >=1 00 Opiates Ur Ql Cfm [facility] ([facility]) 6-Monoacetylmorphine (6-CANDY) [Presence] in Urine by Confirma tory method <10 >=10 6Mam Ur Ql Cfm [facility] ([facility]) Methadone [Presence] in Urine by Confirmatory method <200 > =200 Methadone Ur Ql Cfm [facility] ([facility]) Meperidine [Presence] in Urine by Confirmatory method <100 >=100 Meperidine Ur Ql Cfm [facility] ([facility]) Fentanyl+Norfentanyl [Presence] in Urine by Confirmatory method <5 >=5 Fentanyl+norfentanyl Ur Ql Cfm [place] ([facility]) Carisoprodol+Meprobamate [Presence] in Urine by Screen method <200 >=200 Carisoprodol+meprob Ur Ql Scn [place] ([facility]) Cotinine [Presence] in Urine by Confirmatory method <125 >= 125 Cotinine Ur Ql Cfm [place] ([facility]) Tramadol [Presence] in Urine by Confirmatory method <100 >= 100 Tramadol Ur Ql [facility] [place] ([facility]) Creatinine [Mass/volume] in Urine 259.8 mg/dL 20 - 370 C reat Ur-mcnc [facility] ([facility]) pH of Urine 4.5 - 9.0 pH Ur [facility] ([facility]) ID Date Data Source [id number] 05/26/2020 12:00:00 AM EST [facility] ([facility]) Name Value Range Interpretation Code Description Data [place] rce(s) Supporting Document(s) baclofen ur ql cfm <500 >=500 Baclofen Ur Ql Cf [facility] ([facility]) ID Date Data Source [id number] 05/26/2020 12:00:00 AM EST [facility] ([facility]) Name Value Range Interpretation Code Description Data [place] rce(s) Supporting Document(s) ID Date Data Source [id number] 05/26/2020 12:00:00 AM EST [facility] ([facility]) Name Value Range Interpretation Code Description Data [place] rce(s) Supporting Document(s) ID Date Data Source [id number] 05/26/2020 12:00:00 AM EST [facility] ([facility]) Name Value Range Interpretation Code Description Data [place] rce(s) Supporting Document(s) baclofen ur CMP <500 >=500 Abnormal (applies to non- numeric results) Baclofen Ur CMP [facility] ([facility]) tramadol ur CMP <100 >=100 Tramadol Ur CMP ATHE NA ([facility]) ID Date Data Source [id number] 05/26/2020 12:00:00 AM EST [facility] ([facility]) Name Value Range Interpretation Code Description Data [place] rce(s) Supporting Document(s) alcohol metabolites ur ql cfm <200 >=200 Alcoho l Metabolites Ur Ql [facility] ([facility]) Buprenorphine [Presence] in Urine by Confirmatory method <1 >=1 Buprenorphine Ur Ql Cf [facility] ([facility]) Tapentadol [Presence] in Urine by Confirmatory method <100 >=100 Tapentadol Ur Ql [facility] [place] ([facility]) Ethyl glucuronide [Mass/volume] in Urine by Confirmatory method <50 0 >=500 Ethyl Glucuronide Ur [facility] ([facility]) Ethyl sulfate [Mass/volume] in Urine by Confirmatory method <200 >=200 [facility]ate [facility]) Benzodiazepines [Presence] in Urine by Confirmatory method <50 >=50 Benzodiaz Ur Ql [facility] ([facility]) gabapentinpregabalin ur ql cfm <5 >=5 Gabap entinpregabalin Ur Ql [facility] [place] ([facility]) Amphetamines [Presence] in Urine by Confirmatory method <0 >=0 Amphetamines Ur Ql Cf [facility] ([facility]) Cocaine [Presence] in Urine by Confirmatory method <50 >=50 Bze Ur Ql Cf [facility] ([facility]) Opiates [Presence] in Urine by Confirmatory method <100 >=1 00 Opiates Ur Ql Cf [facility] ([facility]) 6-Monoacetylmorphine (6-CANDY) [Presence] in Urine by Confirma tory method <10 >=10 6Mam Ur Ql Cf [facility] ([facility]) Meperidine [Presence] in Urine by Confirmatory method <100 >=100 Meperidine Ur Ql Cf [facility] ([facility]) Methadone [Presence] in Urine by Confirmatory method <200 > =200 Methadone Ur Ql Cf [facility] ([facility]) Fentanyl+Norfentanyl [Presence] in Urine by Confirmatory method <5 >=5 [facility] Carisoprodol+Meprobamate [Presence] in Urine by Screen method <200 >=200 Carisoprodol+meprob Ur Ql [facility] ([facility]) Tramadol [Presence] in Urine by Confirmatory method <100 >= 100 [facility] Creatinine [Mass/volume] in Urine 259.8 mg/dL 20 - 370 C reat Ur-mcnc [facility] ([facility]) Cotinine [Presence] in Urine by Confirmatory method <125 >= 125 Cotinine Ur Ql Cf [facility] ([facility]) pH of Urine 4.5 - 9.0 pH Ur [facility] ([facility]) ID Date Data Source [id number] 05/26/2020 12:00:00 AM EST [facility] ([facility]) Name Value Range Interpretation Code Description Data [place] rce(s) Supporting Document(s) baclofen ur ql cfm <500 >=500 Baclofen Ur Ql Cf [facility] ([facility]) ID Date Data Source [id number] 05/26/2020 12:00:00 AM EST [facility] ([facility]) Name Value Range Interpretation Code Description Data [place] rce(s) Supporting Document(s) ID Date Data Source [id number] 05/26/2020 12:00:00 AM EST [facility] ([facility]) Name Value Range Interpretation Code Description Data [place] rce(s) Supporting Document(s) ID Date Data Source [id number] 05/26/2020 12:00:00 AM EST [facility] ([facility]) Name Value Range Interpretation Code Description Data [place] rce(s) Supporting Document(s) tramadol ur CMP <100 >=100 Tramadol Ur CMP ATHE NA ([facility]) baclofen ur CMP <500 >=500 Abnormal (applies to non- numeric results) Baclofen Ur CMP [facility] ([facility]) ID Date Data Source [id number] 05/26/2020 12:00:00 AM EST [facility] ([facility]) Name Value Range Interpretation Code Description Data [place] rce(s) Supporting Document(s) Buprenorphine [Presence] in Urine by Confirmatory method <1 >=1 Buprenorphine Ur Ql On license of [facility] ([facility]) alcohol metabolites ur ql cfm <200 >=200 Alcoho l Metabolites Ur Ql On license of [facility] ([facility]) Ethyl glucuronide [Mass/volume] in Urine by Confirmatory method <50 0 >=500 Ethyl Glucuronide Ur [facility] ([facility]) Amphetamines [Presence] in Urine by Confirmatory method <0 >=0 Amphetamines Ur Ql On license of [facility] ([facility]) Tapentadol [Presence] in Urine by Confirmatory method <100 >=100 Tapentadol Ur Ql [facility] ([facility]) Ethyl sulfate [Mass/volume] in Urine by Confirmatory method <200 >=200 Ethyl Sulfate Ur [facility] ([facility]) Benzodiazepines [Presence] in Urine by Confirmatory method <50 >=50 Benzodiaz Ur Ql On license of [facility] ([facility]) gabapentinpregabalin ur ql cfm <5 >=5 Gabap entinpregabalin Ur Ql On license of [facility] ([facility]) Cocaine [Presence] in Urine by Confirmatory method <50 >=50 Bze Ur Ql [facility] ([facility]) Opiates [Presence] in Urine by Confirmatory method <100 >=1 00 Opiates Ur Ql [facility] ([facility]) Methadone [Presence] in Urine by Confirmatory method <200 > =200 [facility] 6-Monoacetylmorphine (6-CANDY) [Presence] in Urine by Confirma tory method <10 >=10 6Mam Ur Ql [facility] ([facility]) Fentanyl+Norfentanyl [Presence] in Urine by Confirmatory method <5 >=5 Fentanyl+norfentanyl Ur Ql [facility] ([facility]) Meperidine [Presence] in Urine by Confirmatory method <100 >=100 [facility] Carisoprodol+Meprobamate [Presence] in Urine by Screen method <200 >=200 Carisoprodol+meprob Ur Ql [facility] ([facility]) pH of Urine 4.5 - 9.0 pH Ur [facility] ([facility]) Cotinine [Presence] in Urine by Confirmatory method <125 >= 125 Cotinine Ur Ql Cf [facility] ([facility]) Tramadol [Presence] in Urine by Confirmatory method <100 >= 100 [facility] Creatinine [Mass/volume] in Urine 259.8 mg/dL 20 - 370 C reat Ur-mcnc [facility] ([facility]) ID Date Data Source [id number] 05/26/2020 12:00:00 AM EST [facility] ([facility]) Name Value Range Interpretation Code Description Data [place] rce(s) Supporting Document(s) baclofen ur ql cfm <500 >=500 Baclofen Ur Ql Cf [facility] ([facility]) ID Date Data Source [id number] 05/26/2020 12:00:00 AM EST [facility] ([facility]) Name Value Range Interpretation Code Description Data [place] rce(s) Supporting Document(s) ID Date Data Source [id number] 05/26/2020 12:00:00 AM EST [facility] ([facility]) Name Value Range Interpretation Code Description Data [place] rce(s) Supporting Document(s) ID Date Data Source [id number] 05/26/2020 12:00:00 AM EST [facility] ([facility]) Name Value Range Interpretation Code Description Data [place] rce(s) Supporting Document(s) tramadol ur CMP <100 >=100 Tramadol Ur CMP ATHE [place] ([facility]) baclofen ur CMP <500 >=500 Abnormal (applies to non- numeric results) Baclofen Ur CMP [facility] ([facility]) ID Date Data Source [id number] 05/26/2020 12:00:00 AM EST [facility] ([facility]) Name Value Range Interpretation Code Description Data [place] rce(s) Supporting Document(s) Buprenorphine [Presence] in Urine by Confirmatory method <1 >=1 Buprenorphine Ur Ql On license of [facility] ([facility]) alcohol metabolites ur ql cfm <200 >=200 Alcoho l Metabolites Ur Ql On license of [facility] ([facility]) Ethyl glucuronide [Mass/volume] in Urine by Confirmatory method <50 0 >=500 Ethyl Glucuronide Ur [facility] ([facility]) Ethyl sulfate [Mass/volume] in Urine by Confirmatory method <200 >=200 [facility]ulfate [facility]) Tapentadol [Presence] in Urine by Confirmatory method <100 >=100 Tapentadol Ur Ql [facility] ([facility]) Benzodiazepines [Presence] in Urine by Confirmatory method <50 >=50 [facility]iaz [facility]) Amphetamines [Presence] in Urine by Confirmatory method <0 >=0 Amphetamines Ur Ql [facility] [place] ([facility]) gabapentinpregabalin ur ql cfm <5 >=5 Gabap entinpregabalin Ur Ql [facility] ([facility]) Opiates [Presence] in Urine by Confirmatory method <100 >=1 00 [facility] Cocaine [Presence] in Urine by Confirmatory method <50 >=50 Bze Ur Ql Cf [facility] ([facility]) Fentanyl+Norfentanyl [Presence] in Urine by Confirmatory method <5 >=5 Fentanyl+norfentanyl Ur Ql Cf [facility] ([facility]) Methadone [Presence] in Urine by Confirmatory method <200 > =200 [facility] Meperidine [Presence] in Urine by Confirmatory method <100 >=100 Meperidine Ur Ql On [facility] of [facility] ([facility]) 6-Monoacetylmorphine (6-CANDY) [Presence] in Urine by Confirma tory method <10 >=10 6[facility]am [facility] Carisoprodol+Meprobamate [Presence] in Urine by Screen method <200 >=200 Carisoprodol+meprob Ur Ql [facility] ([facility]) Cotinine [Presence] in Urine by Confirmatory method <125 >= 125 Cotinine [facility]) pH of Urine 4.5 - 9.0 pH Ur ULI ([facility]) Tramadol [Presence] in Urine by Confirmatory method <100 >= 100 Tramadol Ur Ql On license of [facility] ([facility]) Creatinine [Mass/volume] in Urine 259.8 mg/dL 20 - 370 C reat Ur-mcnc [facility]LI ([facility]) ID Date Data Source [id number] 05/26/2020 12:00:00 AM EST [facility] ([facility]) Name Value Range Interpretation Code Description Data [place] rce(s) Supporting Document(s) baclofen ur ql cfm <500 >=500 Baclofen Ur Ql Cf [facility] ([facility]) ID Date Data Source [id number] 05/26/2020 12:00:00 AM EST [facility] ([facility]) Name Value Range Interpretation Code Description Data [place] rce(s) Supporting Document(s) ID Date Data Source [id number] 05/26/2020 12:00:00 AM EST [facility] ([facility]) Name Value Range Interpretation Code Description Data [place] rce(s) Supporting Document(s) ID Date Data Source [id number] 05/26/2020 12:00:00 AM EST [facility] ([facility]) Name Value Range Interpretation Code Description Data [place] rce(s) Supporting Document(s) tramadol ur CMP <100 >=100 Tramadol Ur CMP ATHE NA ([facility]) baclofen ur CMP <500 >=500 Abnormal (applies to non- numeric results) Baclofen Ur CMP [facility] ([facility]) ID Date Data Source [id number] 05/26/2020 12:00:00 AM EST [facility] ([facility]) Name Value Range Interpretation Code Description Data [place] rce(s) Supporting Document(s) Buprenorphine [Presence] in Urine by Confirmatory method <1 >=1 Buprenorphine Ur Ql On [facility] of [facility] ([facility]) alcohol metabolites ur ql cfm <200 >=200 Alcoho l Metabolites Ur Ql Cf [facility] ([facility]) Ethyl glucuronide [Mass/volume] in Urine by Confirmatory method <50 0 >=500 Ethyl Glucuronide Ur Cf-nc [facility] ([facility]) Ethyl sulfate [Mass/volume] in Urine by Confirmatory method <200 >=200 Ethyl Sulfate Ur [facility] ([facility]) Tapentadol [Presence] in Urine by Confirmatory method <100 >=100 Tapentadol Ur Ql [facility] ([facility]) Amphetamines [Presence] in Urine by Confirmatory method <0 >=0 Amphetamines Ur Ql On [facility] of [facility] ([facility]) Benzodiazepines [Presence] in Urine by Confirmatory method <50 >=50 Benzodiaz Ur Ql [facility]LI ([facility]) gabapentinpregabalin ur ql cfm <5 >=5 Gabap entinpregabalin Ur Ql [facility] ([facility]) Cocaine [Presence] in Urine by Confirmatory method <50 >=50 Bze Ur Ql [facility] ([facility]) Opiates [Presence] in Urine by Confirmatory method <100 >=1 00 Opiates Ur Ql [facility] [place] ([facility]) 6-Monoacetylmorphine (6-CANDY) [Presence] in Urine by Confirma tory method <10 >=10 6Mam Ur Ql [facility] ([facility]) Fentanyl+Norfentanyl [Presence] in Urine by Confirmatory method <5 >=5 Fentanyl+norfentanyl Ur Ql [facility] ([facility]) Meperidine [Presence] in Urine by Confirmatory method <100 >=100 Meperidine [facility]) Methadone [Presence] in Urine by Confirmatory method <200 > =200 [facility]) Carisoprodol+Meprobamate [Presence] in Urine by Screen method <200 >=200 Carisoprodol+meprob Ur Ql [facility] ([facility]) Tramadol [Presence] in Urine by Confirmatory method <100 >= 100 Tramadol Ur Ql [facility] [place] ([facility]) Cotinine [Presence] in Urine by Confirmatory method <125 >= 125 Cotinine [facility]) Creatinine [Mass/volume] in Urine 259.8 mg/dL 20 - 370 C reat Ur-mcnc ULI ([facility]) pH of Urine 4.5 - 9.0 pH Ur ULI ([facility]) ID Date Data Source [id number] 05/26/2020 12:00:00 AM EST [facility] ([facility]) Name Value Range Interpretation Code Description Data [place] rce(s) Supporting Document(s) baclofen ur ql cfm <500 >=500 Baclofen Ur Ql Cf [facility] ([facility]) ID Date Data Source [id number] 05/26/2020 12:00:00 AM EST [facility] ([facility]) Name Value Range Interpretation Code Description Data [place] rce(s) Supporting Document(s) ID Date Data Source [id number] 05/26/2020 12:00:00 AM EST [facility] ([facility]) Name Value Range Interpretation Code Description Data [place] rce(s) Supporting Document(s) ID Date Data Source [id number] 05/26/2020 12:00:00 AM EST [facility] ([facility]) Name Value Range Interpretation Code Description Data [place] rce(s) Supporting Document(s) baclofen ur CMP <500 >=500 Abnormal (applies to non- numeric results) Baclofen Ur CMP [facility] ([facility]) tramadol ur CMP <100 >=100 Tramadol Ur CMP ATHE NA ([facility]) ID Date Data Source [id number] 05/26/2020 12:00:00 AM EST [facility] ([facility]) Name Value Range Interpretation Code Description Data [place] rce(s) Supporting Document(s) Buprenorphine [Presence] in Urine by Confirmatory method <1 >=1 Buprenorphine Ur Ql On [facility] of [facility] ([facility]) Ethyl glucuronide [Mass/volume] in Urine by Confirmatory method <50 0 >=500 [facility] Ethyl sulfate [Mass/volume] in Urine by Confirmatory method <200 >=200 [facility] alcohol metabolites ur ql cfm <200 >=200 Alcoho l Metabolites Ur Ql On [facility] of [facility] ([facility]) Tapentadol [Presence] in Urine by Confirmatory method <100 >=100 Tapentadol Ur Ql [facility] ([facility]) Benzodiazepines [Presence] in Urine by Confirmatory method <50 >=50 Benzodiaz Ur Ql On license of [facility] ([facility]) Amphetamines [Presence] in Urine by Confirmatory method <0 >=0 Amp[facility]amines [facility]) gabapentinpregabalin ur ql cfm <5 >=5 Gabap entinpregabalin Ur [facility]l [facility]) Opiates [Presence] in Urine by Confirmatory method <100 >=1 00 [facility]piates [facility]) Cocaine [Presence] in Urine by Confirmatory method <50 >=50 [facility]ze [facility]) Methadone [Presence] in Urine by Confirmatory method <200 > =200 [facility]ad[facility]) 6-Monoacetylmorphine (6-CANDY) [Presence] in Urine by Confirma tory method <10 >=10 6Mam [facility]) Meperidine [Presence] in Urine by Confirmatory method <100 >=100 Meperidine Ur Ql On [facility] of [facility] ([facility]) Carisoprodol+Meprobamate [Presence] in Urine by Screen method <200 >=200 Carisoprodol+meprob Ur Ql [facility] ([facility]) Fentanyl+Norfentanyl [Presence] in Urine by Confirmatory method <5 >=5 Fentanyl+norfentanyl Ur Ql On license of [facility] ([facility]) Tramadol [Presence] in Urine by Confirmatory method <100 >= 100 Tramadol [facility]) Cotinine [Presence] in Urine by Confirmatory method <125 >= 125 Cotinine Ur Ql On [facility] ([facility]) Creatinine [Mass/volume] in Urine 259.8 mg/dL 20 - 370 C reat Ur-mcnc [facility] ([facility]) pH of Urine 4.5 - 9.0 pH Ur [place] ([facility]) ID Date Data Source [id number] 05/26/2020 12:00:00 AM EST [place] ([facility]) Name Value Range Interpretation Code Description Data [place] rce(s) Supporting Document(s) baclofen ur ql cfm <500 >=500 Baclofen Ur Ql Cf [facility] ([facility]) ID Date Data Source [id number] 05/26/2020 12:00:00 AM EST [facility] ([facility]) Name Value Range Interpretation Code Description Data [place] rce(s) Supporting Document(s) ID Date Data Source [id number] 05/26/2020 12:00:00 AM EST [facility] ([facility]) Name Value Range Interpretation Code Description Data [place] rce(s) Supporting Document(s) ID Date Data Source [id number] 05/20/2020 09:21:51 AM EST [facility] Name Value Range Interpretation Code Description Data [place] rce(s) Supporting Document(s) Progress Note [facility] [id number] lbm [file] [id number] ID Date Data Source [id number] 05/21/2020 09:10:00 AM EST [facility] Surgical Pathology ReportName: Raul BOLDENMRN: [id number] Number: [id number] Date: 05/20/2020 00:00Received Date: 05/20/2020 13:44Physician(s): ANANTH BARAJAS,FILTER CHANGER ANANTH BARAJAS,NPCopy To:PE[place]AMP MDSpecimelinus(s) ReceivedA: Right breast upper innerClinical HistoryCalcifications in the upper inner right breast. Diff: Fibrocysticchanges, exclude DCIS. DiagnosisBREAST, RIGHT UPPER INNER, NEEDLE BIOPSY: FIBROUS BREAST PARENCHYMA. MICROCALCIFICATIONS ASSOCAITED WITH FIBROUS AREAS. NO EVIDENCE OF ATYPIAOR MALIGNANCY.Jonny Abraham M.D.;Resident PathologistElectronically Signed By Anselmo Hoffman M.D., Attending Bkhmordpuew73/12/2020 09:10:47 The attending pathologist named above attests that he/she has personallyreviewed the relevant preparation(s) for the specimen, performedmicroscopic examination when indicated, and rendered the final diagnosis.Unless 'gross-only' is specified, the final diagnosis is based on amicroscopic examination of ambulatory services representative sections of tissue.Gross DescriptionThe specimen is received in formalin labeled with the patient's name"Elmira Bolden" and "right breast upper inner". It consists of multiplecylindrical fragments of neri-yellow fibrofatty tissue ranging from 1.9 upto 2.4 cm in length and averaging 0.3 cm in diameter. Totally submittedin three cassettes.KW/pmwThis report may include one or more immunohistochemical stain results thatuse analyte specific reagents. All positive and negative controls havebeen reviewed by the attending pathologist and are satisfactory. The testswere developed and their performance characteristics determined by [facility] Pathology department. They have not been cleared or approved by the USFood and Drug Administration. The FDA has determined that such clearanceor approval is not necessary. Name Value Range Interpretation Code Description Data Mali rce(s) Supporting Document(s) ID Date Data Source [id number] 04/23/2020 12:00:00 AM EDT [facility] Franco Jennings Patient Name: ELMIRA [id number] Date of : [address] [address] Date of Exam: 04/23/2020PH#: Fax: [phone] EXAM: MAMMO UNI DIAGNOSTIC INCLUD CADCLINICAL INFORMATION: Diagnostic.The prior exams were reviewed. The prior screening examination of04/13/2020 showed a grouping of calcifications in the right breastupper/inner quadrant which appear to have significantly changed in theirappearance compared to prior exams.Diagnostic digital magnified spot compression views of the right breastover the calcifications show a large group which vary in size, shape, andradiographic density. They have increased significantly in number andvariability when compared to prior exams.IMPRESSION:BI-RADS Category 4 - Suspicious Finding(s). Suspicious calcifications havedeveloped in the right breast for which biopsy is recommended.MONROE Ayoub/Sarmad almaguer for referring ELMIRA BOLDEN to our office. Electronically Signed - KEVYN GRAVES DO 04/23/20 14:26 Name Value Range Interpretation Code Description Data Mali rce(s) Supporting Document(s) ID Date Data Source [id number] 04/13/2020 12:00:00 AM EDT [facility] Imaging Franco Jennings Patient Name: ELMIRA [id number] Date of : 1970[place] [address] Date of Exam: 04/13/2020#: Fax: [phone] EXAM: MAMMO SCREENING WITH CADCLINICAL INFORMATION: Screening.Based on the personal and family history information your patient suppliedat the time of imaging, her lifetime risk of breast cancer estimated by theTyrer-Cuzick model is 9.1%. Given that this patient has less than 20% TCrisk score, no further medical management is currently recommended at thistime.Digital screening (2D) mammography was performed bilaterally in the CC andMLO projections. Ad ditionally, breast tomosynthesis (3D mammography) wasperformed bilaterally in the CC and MLO projections. Today's exam wascompared to the prior exam(s).By history, the patient has no complaints of a palpable breast abnormalityor other significant breast complaints.The patient states that a clinical breast exam was not performed.The breasts are unchanged in size and shape. There are no nicki- soft tissuedensities or spiculated masses. Once again, dense heterogeneous somewhatnodular fibroglandular elements are seen bilaterally to such a degree thatthe sensitivity of the mammogram in detecting cancer is decreased.In the right breast, upper/inner quadrant, there is a grouping ofcalcifications which appear to have changed when compared to the priorexams. These calcifications now may have a variance in size, shape, andradiographic density and have increased in number. There are othercalcifications seen scattered throughout both breasts, however, these havea stable benign appearance. There is no skin thickening or nippleretraction.The Volpara volumetric breast density category is C, the breasts areheterogeneously dense which may obscure small masses.IMPRESSION:BI-RADS Category 0 - Incomplete: Needs Additional Imaging Evaluation.Grouping of calcifications in the right breast upper/inner quadrant asdescribed above and for which diagnostic digital magnified spot compressionviews are recommended in the CC and MLO projections.Our office will attempt to contact the patient for additional imaging.This mammogram was read with the assistance of Mike GIVINGtrax, an FDAapproved computer aided detecti on system for mammography.Negative x-ray reports should not delay surgical consultation if a dominantor clinically suspicious mass is present.Not all breast cancers can be identified by mammography. Therefore, werecommend that you continue to perform regular breast self-examination andphysical examination and then promptly contact your physician of anyconcerns or changes.Adenosis and dense breasts may obscure an underlying neoplasm.MONROE Ayoub/Sarmad you for referring ELMIRA BOLDEN to our office. Electronically Signed - KEVYN GRAVES DO 04/13/20 13:11 Name Value Range Interpretation Code Description Data Mali rce(s) Supporting Document(s) Procedure Social History Code Duration Value Status Description Data Source(s ) Smoking 02/23/2021 12:00:00 AM EDT Former Smoker completed Former Smoker eCW1 ([facility]) Alcohol intake 12/22/2020 12:00:00 AM EDT Current non-d emily of alcohol (finding) completed Current non-drinker of alcohol (finding) [facility] Tobacco use and exposure 12/22/2020 12:00:00 AM EDT Never used co mpleted Never used [facility] Smoking 12/22/2020 12:00:00 AM EDT Former smoker completed Former smoker [facility] Smoking 12/10/2020 12:00:00 AM EDT Current Smoker completed Curre nt Smoker eCW1 ([facility]) Caffeine Use Details 11/16/2020 12:00:00 AM EDT coffee/soda, 16 oz completed coffee/soda, 16 oz NextGen ([facility]) 11/16/2020 12:00:00 AM EDT Never smoked tobacco comple rebekah Never smoked tobacco NextGen ([facility]) Alcohol Use Details 11/16/2020 12:00:00 AM EDT beer & wine 2 dri nks socially completed beer & wine 2 drinks socially NextGen ([facility]) Smoking 11/16/2020 12:00:00 AM EDT Unknown if ever smoked comp leted Unknown if ever smoked NextGen ([facility]) Smoking 10/28/2020 12:00:00 AM EDT Patient is a former smoker completed Patient is a former smoker MEDENT ([facility] Smoking 09/21/2020 12:00:00 AM EDT Never Smoker completed Never S moker eCW1 ([facility]) Smoking 09/21/2020 12:00:00 AM EDT Never Smoker completed Never S moker eCW1 ([facility]) Smoking 08/20/2020 12:00:00 AM EST Never Smoker completed Never S moker eCW1 ([facility]) Smoking 08/20/2020 12:00:00 AM EST Never Smoker completed Never S moker eCW1 ([facility]) Smoking 08/20/2020 12:00:00 AM EST Never Smoker completed Never S moker eCW1 ([facility]) Smoking 08/20/2020 12:00:00 AM EST Never Smoker completed Never S moker eCW1 ([facility]) Smoking 08/20/2020 12:00:00 AM EST Never Smoker completed Never S moker eCW1 ([facility]) Smoking 08/20/2020 12:00:00 AM EST Never Smoker completed Never S moker eCW1 ([facility]) Smoking 08/20/2020 12:00:00 AM EST Never Smoker completed Never S moker eCW1 ([facility]) Smoking 08/20/2020 12:00:00 AM EST Never Smoker completed Never S moker eCW1 ([facility]) Smoking 07/31/2020 12:00:00 AM EST Never Smoker completed Never S moker eCW1 ([facility]) Smoking 07/31/2020 12:00:00 AM EST Never Smoker completed Never S moker eCW1 ([facility]) Smoking 07/31/2020 12:00:00 AM EST Never Smoker completed Never S moker eCW1 ([facility]) Smoking 07/24/2020 12:00:00 AM EST Never Smoker completed Never S moker eCW1 ([facility]) Alcohol intake 05/20/2020 12:00:00 AM EST Current non-d emily of alcohol (finding) completed Current non-drinker of alcohol (finding) [facility] Alcohol intake 05/20/2020 12:00:00 AM EST Current non-d emily of alcohol (finding) completed Current non-drinker of alcohol (finding) [facility] Vital Signs ID Date Data Source UNK Name Value Range Interpretation Code Description Data Source(s) Diastolic blood pressure 87 mm[Hg] 87 mm[Hg] ULI ([facility]) Body height 62 [in_i] 62 [in_i] ULI ([facility]) Systolic blood pressure 137 mm[Hg] 137 mm[Hg] A THENA ([facility]) Diastolic blood pressure 87 mm[Hg] 87 mm[Hg] ULI ([facility]) Body height 62 [in_i] 62 [in_i] ULI ([facility]) Systolic blood pressure 137 mm[Hg] 137 mm[Hg] A THENA ([facility]) Systolic blood pressure 147 mm[Hg] 147 mm[Hg] Miguel LUNDBERG ([facility] Body weight 130.00 [lb_av] 130.00 [lb_av] ALISSA Figueroa ([facility] Temple body weight 110 [lb_av] 110 [lb_av] ALISSA Figueroa ([facility] Body mass index (BMI) [Ratio] 23.2 kg/m2 23.2 k g/m2 MEDENT ([facility] Diastolic blood pressure 99 mm[Hg] 99 mm[Hg] MEDENT ([facility] Heart rate 70 /min 70 /min MEDENT ([facility] Body temperature 96.7 [degF] 96.7 [degF] MEDENT ([facility] Respiratory rate 16 /min 16 /min MEDENT ( [facility] Body height 62.75 [in_i] 62.75 [in_i] MEDENT ([facility] 5'2.75" Systolic blood pressure 141 mm[Hg] 141 mm[Hg] M EDENT ([facility] Diastolic blood pressure 89 mm[Hg] 89 mm[Hg] MEDENT ([facility] Diastolic blood pressure 89 mm[Hg] 89 mm[Hg] ULI ([facility]) Body height 62 [in_i] 62 [in_i] ULI ([facility]) Systolic blood pressure 137 mm[Hg] 137 mm[Hg] A THENA ([facility]) Diastolic blood pressure 89 mm[Hg] 89 mm[Hg] ULI ([facility]) Body height 62 [in_i] 62 [in_i] ULI ([facility]) Systolic blood pressure 137 mm[Hg] 137 mm[Hg] A THENA ([facility]) Diastolic blood pressure 89 mm[Hg] 89 mm[Hg] ULI ([facility]) Body height 62 [in_i] 62 [in_i] ULI ([facility]) Systolic blood pressure 137 mm[Hg] 137 mm[Hg] A THENA ([facility]) Heart rate 64 /min 64 /min eCW1 ([facility]) Body weight 131 [lb_av] 131 [lb_av] eCW1 ([facility]) Body height 64 [in_i] 64 [in_i] eCW1 ([facility]) Body mass index (BMI) [Ratio] 22.48 kg/m2 22.48 kg/m2 eCW1 ([facility]) Diastolic blood pressure 92 mm[Hg] 92 mm[Hg] ULI ([facility]) Body height 62 [in_i] 62 [in_i] ULI ([facility]) Systolic blood pressure 155 mm[Hg] 155 mm[Hg] A THENA ([facility]) Diastolic blood pressure 92 mm[Hg] 92 mm[Hg] ULI ([facility]) Body height 62 [in_i] 62 [in_i] ULI ([facility]) Systolic blood pressure 155 mm[Hg] 155 mm[Hg] A THENA ([facility]) Diastolic blood pressure 92 mm[Hg] 92 mm[Hg] ULI ([facility]) Body height 62 [in_i] 62 [in_i] ULI ([facility]) Systolic blood pressure 155 mm[Hg] 155 mm[Hg] A THENA ([facility]) Diastolic blood pressure 92 mm[Hg] 92 mm[Hg] ULI ([facility]) Body height 62 [in_i] 62 [in_i] ULI ([facility]) Systolic blood pressure 155 mm[Hg] 155 mm[Hg] A THENA ([facility]) Diastolic blood pressure 84 mm[Hg] 84 mm[Hg] ULI ([facility]) Body height 62 [in_i] 62 [in_i] ULI ([facility]) Systolic blood pressure 138 mm[Hg] 138 mm[Hg] A THENA ([facility]) Diastolic blood pressure 84 mm[Hg] 84 mm[Hg] ULI ([facility]) Body height 62 [in_i] 62 [in_i] ULI ([facility]) Systolic blood pressure 138 mm[Hg] 138 mm[Hg] A THENA ([facility]) Diastolic blood pressure 84 mm[Hg] 84 mm[Hg] ULI ([facility]) Body height 62 [in_i] 62 [in_i] ULI ([facility]) Systolic blood pressure 138 mm[Hg] 138 mm[Hg] A THENA ([facility]) Diastolic blood pressure 84 mm[Hg] 84 mm[Hg] ULI ([facility]) Body height 62 [in_i] 62 [in_i] ULI ([facility]) Systolic blood pressure 138 mm[Hg] 138 mm[Hg] A THENA ([facility]) Body weight 132.8 [lb_av] 132.8 [lb_av] eCW1 ([facility]) Body height [in_i] eCW1 ([facility]) Body mass index (BMI) [Ratio] 22.79 kg/m2 22.79 kg/m2 eCW1 ([facility]) Systolic blood pressure 118 mm[Hg] 118 mm[Hg] e CW1 ([facility]) Diastolic blood pressure 72 mm[Hg] 72 mm[Hg] eCW1 ([facility]) Body temperature 97.8 [degF] 97.8 [degF] MEDENT ([facility]) Diastolic blood pressure 85 mm[Hg] 85 mm[Hg] ULI ([facility]) Body height 62 [in_i] 62 [in_i] ULI ([facility]) Systolic blood pressure 146 mm[Hg] 146 mm[Hg] A THENA ([facility]) Diastolic blood pressure 85 mm[Hg] 85 mm[Hg] ULI ([facility]) Body height 62 [in_i] 62 [in_i] ULI ([facility]) Systolic blood pressure 146 mm[Hg] 146 mm[Hg] A THENA ([facility]) Diastolic blood pressure 85 mm[Hg] 85 mm[Hg] ULI ([facility]) Body height 62 [in_i] 62 [in_i] ULI ([facility]) Systolic blood pressure 146 mm[Hg] 146 mm[Hg] A THENA ([facility]) Systolic blood pressure 146 mm[Hg] 146 mm[Hg] A THENA ([facility]) Diastolic blood pressure 85 mm[Hg] 85 mm[Hg] ULI ([facility]) Body height 62 [in_i] 62 [in_i] ULI ([facility]) Diastolic blood pressure 85 mm[Hg] 85 mm[Hg] ULI ([facility]) Body height 62 [in_i] 62 [in_i] ULI ([facility]) Systolic blood pressure 146 mm[Hg] 146 mm[Hg] A THENA ([facility]) Body height 162.56 cm 162.56 cm NextGen ([facility]) Body weight 62.142 kg 62.142 kg NextGen ([facility]) Systolic blood pressure 110 mm[Hg] 110 mm[Hg] N extGen ([facility]) Diastolic blood pressure 68 mm[Hg] 68 mm[Hg] NextGen ([facility]) Body mass index (BMI) [Ratio] 23.52 kg/m2 23.52 kg/m2 NextGen ([facility]) Systolic blood pressure 116 mm[Hg] 116 mm[Hg] M EDENT ([facility] Body temperature 97.3 [degF] 97.3 [degF] MEDENT ([facility] Respiratory rate 16 /min 16 /min MEDENT ( [facility] Body height 63 [in_i] 63 [in_i] MEDENT ([facility] 5'3" Body mass index (BMI) [Ratio] 23.2 kg/m2 23.2 k g/m2 MEDENT ([facility] Diastolic blood pressure 89 mm[Hg] 89 mm[Hg] MEDENT ([facility] Heart rate 80 /min 80 /min MEDENT ([facility] Body weight 131.12 [lb_av] 131.12 [lb_av] MEDEN T ([facility] Temple body weight 115 [lb_av] 115 [lb_av] MEDHOWIE T ([facility] Systolic blood pressure 113 mm[Hg] 113 mm[Hg] A THENA ([facility]) Body height 62 [in_i] 62 [in_i] ULI ([facility]) Diastolic blood pressure 71 mm[Hg] 71 mm[Hg] ULI ([facility]) Diastolic blood pressure 71 mm[Hg] 71 mm[Hg] ULI ([facility]) Body height 62 [in_i] 62 [in_i] ULI ([facility]) Systolic blood pressure 113 mm[Hg] 113 mm[Hg] A THENA ([facility]) Diastolic blood pressure 71 mm[Hg] 71 mm[Hg] ULI ([facility]) Body height 62 [in_i] 62 [in_i] ULI ([facility]) Systolic blood pressure 113 mm[Hg] 113 mm[Hg] A THENA ([facility]) Diastolic blood pressure 71 mm[Hg] 71 mm[Hg] ULI ([facility]) Body height 62 [in_i] 62 [in_i] ULI ([facility]) Systolic blood pressure 113 mm[Hg] 113 mm[Hg] A THENA ([facility]) Diastolic blood pressure 71 mm[Hg] 71 mm[Hg] ULI ([facility]) Body height 62 [in_i] 62 [in_i] ULI ([facility]) Systolic blood pressure 113 mm[Hg] 113 mm[Hg] A THENA ([facility]) Diastolic blood pressure 71 mm[Hg] 71 mm[Hg] ULI ([facility]) Body height 62 [in_i] 62 [in_i] ULI ([facility]) Systolic blood pressure 113 mm[Hg] 113 mm[Hg] A THENA ([facility]) Body weight 132 [lb_av] 132 [lb_av] eCW1 ([facility]) Body height [in_i] eCW1 ([facility]) Body mass index (BMI) [Ratio] 22.66 kg/m2 22.66 kg/m2 eCW1 ([facility]) Heart rate 96 /min 96 /min eCW1 ([facility]) Respiratory rate 18 /min 18 /min eCW1 ([facility]) Body temperature 99.7 [degF] 99.7 [degF] eCW1 ( [facility]) Systolic blood pressure 118 mm[Hg] 118 mm[Hg] e CW1 ([facility]) Diastolic blood pressure 76 mm[Hg] 76 mm[Hg] eCW1 ([facility]) Body height 62 [in_i] 62 [in_i] ULI ([facility]) Diastolic blood pressure 79 mm[Hg] 79 mm[Hg] ULI ([facility]) Systolic blood pressure 126 mm[Hg] 126 mm[Hg] A THENA ([facility]) Diastolic blood pressure 79 mm[Hg] 79 mm[Hg] ULI ([facility]) Body height 62 [in_i] 62 [in_i] ULI ([facility]) Systolic blood pressure 126 mm[Hg] 126 mm[Hg] A THENA ([facility]) Diastolic blood pressure 79 mm[Hg] 79 mm[Hg] ULI ([facility]) Body height 62 [in_i] 62 [in_i] ULI ([facility]) Systolic blood pressure 126 mm[Hg] 126 mm[Hg] A THENA ([facility]) Diastolic blood pressure 79 mm[Hg] 79 mm[Hg] ULI ([facility]) Body height 62 [in_i] 62 [in_i] ULI ([facility]) Systolic blood pressure 126 mm[Hg] 126 mm[Hg] A THENA ([facility]) Diastolic blood pressure 79 mm[Hg] 79 mm[Hg] ULI ([facility]) Body height 62 [in_i] 62 [in_i] ULI ([facility]) Systolic blood pressure 126 mm[Hg] 126 mm[Hg] A THENA ([facility]) Diastolic blood pressure 79 mm[Hg] 79 mm[Hg] ULI ([facility]) Body height 62 [in_i] 62 [in_i] ULI ([facility]) Systolic blood pressure 126 mm[Hg] 126 mm[Hg] A THENA ([facility]) Diastolic blood pressure 79 mm[Hg] 79 mm[Hg] ULI ([facility]) Body height 62 [in_i] 62 [in_i] ULI ([facility]) Systolic blood pressure 126 mm[Hg] 126 mm[Hg] A THENA ([facility]) Body weight 132 [lb_av] 132 [lb_av] eCW1 ([facility]) Body height [in_i] eCW1 ([facility]) Body mass index (BMI) [Ratio] 22.66 kg/m2 22.66 kg/m2 eCW1 ([facility]) Heart rate 86 /min 86 /min eCW1 ([facility]) Respiratory rate 18 /min 18 /min eCW1 ([facility]) Systolic blood pressure 122 mm[Hg] 122 mm[Hg] e CW1 ([facility]) Diastolic blood pressure 72 mm[Hg] 72 mm[Hg] eCW1 ([facility]) Respiratory rate 18 /min 18 /min eCW1 ([facility]) Systolic blood pressure 128 mm[Hg] 128 mm[Hg] e CW1 ([facility]) Diastolic blood pressure 76 mm[Hg] 76 mm[Hg] eCW1 ([facility]) Body weight 133 [lb_av] 133 [lb_av] eCW1 ([facility]) Body height [in_i] eCW1 ([facility]) Body mass index (BMI) [Ratio] 22.83 kg/m2 22.83 kg/m2 eCW1 ([facility]) Heart rate 70 /min 70 /min eCW1 ([facility]) Body weight 130 [lb_av] 130 [lb_av] eCW1 ([facility]) Body height [in_i] eCW1 ([facility]) Body mass index (BMI) [Ratio] 22.31 kg/m2 22.31 kg/m2 eCW1 ([facility]) Heart rate 78 /min 78 /min eCW1 ([facility]) Respiratory rate 18 /min 18 /min eCW1 ([facility]) Systolic blood pressure 122 mm[Hg] 122 mm[Hg] e CW1 ([facility]) Diastolic blood pressure 82 mm[Hg] 82 mm[Hg] eCW1 ([facility]) Body height 62 [in_i] 62 [in_i] ULI ([facility]) Body mass index (BMI) [Ratio] 23.2 kg/m2 23.2 k g/m2 ULI ([facility]) Systolic blood pressure 138 mm[Hg] 138 mm[Hg] A THENA ([facility]) Body weight 127 [lb_av] 127 [lb_av] ULI ([facility]) Diastolic blood pressure 89 mm[Hg] 89 mm[Hg] ULI ([facility]) Body weight 127 [lb_av] 127 [lb_av] ULI ([facility]) Diastolic blood pressure 89 mm[Hg] 89 mm[Hg] ULI ([facility]) Body height 62 [in_i] 62 [in_i] ULI ([facility]) Body mass index (BMI) [Ratio] 23.2 kg/m2 23.2 k g/m2 ULI ([facility]) Systolic blood pressure 138 mm[Hg] 138 mm[Hg] A THENA ([facility]) Diastolic blood pressure 89 mm[Hg] 89 mm[Hg] ULI ([facility]) Body height 62 [in_i] 62 [in_i] ULI ([facility]) Body mass index (BMI) [Ratio] 23.2 kg/m2 23.2 k g/m2 ULI ([facility]) Systolic blood pressure 138 mm[Hg] 138 mm[Hg] A THENA ([facility]) Body weight 127 [lb_av] 127 [lb_av] ULI ([facility]) Diastolic blood pressure 89 mm[Hg] 89 mm[Hg] ULI ([facility]) Body height 62 [in_i] 62 [in_i] ULI ([facility]) Body mass index (BMI) [Ratio] 23.2 kg/m2 23.2 k g/m2 ULI ([facility]) Systolic blood pressure 138 mm[Hg] 138 mm[Hg] A THENA ([facility]) Body weight 127 [lb_av] 127 [lb_av] ULI ([facility]) Diastolic blood pressure 89 mm[Hg] 89 mm[Hg] ULI ([facility]) Body height 62 [in_i] 62 [in_i] ULI ([facility]) Body mass index (BMI) [Ratio] 23.2 kg/m2 23.2 k g/m2 ULI ([facility]) Systolic blood pressure 138 mm[Hg] 138 mm[Hg] A THENA ([facility]) Body weight 127 [lb_av] 127 [lb_av] ULI ([facility]) Diastolic blood pressure 89 mm[Hg] 89 mm[Hg] ULI ([facility]) Body height 62 [in_i] 62 [in_i] UIL ([facility]) Body mass index (BMI) [Ratio] 23.2 kg/m2 23.2 k g/m2 ULI ([facility]) Systolic blood pressure 138 mm[Hg] 138 mm[Hg] A THENA ([facility]) Body weight 127 [lb_av] 127 [lb_av] ULI ([facility]) Diastolic blood pressure 89 mm[Hg] 89 mm[Hg] ULI ([facility]) Body height 62 [in_i] 62 [in_i] ULI ([facility]) Body mass index (BMI) [Ratio] 23.2 kg/m2 23.2 k g/m2 ULI ([facility]) Systolic blood pressure 138 mm[Hg] 138 mm[Hg] A THENA ([facility]) Body weight 127 [lb_av] 127 [lb_av] ULI ([facility]) Diastolic blood pressure 89 mm[Hg] 89 mm[Hg] ULI ([facility]) Body height 62 [in_i] 62 [in_i] ULI ([facility]) Body mass index (BMI) [Ratio] 23.2 kg/m2 23.2 k g/m2 ULI ([facility]) Systolic blood pressure 138 mm[Hg] 138 mm[Hg] A THENA ([facility]) Body weight 127 [lb_av] 127 [lb_av] ULI ([facility]) Systolic blood pressure 143 mm[Hg] 143 mm[Hg] M EDENT ([facility] Diastolic blood pressure 94 mm[Hg] 94 mm[Hg] MEDENT ([facility] Systolic blood pressure 133 mm[Hg] 133 mm[Hg] M EDENT ([facility] recheck Diastolic blood pressure 80 mm[Hg] 80 mm[Hg] MEDENT ([facility] recheck Heart rate 98 /min 98 /min MEDENT ([facility] Body temperature 97.2 [degF] 97.2 [degF] MEDENT ([facility] Respiratory rate 16 /min 16 /min MEDENT ( [facility] Body height 63 [in_i] 63 [in_i] MEDENT ([facility] 5'3" Body weight 127.00 [lb_av] 127.00 [lb_av] MEDEN T ([facility] [place] body weight 115 [lb_av] 115 [lb_av] MEDEN T ([facility] Body mass index (BMI) [Ratio] 22.5 kg/m2 22.5 k g/m2 MEDENT ([facility] Body height 62 [in_i] 62 [in_i] ULI ([facility]) Systolic blood pressure 137 mm[Hg] 137 mm[Hg] A THENA ([facility]) Diastolic blood pressure 85 mm[Hg] 85 mm[Hg] ULI ([facility]) Diastolic blood pressure 85 mm[Hg] 85 mm[Hg] ULI ([facility]) Body height 62 [in_i] 62 [in_i] ULI ([facility]) Systolic blood pressure 137 mm[Hg] 137 mm[Hg] A THENA ([facility]) Diastolic blood pressure 85 mm[Hg] 85 mm[Hg] ULI ([facility]) Body height 62 [in_i] 62 [in_i] ULI ([facility]) Systolic blood pressure 137 mm[Hg] 137 mm[Hg] A THENA ([facility]) Diastolic blood pressure 85 mm[Hg] 85 mm[Hg] ULI ([facility]) Body height 62 [in_i] 62 [in_i] ULI ([facility]) Systolic blood pressure 137 mm[Hg] 137 mm[Hg] A THENA ([facility]) Diastolic blood pressure 85 mm[Hg] 85 mm[Hg] ULI ([facility]) Body height 62 [in_i] 62 [in_i] ULI ([facility]) Systolic blood pressure 137 mm[Hg] 137 mm[Hg] A THENA ([facility]) Body height 62 [in_i] 62 [in_i] ULI ([facility]) Systolic blood pressure 137 mm[Hg] 137 mm[Hg] A THENA ([facility]) Diastolic blood pressure 85 mm[Hg] 85 mm[Hg] ULI ([facility]) Diastolic blood pressure 85 mm[Hg] 85 mm[Hg] ULI ([facility]) Body height 62 [in_i] 62 [in_i] UIL ([facility]) Systolic blood pressure 137 mm[Hg] 137 mm[Hg] A THENA ([facility]) Diastolic blood pressure 85 mm[Hg] 85 mm[Hg] ULI ([facility]) Body height 62 [in_i] 62 [in_i] ULI ([facility]) Systolic blood pressure 137 mm[Hg] 137 mm[Hg] A THENA ([facility]) Diastolic blood pressure 85 mm[Hg] 85 mm[Hg] ULI ([facility]) Body height 62 [in_i] 62 [in_i] ULI ([facility]) Systolic blood pressure 137 mm[Hg] 137 mm[Hg] A THENA ([facility]) Systolic blood pressure 138 mm[Hg] 138 mm[Hg] M EDENT ([facility] Heart rate 82 /min 82 /min MEDENT ([facility] Body temperature 96.5 [degF] 96.5 [degF] MEDENT ([facility] Body weight 123.25 [lb_av] 123.25 [lb_av] MEDEN T ([facility] Diastolic blood pressure 96 mm[Hg] 96 mm[Hg] MEDENT ([facility] Oxygen saturation in Arterial blood by Pulse oximetry 99 % 99 % MEDENT ([facility] Systolic blood pressure 127 mm[Hg] 127 mm[Hg] A THENA ([facility]) Diastolic blood pressure 81 mm[Hg] 81 mm[Hg] ULI ([facility]) Body height 62 [in_i] 62 [in_i] ULI ([facility]) Diastolic blood pressure 81 mm[Hg] 81 mm[Hg] ULI ([facility]) Body height 62 [in_i] 62 [in_i] ULI ([facility]) Systolic blood pressure 127 mm[Hg] 127 mm[Hg] A THENA ([facility]) Diastolic blood pressure 81 mm[Hg] 81 mm[Hg] ULI ([facility]) Body height 62 [in_i] 62 [in_i] ULI ([facility]) Systolic blood pressure 127 mm[Hg] 127 mm[Hg] A THENA ([facility]) Diastolic blood pressure 81 mm[Hg] 81 mm[Hg] ULI ([facility]) Body height 62 [in_i] 62 [in_i] ULI ([facility]) Systolic blood pressure 127 mm[Hg] 127 mm[Hg] A THENA ([facility]) Diastolic blood pressure 81 mm[Hg] 81 mm[Hg] ULI ([facility]) Body height 62 [in_i] 62 [in_i] ULI ([facility]) Systolic blood pressure 127 mm[Hg] 127 mm[Hg] A THENA ([facility]) Diastolic blood pressure 81 mm[Hg] 81 mm[Hg] ULI ([facility]) Body height 62 [in_i] 62 [in_i] ULI ([facility]) Systolic blood pressure 127 mm[Hg] 127 mm[Hg] A THENA ([facility]) Diastolic blood pressure 81 mm[Hg] 81 mm[Hg] ULI ([facility]) Body height 62 [in_i] 62 [in_i] ULI ([facility]) Systolic blood pressure 127 mm[Hg] 127 mm[Hg] A THENA ([facility]) Diastolic blood pressure 81 mm[Hg] 81 mm[Hg] ULI ([facility]) Body height 62 [in_i] 62 [in_i] ULI ([facility]) Systolic blood pressure 127 mm[Hg] 127 mm[Hg] A THENA ([facility]) Diastolic blood pressure 81 mm[Hg] 81 mm[Hg] ULI ([facility]) Body height 62 [in_i] 62 [in_i] ULI ([facility]) Systolic blood pressure 127 mm[Hg] 127 mm[Hg] A THENA ([facility]) Body height 62 [in_i] 62 [in_i] ULI ([facility]) Systolic blood pressure 127 mm[Hg] 127 mm[Hg] A THENA ([facility]) Diastolic blood pressure 81 mm[Hg] 81 mm[Hg] ULI ([facility]) Diastolic blood pressure 88 mm[Hg] 88 mm[Hg] ULI ([facility]) Body height 62 [in_i] 62 [in_i] ULI ([facility]) Systolic blood pressure 145 mm[Hg] 145 mm[Hg] A THENA ([facility]) Diastolic blood pressure 88 mm[Hg] 88 mm[Hg] ULI ([facility]) Body height 62 [in_i] 62 [in_i] ULI ([facility]) Systolic blood pressure 145 mm[Hg] 145 mm[Hg] A THENA ([facility]) Diastolic blood pressure 88 mm[Hg] 88 mm[Hg] ULI ([facility]) Body height 62 [in_i] 62 [in_i] ULI ([facility]) Systolic blood pressure 145 mm[Hg] 145 mm[Hg] A THENA ([facility]) Diastolic blood pressure 88 mm[Hg] 88 mm[Hg] ULI ([facility]) Body height 62 [in_i] 62 [in_i] ULI ([facility]) Systolic blood pressure 145 mm[Hg] 145 mm[Hg] A THENA ([facility]) Diastolic blood pressure 88 mm[Hg] 88 mm[Hg] ULI ([facility]) Body height 62 [in_i] 62 [in_i] ULI ([facility]) Systolic blood pressure 145 mm[Hg] 145 mm[Hg] A THENA ([facility]) Diastolic blood pressure 88 mm[Hg] 88 mm[Hg] ULI ([facility]) Body height 62 [in_i] 62 [in_i] ULI ([facility]) Systolic blood pressure 145 mm[Hg] 145 mm[Hg] A THENA ([facility]) Diastolic blood pressure 88 mm[Hg] 88 mm[Hg] ULI ([facility]) Body height 62 [in_i] 62 [in_i] ULI ([facility]) Systolic blood pressure 145 mm[Hg] 145 mm[Hg] A THENA ([facility]) Diastolic blood pressure 88 mm[Hg] 88 mm[Hg] ULI ([facility]) Body height 62 [in_i] 62 [in_i] ULI ([facility]) Systolic blood pressure 145 mm[Hg] 145 mm[Hg] A THENA ([facility]) Diastolic blood pressure 88 mm[Hg] 88 mm[Hg] ULI ([facility]) Body height 62 [in_i] 62 [in_i] ULI ([facility]) Systolic blood pressure 145 mm[Hg] 145 mm[Hg] A THENA ([facility]) Diastolic blood pressure 88 mm[Hg] 88 mm[Hg] ULI ([facility]) Body height 62 [in_i] 62 [in_i] ULI ([facility]) Systolic blood pressure 145 mm[Hg] 145 mm[Hg] A THENA ([facility]) Diastolic blood pressure 88 mm[Hg] 88 mm[Hg] ULI ([facility]) Body height 62 [in_i] 62 [in_i] ULI ([facility]) Systolic blood pressure 145 mm[Hg] 145 mm[Hg] A THENA ([facility]) ID Date Data Source [id number] 06/09/2020 08:14:25 AM [facility] Name Value Range Interpretation Code Description Data Source(s) WEIGHT RECORDED 128 lb 128 lb [facility] Body height Measured 63 in 63 in [facility] ID Date Data Source [id number] 05/20/2020 09:21:51 AM [facility] Name Value Range Interpretation Code Description Data Source(s) WEIGHT RECORDED 128 lb 128 lb [facility] Body height Measured 63 in 63 in [facility] Patient Treatment Plan of Care Planned Activity Planned Date Details Description Data Source (s) Hydroxychloroquine Sulfate 200 MG Oral Tablet [[place]] 11/04/2020 12:00:00 AM EDT NextGen ([facility]) leflunomide 20 MG Oral Tablet [Arava] 11/04/2020 12:00:00 AM EDT NextGen ([facility]) Sulfamethoxazole 800 MG / Trimethoprim 160 MG Oral Tab let [Bactrim] 09/21/2020 12:00:00 AM EDT eCW1 ([facility]) Sulfamethoxazole 800 MG / Trimethoprim 160 MG Oral Tab let [Bactrim] 09/21/2020 12:00:00 AM EDT eCW1 ([facility]) Oxybutynin chloride 5 MG Oral Tablet 09/16/2020 12:00:00 AM EST eCW1 ([facility]) leflunomide 20 MG Oral Tablet [Arava] 09/07/2020 12:00:00 AM EST NextGen ([facility]) Ondansetron 4 MG Oral Tablet 08/16/2020 12:00:00 AM EST eCW1 ([facility]) Ketorolac Tromethamine 10 MG Oral Tablet 08/16/2020 12:00:00 AM EST eCW1 ([facility]) Tamsulosin hydrochloride 0.4 MG Oral Capsule [Flomax] 07/24/2020 12:00:00 AM EST eCW1 ([facility]) leflunomide 20 MG Oral Tablet [Arava] 07/20/2020 12:00:00 AM EST [facility]Gen ([facility]) Hydroxychloroquine Sulfate 200 MG Oral Tablet [[place]] 06/15/2020 12:00:00 AM EST [facility] ([facility]) leflunomide 20 MG Oral Tablet [Arava] 06/15/2020 12:00:00 AM EST [facility] ([facility]) Prednisone 5 MG Oral Tablet 05/28/2020 12:00:00 AM EST [facility] ([facility]) Sulfamethoxazole 800 MG / Trimethoprim 160 MG Oral Tab let [Bactrim] 05/28/2020 12:00:00 AM EST [facility] ([facility]) meloxicam 15 MG Oral Tablet 05/28/2020 12:00:00 AM EST [facility]Gen ([facility]) Hydroxychloroquine Sulfate 200 MG Oral Tablet [[place]] 04/14/2020 12:00:00 AM EDT [facility] ([facility]) leflunomide 20 MG Oral Tablet [Arava] 04/14/2020 12:00:00 AM EDT [facility]Gen ([facility]) medroxyprogesterone acetate 2.5 MG Oral Tablet 05/28/2017 12:00:00 AM [facility] tramadol hcl er 100 mg tb24 ULI ([facility]) tizanidine 4 MG Oral Tablet ULI ([facility]) Tamsulosin hydrochloride 0.4 MG Oral Capsule ULI ([facility]) Sulfamethoxazole 800 MG / Trimethoprim 160 MG Oral Tablet ULI ([facility]) smz/tmp ds tab 800-160 ATH EVELINA ([facility]) pregabalin 50 MG Oral Capsule ULI ([facility]) pregabalin 25 MG Oral Capsule ULI ([facility]) Prednisone 5 MG Oral Tablet ULI ([facility]) Oxybutynin chloride 5 MG Oral Tablet ULI ([facility]) Ondansetron 4 MG Oral Tablet ULI ([facility]) Morphine Sulfate 15 MG Extended Release Oral Tablet ULI ([facility]) methylprednisolone dose pack 4 mg tbpk ULI ([facility]) methylprednisolone 4 mg tablets in a dose pack USE DIRECTED ULI ([facility]) medroxyprogesterone acetate 2.5 mg tabs ULI ([facility]) medroxyprogesterone acetate 2.5 MG Oral Tablet ULI ([facility]) lotemax 0.5 % susp ULI ( [facility]) lisinopril 20 mg tabs ATHEN A ([facility]) Ketorolac Tromethamine 10 MG Oral Tablet ULI ([facility]) Ibuprofen 600 MG Oral Tablet ULI ([facility]) hydroxychloroquine sulfate 200 mg tabs ULI ([facility]) erythromycin 5 mg/gm oint A THENA ([facility]) epinastine hcl 0.05 % soln ULI ([facility]) Cephalexin 500 MG Oral Capsule ULI ([facility]) cephalexin 500 mg caps ATHE NA ([facility]) amlodipine besylate 10 mg tabs ULI ([facility]) tramadol hcl er 100 mg tb24 ULI ([facility]) tizanidine 4 MG Oral Tablet ULI ([facility]) Tamsulosin hydrochloride 0.4 MG Oral Capsule ULI ([facility]) Sulfamethoxazole 800 MG / Trimethoprim 160 MG Oral Tablet ULI ([facility]) smz/tmp ds tab 800-160 ATH EVELINA ([facility]) pregabalin 50 MG Oral Capsule ULI ([facility]) pregabalin 25 MG Oral Capsule ULI ([facility]) Prednisone 5 MG Oral Tablet ULI ([facility]) Oxybutynin chloride 5 MG Oral Tablet ULI ([facility]) Ondansetron 4 MG Oral Tablet ULI ([facility]) Morphine Sulfate 15 MG Extended Release Oral Tablet ULI ([facility]) methylprednisolone dose pack 4 mg tbpk ULI ([facility]) methylprednisolone 4 mg tablets in a dose pack USE DIRECTED ULI ([facility]) medroxyprogesterone acetate 2.5 mg tabs ULI ([facility]) medroxyprogesterone acetate 2.5 MG Oral Tablet ULI ([facility]) lotemax 0.5 % susp ULI ( [facility]) hydroxychloroquine sulfate 200 mg tabs ULI ([facility]) erythromycin 5 mg/gm oint A THENA ([facility]) epinastine hcl 0.05 % soln ULI ([facility]) Cephalexin 500 MG Oral Capsule ULI ([facility]) cephalexin 500 mg caps ATHE NA ([facility]) amlodipine besylate 10 mg tabs ULI ([facility]) tramadol hcl er 100 mg tb24 ULI ([facility]) tizanidine 4 MG Oral Tablet ULI ([facility]) Tamsulosin hydrochloride 0.4 MG Oral Capsule ULI ([facility]) Sulfamethoxazole 800 MG / Trimethoprim 160 MG Oral Tablet ULI ([facility]) smz/tmp ds tab 800-160 ATH EVELINA ([facility]) pregabalin 50 MG Oral Capsule ULI ([facility]) pregabalin 25 MG Oral Capsule ULI ([facility]) Prednisone 5 MG Oral Tablet ULI ([facility]) Oxybutynin chloride 5 MG Oral Tablet ULI ([facility]) Ondansetron 4 MG Oral Tablet ULI ([facility]) Morphine Sulfate 15 MG Extended Release Oral Tablet ULI ([facility]) methylprednisolone dose pack 4 mg tbpk ULI ([facility]) methylprednisolone 4 mg tablets in a dose pack USE DIRECTED ULI ([facility]) medroxyprogesterone acetate 2.5 mg tabs ULI ([facility]) medroxyprogesterone acetate 2.5 MG Oral Tablet ULI ([facility]) lotemax 0.5 % susp ULI ( [facility]) lisinopril 20 mg tabs ATHEN A ([facility]) Ketorolac Tromethamine 10 MG Oral Tablet ULI ([facility]) Ibuprofen 600 MG Oral Tablet ULI ([facility]) hydroxychloroquine sulfate 200 mg tabs ULI ([facility]) erythromycin 5 mg/gm oint A THENA ([facility]) epinastine hcl 0.05 % soln ULI ([facility]) Cephalexin 500 MG Oral Capsule ULI ([facility]) cephalexin 500 mg caps ATHE NA ([facility]) amlodipine besylate 10 mg tabs ULI ([facility]) tramadol hcl er 100 mg tb24 ULI ([facility]) tizanidine 4 MG Oral Tablet ULI ([facility]) Tamsulosin hydrochloride 0.4 MG Oral Capsule ULI ([facility]) Sulfamethoxazole 800 MG / Trimethoprim 160 MG Oral Tablet ULI ([facility]) smz/tmp ds tab 800-160 ATH EVELINA ([facility]) pregabalin 50 MG Oral Capsule ULI ([facility]) pregabalin 25 MG Oral Capsule ULI ([facility]) Prednisone 5 MG Oral Tablet ULI ([facility]) Oxybutynin chloride 5 MG Oral Tablet ULI ([facility]) Ondansetron 4 MG Oral Tablet ULI ([facility]) Morphine Sulfate 15 MG Extended Release Oral Tablet ULI ([facility]) methylprednisolone dose pack 4 mg tbpk ULI ([facility]) medroxyprogesterone acetate 2.5 mg tabs ULI ([facility]) medroxyprogesterone acetate 2.5 MG Oral Tablet ULI ([facility]) lotemax 0.5 % susp ULI ( [facility]) lisinopril 20 mg tabs ATHEN A ([facility]) Ketorolac Tromethamine 10 MG Oral Tablet ULI ([facility]) Ibuprofen 600 MG Oral Tablet ULI ([facility]) hydroxychloroquine sulfate 200 mg tabs ULI ([facility]) erythromycin 5 mg/gm oint A THENA ([facility]) epinastine hcl 0.05 % soln ULI ([facility]) Cephalexin 500 MG Oral Capsule ULI ([facility]) cephalexin 500 mg caps ATHE NA ([facility]) amlodipine besylate 10 mg tabs ULI ([facility]) erythromycin 5 mg/gm oint A THENA ([facility]) epinastine hcl 0.05 % soln LUI ([facility]) Cephalexin 500 MG Oral Capsule ULI ([facility]) cephalexin 500 mg caps ATHE NA ([facility]) amlodipine besylate 10 mg tabs ULI ([facility]) tramadol hcl er 100 mg tb24 ULI ([facility]) tizanidine 4 MG Oral Tablet ULI ([facility]) Tamsulosin hydrochloride 0.4 MG Oral Capsule ULI ([facility]) Sulfamethoxazole 800 MG / Trimethoprim 160 MG Oral Tablet ULI ([facility]) smz/tmp ds tab 800-160 ATH EVELINA ([facility]) pregabalin 50 MG Oral Capsule ULI ([facility]) pregabalin 25 MG Oral Capsule ULI ([facility]) Prednisone 5 MG Oral Tablet ULI ([facility]) Oxybutynin chloride 5 MG Oral Tablet ULI ([facility]) Ondansetron 4 MG Oral Tablet ULI ([facility]) Morphine Sulfate 15 MG Extended Release Oral Tablet ULI ([facility]) methylprednisolone dose pack 4 mg tbpk ULI ([facility]) medroxyprogesterone acetate 2.5 mg tabs ULI ([facility]) medroxyprogesterone acetate 2.5 MG Oral Tablet ULI ([facility]) lotemax 0.5 % susp ULI ( [facility]) lisinopril 20 mg tabs ATHEN A ([facility]) Ketorolac Tromethamine 10 MG Oral Tablet ULI ([facility]) hydroxychloroquine sulfate 200 mg tabs ULI ([facility]) erythromycin 5 mg/gm oint A THENA ([facility]) epinastine hcl 0.05 % soln ULI ([facility]) Cephalexin 500 MG Oral Capsule ULI ([facility]) cephalexin 500 mg caps ATHE NA ([facility]) amlodipine besylate 10 mg tabs ULI ([facility]) lisinopril 20 mg tabs ATHEN A ([facility]) Ketorolac Tromethamine 10 MG Oral Tablet ULI ([facility]) Ibuprofen 600 MG Oral Tablet ULI ([facility]) smz/tmp ds tab 800-160 ATH EVELINA ([facility]) pregabalin 50 MG Oral Capsule ULI ([facility]) pregabalin 25 MG Oral Capsule ULI ([facility]) Prednisone 5 MG Oral Tablet ULI ([facility]) methylprednisolone dose pack 4 mg tbpk ULI ([facility]) medroxyprogesterone acetate 2.5 mg tabs ULI ([facility]) medroxyprogesterone acetate 2.5 MG Oral Tablet ULI ([facility]) lotemax 0.5 % susp ULI ( [facility]) lisinopril 20 mg tabs ATHEN A ([facility]) hydroxychloroquine sulfate 200 mg tabs ULI ([facility]) erythromycin 5 mg/gm oint A THENA ([facility]) epinastine hcl 0.05 % soln ULI ([facility]) cephalexin 500 mg caps ATHE NA ([facility]) amlodipine besylate 10 mg tabs ULI ([facility]) tramadol hcl er 100 mg tb24 ULI ([facility]) tizanidine 4 MG Oral Tablet ULI ([facility]) Tamsulosin hydrochloride 0.4 MG Oral Capsule ULI ([facility]) Sulfamethoxazole 800 MG / Trimethoprim 160 MG Oral Tablet ULI ([facility]) smz/tmp ds tab 800-160 ATH EVELINA ([facility]) pregabalin 50 MG Oral Capsule ULI ([facility]) pregabalin 25 MG Oral Capsule ULI ([facility]) Prednisone 5 MG Oral Tablet ULI ([facility]) Oxybutynin chloride 5 MG Oral Tablet ULI ([facility]) Ondansetron 4 MG Oral Tablet ULI ([facility]) Morphine Sulfate 15 MG Extended Release Oral Tablet ULI ([facility]) methylprednisolone dose pack 4 mg tbpk ULI ([facility]) medroxyprogesterone acetate 2.5 mg tabs ULI ([facility]) medroxyprogesterone acetate 2.5 MG Oral Tablet ULI ([facility]) lotemax 0.5 % susp ULI ( [facility]) lisinopril 20 mg tabs ATHEN A ([facility]) Ketorolac Tromethamine 10 MG Oral Tablet ULI ([facility]) hydroxychloroquine sulfate 200 mg tabs [facility] ([facility]) tramadol hcl er 100 mg tb24 [facility] ([facility]) tizanidine 4 MG Oral Tablet [facility] ([facility]) smz/tmp ds tab 800-160 ATH EVELINA ([facility]) pregabalin 50 MG Oral Capsule [facility] ([facility]) pregabalin 25 MG Oral Capsule [facility] ([facility]) Prednisone 5 MG Oral Tablet [facility] ([facility]) methylprednisolone dose pack 4 mg tbpk [facility] ([facility]) medroxyprogesterone acetate 2.5 mg tabs [facility] ([facility]) medroxyprogesterone acetate 2.5 MG Oral Tablet [facility] ([facility]) lotemax 0.5 % susp [facility] ( [facility]) lisinopril 20 mg tabs ATHEN A ([facility]) hydroxychloroquine sulfate 200 mg tabs [facility] ([facility]) erythromycin 5 mg/gm oint A THENA ([facility]) epinastine hcl 0.05 % soln [facility] ([facility]) cephalexin 500 mg caps ATHE NA ([facility]) amlodipine besylate 10 mg tabs [facility] ([facility]) tramadol hcl er 100 mg tb24 [facility] ([facility]) tizanidine 4 MG Oral Tablet [facility] ([facility]) smz/tmp ds tab 800-160 ATH EVELINA ([facility]) pregabalin 50 MG Oral Capsule [facility] ([facility]) pregabalin 25 MG Oral Capsule [facility] ([facility]) Prednisone 5 MG Oral Tablet [facility] ([facility]) methylprednisolone dose pack 4 mg tbpk [facility] ([facility]) medroxyprogesterone acetate 2.5 mg tabs [facility] ([facility]) medroxyprogesterone acetate 2.5 MG Oral Tablet [facility] ([facility]) tramadol hcl er 100 mg tb24 [facility] ([facility]) tizanidine 4 MG Oral Tablet [facility] ([facility]) lotemax 0.5 % susp [facility] ( [facility]) lisinopril 20 mg tabs ATHEN A ([facility]) hydroxychloroquine sulfate 200 mg tabs [facility] ([facility]) erythromycin 5 mg/gm oint A THENA ([facility]) epinastine hcl 0.05 % soln [facility] ([facility]) cephalexin 500 mg caps ATHE NA ([facility]) amlodipine besylate 10 mg tabs [facility] ([facility]) tramadol hcl er 100 mg tb24 [facility] ([facility]) tizanidine 4 MG Oral Tablet [facility] ([facility]) smz/tmp ds tab 800-160 ATH EVELINA ([facility]) pregabalin 50 MG Oral Capsule [facility] ([facility]) pregabalin 25 MG Oral Capsule [facility] ([facility]) methylprednisolone dose pack 4 mg tbpk [facility] ([facility]) medroxyprogesterone acetate 2.5 mg tabs [facility] ([facility]) medroxyprogesterone acetate 2.5 MG Oral Tablet [facility] ([facility]) lotemax 0.5 % susp [facility] ( [facility]) lisinopril 20 mg tabs ATHEN A ([facility]) hydroxychloroquine sulfate 200 mg tabs [facility] ([facility]) amlodipine besylate 10 mg tabs [facility] ([facility]) erythromycin 5 mg/gm oint A THENA ([facility]) epinastine hcl 0.05 % soln [facility] ([facility]) cephalexin 500 mg caps ATHE NA ([facility])
[2021-06-04] MEDS ORDERED: NS 1,000 ML IV ONE (11:45)
[2021-06-04] MEDS ORDERED: KETOROLAC 30 MG/ML 1ML VIAL IV ONE (11:45)
[2021-06-04 11:47] LABS: ALBUMIN 4.3 GM/DL (3.2-5.2); ALT/SGPT 24 U/L (12-78); BILIRUBIN,DIRECT 0.1 MG/DL (0.0-0.2); BILIRUBIN,TOTAL 0.5 MG/DL (0.2-1.0); BLOOD UREA NITROGEN 19 MG/DL (7-18); CALCIUM LEVEL 9.3 MG/DL (8.5-10.1); CARBON DIOXIDE LEVEL 31 MEQ/L (21-32); CHLORIDE LEVEL 108 MEQ/L (98-107); CREATININE FOR GFR 0.56 MG/DL (0.55-1.30); FREE T4 0.83 NG/DL (0.76-1.46); GLOMERULAR FILTRATION RATE > 60.0 (>58); GLUCOSE, FASTING 89 MG/DL (70-100); LIPASE 81 U/L (73-393); POTASSIUM SERUM 4.1 MEQ/L (3.5-5.1); SODIUM LEVEL 143 MEQ/L (136-145); THYROID STIMULATING HORMONE 0.866 uIU/ML (0.358-3.740); TOTAL PROTEIN 8.1 GM/DL (6.4-8.2)
[2021-06-04] MEDS ORDERED: ISOVUE-370 76% 100ML VIAL As Ordered ONE (12:04)
[2021-06-04 12:12] LABS: BASO % 0.2 % (0.0-1.0); HEMATOCRIT 48.9 % (36.0-47.0); HEMOGLOBIN 15.8 g/dl (12.0-15.5); LYMPH # 1.3 10^3/uL (1.5-5.0); LYMPH % 24.6 % (24.0-44.0); MEAN CORPUSCULAR HEMOGLOBIN 28.9 pg (27.0-33.0); MEAN CORPUSCULAR HGB CONC 32.3 g/dl (32.0-36.5); MEAN CORPUSCULAR VOLUME 89.6 fl (80.0-96.0); MONO # 0.3 10^3/uL (0.0-0.8); NEUTROPHILS # 3.6 10^3/uL (1.5-8.5); NEUTROPHILS % 68.8 % (36.0-66.0); PLATELET COUNT, AUTOMATED 183 10^3/uL (150-450); RED BLOOD COUNT 5.46 10^6/uL (4.00-5.40); WHITE BLOOD COUNT 5.2 10^3/uL (4.0-10.0)
--- NOTE | 2021-06-04 12:29 | REP ---
INDICATION: pleural effusion COMPARISON: 03/03/2012 TECHNIQUE: Axial contrast enhanced images from the thoracic inlet to the upper abdomen using pulmonary embolus technique with multiplanar re-formations. 75 ml Isovue 370 intravenous contrast material administered without complication. This CT examination was performed using the following dose reduction techniques: Automated exposure control, adjustment of mA and/or kv according to the patient's size, and use of iterative reconstruction technique. FINDINGS: Satisfactory enhancement of the pulmonary vasculature is achieved and no filling defects are identified to suggest pulmonary embolus. Further evaluation of the mediastinum demonstrates normal thoracic aorta, heart and pericardium. The bilateral lung ott are well aerated and clear without consolidation, pleural effusion or pneumothorax. Tracheobronchial tree is patent. No nodule or mass lesion is identified. No adenopathy noted. Surrounding musculoskeletal structures intact The suspected pleural effusion based on chest x-ray likely represented chronic elevation to the right hemidiaphragm and subtle chronic costophrenic blunting. IMPRESSION: No evidence for pulmonary embolus. No acute mediastinal or pleural parenchymal process. There is no evidence for pleural effusion. <Electronically signed by Aquilino Arango > 06/04/21 [id number]
[2021-06-04 13:43] LABS: RSV AMPLIFICATION NEGATIVE (NEGATIVE)
[2021-06-04 13:45] VITALS: BP 150/71
--- NOTE | 2021-06-05 10:24 | ECGEPIP ---
[facility] - ED Test Date: 2021-06-04 Pat Name: JOSEFA BOLDNE Department: Room: - Gender: Female [employer]: DEB : 1970 Requested By: Sumit Arias Order Number: [id number] Reading MD: Patti Andujar Measurements Intervals [place] Rate: 57 P: 71 PA: 134 QRS: 30 QRSD: 78 T: 56 QT: 422 QTc: 410 Interpretive Statements Sinus bradycardia Anterior infarct , age undetermined NSTTW abnormalities No prior Electronically Signed on 06-05-2021 10:24:29 EST by Patti Andujar
--- NOTE | 2021-06-07 13:27 | ED PDOC ---
Post-Departure Follow-Up cxr faxed to [facility] for fu Kary Rosado MD Jun 07, 2021 13:27
== END 2021-06-04 14:07 | disposition home or self-care (01) ==
LOC: M ED 08:00
DX: I10 Essential (primary) hypertension (principal); E86.0 Dehydration; R51.9 Headache, unspecified; I25.2 Old myocardial infarction; R94.31 Abnormal electrocardiogram [ECG] [EKG]; E87.8 Other disorders of electrolyte and fluid balance, not elsewhere classified; I25.10 Atherosclerotic heart disease of native coronary artery without angina pectoris; Z79.890 Hormone replacement therapy; Z79.899 Other long term (current) drug therapy; Z88.1 Allergy status to other antibiotic agents; Z88.8 Allergy status to other drugs, medicaments and biological substances; Z87.442 Personal history of urinary calculi; Z98.890 Other specified postprocedural states
CPT/HCPCS: 36415; 71046; 71275; 80048; 80076; 82550; 82553; 83690; 83880; 84439; 84443; 84484; 85025; 85652; 86140; 87631; 93005; 96374; 99284; J1885; Q9967

== ENCOUNTER 2021-11-29 07:36 | Emergency (ER) | payer MEDICARE, MEDICAID ==
[~2021-11-29] VITALS: Ht 162.6 cm; Wt 60.4 kg
[~2021-11-29 07:36] MED LIST changes: -CEFD1CAP8 PO; +CEFD300C41 PO; +ESTR2TAB3
[2021-11-29] MEDS ORDERED: TRAM50TA2 (07:45)
[2021-11-29] MEDS ORDERED: ONDANSETRON 4MG/2ML VIAL IV ONE (08:00)
[2021-11-29] MEDS ORDERED: KETOROLAC 30 MG/ML 1ML VIAL IV ONE (08:00)
[2021-11-29 08:34] LABS: BASO % 0.8 % (0.0-1.0); EOS % 0.8 % (0.0-3.0); HEMATOCRIT 43.7 % (36.0-47.0); HEMOGLOBIN 14.3 g/dl (12.0-15.5); LYMPH # 0.7 10^3/uL (1.5-5.0); LYMPH % 27.2 % (24.0-44.0); MEAN CORPUSCULAR HEMOGLOBIN 29.2 pg (27.0-33.0); MEAN CORPUSCULAR HGB CONC 32.7 g/dl (32.0-36.5); MEAN CORPUSCULAR VOLUME 89.4 fl (80.0-96.0); MONO # 0.3 10^3/uL (0.0-0.8); MONO % 11.8 % (2.0-8.0); NEUTROPHILS # 1.5 10^3/uL (1.5-8.5); PLATELET COUNT, AUTOMATED 134 10^3/uL (150-450); RED BLOOD COUNT 4.89 10^6/uL (4.00-5.40); WHITE BLOOD COUNT 2.5 10^3/uL (4.0-10.0)
[2021-11-29 09:22] LABS: ALBUMIN 3.7 GM/DL (3.2-5.2); ALT/SGPT 22 U/L (12-78); BILIRUBIN,DIRECT < 0.1 MG/DL (0.0-0.2); BILIRUBIN,TOTAL 0.4 MG/DL (0.2-1.0); BLOOD UREA NITROGEN 14 MG/DL (7-18); CALCIUM LEVEL 9.4 MG/DL (8.5-10.1); CARBON DIOXIDE LEVEL 27 MEQ/L (21-32); CHLORIDE LEVEL 110 MEQ/L (98-107); CREATININE FOR GFR 0.57 MG/DL (0.55-1.30); GLOMERULAR FILTRATION RATE > 60.0 (>58); GLUCOSE, FASTING 89 MG/DL (70-100); LIPASE 115 U/L (73-393); POTASSIUM SERUM 3.7 MEQ/L (3.5-5.1); SODIUM LEVEL 143 MEQ/L (136-145); TOTAL PROTEIN 7.5 GM/DL (6.4-8.2)
[2021-11-29 11:10] VITALS: BP 131/74
== END 2021-11-29 11:10 | disposition home or self-care (01) ==
LOC: M ED 07:36
DX: R10.9 Unspecified abdominal pain (principal); I10 Essential (primary) hypertension; M54.50 Low back pain, unspecified; Z87.442 Personal history of urinary calculi; Z79.890 Hormone replacement therapy; Z79.899 Other long term (current) drug therapy; Z88.1 Allergy status to other antibiotic agents; Z88.8 Allergy status to other drugs, medicaments and biological substances
CPT/HCPCS: 74176; 80048; 80076; 81001; 83690; 85025; 96374; 96375; 99284; J1885; J2405

== ENCOUNTER → 2021-12-22 | Outpatient (CLI) | payer MEDICARE, MEDICAID ==
[~2021-12-22] MED LIST changes: +TRAM50TA2
[2021-12-22 17:05] LABS: BASO % 0.3 % (0.0-1.0); EOS % 0.6 % (0.0-3.0); HEMATOCRIT 41.8 % (36.0-47.0); HEMOGLOBIN 13.5 g/dl (12.0-15.5); LYMPH # 1.1 10^3/uL (1.5-5.0); LYMPH % 32.4 % (24.0-44.0); MEAN CORPUSCULAR HEMOGLOBIN 28.4 pg (27.0-33.0); MEAN CORPUSCULAR HGB CONC 32.3 g/dl (32.0-36.5); MEAN CORPUSCULAR VOLUME 87.8 fl (80.0-96.0); MONO # 0.5 10^3/uL (0.0-0.8); MONO % 12.9 % (2.0-8.0); NEUTROPHILS # 1.9 10^3/uL (1.5-8.5); NEUTROPHILS % 53.5 % (36.0-66.0); PLATELET COUNT, AUTOMATED 165 10^3/uL (150-450); RED BLOOD COUNT 4.76 10^6/uL (4.00-5.40); WHITE BLOOD COUNT 3.5 10^3/uL (4.0-10.0)
[2021-12-22 17:37] LABS: ALBUMIN 3.4 GM/DL (3.2-5.2); ALT/SGPT 23 U/L (12-78); BILIRUBIN,TOTAL 0.3 MG/DL (0.2-1.0); BLOOD UREA NITROGEN 19 MG/DL (7-18); CALCIUM LEVEL 8.7 MG/DL (8.5-10.1); CARBON DIOXIDE LEVEL 27 MEQ/L (21-32); CHLORIDE LEVEL 111 MEQ/L (98-107); CREATININE FOR GFR 0.68 MG/DL (0.55-1.30); FREE T4 0.86 NG/DL (0.76-1.46); GLOMERULAR FILTRATION RATE > 60.0 (>58); GLUCOSE, FASTING 77 MG/DL (70-100); MAGNESIUM LEVEL 1.7 MG/DL (1.8-2.4); POTASSIUM SERUM 4.1 MEQ/L (3.5-5.1); SODIUM LEVEL 143 MEQ/L (136-145); TOTAL PROTEIN 6.7 GM/DL (6.4-8.2)
== END ==
LOC: M ADAMS 13:00
PROVIDERS: ATTEND Nurse Practitioner Family
DX: R60.0 Localized edema (principal)

== ENCOUNTER → 2022-01-14 | Outpatient (CLI) | payer MEDICARE, MEDICAID | LOC: M PLARAD 13:37 | PROVIDERS: ATTEND Nurse Practitioner Family | DX: M54.16 Radiculopathy, lumbar region (principal); Z98.890 Other specified postprocedural states ==

== ENCOUNTER → 2022-04-14 | Outpatient (CLI) | payer MEDICARE, MEDICAID ==
[2022-04-14 16:36] LABS: BLOOD UREA NITROGEN 18 MG/DL (7-18); CALCIUM LEVEL 8.7 MG/DL (8.5-10.1); CARBON DIOXIDE LEVEL 28 MEQ/L (21-32); CHLORIDE LEVEL 109 MEQ/L (98-107); CREATININE FOR GFR 0.67 MG/DL (0.55-1.30); GLOMERULAR FILTRATION RATE > 60.0 (>58); GLUCOSE, FASTING 86 MG/DL (70-100); POTASSIUM SERUM 4.1 MEQ/L (3.5-5.1); SODIUM LEVEL 141 MEQ/L (136-145)
== END ==
LOC: M LABDRWAD 13:32
PROVIDERS: ATTEND Physician Assistant Medical
DX: N18.2 Chronic kidney disease, stage 2 (mild) (principal)

== ENCOUNTER → 2022-05-05 | Outpatient (CLI) | payer MEDICARE, MEDICAID | LOC: M ADAMS 09:26 | PROVIDERS: ATTEND Registered Nurse | DX: R31.9 Hematuria, unspecified (principal) ==

== ENCOUNTER → 2022-05-31 | Outpatient (REF) | payer MEDICARE, MEDICAID ==
[2022-05-31 13:26] LABS: BASO % 0.7 % (0.0-1.0); EOS % 1.4 % (0.0-3.0); HEMATOCRIT 40.8 % (36.0-47.0); HEMOGLOBIN 12.8 g/dl (12.0-15.5); LYMPH % 34.7 % (24.0-44.0); MEAN CORPUSCULAR HEMOGLOBIN 28.3 pg (27.0-33.0); MEAN CORPUSCULAR HGB CONC 31.4 g/dl (32.0-36.5); MEAN CORPUSCULAR VOLUME 90.3 fl (80.0-96.0); MONO # 0.6 10^3/uL (0.0-0.8); MONO % 19.8 % (2.0-8.0); NEUTROPHILS # 1.2 10^3/uL (1.5-8.5); NEUTROPHILS % 43.1 % (36.0-66.0); PLATELET COUNT, AUTOMATED 153 10^3/uL (150-450); RED BLOOD COUNT 4.52 10^6/uL (4.00-5.40); WHITE BLOOD COUNT 2.9 10^3/uL (4.0-10.0)
== END ==
LOC: M LABDRWAD 13:05
PROVIDERS: ATTEND Physician Assistant
DX: Z79.899 Other long term (current) drug therapy (principal)

== ENCOUNTER → 2022-07-14 | Outpatient (REF) | payer MEDICARE, MEDICAID ==
[2022-07-14 13:48] LABS: ALBUMIN 3.5 G/DL (3.2-5.2); ALKALINE PHOSPHATASE 70 U/L (46-116); ALT/SGPT 13 U/L (7.0-40); AST/SGOT 20 U/L (<34); BILIRUBIN,TOTAL 0.3 MG/DL (0.3-1.2); BLOOD UREA NITROGEN 23 MG/DL (9-23); CARBON DIOXIDE LEVEL 30 MMOL/L (20-31); CHLORIDE LEVEL 105 MMOL/L (98-107); CHOLESTEROL LEVEL 201 MG/DL (<200); CHOLESTEROL RISK RATIO 3.38 (<5); CREATININE FOR GFR 0.64 MG/DL (0.55-1.30); GLOMERULAR FILTRATION RATE > 60.0 (>58); GLUCOSE, FASTING 71 MG/DL (60-100); HDL CHOLESTEROL 59.4 MG/DL (>40); LDL CHOLESTEROL 120.8 MG/DL (<100); NON-HDL-C 142 MG/DL; POTASSIUM SERUM 4.1 MMOL/L (3.5-5.1); SODIUM LEVEL 142 MMOL/L (136-145); TOTAL PROTEIN 6.3 G/DL (5.7-8.2); TRIGLYCERIDES LEVEL 104 MG/DL (<150)
== END ==
LOC: M LABDRWAD 12:32
PROVIDERS: ATTEND Nurse Practitioner Family
DX: I10 Essential (primary) hypertension (principal); E78.2 Mixed hyperlipidemia

== ENCOUNTER → 2022-09-02 | Outpatient (REF) | payer MEDICARE, MEDICAID ==
[2022-09-02 13:44] LABS: BASO % 0.6 % (0.0-1.0); HEMATOCRIT 42.4 % (36.0-47.0); HEMOGLOBIN 13.9 g/dl (12.0-15.5); LYMPH # 0.7 10^3/uL (1.5-5.0); LYMPH % 21.1 % (24.0-44.0); MEAN CORPUSCULAR HEMOGLOBIN 29.3 pg (27.0-33.0); MEAN CORPUSCULAR HGB CONC 32.8 g/dl (32.0-36.5); MEAN CORPUSCULAR VOLUME 89.3 fl (80.0-96.0); MONO # 0.5 10^3/uL (0.0-0.8); MONO % 14.1 % (2.0-8.0); NEUTROPHILS # 2.2 10^3/uL (1.5-8.5); NEUTROPHILS % 63.9 % (36.0-66.0); PLATELET COUNT, AUTOMATED 150 10^3/uL (150-450); RED BLOOD COUNT 4.75 10^6/uL (4.00-5.40); WHITE BLOOD COUNT 3.4 10^3/uL (4.0-10.0)
[2022-09-02 14:14] LABS: LIPASE 32 U/L (12-53)
[2022-09-02 14:19] LABS: ALBUMIN 3.9 G/DL (3.2-5.2); ALKALINE PHOSPHATASE 78 U/L (46-116); ALT/SGPT 18 U/L (7.0-40); AST/SGOT 27 U/L (<34); BILIRUBIN,TOTAL 0.8 MG/DL (0.3-1.2); BLOOD UREA NITROGEN 16 MG/DL (9-23); CALCIUM LEVEL 9.5 MG/DL (8.5-10.1); CARBON DIOXIDE LEVEL 29 MMOL/L (20-31); CHLORIDE LEVEL 103 MMOL/L (98-107); CREATININE FOR GFR 0.74 MG/DL (0.55-1.30); GLOMERULAR FILTRATION RATE > 60.0 (>58); GLUCOSE, FASTING 81 MG/DL (60-100); POTASSIUM SERUM 3.8 MMOL/L (3.5-5.1); SODIUM LEVEL 138 MMOL/L (136-145)
== END ==
LOC: M LABDRWAD 12:44
PROVIDERS: ATTEND Nurse Practitioner Family
DX: R10.84 Generalized abdominal pain (principal)

== ENCOUNTER → 2023-04-11 | Outpatient (REF) | payer MEDICARE, MEDICAID ==
[~2023-04-11] MED LIST changes: -HYDR200T3 PO; +HYDR200T46 PO
== END ==
LOC: M LAB REF 16:45
PROVIDERS: ATTEND Registered Nurse
DX: M54.50 Low back pain, unspecified (principal); R31.9 Hematuria, unspecified; N20.0 Calculus of kidney

== ENCOUNTER → 2023-05-17 | Outpatient (REF) | payer MEDICARE, MEDICAID ==
[~2023-05-17] MED LIST changes: -CEFD300C41 PO; +CEFD300C42 PO; -OXYB5TAB10 PO; +OXYB5TAB11 PO
[2023-05-17 17:53] LABS: APPEARANCE, URINE CLEAR (CLEAR); BACTERIA, URINE AUTO NEGATIVE (NEGATIVE); BILIRUBIN, URINE AUTO NEGATIVE (NEGATIVE); BLOOD, URINE BLOOD NEGATIVE (NEGATIVE); COLOR, URINE YELLOW (YELLOW); GLUCOSE, URINE (UA) AUTO NEGATIVE (NEGATIVE); KETONE, URINE AUTO NEGATIVE (NEGATIVE); LEUKOCYTE ESTERASE, URINE AUTO 1+ (NEGATIVE); MUCUS, URINE SMALL (NEGATIVE); NITRITE, URINE AUTO NEGATIVE (NEGATIVE); PROTEIN, URINE AUTO NEGATIVE (NEGATIVE); RBC, URINE AUTO 0 /HPF (0-3); SPECIFIC GRAVITY URINE AUTO 1.013 (1.002-1.035); SQUAMOUS EPITHELIAL CELL UR AU 0 /HPF (0-6); UROBILINOGEN, URINE AUTO 0.2 mg/dL (0.0-2.0); WBC, URINE AUTO 7 /HPF (0-3)
== END ==
LOC: M LABDRWAD 16:40
PROVIDERS: ATTEND Internal Medicine Rheumatology
DX: N39.0 Urinary tract infection, site not specified (principal)

== ENCOUNTER → 2023-06-29 | Outpatient (REF) | payer MEDICARE, MEDICAID ==
[~2023-06-29] MED LIST changes: +CEFD1CAP9 PO; -CEFD300C42 PO
[2023-06-29 14:28] LABS: BASO % 0.3 % (0.0-1.0); EOS % 0.3 % (0.0-3.0); HEMATOCRIT 38.8 % (36.0-47.0); HEMOGLOBIN 12.2 g/dl (12.0-15.5); LYMPH # 0.4 10^3/uL (1.5-5.0); MEAN CORPUSCULAR HEMOGLOBIN 29.5 pg (27.0-33.0); MEAN CORPUSCULAR HGB CONC 31.4 g/dl (32.0-36.5); MEAN CORPUSCULAR VOLUME 93.7 fl (80.0-96.0); MONO # 0.3 10^3/uL (0.0-0.8); MONO % 9.5 % (2.0-8.0); NEUTROPHILS # 2.4 10^3/uL (1.5-8.5); NEUTROPHILS % 75.6 % (36.0-66.0); PLATELET COUNT, AUTOMATED 161 10^3/uL (150-450); RED BLOOD COUNT 4.14 10^6/uL (4.00-5.40); WHITE BLOOD COUNT 3.2 10^3/uL (4.0-10.0)
[2023-06-29 14:58] LABS: FERRITIN 247.7 NG/ML (7.3-270.7); FREE T4 0.77 NG/DL (0.89-1.76)
[2023-06-29 14:59] LABS: ALBUMIN 3.7 G/DL (3.2-5.2); ALKALINE PHOSPHATASE 82 U/L (46-116); ALT/SGPT 13 U/L (7.0-40); AST/SGOT 19 U/L (<34); BILIRUBIN,TOTAL 0.3 MG/DL (0.3-1.2); BLOOD UREA NITROGEN 27 MG/DL (9-23); CALCIUM LEVEL 9.8 MG/DL (8.5-10.1); CARBON DIOXIDE LEVEL 26 MMOL/L (20-31); CHLORIDE LEVEL 111 MMOL/L (98-107); CHOLESTEROL LEVEL 233 MG/DL (<200); CHOLESTEROL RISK RATIO 3.97 (<5); CREATININE FOR GFR 0.74 MG/DL (0.55-1.30); GLOMERULAR FILTRATION RATE > 60.0 (>51); GLUCOSE, FASTING 79 MG/DL (60-100); HDL CHOLESTEROL 58.6 MG/DL (>40); IRON (FE) 75 UG/DL (50-170); NON-HDL-C 174.4 MG/DL; PERCENT SATURATION 25.2 % (13.2-45.0); POTASSIUM SERUM 4.4 MMOL/L (3.5-5.1); SODIUM LEVEL 142 MMOL/L (136-145); THYROID STIMULATING HORMONE 0.928 uIU/ML (0.55-4.78); TOTAL IRON BINDING CAPACITY 298 UG/DL (250-425); TOTAL PROTEIN 6.5 G/DL (5.7-8.2); TRIGLYCERIDES LEVEL 97 MG/DL (<150)
[2023-06-29 15:01] LABS: TOTAL 25(OH) VITAMIN D 52.3 NG/ML (20.0-100.0)
== END ==
LOC: M LABDRWAD 12:51
PROVIDERS: ATTEND Nurse Practitioner Family
DX: I10 Essential (primary) hypertension (principal); E78.2 Mixed hyperlipidemia; R53.83 Other fatigue; Z79.899 Other long term (current) drug therapy; Z86.39 Personal history of other endocrine, nutritional and metabolic disease

== ENCOUNTER → 2023-08-21 | Outpatient (REF) | payer MEDICARE, MEDICAID ==
[~2023-08-21] MED LIST changes: -LEFL1TAB4 PO; +LEFL20TA15 PO
== END ==
LOC: M LAB REF 17:22
PROVIDERS: ATTEND Nurse Practitioner Family
DX: N39.0 Urinary tract infection, site not specified (principal)

== ENCOUNTER 2023-09-13 10:23 | Day surgery (SDC) | payer MEDICAID, MEDICARE ==
[~2023-09-13] VITALS: Ht 162.6 cm; Wt 55.7 kg
[2023-09-13] MEDS: NS 1,000 ML IV ONE (06:00)
[~2023-09-13 10:23] MED LIST changes: +BACL10TA2 PO; +DULO1CAP6 PO; +HYDR12.55 PO; +LIDOCAINE 2% 100MG/5ML SDV (FOR ANES.) As Ordered ONE; -OXYB5TAB11 PO; +OXYB5TAB14 PO; -TRAM50TA2; +propofoL 200 MG/20 ML VIAL As Ordered ONE
[2023-09-13 11:34] VITALS: TEMP 98.7
[2023-09-13 11:56] VITALS: BP 122/56; O2SAT 95
== END 2023-09-13 12:05 | disposition home or self-care (01) ==
LOC: M OPP 10:23
PROVIDERS: ATTEND Surgery
DX: Z12.11 Encounter for screening for malignant neoplasm of colon (principal); Z12.12 Encounter for screening for malignant neoplasm of rectum; K64.4 Residual hemorrhoidal skin tags; K29.51 Unspecified chronic gastritis with bleeding; K25.9 Gastric ulcer, unspecified as acute or chronic, without hemorrhage or perforation; R13.12 Dysphagia, oropharyngeal phase; Z90.49 Acquired absence of other specified parts of digestive tract; I10 Essential (primary) hypertension; E78.00 Pure hypercholesterolemia, unspecified; M32.9 Systemic lupus erythematosus, unspecified; I73.00 Raynaud's syndrome without gangrene; Z79.899 Other long term (current) drug therapy; Z79.1 Long term (current) use of non-steroidal anti-inflammatories (NSAID); Z88.0 Allergy status to penicillin; Z88.8 Allergy status to other drugs, medicaments and biological substances; Z90.710 Acquired absence of both cervix and uterus; Z72.0 Tobacco use
CPT/HCPCS: 43239; 88305; G0121

== ENCOUNTER 2023-11-09 08:50 | Emergency (ER) | payer MEDICAID, MEDICARE ==
[~2023-11-09] VITALS: Ht 160 cm; Wt 50.0 kg
[~2023-11-09 08:50] MED LIST changes: -DIAZ1CON PO; +DIAZ5ORA PO; -LIDOCAINE 2% 100MG/5ML SDV (FOR ANES.) As Ordered ONE; -propofoL 200 MG/20 ML VIAL As Ordered ONE
[2023-11-09] MEDS ORDERED: PLAQ200T4 PO (08:59)
[2023-11-09] MEDS: methylPREDNISolone 125MG 2ML VIAL IV ONE (10:27)
[2023-11-09] MEDS: ONDANSETRON 4MG 2ML VIAL IV ONE (10:27)
[2023-11-09] MEDS: NS 1,000 ML IV ONE (10:30)
[2023-11-09 10:50] LABS: HEMATOCRIT 38.7 % (36.0-47.0); HEMOGLOBIN 12.6 g/dl (12.0-15.5); MEAN CORPUSCULAR HEMOGLOBIN 29.4 pg (27.0-33.0); MEAN CORPUSCULAR HGB CONC 32.6 g/dl (32.0-36.5); MEAN CORPUSCULAR VOLUME 90.2 fl (80.0-96.0); PLATELET COUNT, AUTOMATED 121 10^3/uL (150-450); RED BLOOD COUNT 4.29 10^6/uL (4.00-5.40); WHITE BLOOD COUNT 7.8 10^3/uL (4.0-10.0)
[2023-11-09 11:19] LABS: ERYTHROCYTE SEDIMENTATION RATE 92 mm/hr (0-30)
[2023-11-09 11:23] LABS: LYMPHOCYTES 6 % (16-44); METAMYELOCYTES 1 % (0-0); MONOCYTES 8 % (0-5); NEUTROPHILS 82 % (28-66)
[2023-11-09 11:24] LABS: PLATELET ESTIMATE DECREASED (NORMAL)
[2023-11-09 11:33] LABS: LIPASE 24 U/L (12-53)
[2023-11-09 11:35] LABS: ALKALINE PHOSPHATASE 73 U/L (46-116); ALT/SGPT 10 U/L (7.0-40); AST/SGOT 18 U/L (<34); BILIRUBIN,DIRECT 0.2 MG/DL (<0.4); BILIRUBIN,TOTAL 0.5 MG/DL (0.3-1.2); BLOOD UREA NITROGEN 20 MG/DL (9-23); CALCIUM LEVEL 8.5 MG/DL (8.5-10.1); CARBON DIOXIDE LEVEL 29 MMOL/L (20-31); CHLORIDE LEVEL 102 MMOL/L (98-107); CREATININE FOR GFR 0.71 MG/DL (0.55-1.30); GLOMERULAR FILTRATION RATE > 60.0 (>51); GLUCOSE, FASTING 88 MG/DL (60-100); POTASSIUM SERUM 3.6 MMOL/L (3.5-5.1); SODIUM LEVEL 139 MMOL/L (136-145); TOTAL PROTEIN 6.7 G/DL (5.7-8.2)
[2023-11-09] MEDS ORDERED: ISOVUE-370 76% 100ML VIAL As Ordered ONE (11:41)
[2023-11-09] MEDS: METOCLOPRAMIDE INJ 10MG/2ML VIAL IV ONE (13:18)
[2023-11-09] MEDS: NS 500 ML IV ONE (13:18)
[2023-11-09] MEDS ORDERED: ONDANSETRON 4MG 2ML VIAL IV ONE (14:30)
[2023-11-09] MEDS: ONDANSETRON 4MG ORAL DISINTEGRATING TAB PO ONE (14:49)
[2023-11-09] MEDS ORDERED: PRED20TA PO (15:33)
[2023-11-09] MEDS ORDERED: ONDA4TAB6 PO (15:36)
[2023-11-09 15:40] VITALS: BP 109/88; TEMP 98.4; O2SAT 95
== END 2023-11-09 16:06 | disposition home or self-care (01) ==
LOC: M ED 08:50
DX: M32.9 Systemic lupus erythematosus, unspecified (principal); R93.422 Abnormal radiologic findings on diagnostic imaging of left kidney; I10 Essential (primary) hypertension; F17.200 Nicotine dependence, unspecified, uncomplicated; Z79.899 Other long term (current) drug therapy; Z88.1 Allergy status to other antibiotic agents; Z88.8 Allergy status to other drugs, medicaments and biological substances
CPT/HCPCS: 71045; 74177; 80048; 80076; 81001; 83605; 83690; 85025; 85652; 86140; 87040; 96361; 96374; 96375; 99284; J2405; J2765; J2919; Q9967

== ENCOUNTER → 2023-12-08 | Outpatient (CLI) | payer MEDICARE ==
[~2023-12-08] MED LIST changes: +ONDA4TAB6 PO; +PLAQ200T4 PO; +PRED20TA PO
== END ==
LOC: M RAD 08:10
PROVIDERS: ATTEND Nurse Practitioner Family
DX: R93.2 Abnormal findings on diagnostic imaging of liver and biliary tract (principal); R93.422 Abnormal radiologic findings on diagnostic imaging of left kidney; K76.89 Other specified diseases of liver; N28.89 Other specified disorders of kidney and ureter

== ENCOUNTER → 2024-01-04 | Outpatient (CLI) | payer MEDICARE ==
[~2024-01-04] MED LIST changes: +ONDA-282 PO; -ONDA4TAB6 PO
== END ==
LOC: M PLARAD 08:52
PROVIDERS: ATTEND Nurse Practitioner Family
DX: Z53.9 Procedure and treatment not carried out, unspecified reason (principal)

== ENCOUNTER → 2024-03-05 | Outpatient (REF) | payer MEDICARE, MEDICAID ==
[2024-03-05 13:31] LABS: BLOOD UREA NITROGEN 22 MG/DL (9-23); CREATININE FOR GFR 0.72 MG/DL (0.55-1.30); GLOMERULAR FILTRATION RATE > 60.0 (>51)
== END ==
LOC: M LABDRWAD 12:27
PROVIDERS: ATTEND Nurse Practitioner Family
DX: R93.422 Abnormal radiologic findings on diagnostic imaging of left kidney (principal)

== ENCOUNTER → 2024-03-07 | Outpatient (CLI) | payer MEDICARE ==
[~2024-03-07] MED LIST changes: +ISOVUE-370 76% 100ML VIAL As Ordered ONE
== END ==
LOC: M RAD 15:52
PROVIDERS: ATTEND Nurse Practitioner Family
DX: R93.422 Abnormal radiologic findings on diagnostic imaging of left kidney (principal)
CPT/HCPCS: 74170; Q9967

== ENCOUNTER → 2024-03-21 | Outpatient (REF) | payer MEDICARE, MEDICAID ==
[~2024-03-21] MED LIST changes: -ISOVUE-370 76% 100ML VIAL As Ordered ONE
== END ==
LOC: M LAB REF 17:10
PROVIDERS: ATTEND Nurse Practitioner Family
DX: N10 Acute pyelonephritis (principal)

== ENCOUNTER → 2024-04-13 | Outpatient (REF) | payer MEDICARE ==
[~2024-04-13] MED LIST changes: +ALEN70TA82 PO; +CLAR5TAB7 PO; -ESTR2TAB3; +ESTR2TAB3 PO; +FAMO40TA3 PO; +IBUP80TA PO; +NIFE1TAB52 PO; +OMEP40CA5 PO; +POTA540T PO; +PRED1TABL PO; +THERTAB52 PO
== END ==
LOC: M LAB REF 21:58
PROVIDERS: ATTEND Physician Assistant Medical
DX: M54.50 Low back pain, unspecified (principal); Z79.899 Other long term (current) drug therapy

== ENCOUNTER 2024-04-24 09:33 | Day surgery (SDC) | payer MEDICAID, MEDICARE ==
[~2024-04-24] VITALS: Ht 162.6 cm; Wt 53.3 kg
[~2024-04-24 09:33] MED LIST changes: +NS 250 ML IV ONE
[2024-04-24] MEDS ORDERED: LIDOCAINE 2% 100MG/5ML SDV (FOR ANES.) As Ordered ONE (10:57)
[2024-04-24] MEDS ORDERED: propofoL 200 MG/20 ML VIAL As Ordered ONE (10:57)
[2024-04-24] MEDS ORDERED: fentaNYL 100 MCG/2 ML INJECTION As Ordered ONE (10:58)
[2024-04-24 11:13] VITALS: TEMP 98.2
[2024-04-24 11:30] VITALS: BP 114/65; O2SAT 99
== END 2024-04-24 11:30 | disposition home or self-care (01) ==
LOC: M OPP 09:33
PROVIDERS: ATTEND Surgery
DX: K29.50 Unspecified chronic gastritis without bleeding (principal); K30 Functional dyspepsia; Z90.49 Acquired absence of other specified parts of digestive tract; Z87.19 Personal history of other diseases of the digestive system; Z87.11 Personal history of peptic ulcer disease; I10 Essential (primary) hypertension; E78.00 Pure hypercholesterolemia, unspecified; R00.2 Palpitations; M32.9 Systemic lupus erythematosus, unspecified; Z79.899 Other long term (current) drug therapy; I73.00 Raynaud's syndrome without gangrene; Z90.710 Acquired absence of both cervix and uterus; Z88.1 Allergy status to other antibiotic agents; Z88.8 Allergy status to other drugs, medicaments and biological substances; Z80.42 Family history of malignant neoplasm of prostate
CPT/HCPCS: 43239; 88305; J3010

== ENCOUNTER → 2024-05-21 | Outpatient (REF) | payer MEDICARE ==
[~2024-05-21] MED LIST changes: +ACET-907 PO; +BACTDSTA; -CYCL5TAB PO; +CYCL5TAB4 PO; -NS 250 ML IV ONE
== END ==
LOC: M LAB REF 17:05
PROVIDERS: ATTEND Family Medicine
DX: N39.0 Urinary tract infection, site not specified (principal)

== ENCOUNTER 2024-05-22 10:14 | Emergency (ER) | payer MEDICARE ==
[~2024-05-22] VITALS: Ht 162.6 cm; Wt 51.8 kg
[~2024-05-22 10:14] MED LIST changes: -ACET-907 PO; -BACTDSTA
[2024-05-22] MEDS ORDERED: BACTDSTA (10:25)
[2024-05-22] MEDS ORDERED: ONDANSETRON 4MG TAB PO ONE (11:30)
[2024-05-22] MEDS: ONDANSETRON 4MG ORAL DISINTEGRATING TAB PO ONE (11:37)
[2024-05-22] MEDS ORDERED: ACET-907 PO (11:49)
[2024-05-22 12:59] VITALS: O2SAT 99
[2024-05-22 13:00] VITALS: BP 145/82
[2024-05-22 13:09] VITALS: TEMP 96.1
== END 2024-05-22 13:10 | disposition home or self-care (01) ==
LOC: M ED 10:14
DX: U07.1 COVID-19 (principal); M32.9 Systemic lupus erythematosus, unspecified; Z79.899 Other long term (current) drug therapy; Z88.1 Allergy status to other antibiotic agents; Z88.8 Allergy status to other drugs, medicaments and biological substances

== ENCOUNTER → 2024-05-30 | Outpatient (CLI) | payer MEDICARE, MEDICAID ==
[~2024-05-30] MED LIST changes: +ACET-907 PO; +BACTDSTA
== END ==
LOC: M SOG 07:49
PROVIDERS: ATTEND Orthopaedic Surgery
DX: M19.011 Primary osteoarthritis, right shoulder (principal); M19.012 Primary osteoarthritis, left shoulder

== ENCOUNTER → 2024-06-24 | Outpatient (CLI) | payer MEDICARE ==
[~2024-06-24] MED LIST changes: -POTA540T PO; +POTA540T5 PO
[2024-06-24 11:26] LABS: ALBUMIN 4.1 G/DL (3.2-5.2); BILIRUBIN,TOTAL 0.3 MG/DL (0.3-1.2); CHOLESTEROL RISK RATIO 4.42 (<5); CREATININE FOR GFR 1.56 MG/DL (0.55-1.30); GLOMERULAR FILTRATION RATE 37.2 (>51); HDL CHOLESTEROL 60.8 MG/DL (>40); LDL CHOLESTEROL 177.2 MG/DL (<100); NON-HDL-C 208.2 MG/DL; POTASSIUM SERUM 4.7 MMOL/L (3.5-5.1); TOTAL PROTEIN 7.6 G/DL (5.7-8.2)
== END ==
LOC: M LAB 10:11
PROVIDERS: ATTEND Nurse Practitioner Family
DX: E78.2 Mixed hyperlipidemia (principal)

== ENCOUNTER → 2024-06-25 | Outpatient (REF) | payer MEDICARE, MEDICAID ==
[2024-06-25 17:56] LABS: APPEARANCE, URINE CLOUDY (CLEAR); BACTERIA, URINE AUTO NEGATIVE (NEGATIVE); BILIRUBIN, URINE AUTO NEGATIVE (NEGATIVE); BLOOD, URINE BLOOD NEGATIVE (NEGATIVE); COLOR, URINE YELLOW (YELLOW); GLUCOSE, URINE (UA) AUTO NEGATIVE (NEGATIVE); KETONE, URINE AUTO NEGATIVE (NEGATIVE); LEUKOCYTE ESTERASE, URINE AUTO 3+ (NEGATIVE); NITRITE, URINE AUTO NEGATIVE (NEGATIVE); PROTEIN, URINE AUTO NEGATIVE (NEGATIVE); RBC, URINE AUTO 0 /HPF (0-3); SPECIFIC GRAVITY URINE AUTO 1.014 (1.002-1.035); SQUAMOUS EPITHELIAL CELL UR AU 5 /HPF (0-6); UROBILINOGEN, URINE AUTO 0.2 mg/dL (0.0-2.0); WBC, URINE AUTO 173 /HPF (0-3)
== END ==
LOC: M LABDRWAD 16:57
PROVIDERS: ATTEND Nurse Practitioner Family
DX: R30.0 Dysuria (principal)

== ENCOUNTER → 2024-07-02 | Outpatient (CLI) | payer MEDICAID, MEDICARE ==
[~2024-07-02] MED LIST changes: +PRED10TA2 PO; +SULF1TAB23 PO
[2024-07-02 10:26] LABS: CREATININE FOR GFR 1.59 MG/DL (0.55-1.30); GLOMERULAR FILTRATION RATE 36.4 (>51)
== END ==
LOC: M LAB 09:32
PROVIDERS: ATTEND Nurse Practitioner Family
DX: R93.422 Abnormal radiologic findings on diagnostic imaging of left kidney (principal)

== ENCOUNTER 2024-07-07 07:57 | Emergency (ER) | payer MEDICARE ==
[~2024-07-07] VITALS: Ht 157.5 cm; Wt 51.1 kg
[~2024-07-07 07:57] MED LIST changes: -PRED10TA2 PO; -SULF1TAB23 PO
[2024-07-07 08:40] LABS: BASO % 0.2 % (0.0-1.0); EOS # 0.1 10^3/uL (0.0-0.5); EOS % 1.4 % (0.0-3.0); HEMOGLOBIN 11.2 g/dl (12.0-15.5); LYMPH # 0.7 10^3/uL (1.5-5.0); LYMPH % 16.2 % (24.0-44.0); MEAN CORPUSCULAR HEMOGLOBIN 28.9 pg (27.0-33.0); MEAN CORPUSCULAR HGB CONC 32.9 g/dl (32.0-36.5); MEAN CORPUSCULAR VOLUME 87.6 fl (80.0-96.0); MONO # 0.4 10^3/uL (0.0-0.8); MONO % 8.2 % (2.0-8.0); NEUTROPHILS # 3.2 10^3/uL (1.5-8.5); NEUTROPHILS % 73.8 % (36.0-66.0); PLATELET COUNT, AUTOMATED 190 10^3/uL (150-450); RED BLOOD COUNT 3.88 10^6/uL (4.00-5.40); WHITE BLOOD COUNT 4.4 10^3/uL (4.0-10.0)
[2024-07-07 08:45] LABS: KETONE, URINE AUTO RFX NEGATIVE (NEGATIVE)
[2024-07-07 08:46] LABS: LEUKOCYTE ESTERASE UR AUTO RFX 3+ (NEGATIVE)
[2024-07-07 09:02] LABS: LIPASE 39 U/L (12-53)
[2024-07-07 09:03] LABS: AMYLASE 55 U/L (30-118)
[2024-07-07 09:04] LABS: ALBUMIN 3.2 G/DL (3.2-5.2); ALKALINE PHOSPHATASE 68 U/L (35-104); ALT/SGPT 12 U/L (7.0-40); AST/SGOT 13 U/L (<34); BILIRUBIN,DIRECT < 0.1 MG/DL (<0.4); BILIRUBIN,TOTAL 0.3 MG/DL (0.3-1.2); BLOOD UREA NITROGEN 23 MG/DL (9-23); CALCIUM LEVEL 9.4 MG/DL (8.5-10.1); CARBON DIOXIDE LEVEL 23 MMOL/L (20-31); CHLORIDE LEVEL 115 MMOL/L (98-107); GLUCOSE, FASTING 91 MG/DL (60-100); POTASSIUM SERUM 3.8 MMOL/L (3.5-5.1); SODIUM LEVEL 149 MMOL/L (136-145); TOTAL PROTEIN 6.9 G/DL (5.7-8.2)
[2024-07-07 09:11] LABS: INR 0.98; PARTIAL THROMBOPLASTIN TIME 24.5 SECONDS (24.8-34.2); PROTHROMBIN TIME 13.3 SECONDS (12.5-14.5)
[2024-07-07] MEDS: NS 500 ML IV ONE (10:10)
[2024-07-07] MEDS ORDERED: SULF1TAB23 PO (11:34)
[2024-07-07] MEDS ORDERED: PRED10TA2 PO (11:34)
[2024-07-07 12:12] VITALS: BP 120/65; TEMP 99.2; O2SAT 100
== END 2024-07-07 12:16 | disposition home or self-care (01) ==
LOC: M ED 07:57
DX: N30.00 Acute cystitis without hematuria (principal); I10 Essential (primary) hypertension; M32.9 Systemic lupus erythematosus, unspecified; Z79.899 Other long term (current) drug therapy; Z88.1 Allergy status to other antibiotic agents; Z88.8 Allergy status to other drugs, medicaments and biological substances

== ENCOUNTER → 2024-08-28 | Outpatient (CLI) | payer MEDICARE ==
[~2024-08-28] MED LIST changes: +PRED10TA2 PO; +SULF1TAB23 PO
[2024-08-28 13:49] LABS: BLOOD UREA NITROGEN 18 MG/DL (9-23); CALCIUM LEVEL 9.5 MG/DL (8.5-10.1); CARBON DIOXIDE LEVEL 29 MMOL/L (20-31); CHLORIDE LEVEL 107 MMOL/L (98-107); CREATININE FOR GFR 0.99 MG/DL (0.55-1.30); GLOMERULAR FILTRATION RATE > 60.0 (>51); GLUCOSE, FASTING 87 MG/DL (60-100); POTASSIUM SERUM 3.9 MMOL/L (3.5-5.1); SODIUM LEVEL 144 MMOL/L (136-145)
== END ==
LOC: M LAB 10:23
PROVIDERS: ATTEND Nurse Practitioner Family
DX: N17.9 Acute kidney failure, unspecified (principal)

== ENCOUNTER → 2024-09-04 | Outpatient (CLI) | payer MEDICARE, MEDICAID | LOC: M RAD 10:27 | DX: N17.9 Acute kidney failure, unspecified (principal) ==

== ENCOUNTER → 2024-10-10 | Outpatient (CLI) | payer MEDICARE, MEDICAID | LOC: M RAD 09:47 | PROVIDERS: ATTEND Nurse Practitioner Family | DX: R06.02 Shortness of breath (principal) ==

== ENCOUNTER 2024-10-16 08:05 | Emergency (ER) | payer MEDICARE, MEDICAID ==
[~2024-10-16] VITALS: Ht 160 cm; Wt 53.2 kg
[2024-10-16] MEDS: KETOROLAC 30 MG/ML 1ML VIAL IV ONE (09:56)
[2024-10-16 11:45] VITALS: BP 103/54
[2024-10-16] MEDS ORDERED: KETO10TAB PO (11:48)
[2024-10-16 11:50] VITALS: O2SAT 96
[2024-10-16 11:54] VITALS: TEMP 98.1
== END 2024-10-16 12:14 | disposition home or self-care (01) ==
LOC: M ED 08:05
DX: R07.89 Other chest pain (principal); I10 Essential (primary) hypertension; M32.9 Systemic lupus erythematosus, unspecified; Z87.891 Personal history of nicotine dependence; Z88.1 Allergy status to other antibiotic agents; Z88.8 Allergy status to other drugs, medicaments and biological substances; Z79.899 Other long term (current) drug therapy; Z79.83 Long term (current) use of bisphosphonates; Z79.52 Long term (current) use of systemic steroids
CPT/HCPCS: 71045; 87486; 87581; 87633; 87798; 93005; 96374; 99284; J1885

== ENCOUNTER → 2024-11-12 | Outpatient (REF) | payer MEDICARE, MEDICAID ==
[~2024-11-12] MED LIST changes: -FLOM0.4C39 PO; +PRED-1142 PO; -PRED1TABL PO; +TAMS-18 PO
== END ==
LOC: M LAB REF 17:25
PROVIDERS: ATTEND Nurse Practitioner Family
DX: R05.9 Cough, unspecified (principal); Z79.899 Other long term (current) drug therapy

== ENCOUNTER → 2024-11-15 | Outpatient (CLI) | payer MEDICARE, MEDICAID | LOC: M ADAMS 13:17 | PROVIDERS: ATTEND Nurse Practitioner Family | DX: R05.9 Cough, unspecified (principal) ==

== ENCOUNTER → 2025-01-27 | Outpatient (CLI) | payer MEDICARE, MEDICAID | LOC: M RAD 10:34 | PROVIDERS: ATTEND Nurse Practitioner Family | DX: R05.9 Cough, unspecified (principal); R91.8 Other nonspecific abnormal finding of lung field ==

== ENCOUNTER → 2025-02-21 | Outpatient (CLI) | payer MEDICARE, MEDICAID ==
[~2025-02-21] MED LIST changes: +ISOVUE-300 61% 100 ML VIAL As Ordered ONE; +LIDOCAINE 1% MDV 20 ML VIAL As Ordered ONE; +methylPREDNISolone SUSP 40 MG/ML 1 ML VIAL As Ordered ONE
== END ==
LOC: M RAD 14:26
PROVIDERS: ATTEND Orthopaedic Surgery
DX: M25.552 Pain in left hip (principal)
CPT/HCPCS: 20610; 77002; J0665; J1010; Q9967

== ENCOUNTER → 2025-04-08 | Outpatient (CLI) | payer MEDICARE, MEDICAID ==
[~2025-04-08] MED LIST changes: -IBUP-1022 PO; +IBUP600T42 PO; -ISOVUE-300 61% 100 ML VIAL As Ordered ONE; -LIDOCAINE 1% MDV 20 ML VIAL As Ordered ONE; -methylPREDNISolone SUSP 40 MG/ML 1 ML VIAL As Ordered ONE
== END ==
LOC: M SOG 07:18
PROVIDERS: ATTEND Orthopaedic Surgery
DX: M25.552 Pain in left hip (principal); M16.12 Unilateral primary osteoarthritis, left hip

== ENCOUNTER → 2025-05-23 | Outpatient (CLI) | payer MEDICARE, MEDICAID ==
[~2025-05-23] MED LIST changes: +ISOVUE-300 61% 100 ML VIAL As Ordered ONE; +methylPREDNISolone SUSP 40 MG/ML 1 ML VIAL As Ordered ONE
== END ==
LOC: M RAD 14:09
PROVIDERS: ATTEND Orthopaedic Surgery
DX: M16.12 Unilateral primary osteoarthritis, left hip (principal); M54.50 Low back pain, unspecified
CPT/HCPCS: 20610; 36415; 77002; 82565; J0665; J1010; Q9967

== ENCOUNTER → 2025-05-23 | Outpatient (CLI) | payer MEDICARE, MEDICAID ==
[~2025-05-23] MED LIST changes: -ISOVUE-300 61% 100 ML VIAL As Ordered ONE; -methylPREDNISolone SUSP 40 MG/ML 1 ML VIAL As Ordered ONE
[2025-05-23 09:48] LABS: CREATININE FOR GFR 0.83 MG/DL (0.55-1.30); GLOMERULAR FILTRATION RATE 84.8 (>51)
== END ==
LOC: M LAB 08:34
PROVIDERS: ATTEND Orthopaedic Surgery
DX: M54.50 Low back pain, unspecified (principal)

== ENCOUNTER → 2025-06-02 | Outpatient (CLI) | payer MEDICARE, MEDICAID ==
[~2025-06-02] MED LIST changes: -BACTDSTA; +SULF-7 PO; +SULF-8; -SULF1TAB23 PO
== END ==
LOC: M WHC 07:43
PROVIDERS: ATTEND Physician Assistant
DX: M81.0 Age-related osteoporosis without current pathological fracture (principal)

== ENCOUNTER → 2025-06-24 | Outpatient (CLI) | payer MEDICARE, MEDICAID ==
[2025-06-24 13:03] LABS: BASO # 0.0 10^3/uL (0.0-0.2); BASO % 0.3 % (0.0-1.0); EOS # 0.0 10^3/uL (0.0-0.5); EOS % 0.9 % (0.0-3.0); LYMPH # 0.8 10^3/uL (1.5-5.0); LYMPH % 23.5 % (24.0-44.0); MONO # 0.4 10^3/uL (0.0-0.8); MONO % 11.3 % (2.0-8.0); NEUTROPHILS # 2.1 10^3/uL (1.5-8.5); NEUTROPHILS % 64.0 % (36.0-66.0); PLATELET COUNT, AUTOMATED 158 10^3/uL (150-450)
[2025-06-24 13:25] LABS: ALT/SGPT 15 U/L (7.0-40); AST/SGOT 29 U/L (<34); CALCIUM LEVEL 8.8 MG/DL (8.5-10.1); CARBON DIOXIDE LEVEL 28 MMOL/L (20-31); CHLORIDE LEVEL 110 MMOL/L (98-107); CHOLESTEROL LEVEL 205 MG/DL (<200); CHOLESTEROL RISK RATIO 3.39 (<5); CREATININE FOR GFR 0.75 MG/DL (0.55-1.30); GLOMERULAR FILTRATION RATE > 90.0 (>51); LDL CHOLESTEROL 120.0 MG/DL (<100); NON-HDL-C 144.6 MG/DL; POTASSIUM SERUM 4.5 MMOL/L (3.5-5.1); SODIUM LEVEL 142 MMOL/L (136-145); TRIGLYCERIDES LEVEL 123 MG/DL (<150)
== END ==
LOC: M LAB 11:55
PROVIDERS: ATTEND Nurse Practitioner Family
DX: I10 Essential (primary) hypertension (principal); E78.2 Mixed hyperlipidemia